=== PATIENT | female | born 1940 | race Caucasian/White ===

== ENCOUNTER → 2017-08-21 | Outpatient (CLI) | payer MEDICARE | LOC: BICRAD 10:53 → MERGE 10:53 | PROVIDERS: ATTEND Family Medicine | DX: M54.5 Low back pain (principal); M47.896 Other spondylosis, lumbar region | CPT/HCPCS: 72100 ==

== ENCOUNTER 2018-02-26 12:03 | Outpatient (CLI) | payer MEDICARE | END 2018-02-26 12:04 | disposition home or self-care (01) | LOC: BICMAMMO 12:03 → MERGE 12:30 | PROVIDERS: ATTEND Family Medicine | DX: Z12.31 Encounter for screening mammogram for malignant neoplasm of breast (principal); R92.1 Mammographic calcification found on diagnostic imaging of breast; Z85.3 Personal history of malignant neoplasm of breast | CPT/HCPCS: 77063; 77067 ==

== ENCOUNTER 2018-04-10 13:20 | Outpatient (CLI) | payer MEDICARE | END 2018-04-10 13:21 | disposition home or self-care (01) | LOC: BICMRI 13:20 | PROVIDERS: ATTEND Orthopaedic Surgery | DX: M25.552 Pain in left hip (principal); M16.12 Unilateral primary osteoarthritis, left hip; K57.30 Diverticulosis of large intestine without perforation or abscess without bleeding ==

== ENCOUNTER 2018-06-26 12:42 | Outpatient (CLI) | payer MEDICARE ==
--- NOTE | 2018-06-26 15:51 | RAD ---
LUMBAR SPINE FOUR VIEWS: 06/26/18 HISTORY: 77-year-old female with history of lumbar radiculopathy with left hip pain for one year. Exam includes standing flexion and extension lateral views. There is some moderate dextroscoliosis of the mid thoracic vertebral column with fairly extensive fac et arthrosis and disc osteophytosis. No significant abnormal andrade or retrolisthesis or abnormal tra nslation between flexion and extension. Heterogeneous bone demineralization. IMPRESSION: Dextroscoliosis. Fairly extensive spondylosis. No abnormal translation be between flexion and extensi on. POS: [facility]
== END 2018-06-26 12:43 | disposition home or self-care (01) ==
LOC: TBSIIMAG 12:42
PROVIDERS: ATTEND Neurological Surgery
DX: M47.26 Other spondylosis with radiculopathy, lumbar region (principal); M41.9 Scoliosis, unspecified
CPT/HCPCS: 72110

== ENCOUNTER 2018-07-17 12:14 | Outpatient (CLI) | payer MEDICARE ==
--- NOTE | 2018-07-17 14:54 | MRI ---
MRI LUMBAR SPINE WITHOUT CONTRAST: Multiplanar, multisequential imaging lumbar spine obtained. INDICATION: Lumbar stenosis. Lumbar pain. Neurogenic claudication. COMPARISON: Comparison is made to MRI lumbar spine 08/21/2017. FINDINGS: The lumbar vertebrae maintain height. Alignment is unchanged from prior study. Mild retrolisthesis at L1-2 is unchanged. Degenerative osteophytes from the lumbar vertebrae and degenerative disk aldana es at all levels again noted without significant interval change. At T12-L1, there is a broad-based focal protrusion paracentrally on the left indenting the anterior t hecal sac on the left. No cord impingement. At L1-2, broad-based disk protrusion with annular tear flattening the thecal sac. Facet and ligament ous hypertrophy. Moderate central canal stenosis. At L2-3, diffuse disk bulge flattens the thecal s ac. Facet and ligamentous hypertrophy. Posterior epidural fat. These changes result in moderate ce ntral canal stenosis. At L3-4, broad-based disk bulge. Facet and ligamentous hypertrophy with posterior epidural fat resul ts in moderate central canal stenosis. Foramina narrowing bilaterally, slightly more prominent on th e left. At L4-5, broad-based disk bulge. Prominent posterior hypertrophic change. Moderate to severe centra l canal stenosis. Left foraminal stenosis due to disk bulge and left facet hypertrophy. At L5-S1, annular fissure with central disk protrusion flattening the thecal sac and displacing both traversing S1 nerve roots, more prominent on the right. Facet hypertrophy. Moderate central canal s tenosis. Right foraminal stenosis secondary to asymmetric disk-osteophyte complex projecting into th e right foramina and probably displacing the exiting right L5 nerve root. IMP: Multilevel degenerative disk changes with central canal and foraminal encroachment as described above . Not significantly changed from 08/2017. POS: [facility]
== END 2018-07-17 12:15 | disposition home or self-care (01) ==
LOC: BICMRI 12:14
PROVIDERS: ATTEND Neurological Surgery
DX: M48.062 Spinal stenosis, lumbar region with neurogenic claudication (principal); M47.816 Spondylosis without myelopathy or radiculopathy, lumbar region; M51.36 Other intervertebral disc degeneration, lumbar region; M48.07 Spinal stenosis, lumbosacral region
CPT/HCPCS: 72148

== ENCOUNTER 2018-08-22 11:49 | Outpatient (CLI) | payer MEDICARE ==
--- NOTE | 2018-08-22 13:50 | RAD ---
TWO VIEWS CHEST: Date: 08-22-18 Provided Clinical History: Bronchitis. FINDINGS: Comparison is made with the study dated 10-24-16. Cardiac and mediastinal silhouette is unchanged in appearance. Calcified granuloma right lung base ag ain seen. No focal consolidation, pleural fluid, or pneumothorax apparent. Degenerative changes are s een involving the thoracic spine. IMPRESSION: Stable radiographic appearance of the chest. POS: [facility]
== END 2018-08-22 11:50 | disposition home or self-care (01) ==
LOC: BICRAD 11:49
PROVIDERS: ATTEND Family Medicine
DX: J45.901 Unspecified asthma with (acute) exacerbation (principal)
CPT/HCPCS: 71046

== ENCOUNTER 2019-03-02 14:47 | Outpatient (CLI) | payer MEDICARE ==
--- NOTE | 2019-03-02 17:36 | MMO ---
Bilateral MAMMO Bilat Screen [facility]. CLINICAL HISTORY: Patient is 78 years old and is seen for screening. The patient has no family history of breast cancer. The patient has a history of malignant (generic) 2011. The patient has a history of right Mastectomy in 2010 - malignant and right Implants - benign. VIEWS: The views performed were: left craniocaudal with tomosynthesis and left mediolateral oblique with tomosynthesis. FILMS COMPARED: The present examination has been compared to prior imaging studies performed at [facility] on 12/09/2014, 01/18/2016, 02/04/2017 and 02/26/2018. MAMMOGRAM FINDINGS: There are scattered fibroglandular densities. There are no suspicious masses, suspicious calcifications, or new areas of architectural distortion. IMPRESSION: THERE IS NO MAMMOGRAPHIC EVIDENCE OF MALIGNANCY. A ROUTINE FOLLOW-UP MAMMOGRAM IN 1 YEAR IS RECOMMENDED. THE RESULTS OF THIS EXAM WERE SENT TO THE PATIENT. ACR BI-RADS Category 1 - Negative MAMMOGRAPHY NOTE: 1. A negative mammogram report should not delay a biopsy if a dominant of clinically suspicious mass is present. 2. Approximately 10% to 15% of breast cancers are not detected by mammography. 3. Adenosis and dense breasts may obscure an underlying neoplasm.
== END 2019-03-02 14:48 | disposition home or self-care (01) ==
LOC: BICMAMMO 14:47
PROVIDERS: ATTEND Family Medicine
DX: Z12.31 Encounter for screening mammogram for malignant neoplasm of breast (principal); Z98.82 Breast implant status; Z85.3 Personal history of malignant neoplasm of breast; Z90.11 Acquired absence of right breast and nipple
CPT/HCPCS: 77063; 77067

== ENCOUNTER 2019-05-11 14:14 | Outpatient (CLI) | payer MEDICARE ==
[2019-05-11 15:19] LABS: Hemoglobin 13.6 g/dL (12.0-16.0); Mean Corpuscular HGB CONC 34.1 g/dL (32.0-36.0); Mean Corpuscular Hemoglobin 29.2 pg (27.0-31.0); Mean Corpuscular Volume 85.4 fL (78.0-98.0); Mean Platelet Volume 6.9 fL (7.4-10.4); Platelet Count 202 thou/uL (130-400); RBC Distribution Width 12.8 % (11.5-14.5); Red Blood Cell (RBC) Count 4.68 mill/uL (4.20-5.40)
[2019-05-11 15:26] LABS: PTT 27.9 SEC (22.9-36.1); Prothrombin Time 13.5 SEC (12.0-14.7)
[2019-05-11 15:40] LABS: Anion Gap 11 mmol/L (10-20); BUN (Urea Nitrogen) 16 mg/dL (9.8-20.1); Calc. Creatinine Clearance 0 mL/min (70-130); Calcium 9.1 mg/dL (7.8-10.44); Carbon Dioxide 27 mmol/L (23-31); Chloride 105 mmol/L (98-107); Estimated GFR-MDRD 66; Glucose 95 mg/dL (83-110); Potassium 3.8 mmol/L (3.5-5.1); Sodium 139 mmol/L (136-145)
--- NOTE | 2019-05-11 16:53 | EKG ---
Test Reason : Blood Pressure : / mmHG Vent. Rate : 060 BPM Atrial Rate : 060 BPM P-R Int : 182 ms QRS Dur : 108 ms QT Int : 476 ms P-R-T Axes : 083 -38 049 degrees QTc Int : 476 ms Normal sinus rhythm Non-specific intra-ventricular conduction delay Cannot exclude Anterior infarct , age undetermined Left axis deviation Abnormal ECG Confirmed by ADI PATIRCIO ([id number]) on 05/11/2019 4:53:26 PM Referred By: RJ Confirmed By:ADI PATRICIO
== END 2019-05-11 14:15 | disposition home or self-care (01) ==
LOC: LABBT 14:14
PROVIDERS: ATTEND Neurological Surgery
DX: Z01.818 Encounter for other preprocedural examination (principal); M48.062 Spinal stenosis, lumbar region with neurogenic claudication
CPT/HCPCS: 80048; 85027; 85610; 85730; 93005; 93010

== ENCOUNTER 2019-05-12 05:47 | Day surgery (SDC) | payer MEDICARE ==
--- NOTE | 2019-05-08 13:35 | HP ---
HISTORY OF PRESENT ILLNESS: Ms. Gandhi is back in our office. She has seen Dr. Madera, has had AYANNA with Dr. Almendarez and completed formal eight weeks of physical therapy. The back and posterior leg pain are terrible. When she stands, the pain starts and gets worse, sitting makes it better. There is some pain in the right, but most is radiating down the posterior left thigh into the lateral calf. There is no permanent numbness nor weakness. She has some long-standing incontinence. There are other areas of pain, though the left greater trochanteric bursa is tender and the iliotibial band is tight. There is left groin pain as well. States that she cannot walk very far nor get through washing the dishes without having to sit. Symptoms are due to weakness as well. REVIEW OF SYSTEMS: A 10-point review of systems has been completed and is negative other than stated in the above HPI. PAST MEDICAL HISTORY: Hypertension, atrial fibrillation, depression, anxiety, breast cancer, history of pulmonary embolus, obesity, IBS, GERD, arthritis, knee, low back pain, hearing loss, osteopenia, history of lung granulomas. ALLERGIES: SULFA, PENICILLIN, HYDROCODONE, ACETAMINOPHEN, NORVASC, CORTISONE INJECTIONS, LEVAQUIN. PAST SURGICAL HISTORY: Knee arthroscopy, laparoscopy, umbilical hernia repair, laminectomy, cervical hysterectomy, cholecystectomy, right knee replacement, colonoscopy, right mastectomy. FAMILY HISTORY: Father is . Mother is . Cardiovascular accident. SOCIAL HISTORY: The patient is a nonsmoker. Denies alcohol or drug use. Lives with her spouse. and has four children. MEDICATIONS: 1. Montelukast. 2. ProAir. 3. Protonix. 4. Symbicort. 5. Albuterol. 6. Eliquis. 7. . 8. Losartan. 9. Bupropion. 10. Bystolic. 11. Potassium chloride. 12. Vitamin D3. 13. Magnesium. 14. Lasix. PHYSICAL EXAMINATION: CONSTITUTION: The patient is alert and oriented. No visible distress. RESPIRATIONS: Normal work of breathing on room air. Symmetric chest rise. NEUROLOGIC: Gait and station; gait and station are normal. Motor exam, there is normal strength in iliopsoas, quadriceps, hamstrings, anterior tibialis, EHL, gastroc, and toe flexors. No sensory changes. IMAGING: MRI stenosis L2-L3, L3-L4, L4-L5, disk herniation L5-S1, small amount of motion at L4-L5 . ASSESSMENT AND PLAN: Lumbar stenosis with neurogenic claudication. Dr. Tan has discussed laminectomy and diskectomy and fusion, however, the patient has decided to forego fusion at this point. Laminectomy L2 through L5 with an L5-S1 diskectomy. The patient states that she understands the risks of surgery and is willing to proceed. Job ID: [id number]
[2019-05-11 14:21] VITALS: BMI 33.8
[2019-05-12] MEDS ORDERED: Thrombin 5000 UNITS/5 ML VIAL ONE (06:18)
[2019-05-12] MEDS ORDERED: Bupivacaine HCl 0.5%/Epinephrine 1:200,000/PF 30 ml Vial ONE (06:18)
[2019-05-12] MEDS ORDERED: Sodium Chloride 0.9% 20 ML ONE (06:18)
[2019-05-12] MEDS ORDERED: Fentanyl 100 MCG/2 ML VIAL ONE ×3 (06:24→11:20)
[2019-05-12] MEDS ORDERED: SUGAMMADEX SODIUM 200 MG/2 ML VIAL ONE (06:25)
[2019-05-12] MEDS ORDERED: Famotidine/PF 20 mg/2ml Vial ONE (06:25)
[2019-05-12] MEDS ORDERED: ePHEDrine/0.9% NaCl/PF SYRINGE 50 mg/10 ml ONE (09:34)
[2019-05-12] MEDS ORDERED: PHENYLEPHRINE-NS 100 MCG/ML 10 ML SYRINGE ONE ×2 (09:42→15:15)
[2019-05-12] MEDS ORDERED: Promethazine HCl 25 MG/ML VIAL SLOW IVP PRN (10:24)
[2019-05-12] MEDS ORDERED: Ondansetron HCl/PF 4 MG/2 ML Vial IVP PRN (10:24)
[2019-05-12] MEDS ORDERED: Meperidine HCl/PF 25 MG/ML VIAL SLOW IVP PRN (10:24)
--- NOTE | 2019-05-12 10:43 | OP ---
DATE OF PROCEDURE: 05/12/2019 RECREATION FACILITY ATTENDANT: Celena Arana PA-C. PREOPERATIVE INDICATION: Treat pain and prevent neurological deterioration. PREOPERATIVE DIAGNOSES: 1. Multilevel lumbar stenosis with neurogenic claudication. 2. Intervertebral disk protrusion, right L5-S1. POSTOPERATIVE DIAGNOSES: 1. Multilevel lumbar stenosis with neurogenic claudication. 2. Intervertebral disk protrusion, right L5-S1. PROCEDURES PERFORMED: 1. Decompressive laminectomy. 2. Medial facetectomy. 3. Foraminotomy, L2-L3, L3-L4, L4-L5, L5-S1. 4. Microdiskectomy, right L5-S1. PREOPERATIVE MEDICATION: Ancef 2 g IV. DRAIN NUMBER: Zero. DRAIN TYPE: None. DESCRIPTION OF PROCEDURE: The patient was brought to the operating room. General endotracheal anesthesia was induced. The patient was positioned prone on the operating table with her chest and hips supported by gel-filled chest rolls. A lateral fluoro-radiograph was used to plan our incision. The lumbar skin was sterilely prepped and draped and we opened with a 10 blade knife. We controlled bleeding with bipolar and monopolar cautery. We used monopolar cautery to dissect through subcutaneous tissues to the thoracodorsal fascia. We incised the fascia in the midline and reflected the paraspinal muscles off the spinous process and lamina of L2, L3, L4, L5, and S1. Self-retaining retractors were placed and a lateral fluoro-radiograph confirmed the levels, upon which we were operating. We then used an Adson rongeur to remove spinous processes from L2 to the top of the sacrum. Using a Kerrison rongeur, we fashioned a laminectomy down the midline. Starting on the right side and then on the left, we widened our laminectomy defect by performing medial facetectomies and foraminotomies. We ensured that a Scott ball probe could pass through each lateral recess and out the foramen with the L2, L3, L4, L5, and S1 nerve roots bilaterally. We then turned our attention to the disk at L5-S1 and to some extent of connective tissue stenosis of the left L3-L4 foramen. We brought the operating microscope into the field. Under microscopic magnification using microsurgical techniques, we carefully removed connective tissue from the left L3-L4 foramen until the L3 nerve root was widely decompressed on the left side. On the right at L5-S1, we gently retracted the thecal sac medially. We found a protruding disk in the ventral epidural space. However, the disk was densely calcified and same strength and consistency of bone. Because the S1 nerve root was well decompressed in the lateral recess and easily passed through the lateral recess and out the foramen without any stretch, we elected not to drill away the calcified disk protrusion. We irrigated copiously with bacitracin irrigation. We waxed the bone edges. We treated the wound with vancomycin powder and we closed in anatomical layers. This was a clean case, no contamination. Job ID: [id number]
[2019-05-12] MEDS ORDERED: Morphine 4 MG/ML VIAL ONE (11:34)
[2019-05-12] MEDS ORDERED: Acetaminophen/Codeine 30-300mg Tablet ONE (14:44)
[2019-05-12] MEDS ORDERED: diphenhydrAMINE 25 MG CAP ONE (14:44)
[2019-05-12] MEDS ORDERED: Rocuronium Bromide 10 MG/ML (10ML VIAL) ONE (15:15)
[2019-05-12] MEDS ORDERED: Dexamethasone 20 MG/5 ML VIAL ONE (15:15)
[2019-05-12] MEDS ORDERED: Ondansetron PF 4 MG/2 ML Vial ONE (15:15)
[2019-05-12] MEDS ORDERED: Ketorolac Tromethamine 30 MG/ML VIAL ONE (15:15)
[2019-05-12] MEDS ORDERED: ePHEDrine 50 MG/ML VIAL ONE (15:15)
[2019-05-12] MEDS ORDERED: Metoclopramide HCl 10 MG/2 ML VIAL ONE (15:15)
[2019-05-12] MEDS ORDERED: PROPOFOL 200 MG/20 ML VIAL ONE (15:15)
== END 2019-05-12 17:09 | disposition home or self-care (01) ==
LOC: SDC 05:47
PROVIDERS: ATTEND Neurological Surgery
PROC: 01NB0ZZ Release Lumbar Nerve, Open Approach (ICD-10-PCS; principal; 2019-05-12)
DX: M48.062 Spinal stenosis, lumbar region with neurogenic claudication (principal); M51.27 Other intervertebral disc displacement, lumbosacral region; I10 Essential (primary) hypertension; I48.91 Unspecified atrial fibrillation; F41.9 Anxiety disorder, unspecified; F32.9 Major depressive disorder, single episode, unspecified; K58.9 Irritable bowel syndrome, unspecified; E66.9 Obesity, unspecified; K21.9 Gastro-esophageal reflux disease without esophagitis; M19.90 Unspecified osteoarthritis, unspecified site; Z68.33 Body mass index [BMI] 33.0-33.9, adult; Z88.0 Allergy status to penicillin; Z88.2 Allergy status to sulfonamides; Z88.5 Allergy status to narcotic agent; Z88.8 Allergy status to other drugs, medicaments and biological substances; Z79.01 Long term (current) use of anticoagulants; Z79.899 Other long term (current) drug therapy
CPT/HCPCS: 76000; J0131; J0670; J1100; J1885; J2270; J2405; J2704; J2765; J3010; J3370; J3490; Q0163; S0028

== ENCOUNTER 2019-11-10 21:02 | Emergency (ER) | payer MEDICARE ==
--- NOTE | 2019-11-10 21:35 | RAD ---
XR Chest 1 View Portable HISTORY: Dyspnea COMPARISON: 04/07/2017 study FINDINGS: Heart size is within normal limits there are atherosclerotic changes of aorta. Chronic lung changes are seen. IMPRESSION: Chronic lung change. No acute process.
[2019-11-10 21:41] LABS: #Eosinphils 0.4 thou/uL (0.0-0.7); #Lymphocytes 1.7 thou/uL (1.20-3.40); #Monocytes 0.4 thou/uL (0.11-0.59); #Neutrophils 4.6 thou/uL (1.40-6.50); %Basophils 0.5 % (0.0-1.0); %Eosinophils 6.1 % (0.0-10.0); %Lymphocytes 23.5 % (21.0-51.0); %Monocytes 6.1 % (0.0-10.0); %Neutrophils 63.9 % (42.0-75.0); Mean Corpuscular HGB CONC 32.7 g/dL (32.0-36.0); Mean Corpuscular Hemoglobin 26.9 pg (27.0-31.0); Mean Corpuscular Volume 82.3 fL (78.0-98.0); Mean Platelet Volume 7.7 fL (7.4-10.4); Platelet Count 220 thou/uL (130-400); RBC Distribution Width 14.5 % (11.5-14.5); Red Blood Cell (RBC) Count 5.21 mill/uL (4.20-5.40); White Blood Cell (WBC) Count 7.2 thou/uL (4.8-10.8)
[2019-11-10 22:00] LABS: ALT (SGPT) 21 U/L (8-55); AST (SGOT) 16 U/L (5-34); Albumin 4.1 g/dL (3.4-4.8); Alkaline Phosphatase 82 U/L (40-110); Anion Gap 17 mmol/L (10-20); BUN (Urea Nitrogen) 18 mg/dL (9.8-20.1); Bilirubin, Total 0.5 mg/dL (0.2-1.2); Calc. Creatinine Clearance 0 mL/min (70-130); Calcium 9.5 mg/dL (7.8-10.44); Carbon Dioxide 23 mmol/L (23-31); Chloride 104 mmol/L (98-107); Estimated GFR-MDRD 41; Globulin 2.7 g/dL (2.4-3.5); Glucose 197 mg/dL (83-110); Potassium 4.5 mmol/L (3.5-5.1); Protein, Total 6.8 g/dL (6.0-8.3); Sodium 139 mmol/L (136-145)
[2019-11-10] MEDS ORDERED: Ipratropium Bromide 2.5 ml Neb ONE ×2 (22:02→23:20)
[2019-11-10] MEDS ORDERED: Albuterol Sulfate 2.5 mg/0.5 ml Neb ONE ×2 (22:12→23:20)
[2019-11-10] MEDS ORDERED: predniSONE 20 MG TAB ONE (22:12)
== END 2019-11-10 23:34 | disposition home or self-care (01) ==
LOC: ERS 21:02
DX: J44.1 Chronic obstructive pulmonary disease with (acute) exacerbation (principal); K21.9 Gastro-esophageal reflux disease without esophagitis; I48.91 Unspecified atrial fibrillation; I10 Essential (primary) hypertension; F32.9 Major depressive disorder, single episode, unspecified; Z86.711 Personal history of pulmonary embolism; Z87.891 Personal history of nicotine dependence; Z79.899 Other long term (current) drug therapy
CPT/HCPCS: 71045; 80053; 83880; 84484; 85025; 87804; 93005; J7512; J7611

== ENCOUNTER 2020-06-24 18:07 | Inpatient (IN) | payer MEDICARE, OTHER ==
[~2020-06-24 18:07] MED LIST: Iopamidol-370 76% 500 ML 1 ML ONE; Succinylcholine 200 MG/10 ml SYRINGE FS ONE
[2020-06-24 18:48] LABS: #Monocytes 0.4 thou/uL (0.11-0.59); #Neutrophils 10.6 thou/uL (1.40-6.50); %Basophils 0.2 % (0.0-1.0); %Eosinophils 0.3 % (0.0-10.0); %Lymphocytes 8.5 % (21.0-51.0); %Monocytes 2.9 % (0.0-10.0); Hemoglobin 15.2 g/dL (12.0-16.0); Mean Corpuscular HGB CONC 34.8 g/dL (32.0-36.0); Mean Corpuscular Hemoglobin 30.2 pg (27.0-31.0); Mean Corpuscular Volume 86.8 fL (78.0-98.0); Mean Platelet Volume 7.1 fL (7.4-10.4); Platelet Count 207 thou/uL (130-400); RBC Distribution Width 12.8 % (11.5-14.5); Red Blood Cell (RBC) Count 5.03 mill/uL (4.20-5.40)
[2020-06-24 19:08] LABS: ALT (SGPT) 16 U/L (8-55); AST (SGOT) 14 U/L (5-34); Albumin 4.1 g/dL (3.4-4.8); Alkaline Phosphatase 89 U/L (40-110); Anion Gap 12 mmol/L (10-20); BUN (Urea Nitrogen) 24 mg/dL (9.8-20.1); Bilirubin, Total 0.7 mg/dL (0.2-1.2); Calc. Creatinine Clearance 0 mL/min (70-130); Calcium 9.5 mg/dL (7.8-10.44); Carbon Dioxide 28 mmol/L (23-31); Chloride 105 mmol/L (98-107); Estimated GFR-MDRD 43; Globulin 3.1 g/dL (2.4-3.5); Glucose 173 mg/dL (83-110); Potassium 4.5 mmol/L (3.5-5.1); Protein, Total 7.2 g/dL (6.0-8.3); Sodium 140 mmol/L (136-145)
[2020-06-24] MEDS ORDERED: Ondansetron PF 4 MG/2 ML Vial ONE (19:09)
[2020-06-24] MEDS ORDERED: Morphine 4 MG/ML VIAL ONE ×2 (19:09→19:50)
--- NOTE | 2020-06-24 19:51 | CT ---
CT ABDOMEN AND PELVIS PERFORMED WITH INTRAVENOUS CONTRAST ENHANCEMENT: 06/24/20 HISTORY: Left lower quadrant pain. A right breast prosthesis is partially visualized. Calcified granuloma is seen in the right middle lo be. There are diffuse fatty changes of the liver which is within normal limits of size. Small hypodensity within the right lobe is difficult to characterize. Could be part of the biliary ductal system which is slightly prominent related to cholecystectomy or tiny cysts. The spleen shows calcified granuloma s. The pancreas region shows some mild fatty atrophy. Right and left adrenal glands are normal. Right and left kidneys show lobulated contour. Small hypode nsities compatible with cysts. There are two lower pole left renal calculi noted. There is also mild left sided hydronephrosis and hydroureter related to a 5 to 6 mm left ureteropelvic junction calculu s. The right kidney is slightly malrotated and appears somewhat small. There is no significant periao rtic or mesenteric adenopathy. There is evidence of a previous hernia repair. CT OF PELVIS PERFORMED WITH CONTRAST ENHHANCEMENT: Diverticulosis of the descending and more severe changes of the sigmoid colon are noted. The appendix region shows no evidence of any inflammatory change. The appendix itself is difficult to definitely visualize. IMPRESSION: 1. Mild left sided hydronephrosis related to an approximately 5 mm left ureteropelvic junction c alculus. Lower pole left renal calculi are also demonstrated. 2. Scarring of the right kidney. 3. Fatty change of the liver. 4. Diverticulosis. POS: OFF
[2020-06-24 20:25] LABS: Bacteria/HPF None Seen HPF (None Seen); Bilirubin Negative (Negative); Blood, Urine 2+ (Negative); Clarity Clear (Clear); Glucose, Urine (Dipstick) Normal (Negative); Ketone, Urine Negative (Negative); Leukocyte 500 Leu/uL (Negative); Nitrite Negative (Negative); Protein, Urine (Dipstick) 20 mg/dL (Neg-Trace); RBC/HPF 21-50 HPF (0-3); Squamous Epithelial 0-3 HPF (0-3); Urobilinogen Normal mg/dL (Less than 2); WBC/HPF Greater than 50 HPF (0-3); pH, Urine 5.5 (5.0-9.0)
[2020-06-24 20:26] LABS: Specific Gravity, Urine 1.052 (1.002-1.036)
[2020-06-24] MEDS ORDERED: Promethazine HCl 25 MG/ML VIAL ONE (20:45)
[2020-06-24 22:46] LABS: INR-International Normal Ratio 1.3; PTT 23.2 sec (22.9-36.1); Prothrombin Time 16.5 sec (12.0-14.7)
[2020-06-24 23:06] LABS: Hemoglobin 15.2 g/dL (12.0-16.0); Mean Corpuscular HGB CONC 34.9 g/dL (32.0-36.0); Mean Corpuscular Hemoglobin 30.5 pg (27.0-31.0); Mean Corpuscular Volume 87.5 fL (78.0-98.0); Red Blood Cell (RBC) Count 4.98 mill/uL (4.20-5.40); White Blood Cell (WBC) Count 5.5 thou/uL (4.8-10.8)
[2020-06-24] MEDS ORDERED: Fentanyl 100 MCG/2 ML VIAL ONE (23:26)
[2020-06-24] MEDS ORDERED: fentaNYL Citrate/PF 2,000 MCG in Sodium Chloride 0.9% 60 ML IV SCH (23:30)
[2020-06-24 23:33] LABS: Band 43 % (5-11); Lymphocytes 8 % (21-51); MDiff Complete? YES; Mean Platelet Volume 6.7 fL (7.4-10.4); Neutrophil 48 % (42-75); Platelet Count 102 thou/uL (130-400); Platelet Morphology Comment Appears Decreased; Reactive Lymphocytes 1 % (0-10)
[2020-06-24] MEDS ORDERED: Lorazepam 2 MG/ML VIAL SLOW IVP PRN (23:45)
[2020-06-24] MEDS ORDERED: Propofol BOLUS 1,000 MG/100 ML VIAL IV PRN (23:45)
[2020-06-24] MEDS ORDERED: Ventilator Sedation Protocol 1 EACH FS SCH (23:45)
[2020-06-24] MEDS ORDERED: Propofol 1,000 MG/100 ML VIAL IV PRN (23:45)
[2020-06-24] MEDS ORDERED: DISCONTINUE PREVIOUS NARCOTIC PAIN MEDICATIONS AND BENZODIAZEPINES FS SCH (23:45)
[2020-06-24] MEDS ORDERED: Fentanyl BOLUS 250 ML IVPB PRN (23:45)
[2020-06-24 23:46] LABS: Actual Bicarbonate (HCO3a) 17.7 mEq/L (22-28); Analyzer IN Cardio ER; Base Excess (BEa) -6.7 mEq/L (-2.0 to +3.0); CO2 Tension 32.4 mmHg (35.0-45.0); Calcium, Ionized (arterial) 1.14 mmol/L (1.12-1.30); Carboxyhemoglobin (COHb) 0.3 gm% (0.0-3.0); O2 Tension (PaO2), arterial 65.5 mmHg (> 70.0); Potassium - ABG Lab 4.82 mmol/L (3.70-5.30); pH, Arterial 7.36 (7.35-7.45)
[2020-06-24] MEDS ORDERED: Aspirin 300 MG Suppository ONE (23:48)
[2020-06-24] MEDS ORDERED: Acetaminophen 325 MG Suppository PR PRN (23:50)
[2020-06-24 23:52] LABS: Puncture Site LRA
--- NOTE | 2020-06-25 00:21 | PDOC.EVN ---
Event Note - Event Note Event Note: [id number] HP dicated
[2020-06-25] MEDS ORDERED: Propofol 1,000 MG/100 ML VIAL IV ONE (00:56)
[2020-06-25] MEDS ORDERED: Piperacillin/Tazobactam 3.375 GM VIAL ONE ×2 (00:56→01:00)
[2020-06-25] MEDS ORDERED: Naloxone HCl 2 mg/2 ml Syringe ONE (00:56)
[2020-06-25 00:58] LABS: ALT (SGPT) 23 U/L (8-55); AST (SGOT) 32 U/L (5-34); Albumin 3.3 g/dL (3.4-4.8); Alkaline Phosphatase 114 U/L (40-110); Anion Gap 17 mmol/L (10-20); BUN (Urea Nitrogen) 27 mg/dL (9.8-20.1); Bilirubin, Total 2.1 mg/dL (0.2-1.2); Calc. Creatinine Clearance 0 mL/min (70-130); Calcium 8.8 mg/dL (7.8-10.44); Carbon Dioxide 18 mmol/L (23-31); Chloride 108 mmol/L (98-107); Estimated GFR-MDRD 37; Globulin 2.8 g/dL (2.4-3.5); Glucose 156 mg/dL (83-110); Potassium 5.3 mmol/L (3.5-5.1); Protein, Total 6.1 g/dL (6.0-8.3); Sodium 138 mmol/L (136-145)
[2020-06-25] MEDS ORDERED: cefTRIAXone\\ROCEPHIN 1 GM in Sodium Chloride 0.9% 100 ML IVPB SCH (01:00)
[2020-06-25] MEDS ORDERED: Piperacillin/Tazobactam 4.5 GM VIAL ONE (01:13)
[2020-06-25] MEDS ORDERED: Vancomycin 1 GM/200 ML BAG ONE (01:13)
[2020-06-25 01:18] LABS: Lactic Acid 2.8 mmol/L (0.5-2.2)
[2020-06-25 01:34] LABS: SARS-CoV-2 NAA Rapid Test Not Detected (NotDetected)
--- NOTE | 2020-06-25 01:47 | HP ---
CHIEF COMPLAINT: Left flank pain. HISTORY OF PRESENT ILLNESS: Ms. Gandhi is a 79-year-old female with multiple medical problems including atrial fibrillation, on Eliquis; diabetes; hypertension; GERD; multiple neck surgeries; breast cancer, among others, who presents to the emergency room with left flank and left lower quadrant pain that started around 9:00 a.m. Workup in the emergency room including imaging studies, the patient was found to have mild left hydronephrosis related to approximately 5 mm left ureteropelvic junction stone. In the emergency room, the patient received a total of 8 mg of IV morphine with relief of the pain. As per ER physician, patient ambulated and went to the bathroom, came back and was found to have altered mental status with left-sided weakness and complete neglect of the left side. The patient was not able to protect her airway. The ED physician intubated and placed the patient on mechanical ventilator. CTA of brain and neck, no acute finding. The patient is not a tPA candidate since she is on oral anticoagulation, Eliquis at home. The patient is going to be admitted to the intensive care unit for further management. PAST MEDICAL HISTORY: 1. Atrial fibrillation. 2. GERD. 3. Hypertension. 4. Breast cancer. 5. Pulmonary embolism. PAST SURGICAL HISTORY: 1. Lumbar spinal surgery. 2. Abdominoplasty. 3. Cholecystectomy. 4. Hernia repair. 5. Hysterectomy. 6. Mastectomy. 7. Orthopedic surgery. 8. Bilateral knee replacement. 9. Spinal surgery, cervical. PAST PSYCHIATRIC HISTORY: Depression. SOCIAL HISTORY: Former tobacco user. Smokes cigarettes, quit more than 30 years ago. Drinks alcohol socially. No history of drug abuse. FAMILY HISTORY: Reviewed and noncontributory. HOME MEDICATIONS: See home medication reconciliation form for updated medications. The patient is on Eliquis. ALLERGIES: THE PATIENT IS ALLERGIC TO MULTIPLE MEDICATIONS INCLUDING CEPHALOSPORINS, CODEINE, CORTISONE, HYDROCODONE, PENICILLIN, SULFA, TAPE. REVIEW OF SYSTEMS: Unable to obtain. Currently, the patient is intubated and sedated. PHYSICAL EXAMINATION: GENERAL: The patient is intubated and sedated. VITAL SIGNS: Blood pressure 105/60, pulse is 80, respiratory rate is 18, temperature 98.1, oxygen saturation on mechanical ventilator. HEAD AND NECK: Normocephalic, atraumatic. CHEST: Decreased air entry bilaterally. HEART: S1, S2. Regular. ABDOMEN: Soft. Bowel sounds present. EXTREMITIES: No clubbing or cyanosis. NEUROLOGIC: The patient is intubated and sedated, unable to assess. LABORATORY DATA: WBC is 5.5, hemoglobin 15.2, platelets 102. Sodium 140, potassium 4.5, glucose 173, BUN is 24, creatinine 1.2. Lactic acid 3.2. IMAGING STUDIES: As mentioned above in history of present illness. ASSESSMENT: 1. Acute cerebrovascular accident, the patient is not a tPA candidate, she is on Eliquis. 2. History of atrial fibrillation. 3. Left ureterovesical junction stone with hydronephrosis. 4. Urinary tract infection ? 5. Diabetes mellitus type 2 with hyperglycemia. 6. History of hypertension. 7. History of multiple neck surgeries. 8. History of breast cancer. PLAN: 1. Admit to CCU. 2. Continue full ventilator support. 3. Keep n.p.o. now. 4. IV fluids. 5. Consult Neurology for evaluation and further management. 6. Patient had multiple neck surgeries, she has metal/hardware? Unable to do MRI, reassess in a.m. 7. Consult Pulmonary for critical care management and ventilator management. 8. Consult Urology. The patient initially presented with abdominal pain, was found to have left hydronephrosis and left UVJ stone. 9. Reconcile home medications. 10. DVT prophylaxis as appropriate. 11. GI prophylaxis. 12. Expected length of stay, 2 midnights or more. Job ID: [id number]
[2020-06-25] MEDS: Sodium Chloride 0.9% 1,000 ML IV SCH ×2 (02:12→10:59)
[2020-06-25 04:13] LABS: Band 40 % (5-11); Lymphocytes 6 % (21-51); MDiff Complete? YES; Mean Corpuscular HGB CONC 33.3 g/dL (32.0-36.0); Mean Corpuscular Hemoglobin 29.9 pg (27.0-31.0); Mean Corpuscular Volume 89.9 fL (78.0-98.0); Mean Platelet Volume 7.9 fL (7.4-10.4); Metamyelocyte 5 % (0-0); Monocytes 2 % (0-10); Neutrophil 47 % (42-75); Platelet Count 131 thou/uL (130-400); RBC Distribution Width 13.2 % (11.5-14.5); Red Blood Cell (RBC) Count 4.36 mill/uL (4.20-5.40); White Blood Cell (WBC) Count 21.3 thou/uL (4.8-10.8)
[2020-06-25 04:17] LABS: ALT (SGPT) 23 U/L (8-55); AST (SGOT) 27 U/L (5-34); Albumin 2.7 g/dL (3.4-4.8); Alkaline Phosphatase 87 U/L (40-110); Anion Gap 15 mmol/L (10-20); BUN (Urea Nitrogen) 27 mg/dL (9.8-20.1); Bilirubin, Total 2.3 mg/dL (0.2-1.2); Calc. Creatinine Clearance 45 mL/min (70-130); Calcium 7.5 mg/dL (7.8-10.44); Carbon Dioxide 17 mmol/L (23-31); Cardiac Risk 3.4 (Less than 4.5); Chloride 112 mmol/L (98-107); Cholesterol 102 mg/dl (< 200 Desired); Estimated GFR-MDRD 30; Globulin 2.1 g/dL (2.4-3.5); Glucose 155 mg/dL (83-110); HDL Cholesterol 30 mg/dL (>60 Neg Risk); LDL Cholesterol, Calculated 53 mg/dL; Potassium 4.6 mmol/L (3.5-5.1); Protein, Total 4.8 g/dL (6.0-8.3); Sodium 139 mmol/L (136-145); Triglycerides 97 mg/dL (Less than 150)
[2020-06-25 04:35] LABS: Troponin I 0.162 ng/mL (< 0.028)
[2020-06-25] MEDS: MEROPENEM 1 GM/50 ML 1 GM in Premix Bag 1 BAG IVPB SCH ×2 (05:57→18:09)
[2020-06-25] MEDS ORDERED: Meropenem 1 GM in Sodium Chloride 0.9% 100 ML IVPB SCH (06:00)
--- NOTE | 2020-06-25 07:15 | CT ---
CT OF BRAIN PERFORMED WITHOUT CONTRAST ENHANCEMENT: Date: 06/24/2020 HISTORY: Sudden onset of altered mental status. Left-sided weakness. COMPARISON: 08/08/2011 exam. FINDINGS: There is generalized ventricular and sulcal prominence with chronic-appearing white matter change. No signs of intracerebral hemorrhage or extra-axial fluid collections. Contrast is seen from a recent C T examination done earlier this evening. The mastoid air cells and visualized sinuses are clear. IMPRESSION: No acute intracranial abnormality. POS: OFF
[2020-06-25 07:19] LABS: Base Excess (BEa) -8.8 mEq/L (-2.0 to +3.0); CO2 Tension 27.3 mmHg (35.0-45.0); Calcium, Ionized (arterial) 1.09 mmol/L (1.12-1.30); Carboxyhemoglobin (COHb) 0.3 gm% (0.0-3.0); Hemoglobin (Hb) 13.3 g/dL (12.0-16.0); O2 Tension (PaO2), arterial 69.3 mmHg (> 70.0); Potassium - ABG Lab 4.51 mmol/L (3.70-5.30); pH, Arterial 7.36 (7.35-7.45)
--- NOTE | 2020-06-25 07:21 | CT ---
CT ANGIO OF HEAD AND NECK PERFORMED WITH IV CONTRAST ENHANCEMENT WITH 3D RECONSTRUCTIONS: Date: 06/24/2020 HISTORY: Sudden onset of left-sided weakness. FINDINGS: CTA NECK: Lung apices are clear. Parotid gland regions appear unremarkable. No significant jugular chain adenop athy. Parapharyngeal spaces are clear. There is a bovine-type origin of the left common carotid artery from the right innominate. Vertebral arteries are essentially codominant with equal contribution to the basilar artery. On the right side, right common, internal, and external carotid arteries are tortuous. No significant stenosis demonstrated of the internal carotid artery. Similar findings are seen on the left. Again, no significant stenosis of the internal carotid. Some a therosclerotic plaque at the origin of the left external carotid artery. CTA HEAD: Anterior and middle cerebral arteries and their branches appear unremarkable. The vertebrobasilar system and posterior cerebral arteries are unremarkable. Small air-fluid level in cidentally seen in the left sphenoid sinus. IMPRESSION: No evidence of significant stenosis by NASCET criteria of either internal carotid artery. No intracra nial findings. POS: OFF
[2020-06-25 07:25] LABS: ALV-art Gradient 253.075 mmHg (0-20); Puncture Site RB
--- NOTE | 2020-06-25 07:32 | RAD ---
PORTABLE CHEST: Date: 06/24/2020 HISTORY: Shortness of breath. COMPARISON: 11/10/2019 exam. FINDINGS: Heart size appears enlarged. There are atherosclerotic changes of the aorta. Lungs show some chronic appearing change. No focal infiltrates. IMPRESSION: Cardiomegaly with chronic appear lung change. Interstitial markings are slightly accentuated as sandro red to the prior study. I think this is largely technique-related, but could indicate some mild eleme nt of edema. POS: OFF
--- NOTE | 2020-06-25 07:35 | RAD ---
PORTABLE CHEST: Date: 06/24/2020 HISTORY: Intubation. COMPARISON: Earlier exam from same date. FINDINGS: Heart size appears slightly enlarged. Endotracheal and NG tubes are in satisfactory position. Chronic appearing lung changes are noted. IMPRESSION: Endotracheal and NG tubes in satisfactory position. POS: OFF
--- NOTE | 2020-06-25 08:13 | RAD ---
EXAM: CHEST ONE VIEW HISTORY: Central line placement. Left lower quadrant abdominal pain. COMPARISON: 06/24/2020 FINDINGS: Endotracheal tube is again noted in place and stable in position. Nasogastric tube has been withdrawn with tip overlying the mid esophagus and should be advanced. There has been interval placement of a right internal jugular vein central venous catheter with tip overlying the expected location of cav oatrial junction. The cardiac silhouette is enlarged. There is prominence of the upper mediastinal structures, but this is a stable finding and likely related to ectasia of the thoracic aorta and prom inence of the mediastinal fat. There are increased left perihilar interstitial densities which could be related to infectious process. Patchy parenchymal densities are also seen in the right infra hilar region. No pneumothorax or pleural effusion is seen. Large calcified granuloma at the right lower lobe is again seen. Degenerative changes are present in the spine. IMPRESSION: 1. Patchy parenchymal densities right lung base and interstitial densities left perihilar location wh ich could be related to infectious process. Follow-up to resolution is recommended. 2. Cardiomegaly. 3. Nasogastric tube has been withdrawn with tip now overlying the expected location of the mid thorac ic esophagus. The nasogastric tube should be advanced. 4. Endotracheal tube stable in position. 5. Right internal jugular vein central venous catheter has been placed in the interim without pneumot horax or pleural effusion.
[2020-06-25] MEDS: Norepinephrine 8 MG/0.9% NS 250 ML IVPB PRN ×3 (08:30→18:52)
[2020-06-25] MEDS ORDERED: FLU VACC QS2020-21(65YR UP)/PF 240 MCG/0.7 ML SYRINGE IM ONE (09:00)
[2020-06-25] MEDS ORDERED: EPHEDRINE 25 MG/5 ML SYRINGE ONE (09:28)
--- NOTE | 2020-06-25 10:13 | CON ---
DATE OF CONSULTATION: 06/25/2020 TIME SPENT: 35 minutes of critical care time. REASON FOR CONSULTATION: The patient is intubated. HISTORY OF PRESENT ILLNESS: The patient is a 79-year-old female, who was brought to the emergency room last night with a complaint of left flank pain. She was given 2 mg of morphine IV, subsequently got up to the bathroom, developed altered mental status and left-sided neglect. She was intubated. She had a head CT, which showed no evidence of stroke. She was not given tPA because she was on oral anticoagulant at home. She has since recovered all neurologic function. She is awake and alert. Her sedation is off and she wants to be extubated. PAST MEDICAL HISTORY: 1. Pulmonary embolism. 2. Breast cancer. 3. Atrial fibrillation. 4. Gastroesophageal reflux. 5. Hypertension. PAST SURGICAL HISTORY: 1. Lumbar spinal surgery. 2. Abdominoplasty. 3. Cholecystectomy. 4. Hernia repair. 5. Hysterectomy. 6. Mastectomy for the breast cancer. 7. Orthopedic surgery. 8. Bilateral knee replacements. 9. Spinal surgery. SOCIAL HISTORY: Quit smoking more than 30 years ago. Drinks alcohol socially. FAMILY MEDICAL HISTORY: Unremarkable. ALLERGIES: CEPHALOSPORINS, CODEINE, CORTISONE, HYDROCODONE, PENICILLIN, AND SULFA. REVIEW OF SYSTEMS: Twelve-point review of systems is otherwise negative. OUTPATIENT MEDICATIONS: 1. Flecainide. 2. Cholecalciferol. 3. Bystolic. 4. Tambocor. 5. Eliquis. 6. Bupropion. 7. Symbicort. 8. Omeprazole. 9. Ventolin HFA metered dose inhaler. PHYSICAL EXAMINATION: VITAL SIGNS: Pulse 85, blood pressure generally in the systolic 80s to 90s, and O2 saturation 96%. She is currently on Levophed drip at 20 mcg/minute. HEENT: Unremarkable. NECK: No adenopathy or JVD. LUNGS: Clear bilaterally. CARDIOVASCULAR: S1, S2. Regular. ABDOMEN: Soft, mildly tender on deep palpation. EXTREMITIES: No clubbing, cyanosis, or edema. LABORATORY DATA: White blood cell count 21.3, hematocrit 39.2, and platelet count 131 with 47% neutrophils bands. INR is 1.3. PH of 7.36, pCO2 of 27, PO2 of 69 on SIMV rate 20, tidal volume 450, PEEP 5, pressure support 10, and FiO2 of 50%. Sodium 139, potassium 4.6, chloride 112, CO2 of 17, BUN 27, creatinine 1.6, and glucose 155. Neurologically, the patient can move all extremities. Has 5/5 muscle strength throughout. Her urinalysis shows greater than 50 white blood cells. IMAGING DATA: CT of the abdomen and pelvis showed mild left-sided hydronephrosis with a 5 mm ureteropelvic junction calculus. Chest x-ray shows some changes on the left side consistent with possible aspiration. ASSESSMENT: 1. Acute respiratory failure requiring mechanical ventilation-the patient actually oxygenating well and passed spontaneous breathing trial. 2. Urosepsis secondary to possibly due to a stone. 3. Mild metabolic acidosis. 4. Hypotension-I am not sure if this is secondary to infection or secondary to all the sedation she was on. RECOMMENDATIONS: 1. I went ahead and extubated the patient so that we could get a better feel of how she is doing. 2. We would avoid all narcotic medications in this patient if at all possible. 3. Urology consultation has already been obtained and is pending. 4. Continue meropenem. 5. Continue to monitor hemodynamics and wean Levophed as tolerated. 6. Add anticoagulation if felt appropriate by other consultants. Job ID: [id number]
[2020-06-25] MEDS: Aspirin 325 mg Enteric Coated Tablet PO SCH (10:52)
[2020-06-25] MEDS: Famotidine/PF 20 mg/2ml Vial SLOW IVP SCH (10:58)
[2020-06-25] MEDS ORDERED: Lidocaine 2% PF 5 ML VIAL ONE (12:32)
[2020-06-25] MEDS ORDERED: Ketamine 50 MG/ML (10ML VIAL) ONE (12:32)
[2020-06-25] MEDS ORDERED: Midazolam HCl 2 mg/2 ml Vial ONE (12:44)
[2020-06-25] MEDS ORDERED: Ondansetron ODT 8 MG TAB ONE (12:44)
[2020-06-25] MEDS ORDERED: Iothalamate Meglumine 60% 50 ML VIAL FS ONE (12:56)
--- NOTE | 2020-06-25 13:09 | PDOC.HOSPP ---
- Subjective Encounter Date: 06/25/20 Encounter Time: 09:00 Subjective: got extubated this am, is oriented and moves all extremities - Objective Vital Signs & Weight: Vital Signs (12 hours) Temp Pulse Pulse Resp BP Pulse Ox Pulse Ox 06/25/20 09:03 85 111/75 95 06/25/20 08:00 97.7 F 20 06/25/20 06:00 20 06/25/20 04:00 100.0 F H 20 06/25/20 02:00 100.3 F H 20 06/25/20 01:43 96 94 L Pulse Ox 06/25/20 09:03 96 06/25/20 08:00 06/25/20 06:00 06/25/20 04:00 06/25/20 02:00 06/25/20 01:43 Weight Admit Weight 227 lb 8.272 oz Weight 227 lb 15.3 oz Most Recent Monitor Data Heart Rate from ECG 82 NIBP 81/58 NIBP BP-Mean 65 Respiration from ECG 26 SpO2 97 I&O: 06/24/20 06/25/20 06/26/20 06:59 06:59 06:59 Intake Total 579.2 Output Total 395 40 Balance 184.2 -40 Result Diagrams: 06/25/20 03:18 06/25/20 03:18 Hospitalist ROS - Medication Medications: Active Medications Generic Name Dose Route Start Last Admin Trade Name Freq PRN Reason Stop Dose Admin Aspirin 325 mg 06/25/20 09:00 06/25/20 10:52 Aspirin 325 Mg Enteric Coated Tablet PO Not Given DAILY LAZARUS Famotidine 20 mg 06/25/20 09:00 06/25/20 10:58 Famotidine/Pf 20 Mg/2ml Vial SLOW IVP 20 mg DAILY LAZARUS Administration Sodium Chloride 1,000 mls @ 100 mls/hr 06/25/20 00:30 06/25/20 10:59 Normal Saline 0.9% IV 1,000 mls .Q10H LAZARUS Administration Meropenem 1 gm/ Device 50 mls @ 50 mls/hr 06/25/20 06:00 06/25/20 05:57 IVPB 50 mls 0600,1800 LAZARUS Administration Norepinephrine Bitartrate 250 mls @ 0 mls/hr 06/25/20 03:32 06/25/20 08:30 Levophed IVPB 250 mls INF PRN Administration TO KEEP MAP > 65 Protocol Titrate - Exam General Appearance: awake alert Eye: PERRL, anicteric sclera ENT: no oropharyngeal lesions, dry oral mucosa Neck: supple, no JVD Heart: RRR, no murmur Respiratory: no wheezes, no rales Gastrointestinal: soft, non-distended, normal bowel sounds Gastrointestinal - other findings: mild tenderness right quadrants Extremities: no cyanosis, 1+ LE edema Neurological: cranial nerve grossly intact, no focal deficits Psychiatric: A&O x 3 Hosp A/P (1) Acute respiratory failure with hypoxia Code(s): J96.01 - ACUTE RESPIRATORY FAILURE WITH HYPOXIA Status: Acute (2) TIA (transient ischemic attack) Code(s): G45.9 - TRANSIENT CEREBRAL ISCHEMIC ATTACK, UNSPECIFIED Status: Resolved (3) Obstruction of left ureteropelvic junction due to stone Code(s): N20.1 - CALCULUS OF URETER Status: Acute (4) UTI (urinary tract infection) Status: Acute Qualifiers: Urinary tract infection type: acute cystitis Hematuria presence: without hematuria Qualified Code(s): N30.00 - Acute cystitis without hematuria (5) Sepsis Code(s): A41.9 - SEPSIS, UNSPECIFIED ORGANISM Status: Acute Qualifiers: Sepsis type: sepsis due to unspecified organism Sepsis acute organ dysfunction status: with acute organ dysfunction Severe sepsis acute organ dysfunction type: acute renal failure Severe sepsis shock status: with septic shock (6) EDMAR (acute kidney injury) Code(s): N17.9 - ACUTE KIDNEY FAILURE, UNSPECIFIED Status: Acute (7) Obesity (BMI 30-39.9) Code(s): E66.9 - OBESITY, UNSPECIFIED Status: Chronic (8) Asthma Code(s): J45.909 - UNSPECIFIED ASTHMA, UNCOMPLICATED Status: Chronic Qualifiers: Asthma severity: mild Asthma persistence: intermittent Asthma complication type: uncomplicated Qualified Code(s): J45.20 - Mild intermittent asthma, uncomplicated (9) Depression Code(s): F32.9 - MAJOR DEPRESSIVE DISORDER, SINGLE EPISODE, UNSPECIFIED Status: Chronic Qualifiers: Depression Type: unspecified Qualified Code(s): F32.9 - Major depressive disorder, single episode, unspecified (10) Paroxysmal a-fib Code(s): I48.0 - PAROXYSMAL ATRIAL FIBRILLATION Status: Chronic - Plan got extubated this am, is doing well will be npo for possible cystoscopy, await uro eval continue meropenem (multiple allergies), iv fluids and levophed for press support she apparently got nearly 6lts iv fluids yesterday, still her urine output is very low ef is normal, may give fluid boluses to get urine output of atleast 40mls/hr, had prior h/o chf? await cultures has no clinical evidence of cva now
--- NOTE | 2020-06-25 13:21 | RAD ---
XR IVP Retrograde History: Stent placement Comparison: None. Findings: 7 fluoroscopic images were obtained. Interval stent placement within the left renal collect ing system. Impression: Fluoroscopy for procedure purposes.
--- NOTE | 2020-06-25 13:35 | CON ---
DATE OF CONSULTATION: 06/25/2020 PRIMARY UROLOGIST: Dr. Noble Hood. REASON FOR CONSULT: Left ureteral calculi, mild hydronephrosis, septic shock. HISTORY OF PRESENT ILLNESS: Ms. Gandhi is a 79-year-old female with history of breast cancer, history of kidney stones, followed by Dr. Hood, breast cancer, atrial fibrillation, remote history of pulmonary embolus, on anticoagulation due to atrial fibrillation, who presented to the emergency room last night due to left flank pain. The pain began early Saturday morning, she presented to the emergency room due to intractable left lower quadrant, flank pain with history of chills. She declined Toradol, was given 8 to 10 mg of IV morphine. Subsequently, she was evaluated by the ER physician and was found to have mental status changes, unresponsive with left-sided weakness. Due to concern regarding her airway, she was intubated by the emergency room and placed on mechanical ventilator. Her CT of the head, angio of the neck are negative. She did not receive tPA as she was on anticoagulation with Eliquis at home due to history of atrial fibrillation. This morning, she was seen by Pulmonology, Dr. Carlin and was found to have adequate airway protective mechanisms, and therefore, she was extubated. The patient's is at bedside and relates that the patient has had 2 or [address] Hood in the past due to history of recurrent kidney stone. Her ER records as well as multiple images ,clinical course, which I reviewed myself in chart. Currently, she still remains somewhat obtunded, however, arousable. She is on Levophed, oliguric with 40 mL over the last few hours. She has received Zosyn and vancomycin in the emergency room, as she is known to have multiple allergies to antibiotics including cephalosporin, cortisone, Levaquin, penicillin. She remains on meropenem in the ICU, norepinephrine drip, and her blood pressure is 81/58. PAST MEDICAL HISTORY: Includes; 1. Atrial fibrillation. 2. GERD. 3. Hypertension. 4. Breast cancer. 5. Pulmonary embolism in 2002. 6. Multiple ESWLs by Dr. Hood. SURGICAL HISTORY: Lumbar spinal surgery, abdominoplasty, cholecystectomy, hernia repair, hysterectomy, mastectomy, orthopedic surgery, bilateral knee replacements, cervical spine surgery, ESWL x2 or 3. PAST PSYCHIATRIC HISTORY: Depression. SOCIAL HISTORY: Former smoker, quit more than 20 to 30 years ago. Social alcohol drinker. FAMILY HISTORY: Noncontributory. MEDICATIONS: Her home medications include; 1. Flecainide. 2. Vitamin D. 3. Bystolic. 4. Eliquis 5 mg b.i.d. 5. Bupropion. 6. Omeprazole. 7. Ventolin inhaler. Her in-house medications include; 1. Tylenol. 2. Aspirin 325. 3. Lipitor. 4. Pepcid. 5. Meropenem. 6. Levophed drip. ALLERGIES: SHE IS KNOWN TO HAVE MULTIPLE DRUG ALLERGIES INCLUDING: PENICILLIN, CEPHALOSPORINS, CODEINE, HYDROCODONE, SULFA, TAPE. REVIEW OF SYSTEMS: A 10-point review of systems as above, otherwise noncontributory. PHYSICAL EXAMINATION: VITAL SIGNS: T-max of 100.3, T-current is 97.7. Blood pressure 81/58, on Levophed. Urine output previously 395, over the last 12 hours 40 mL of pink tinged urine. GENERAL: The patient appears somnolent, however, is easily arousable and responsive and answers questions. However, most of the history is obtained with at bedside, who provides further history. HEENT: There is questionable right eye droop, however, it appears to be symmetric when she opens her eyes. HEENT is grossly unremarkable otherwise. HEART: Regular rhythm. Regular rate. LUNGS: Coarse breath sounds bilaterally. ABDOMEN: Morbidly obese, protuberant. There is no rigidity, no rebound. Multiple abdominal incisions are noted, consistent with prior surgery. : Demonstrates Tello catheter draining farhat pink-tinged urine. EXTREMITIES: No cyanosis, clubbing, or edema. No calf tenderness appreciated. NEUROLOGIC: Somewhat limited. She is not cooperative. However, she is responding to command, strength appears to be symmetric and intact. Sensation appears to be intact. PSYCHIATRIC: Difficult to discern due to her mental status. SKIN: No gross rashes, ecchymosis, or hematoma appreciated. PERTINENT LABORATORY AND IMAGING: On arrival, her white count was 12, this morning it is 21k 40 bands. INR is 1.3, PTT of 23. Creatinine is 1.2 on arrival, this morning it is 1.6. Troponin is 0.162. Lactic acid on arrival is 3.2, currently 2.8. Urinalysis demonstrates pH of 5.5, 500 leukocytes, negative nitrites, 20 to 50 rbc's, greater than 50 wbc's, no epithelials, no bacteria. Cultures are pending. CT of the abdomen and pelvis with IV contrast, which I have reviewed myself dated June 24, 2020, demonstrates mild left hydronephrosis due to 5 to 6 mm UPJ stone, left lower pole calculi per my review in the lower pole 5 to 6 mm, second lower pole stone 6 to 7 mm. Hounsfield unit of the stone is over 1200. Right kidney demonstrates asymmetric decrease in size compared to the left, however it is not atrophic. Per my review, there is symmetric enhancement of both kidneys. I did review her previous imaging dated back to 2003, demonstrating stable left renal cyst, seen on today's exam. IMPRESSION: 1. Ms. Gandhi is a 79-year-old female, followed by Dr. Hood for history of recurrent kidney stone. 2. History of atrial fibrillation. 3. History of pulmonary embolism. 4. History of breast cancer, 5. presents with left flank pain, CT demonstrating left mild hydronephrosis, due to 5 to 6 mm left UPJ stone. UA demonstrates no bacteria. It is unclear to me if the UA was obtained after she received vancomycin and Zosyn in the ER. Nevertheless, she presents with septic picture with elevated lactic acid, leukocytosis, and bandemia. She is oliguric due to multifactorial etiology of prerenal, renal/postrenal etiology. She has been n.p.o., I informed the patient and at bedside regarding cysto, left stent placement. Indications for urgent stent reviewed with the patient and in detail and they desired to proceed. They were fully informed, the stone will not be treated on this admission due to presenting septic shock. Prognosis remains guarded. Job ID: [id number] [facility]
--- NOTE | 2020-06-25 13:52 | OP ---
DATE OF PROCEDURE: 06/25/2020 PREOPERATIVE DIAGNOSES: 1. Left UPJ, 6 mm ureteral calculi with mild hydronephrosis. 2. Left lower pole renal calculi x2, 6 to 7 mm, 5 mm respectively. 3. Right kidney no hydronephrosis, no calculi 4. Sepsis. POSTOPERATIVE DIAGNOSES: 1. Left UPJ, 6 mm ureteral calculi with mild hydronephrosis. 2. Left lower pole renal calculi x2, 6 to 7 mm, 5 mm respectively. 3. Right kidney no hydronephrosis, no calculi 4. Sepsis. PROCEDURES PERFORMED: Cystoscopy, left 6 x 24 double-J ureteral stent. ANESTHESIA: LMA. COMPLICATIONS: None apparent. DISPOSITION: To recovery room in stable condition. INDICATIONS FOR THE PROCEDURE AND HISTORY: Ms. Gandhi is a 79-year-old female with history of recurrent kidney stone, presented to the emergency room due to left flank pain. She is currently on Levophed with oliguria. She also has chest x-ray consistent with pneumonia. Presents for cysto, left stent placement. Indications for the surgery reviewed and she desires to proceed. Risks and complications including, but not limited to, bleeding, pain, infection, injury to adjacent organs, urosepsis have been discussed with her in detail. DESCRIPTION OF PROCEDURE: After an informed consent was signed, the patient was taken to the operating room, placed in a dorsal lithotomy position with the genital area prepped and draped in the usual surgical sterile fashion. A 21-Kazakh cystoscope was utilized for cystoscopy, which demonstrated normal bladder mucosa. No bladder stones or tumors were seen. The UOs were identified in normal orthotopic position. The left UO was intubated with an open-ended catheter, 0.38 Sensor wire was placed into the left upper pole without difficulty and a 6 x 24 double- J ureteral stent placed with ease. Before starting the cystoscopy, fluoroscopy demonstrated left mild hydronephrosis, contrast seen down the course of the right ureter. The right kidney without evidence of hydronephrosis. An 18-Kazakh 10 mL Tello catheter was placed at the end of the procedure. She will return to ICU for ongoing medical stabilization. Prognosis remains guarded. Job ID: [id number] [facility]
[2020-06-25] MEDS ORDERED: Sodium Bicarb 50 MEQ/50 ML Abboject 8.4% SYRINGE ONE (14:08)
[2020-06-25 14:12] LABS: Actual Bicarbonate (HCO3a) 16.2 mEq/L (22-28); Base Excess (BEa) -11.4 mEq/L (-2.0 to +3.0); CO2 Tension 42.3 mmHg (35.0-45.0); Calcium, Ionized (arterial) 1.05 mmol/L (1.12-1.30); Carboxyhemoglobin (COHb) 0.3 gm% (0.0-3.0); Hemoglobin (Hb) 13.1 g/dL (12.0-16.0); O2 Tension (PaO2), arterial 105.8 mmHg (> 70.0); Potassium - ABG Lab 4.74 mmol/L (3.70-5.30)
[2020-06-25 14:13] LABS: ALV-art Gradient 549.325 mmHg (0-20); Puncture Site ALINE
[2020-06-25] MEDS ORDERED: Lorazepam 2 MG/ML VIAL SLOW IVP PRN (14:15)
[2020-06-25] MEDS ORDERED: Propofol BOLUS 1,000 MG/100 ML VIAL IV PRN (14:15)
[2020-06-25] MEDS ORDERED: Sodium Bicarb 50 MEQ/50 ML Abboject 8.4% SYRINGE IVP SCH (14:15)
[2020-06-25] MEDS ORDERED: DISCONTINUE PREVIOUS NARCOTIC PAIN MEDICATIONS AND BENZODIAZEPINES FS SCH (14:15)
[2020-06-25] MEDS ORDERED: Fentanyl BOLUS 250 ML IVPB PRN (14:15)
[2020-06-25] MEDS ORDERED: Morphine 2 MG/ML VIAL SLOW IVP PRN ×2 (14:15→23:45)
[2020-06-25] MEDS ORDERED: Ventilator Sedation Protocol 1 EACH FS SCH (14:15)
[2020-06-25] MEDS ORDERED: Sodium Chloride 0.9% 1,000 ML IV SCH ×2 (14:15→18:30)
[2020-06-25] MEDS: Sodium Bicarbonate 140 MEQ in Dextrose 5% in Water 1,000 ML IV SCH (15:24)
[2020-06-25] MEDS: Propofol 1,000 MG/100 ML VIAL IV PRN (15:30)
--- NOTE | 2020-06-25 16:12 | CON ---
NEUROLOGY CONSULTATION DATE OF CONSULTATION: 06/25/2020 REASON FOR CONSULTATION: Altered mental status. HISTORY OF PRESENT ILLNESS: Mrs. Gandhi is a 79-year-old female with history significant for breast cancer, renal stones, followed by Dr. Hood, atrial fibrillation, remote history of pulmonary embolus, on anticoagulation, due to atrial fibrillation presented to the emergency room yesterday night due to severe flank pain. The patient is currently intubated and sedated, so history is obtained from the at the bedside. Per , the pain began on Saturday morning and she presented to the emergency room. She declined Toradol and was subsequently given morphine. She was given about 10 mg of morphine. She became extremely somnolent and was unable to protect her airway. There was also concern of left-sided weakness, so she was intubated and was placed on mechanical ventilator. Head CT was done, which was negative for acute intracranial pathology. CT angiogram of the head and neck were also negative for hemodynamically significant stenosis. TPA was not given since she is on Eliquis for atrial fibrillation. She was seen by Dr. Carlin this morning and at that time, she was able to protect her airways, so she was subsequently extubated and she does not have any focal deficits per nursing staff at that time. However, during the course of the day, she became increasingly obtunded and was started on Levophed and again reintubated to protect her airway. REVIEW OF SYSTEMS: Unobtainable due to the patient's mental status. PAST MEDICAL HISTORY: Atrial fibrillation, GERD, hypertension, breast cancer, pulmonary embolism in 2002, lithotripsy by Dr. Hood. PAST SURGICAL HISTORY: Lumbar spinal surgery, abdominoplasty, cholecystectomy, hernia repair, hysterectomy, mastectomy, orthopedic surgery, bilateral knee replacements, ESWL x3, cervical spine surgery. PAST PSYCHIATRIC HISTORY: Depression. SOCIAL HISTORY: The patient is a former smoker. Drinks alcohol socially. Denies illegal drug use. FAMILY HISTORY: No family history of stroke. MEDICATIONS: Home medications 1. Flecainide. 2. Vitamin D. 3. Bystolic. 4. Eliquis. 5. Bupropion. 6. Omeprazole. 7. Ventolin inhaler. In-house medication also includes 1. Tylenol. 2. Aspirin. 3. Lipitor. 4. Pepcid. 5. Meropenem. ALLERGIES: PENICILLIN, CEPHALOSPORIN, CODEINE, HYDROCODONE, SULFA DRUGS, TAPE. Vital Signs & Weight: Vital Signs (12 hours) Temp Pulse Pulse Resp BP Pulse Ox Pulse Ox 06/25/20 09:03 85 111/75 95 06/25/20 08:00 97.7 F 20 06/25/20 06:00 20 06/25/20 04:00 100.0 F H 20 06/25/20 02:00 100.3 F H 20 06/25/20 01:43 96 94 L Pulse Ox 06/25/20 09:03 96 06/25/20 08:00 06/25/20 06:00 06/25/20 04:00 06/25/20 02:00 06/25/20 01:43 Weight Admit Weight 227 lb 8.272 oz Weight 227 lb 15.3 oz Most Recent Monitor Data Heart Rate from ECG 82 NIBP 81/58 NIBP BP-Mean 65 Respiration from ECG 26 SpO2 97 I&O: 06/24/20 06/25/20 06/26/20 06:59 06:59 06:59 Intake Total 579.2 Output Total 395 40 Balance 184.2 -40 Active Medications Generic Name Dose Route Start Last Admin Trade Name Freq PRN Reason Stop Dose Admin Aspirin 325 mg 06/25/20 09:00 06/25/20 10:52 Aspirin 325 Mg Enteric Coated Tablet PO Not Given DAILY LAZARUS Famotidine 20 mg 06/25/20 09:00 06/25/20 10:58 Famotidine/Pf 20 Mg/2ml Vial SLOW IVP 20 mg DAILY LAZARUS Administration Sodium Chloride 1,000 mls @ 100 mls/hr 06/25/20 00:30 06/25/20 10:59 Normal Saline 0.9% IV 1,000 mls .Q10H LAZARUS Administration Meropenem 1 gm/ Device 50 mls @ 50 mls/hr 06/25/20 06:00 06/25/20 05:57 IVPB 50 mls 0600,1800 LAZARUS Administration Norepinephrine Bitartrate 250 mls @ 0 mls/hr 06/25/20 03:32 06/25/20 08:30 Levophed IVPB 250 mls INF PRN Administration TO KEEP MAP > 65 Protocol Titrate - Exam General Appearance: awake alert Eye: PERRL, anicteric sclera ENT: no oropharyngeal lesions, dry oral mucosa Neck: supple, no JVD Heart: RRR, no murmur Respiratory: no wheezes, no rales Gastrointestinal: soft, non-distended, normal bowel sounds Gastrointestinal - other findings: mild tenderness right quadrants Extremities: no cyanosis, 1+ LE edema Neurological: Cranial nerves, pupils 4 mm, round and reactive to light. Face symmetric. Tongue midline. No roving eye movement or gaze preference seen. Motor: Minimal movement of all 4 extremities. No spontaneous movement of all 4 extremities seen. Cerebellar: Unable to perform the test due to sedation and due to the patient being intubated. Sensory: Withdraws all 4 extremities to nailbed pressure. DATA REVIEWED: I reviewed the CT scan which was negative for acute intracranial pathology. The patient does not have MRI because of metal in the body. ASSESSMENT AND PLAN: (1) Acute respiratory failure with hypoxia Code(s): J96.01 - ACUTE RESPIRATORY FAILURE WITH HYPOXIA Status: Acute (2) TIA (transient ischemic attack) Code(s): G45.9 - TRANSIENT CEREBRAL ISCHEMIC ATTACK, UNSPECIFIED Status: Resolved (3) Obstruction of left ureteropelvic junction due to stone Code(s): N20.1 - CALCULUS OF URETER Status: Acute (4) UTI (urinary tract infection) Status: Acute Qualifiers: Urinary tract infection type: acute cystitis Hematuria presence: without hematuria Qualified Code(s): N30.00 - Acute cystitis without hematuria (5) Sepsis Code(s): A41.9 - SEPSIS, UNSPECIFIED ORGANISM Status: Acute Qualifiers: Sepsis type: sepsis due to unspecified organism Sepsis acute organ dysfunction status: with acute organ dysfunction Severe sepsis acute organ dysfunction type: acute renal failure Severe sepsis shock status: with septic shock (6) EDMAR (acute kidney injury) Code(s): N17.9 - ACUTE KIDNEY FAILURE, UNSPECIFIED Status: Acute (7) Obesity (BMI 30-39.9) Code(s): E66.9 - OBESITY, UNSPECIFIED Status: Chronic (8) Asthma Code(s): J45.909 - UNSPECIFIED ASTHMA, UNCOMPLICATED Status: Chronic Qualifiers: Asthma severity: mild Asthma persistence: intermittent Asthma complication type: uncomplicated Qualified Code(s): J45.20 - Mild intermittent asthma, uncomplicated (9) Depression Code(s): F32.9 - MAJOR DEPRESSIVE DISORDER, SINGLE EPISODE, UNSPECIFIED Status: Chronic Qualifiers: Depression Type: unspecified Qualified Code(s): F32.9 - Major depressive disorder, single episode, unspecified (10) Paroxysmal a-fib Code(s): I48.0 - PAROXYSMAL ATRIAL FIBRILLATION Status: Chronic MsRandy Gandhi is a 79-year-old female who was admitted for altered mental status most likely seems to be multifactorial due to intense left flank pain versusinfectious etiology versus the side effect of pain medications. The patient does not have any seizure-like activity or generalized tonic-clonic shaking with tongue bite or urinary incontinence. Per , she was more like shivering after she received pain medications and then seizure-like activity. Consider EEG when stable and repeat CT scan tomorrow to rule out acute intracranial process, continue neuro checks every 4 hours. Continue home medications. N.p.o. until cleared by Speech, PT/OT. Continue medical management per primary team and Pulmonology, Urology. Thank you for the consult. Plan discussed with the and also case discussed with the pulmonology attending, Dr. Carlin. Job ID: [id number] [facility]
[2020-06-25] MEDS: Atorvastatin Calcium 40 MG TAB PO SCH (20:20)
[2020-06-25] MEDS: Vasopressin 20 UNIT, Admixture Fee 1 EACH in Sodium Chloride 0.9% 50 ML IV SCH (22:28)
[2020-06-26] MEDS: fentaNYL Citrate/PF 2,000 MCG in Sodium Chloride 0.9% 60 ML IV SCH (00:10)
[2020-06-26] MEDS: Sodium Bicarbonate 140 MEQ in Dextrose 5% in Water 1,000 ML IV SCH ×3 (00:11→18:42)
[2020-06-26] MEDS: Norepinephrine 8 MG/0.9% NS 250 ML IVPB PRN ×2 (02:46→20:29)
[2020-06-26] MEDS: Propofol 1,000 MG/100 ML VIAL IV PRN ×2 (02:51→20:29)
[2020-06-26 04:11] LABS: ALT (SGPT) 28 U/L (8-55); AST (SGOT) 27 U/L (5-34); Albumin 2.5 g/dL (3.4-4.8); Alkaline Phosphatase 68 U/L (40-110); Anion Gap 15 mmol/L (10-20); BUN (Urea Nitrogen) 35 mg/dL (9.8-20.1); Bilirubin, Total 1.2 mg/dL (0.2-1.2); Calc. Creatinine Clearance 45 mL/min (70-130); Carbon Dioxide 18 mmol/L (23-31); Chloride 113 mmol/L (98-107); Estimated GFR-MDRD 30; Globulin 2.2 g/dL (2.4-3.5); Glucose 277 mg/dL (83-110); Potassium 4.2 mmol/L (3.5-5.1); Protein, Total 4.7 g/dL (6.0-8.3); Sodium 142 mmol/L (136-145)
[2020-06-26] MEDS: Vasopressin 20 UNIT, Admixture Fee 1 EACH in Sodium Chloride 0.9% 50 ML IV SCH ×2 (05:07→12:31)
[2020-06-26] MEDS: MEROPENEM 1 GM/50 ML 1 GM in Premix Bag 1 BAG IVPB SCH ×2 (05:13→17:51)
[2020-06-26 05:50] LABS: Band 30 % (5-11); Hemoglobin 12.5 g/dL (12.0-16.0); Lymphocytes 4 % (21-51); MDiff Complete? YES; Mean Corpuscular HGB CONC 33.5 g/dL (32.0-36.0); Mean Corpuscular Hemoglobin 29.4 pg (27.0-31.0); Mean Corpuscular Volume 87.8 fL (78.0-98.0); Mean Platelet Volume 9.3 fL (7.4-10.4); Monocytes 5 % (0-10); Neutrophil 61 % (42-75); Platelet Count 70 thou/uL (130-400); Platelet Morphology Comment Appears Decreased; RBC Distribution Width 13.6 % (11.5-14.5); Red Blood Cell (RBC) Count 4.25 mill/uL (4.20-5.40); White Blood Cell (WBC) Count 34.1 thou/uL (4.8-10.8)
[2020-06-26 07:04] LABS: Actual Bicarbonate (HCO3a) 21.4 mEq/L (22-28); Base Excess (BEa) -1.9 mEq/L (-2.0 to +3.0); CO2 Tension 31.8 mmHg (35.0-45.0); Calcium, Ionized (arterial) 0.94 mmol/L (1.12-1.30); Carboxyhemoglobin (COHb) 0.3 gm% (0.0-3.0); Hemoglobin (Hb) 12.7 g/dL (12.0-16.0); O2 Tension (PaO2), arterial 65.5 mmHg (> 70.0); Potassium - ABG Lab 3.88 mmol/L (3.70-5.30); pH, Arterial 7.45 (7.35-7.45)
[2020-06-26 07:06] LABS: Puncture Site LINE
[2020-06-26] MEDS ORDERED: HumaLOG 300 UNITS/3 ML VIAL SC PRN (08:03)
[2020-06-26] MEDS ORDERED: Dextrose 5% in Water 1,000 ML IV PRN (08:03)
[2020-06-26] MEDS ORDERED: Dextrose 50% Abboject 50 ML SYRINGE SLOW IVP PRN (08:03)
[2020-06-26] MEDS ORDERED: Sodium Chloride 0.9% 500 ML IV SCH (08:15)
--- NOTE | 2020-06-26 08:36 | RAD ---
XR Chest 1 View Portable History: Pneumonia Comparison: Radiograph prior day Findings: Right IJ central venous catheter tip projects over the right atrium. Worsening right lower lobe aeration. Enlarging pleural effusions. No pneumothorax. Pulmonary arteries are enlarged. No enteric tube is appreciated. Impression: 1. No enteric tube is appreciated. 2. Enlarging pleural effusions and worsening right lower lobe airspace consolidation.
--- NOTE | 2020-06-26 08:44 | PRG ---
DATE OF SERVICE: 06/26/2020 35 minutes critical care time. SUBJECTIVE: The patient remains in the ICU on mechanical ventilation. She had decompensation of her cardiopulmonary status after urinary stent placement yesterday. She is now on mechanical ventilation, also on two vasopressors. OBJECTIVE: VITAL SIGNS: Temperature 98.4, pulse 74, blood pressure 100/49. She is on a Levophed drip at 7 mcg/minutes and vasopressin drip at 0.04 units/minute. Her intake for the last 24 hours has been 5329, output 1090. HEENT: Unremarkable. NECK: No adenopathy or JVD. LUNGS: Coarse breath sounds. ABDOMEN: Soft and nontender to palpation. EXTREMITIES: Trace edema throughout. LABORATORY DATA: ABG; pH 7.45, pCO2 of 31, pO2 of 65 on SIMV rate 20, tidal volume 450, PEEP 5, pressure support 10, and FiO2 of 60%. White blood cell count 34.1, hematocrit 37.3, and platelet count 70. Sodium 142, potassium 4.2, chloride 113, CO2 of 18, BUN 35, creatinine 1.6, glucose 277. ASSESSMENT: 1. Escherichia coli urosepsis from obstructing urinary calculus. 2. Acute respiratory failure requiring mechanical ventilation. 3. Septic shock. 4. Severe metabolic acidosis. 5. Hyperglycemia/diabetes mellitus. PLAN: 1. The patient is not weanable at this time secondary to her severe sepsis. She will be continued on meropenem. We need to adjust antibiotics based on sensitivities of her cultures. 2. Insert OG tube and start enteral tube feeds. 3. Platelet count down significantly. Therefore, would defer on any anticoagulation for deep venous thrombosis prophylaxis at this time. I would use SCDs instead. 4. Continue bicarbonate drip and increase rate. 5. Hemodynamics are being monitored by EBV 1000, currently cardiac output, SVR, etc are appropriate on current vasopressor therapy. Please run any fluid adjustments by me. Job ID: [id number]
[2020-06-26] MEDS: Aspirin 325 mg Enteric Coated Tablet PO SCH (09:00)
[2020-06-26] MEDS: Famotidine/PF 20 mg/2ml Vial SLOW IVP SCH (10:36)
[2020-06-26] MEDS: Insulin Glargine 20 UNITS in Pre-Filled Syringe 1 EACH SC SCH (10:37)
[2020-06-26] MEDS: HumaLOG 300 UNITS/3 ML VIAL SC PRN ×2 (11:09→18:05)
[2020-06-26] MEDS ORDERED: Albumin 25% 25 GM/100 ML BOT IVPB SCH (12:04)
--- NOTE | 2020-06-26 12:09 | PDOC.HOSPP ---
- Subjective Encounter Date: 06/26/20 Encounter Time: 08:00 Subjective: is on vent, sedated - Objective Vital Signs & Weight: Vital Signs (12 hours) Temp Pulse Resp BP 06/26/20 10:36 75 06/26/20 10:00 20 06/26/20 08:00 98 F 06/26/20 06:56 72 06/26/20 06:00 20 06/26/20 04:00 98.4 F 20 06/26/20 02:28 73 135/74 06/26/20 02:00 20 Weight Admit Weight 227 lb 8.272 oz Weight 230 lb 2.601 oz Most Recent Monitor Data Heart Rate from ECG 74 NIBP 139/71 NIBP BP-Mean 93 Respiration from ECG 20 SpO2 95 I&O: 06/25/20 06/26/20 06/27/20 06:59 06:59 06:59 Intake Total 579.2 5329.7 Output Total 395 1090 100 Balance 184.2 4239.7 -100 Result Diagrams: 06/26/20 03:30 06/26/20 03:30 Additional Labs: Accuchecks 06/26/20 11:04 POC Glucose 276 H Hospitalist ROS - Medication Medications: Active Medications Generic Name Dose Route Start Last Admin Trade Name Freq PRN Reason Stop Dose Admin Aspirin 325 mg 06/25/20 09:00 06/25/20 10:52 Aspirin 325 Mg Enteric Coated Tablet PO Not Given DAILY LAZARUS Atorvastatin Calcium 40 mg 06/25/20 21:00 06/25/20 20:20 Atorvastatin Calcium 40 Mg Tab PO Not Given HS LAZARUS Famotidine 20 mg 06/25/20 09:00 06/26/20 10:36 Famotidine/Pf 20 Mg/2ml Vial SLOW IVP 20 mg DAILY LAZARUS Administration Meropenem 1 gm/ Device 50 mls @ 50 mls/hr 06/25/20 06:00 06/26/20 05:13 IVPB 50 mls 0600,1800 LAZARUS Administration Norepinephrine Bitartrate 250 mls @ 0 mls/hr 06/25/20 03:32 06/26/20 02:46 Levophed IVPB 250 mls INF PRN Administration TO KEEP MAP > 65 Protocol Titrate Vasopressin 20 unit/ 51 mls @ 0 mls/hr 06/25/20 14:15 06/26/20 05:07 Miscellaneous Medication 1 IV 51 mls each/ Sodium Chloride INF LAZARUS Administration Protocol As Directed Fentanyl Citrate 2,000 mcg/ 100 mls @ 0 mls/hr 06/25/20 14:15 06/26/20 00:10 Sodium Chloride IV 07/25/20 14:15 100 mls INF LAZARUS Administration Protocol Per Protocol Insulin Glargine 20 units/ 0.2 mls @ 0 mls/hr 06/26/20 09:00 06/26/20 10:37 Miscellaneous Medication SC 0.2 mls QAM LAZARUS Administration Sodium Bicarbonate 140 meq/ 1,140 mls @ 150 mls/hr 06/26/20 08:23 06/26/20 10:36 Dextrose/Water IV 1,140 mls .[id number] LAZARUS Administration Insulin Human Lispro 0 units 06/26/20 08:03 06/26/20 11:09 Humalog 300 Units/3 Ml Vial SC 9 unit .AGGRESSIVE SLIDING PRN Administration Aggressive Correctional Scale Lorazepam 2 mg 06/25/20 14:15 06/25/20 18:13 Lorazepam 2 Mg/Ml Vial SLOW IVP 07/25/20 14:15 2 mg Q1H PRN Administration Breakthrough agitation Propofol 1,000 mg 06/25/20 14:15 06/26/20 02:51 Propofol 1,000 Mg/100 Ml Vial IV 07/25/20 14:15 1,000 mg INF PRN Administration TO ACHIEVE GOAL RASS Protocol - Exam General Appearance: ill appearing Eye: PERRL, anicteric sclera ENT: no oropharyngeal lesions, dry oral mucosa Neck: supple, no JVD Heart: RRR, no murmur Respiratory: no wheezes, no rales Gastrointestinal: soft, non-tender, non-distended, normal bowel sounds Extremities: no cyanosis, no edema Neurological: cranial nerve grossly intact, no focal deficits Hosp A/P (1) Sepsis Code(s): A41.9 - SEPSIS, UNSPECIFIED ORGANISM Status: Acute Qualifiers: Sepsis type: sepsis due to unspecified organism Sepsis acute organ dysfunction status: with acute organ dysfunction Severe sepsis acute organ dysfunction type: acute renal failure Severe sepsis shock status: with septic shock (2) Acute respiratory failure with hypoxia Code(s): J96.01 - ACUTE RESPIRATORY FAILURE WITH HYPOXIA Status: Acute (3) TIA (transient ischemic attack) Code(s): G45.9 - TRANSIENT CEREBRAL ISCHEMIC ATTACK, UNSPECIFIED Status: Resolved (4) Obstruction of left ureteropelvic junction due to stone Code(s): N20.1 - CALCULUS OF URETER Status: Acute (5) UTI (urinary tract infection) Status: Acute Qualifiers: Urinary tract infection type: acute cystitis Hematuria presence: without hematuria Qualified Code(s): N30.00 - Acute cystitis without hematuria (6) EDMAR (acute kidney injury) Code(s): N17.9 - ACUTE KIDNEY FAILURE, UNSPECIFIED Status: Acute (7) Obesity (BMI 30-39.9) Code(s): E66.9 - OBESITY, UNSPECIFIED Status: Chronic (8) Asthma Code(s): J45.909 - UNSPECIFIED ASTHMA, UNCOMPLICATED Status: Chronic Qualifiers: Asthma severity: mild Asthma persistence: intermittent Asthma complicati on type: uncomplicated Qualified Code(s): J45.20 - Mild intermittent asthma, uncomplicated (9) Depression Code(s): F32.9 - MAJOR DEPRESSIVE DISORDER, SINGLE EPISODE, UNSPECIFIED Status: Chronic Qualifiers: Depression Type: unspecified Qualified Code(s): F32.9 - Major depressive disorder, single episode, unspecified (10) Paroxysmal a-fib Code(s): I48.0 - PAROXYSMAL ATRIAL FIBRILLATION Status: Chronic (11) DM type 2 (diabetes mellitus, type 2) Status: Suspected Qualifiers: 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 continue meropenem (multiple allergies), iv fluids, vasopressin and levophed for press support ef is normal on echo ecoli bacteremia with septic shock has no clinical evidence of cva has elevated glucose, likely new onset dm, start lantus with coverage
--- NOTE | 2020-06-26 12:09 | PRG ---
DATE OF SERVICE: 06/26/2020 SUBJECTIVE: The patient remains intubated, remains critically ill. OBJECTIVE: VITAL SIGNS: T-max 100, T current 98, blood pressure 132/86. I's and O's 5329 in and 1090 out, she is positive 4.2 L, since admission positive 3 pounds. Daughter is at bedside. HEENT: Intubated. LUNGS: Coarse breath sounds. ABDOMEN: Morbidly obese, protuberant. No CVA tenderness. : The patient previously was oliguric, urine output improved, which is pink tinged. EXTREMITIES: No cyanosis, clubbing, or edema. LABORATORY DATA: White count 34,000, hemoglobin 12, and platelets 70. Her bands, however, increased from 40 bandemia to 30 bandemia. Renal insufficiency with creatinine of 1.6. Blood cultures x2, demonstrating E coli, sensitivity pending. She remains on meropenem. IMPRESSION AND PLAN: Ms. Gandhi is a 79-year-old female with: 1. History of recurrent kidney stone. 2. Escherichia coli urosepsis. 3. Pneumonia. 4. Acute renal insufficiency. 5. Postoperative day #1 of cystoscopy and stent. Long discussion with daughter at bedside. Clinical history updated with Family informed. She inquires why the stone was not treated. Informed stone treatment in the presence of infection is not indicated/not advised. I did have an extensive discussion with her father yesterday regarding this matter as well. No new recommendations. Continue ICU support. Prognosis remains guarded. Will inform Dr. Hood tomorrow morning regarding patient's admission Job ID: [id number] [facility]
[2020-06-26] MEDS: Atorvastatin Calcium 40 MG TAB PO SCH (20:34)
[2020-06-27] MEDS: HumaLOG 300 UNITS/3 ML VIAL SC PRN ×2 (01:40→09:37)
[2020-06-27] MEDS: Sodium Bicarbonate 140 MEQ in Dextrose 5% in Water 1,000 ML IV SCH (02:31)
[2020-06-27 05:17] LABS: Band 20 % (5-11); Eosinophils 1 % (0-10); Hemoglobin 10.9 g/dL (12.0-16.0); Lymphocytes 6 % (21-51); MDiff Complete? YES; Mean Corpuscular HGB CONC 34.2 g/dL (32.0-36.0); Mean Corpuscular Hemoglobin 29.9 pg (27.0-31.0); Mean Corpuscular Volume 87.5 fL (78.0-98.0); Mean Platelet Volume 8.9 fL (7.4-10.4); Neutrophil 73 % (42-75); Platelet Count 43 thou/uL (130-400); Platelet Morphology Comment Appears Decreased; RBC Distribution Width 13.3 % (11.5-14.5); Red Blood Cell (RBC) Count 3.63 mill/uL (4.20-5.40); White Blood Cell (WBC) Count 29.5 thou/uL (4.8-10.8)
[2020-06-27 05:28] LABS: ALT (SGPT) 19 U/L (8-55); AST (SGOT) 16 U/L (5-34); Albumin 2.5 g/dL (3.4-4.8); Alkaline Phosphatase 80 U/L (40-110); Anion Gap 13 mmol/L (10-20); BUN (Urea Nitrogen) 29 mg/dL (9.8-20.1); Bilirubin, Total 1.4 mg/dL (0.2-1.2); Calc. Creatinine Clearance 76 mL/min (70-130); Calcium 6.8 mg/dL (7.8-10.44); Carbon Dioxide 30 mmol/L (23-31); Chloride 104 mmol/L (98-107); Estimated GFR-MDRD 54; Globulin 2.1 g/dL (2.4-3.5); Glucose 188 mg/dL (83-110); Protein, Total 4.6 g/dL (6.0-8.3); Sodium 144 mmol/L (136-145)
[2020-06-27 05:40] LABS: Potassium 2.8 mmol/L (3.5-5.1)
[2020-06-27] MEDS ORDERED: Potassium Chloride 20 MEQ in Premix Bag 1 BAG IVPB SCH (06:15)
[2020-06-27] MEDS: MEROPENEM 1 GM/50 ML 1 GM in Premix Bag 1 BAG IVPB SCH ×2 (06:18→17:37)
[2020-06-27] MEDS: Vasopressin 20 UNIT, Admixture Fee 1 EACH in Sodium Chloride 0.9% 50 ML IV SCH ×2 (06:20→17:38)
[2020-06-27 06:55] LABS: Actual Bicarbonate (HCO3a) 27.5 mEq/L (22-28); Base Excess (BEa) 5.2 mEq/L (-2.0 to +3.0); CO2 Tension 32.5 mmHg (35.0-45.0); Carboxyhemoglobin (COHb) 0.3 gm% (0.0-3.0); Hemoglobin (Hb) 11.1 g/dL (12.0-16.0); O2 Tension (PaO2), arterial 60.9 mmHg (> 70.0); Potassium - ABG Lab 2.99 mmol/L (3.70-5.30)
[2020-06-27 06:59] LABS: ALV-art Gradient 254.975 mmHg (0-20); Puncture Site ART LINE; pH, Arterial 7.55 (7.35-7.45)
[2020-06-27] MEDS ORDERED: Electrolyte Replacement Protoc 1 EACH EACH FS ONE (07:46)
[2020-06-27] MEDS ORDERED: Electrolyte Replacement Protocol FS PRN (08:00)
--- NOTE | 2020-06-27 08:05 | RAD ---
EXAM: CHEST ONE VIEW HISTORY: Pneumonia. Follow-up evaluation. COMPARISON: 06/26/2020 FINDINGS: Endotracheal tube and right-sided vascular catheter remain in place. There has been interval placemen t of a nasogastric tube which courses into the upper abdomen, the tip is not imaged. Cardiac silhouette is magnified by projection but does appear enlarged. Central pulmonary vasculature is prom inent. Suggestion of small bilateral pleural effusions. Airspace opacity at the right lung base does appear mildly improved. Large calcified granuloma right lung base is again seen. No other interv al change. IMPRESSION: 1. Interval placement of a nasogastric tube which courses into the upper abdomen. 2. Small bilateral pleural effusions and atelectasis. Airspace opacity right lung base does appear mi ldly improved. 3. Cardiomegaly with prominence of central pulmonary artery segments.
--- NOTE | 2020-06-27 08:12 | PRG ---
DATE OF SERVICE: 06/27/2020 This is 35 minutes critical care time. SUBJECTIVE: The patient remains intubated on mechanical ventilation. She is awake and will follow commands. OBJECTIVE: VITAL SIGNS: Temperature is 98.6 with no fever overnight, pulse 98, and blood pressure 119/81. She remains on Levophed drip at 3 mcg/kg per minute and vasopressin drip at 0.04 units/minute. 24-hour intake has been 1890, output 1640. HEENT: Unremarkable. NECK: No adenopathy or JVD. CHEST: Fairly clear anteriorly. CARDIOVASCULAR: S1 and S2. Slightly tachycardic. ABDOMEN: Soft and nontender to palpation. EXTREMITIES: No clubbing, cyanosis, or edema. LABORATORY DATA: Sodium 144, potassium 2.8, chloride 104, CO2 of 30, BUN 29, creatinine 0.9, glucose 188, and albumin is 2.5. White blood cell count 29.5, hematocrit 31.7, and platelet count 43. PH 7.55, pCO2 of 32, PO2 of 60, SIMV rate 20, tidal volume 450, PEEP 5, pressure support 10, and FiO2 of 50%. Cultures are growing E coli. Sensitivities are pending. Chest x-ray demonstrates bilateral pulmonary edema. ASSESSMENT: 1. Urosepsis secondary to obstructing kidney stone-now status post stent placement. 2. Escherichia coli sepsis. 3. Acute respiratory failure requiring mechanical ventilation. 4. Septic shock. 5. Correct metabolic acidosis. 6. Diabetes mellitus. PLAN: 1. I will go ahead and stop the bicarbonate drip and start her on half-normal saline. 2. Potassium will be replaced. 3. Continue to wean vasopressors as tolerated. 4. Discontinue arterial line. 5. She is probably another day away from extubation, but overall prognosis remains very good. Job ID: [id number]
[2020-06-27] MEDS: Sodium Chloride 0.45% 1,000 ML IV SCH ×2 (08:14→17:37)
[2020-06-27] MEDS: fentaNYL Citrate/PF 2,000 MCG in Sodium Chloride 0.9% 60 ML IV SCH (08:17)
[2020-06-27] MEDS: Insulin Glargine 20 UNITS in Pre-Filled Syringe 1 EACH SC SCH (09:36)
[2020-06-27] MEDS: Famotidine/PF 20 mg/2ml Vial SLOW IVP SCH (09:36)
[2020-06-27] MEDS: Potassium Chloride 20 MEQ in Premix Bag 1 BAG IVPB SCH ×2 (11:12→14:20)
[2020-06-27] MEDS: Aspirin 325 MG TAB PER TUBE SCH (11:14)
[2020-06-27 16:49] LABS: Potassium 4.1 mmol/L (3.5-5.1)
--- NOTE | 2020-06-27 17:25 | PRG ---
DATE OF SERVICE: 06/27/2020 This patient was admitted just 3 evenings ago on Saturday night. She had developed left flank pain on Saturday morning and her was at work, so she put up with it and when he got home, she was miserable in hurting and he brought her in to the emergency room. She was given pain medicine. It sounds like she had a fainting spell or syncopal episode at that time. Her white count was only mildly elevated at that time and at least the creatinine maybe the next day was 1.6. Her urinalysis on that evening showed 21 to 50 red cells, greater than 50 white cells, and no bacteria were seen. It does not look like a urine culture was set up, but she had blood cultures done on the at a little after midnight. Both are growing out E coli that is pansensitive. She is on meropenem. Right now, it is her antibiotic. I cannot tell that she received any other antibiotics in the emergency room. She had a CAT scan that showed a small proximal left ureteral stone, but she did have left hydronephrosis. On Saturday, the day after admission, she had a left stent placed by Dr. Garcia and this went without any issue. In reviewing Dr. Garcia's op note and x-rays from it, she was able to place a 6 x 24 double-J stent. She was kept intubated after this procedure. It sounds like she was actually intubated shortly after ER visit and extubated, and then reintubated for the surgical procedure and she has been intubated since that time. In reviewing her vital signs today, she has been afebrile. As far as her know, she never had a fever on Saturday either. She is maintaining good blood pressures through most of the day, but her blood pressure started to drop a bit this evening and her sugars have gone up. Her urine output has dropped a little bit, but she had a very good urine output last night. She is still on pressors for blood pressure support. She is intubated, but she is awake enough that she opens her eyes and can look at me and nod yes and no. Her urine at this point is slightly bloody-tinged. She has a Tello catheter in place. Her creatinine has improved. It was 0.9 this morning. Her white count was 34,000 yesterday and 21,000 day before. It is 29,000 today. Her hemoglobin is 10.9. She still has a lot of bands. It does not appear that she will be extubated today and maybe not tomorrow. We will have to watch and see what our clinical course does. We can re-CT her abdomen if she is not showing improvement tomorrow to make sure that she does not have anything to suggest a renal abscess. I will follow along with her while she is in the hospital. I did tell the that we would not be looking at doing anything for the stone until she is over this infection, so we are probably looking at least a couple of weeks before we would address treatment of the stone. The stent should keep her safe over that time. She is, however, still critically ill currently and she has a lot of recovery to do. Job ID: [id number]
--- NOTE | 2020-06-27 19:34 | PDOC.HOSPP ---
- Subjective Encounter Date: 06/27/20 Subjective: Patient is intubated and sedated at the time of my exam. Daughter was present. - Objective Vital Signs & Weight: Vital Signs (12 hours) Temp Pulse Pulse Pulse Resp BP BP 06/27/20 19:04 90 06/27/20 15:04 92 93/62 06/27/20 14:19 80 74 102/70 06/27/20 13:36 96 114/81 06/27/20 12:00 12 06/27/20 11:09 82 113/75 06/27/20 11:08 101 H 115/73 06/27/20 10:00 14 06/27/20 08:00 98.0 F 11 L BP Pulse Ox Pulse Ox 06/27/20 19:04 06/27/20 15:04 06/27/20 14:19 96/63 94 L 93 L 06/27/20 13:36 06/27/20 12:00 06/27/20 11:09 06/27/20 11:08 06/27/20 10:00 06/27/20 08:00 Weight Admit Weight 227 lb 8.272 oz Weight 235 lb 14.314 oz Most Recent Monitor Data Heart Rate from ECG 99 NIBP 103/79 NIBP BP-Mean 87 Respiration from ECG 10 SpO2 94 I&O: 06/26/20 06/27/20 06/28/20 06:59 06:59 06:59 Intake Total 5329.7 2191.9 332 Output Total 1090 1935 300 Balance 4239.7 256.9 32 Result Diagrams: 06/27/20 04:45 06/27/20 16:22 Additional Labs: Accuchecks 06/27/20 06/27/20 06/27/20 16:26 08:07 01:42 POC Glucose 98 162 H 218 H Hospitalist ROS - Medication Medications: Active Medications Generic Name Dose Route Start Last Admin Trade Name Freq PRN Reason Stop Dose Admin Aspirin 325 mg 06/27/20 09:00 06/27/20 11:14 Aspirin 325 Mg Tab PER TUBE Not Given DAILY LAZARUS Atorvastatin Calcium 40 mg 06/25/20 21:00 06/26/20 20:34 Atorvastatin Calcium 40 Mg Tab PO 40 mg HS LAZARUS Administration Famotidine 20 mg 06/25/20 09:00 06/27/20 09:36 Famotidine/Pf 20 Mg/2ml Vial SLOW IVP 20 mg DAILY LAZARUS Administration Meropenem 1 gm/ Device 50 mls @ 50 mls/hr 06/25/20 06:00 06/27/20 17:37 IVPB 50 mls 0600,1800 LAZARUS Administration Norepinephrine Bitartrate 250 mls @ 0 mls/hr 06/25/20 03:32 06/26/20 20:29 Levophed IVPB 250 mls INF PRN Administration TO KEEP MAP > 65 Protocol Titrate Vasopressin 20 unit/ 51 mls @ 0 mls/hr 06/25/20 14:15 06/27/20 17:38 Miscellaneous Medication 1 IV 51 mls each/ Sodium Chloride INF LAZARUS Administration Protocol As Directed Fentanyl Citrate 2,000 mcg/ 100 mls @ 0 mls/hr 06/25/20 14:15 06/27/20 08:17 Sodium Chloride IV 07/25/20 14:15 100 mls INF LAZARUS Administration Protocol Per Protocol Insulin Glargine 20 units/ 0.2 mls @ 0 mls/hr 06/26/20 09:00 06/27/20 09:36 Miscellaneous Medication SC 0.2 mls QAM LAZARUS Administration Sodium Chloride 1,000 mls @ 100 mls/hr 06/27/20 07:45 06/27/20 17:37 1/2 Normal Saline IV 1,000 mls .Q10H LAZARUS Administration Insulin Human Lispro 0 units 06/26/20 08:03 06/27/20 09:37 Humalog 300 Units/3 Ml Vial SC 3 unit .AGGRESSIVE SLIDING PRN Administration Aggressive Correctional Scale Lorazepam 2 mg 06/25/20 14:15 06/25/20 18:13 Lorazepam 2 Mg/Ml Vial SLOW IVP 07/25/20 14:15 2 mg Q1H PRN Administration Breakthrough agitation Propofol 1,000 mg 06/25/20 14:15 06/26/20 20:29 Propofol 1,000 Mg/100 Ml Vial IV 07/25/20 14:15 1,000 mg INF PRN Administration TO ACHIEVE GOAL RASS Protocol - Exam General Appearance: NAD General - other findings: Intubated and sedated Heart: RRR, no murmur, no gallops, no rubs, normal peripheral pulses Respiratory: CTAB, no wheezes, no rales, no ronchi, normal chest expansion, no tachypnea, normal percussion Gastrointestinal: soft, non-distended, normal bowel sounds, no palpable masses, no hepatomegaly, no splenomegaly, no bruit Extremities: 1+ LE edema Skin: normal turgor Hosp A/P (1) Sepsis Code(s): A41.9 - SEPSIS, UNSPECIFIED ORGANISM Status: Acute Qualifiers: Sepsis type: sepsis due to unspecified organism Sepsis acute organ dysfunction status: with acute organ dysfunction Severe sepsis acute organ dysfunction type: acute renal failure Severe sepsis shock status: with septic shock (2) UTI (urinary tract infection) Status: Acute Qualifiers: Urinary tract infection type: acute cystitis Hematuria presence: without hematuria Qualified Code(s): N30.00 - Acute cystitis without hematuria (3) Acute respiratory failure with hypoxia Code(s): J96.01 - ACUTE RESPIRATORY FAILURE WITH HYPOXIA Status: Acute (4) EDMAR (acute kidney injury) Code(s): N17.9 - ACUTE KIDNEY FAILURE, UNSPECIFIED Status: Acute (5) Obstruction of left ureteropelvic junction due to stone Code(s): N20.1 - CALCULUS OF URETER Status: Acute (6) Obesity (BMI 30-39.9) Code(s): E66.9 - OBESITY, UNSPECIFIED Status: Chronic (7) DM type 2 (diabetes mellitus, type 2) Status: Suspected Qualifiers: Diabetes mellitus jail insulin use: without jail use (8) HTN (hypertension) Code(s): I10 - ESSENTIAL (PRIMARY) HYPERTENSION Status: Chronic (9) Paroxysmal a-fib Code(s): I48.0 - PAROXYSMAL ATRIAL FIBRILLATION Status: Chronic (10) E coli bacteremia Code(s): R78.81 - BACTEREMIA; B96.20 - UNSP ESCHERICHIA COLI THE CAUSE OF DISEASES CLASSD ELSWHR Status: Acute (11) Thrombocytopenia Code(s): D69.6 - THROMBOCYTOPENIA, UNSPECIFIED Status: Acute - Plan Sepsis: Patient remains in the ICU on pressors. Continuing on vasopressin and Levophed. She appears to be generally stable with those for now. Secondary to urinary tract infection and obstructing ureteral stone. Continue with appropriate antibiotics. E. coli UTI/bacteremia: Complicated urinary tract infection due to the obstructing ureteral stone and hydronephrosis. She has a stent placed. She is on meropenem. Cultures indicate a pansensitive E. coli. They be able to de-escalate the antibiotics soon. Ureteral stone with hydronephrosis: Status post ureteral stent. Good urine output. Urology following. We will not pursue resolution of the stone until she is through the course of sepsis and infection is resolved. Acute hypoxic respiratory failure: Patient remains ventilated. Pulmonary critical care following. Acute worsening of chronic stage III kidney disease: Patient has a typical GFR in the 50s to 60s. Here it is dropped as low as 30. Appears to be back up in the 50s now with resolution of the hydronephrosis. Continue to monitor. Hypokalemia: Repleted and improved. Paroxysmal atrial fibrillation: Currently sinus and rate controlled. She is on flecainide normally for this. She is also typically on anticoagulation. Due to thrombocytopenia that has been held. Thrombocytopenia: Seems to be gradually worsening. Off of anticoagulation. She has had a little bit of hematuria and some blood-tinged NG aspirate. Abnormal chest x-ray: Airspace opacity in the right lung base. Initially concerning for possible atelectasis or infiltrate. Appears improved on the most recent x-ray. Possible TIA versus CVA: Patient had some unilateral weakness on initial presentation. She also had some shaking. Seems at this point that that was more likely rigors than seizures. She had a negative head CT. May need a repeat head CT at some point pending her status after extubation.
[2020-06-27] MEDS: Atorvastatin Calcium 40 MG TAB PO SCH (20:40)
[2020-06-27] MEDS: Propofol 1,000 MG/100 ML VIAL IV PRN (22:20)
[2020-06-28] MEDS: Vasopressin 20 UNIT, Admixture Fee 1 EACH in Sodium Chloride 0.9% 50 ML IV SCH ×2 (01:27→10:55)
[2020-06-28] MEDS: Sodium Bicarbonate 140 MEQ in Dextrose 5% in Water 1,000 ML IV SCH (03:24)
[2020-06-28] MEDS: Sodium Chloride 0.45% 1,000 ML IV SCH (03:50)
[2020-06-28 04:46] LABS: ALT (SGPT) 24 U/L (8-55); AST (SGOT) 22 U/L (5-34); Albumin 2.5 g/dL (3.4-4.8); Alkaline Phosphatase 217 U/L (40-110); Anion Gap 12 mmol/L (10-20); BUN (Urea Nitrogen) 35 mg/dL (9.8-20.1); Bilirubin, Total 1.3 mg/dL (0.2-1.2); Calc. Creatinine Clearance 100 mL/min (70-130); Calcium 7.2 mg/dL (7.8-10.44); Carbon Dioxide 28 mmol/L (23-31); Chloride 104 mmol/L (98-107); Estimated GFR-MDRD 72; Globulin 2.5 g/dL (2.4-3.5); Glucose 136 mg/dL (83-110); Potassium 3.8 mmol/L (3.5-5.1); Sodium 140 mmol/L (136-145)
[2020-06-28 05:29] LABS: Band 15 % (5-11); Hemoglobin 10.4 g/dL (12.0-16.0); Lymphocytes 6 % (21-51); MDiff Complete? YES; Mean Corpuscular HGB CONC 31.4 g/dL (32.0-36.0); Mean Corpuscular Hemoglobin 28.3 pg (27.0-31.0); Mean Corpuscular Volume 90.1 fL (78.0-98.0); Mean Platelet Volume 9.9 fL (7.4-10.4); Monocytes 6 % (0-10); Myelocyte 1 % (0-0); Neutrophil 72 % (42-75); Platelet Count 41 thou/uL (130-400); Platelet Morphology Comment Appears Decreased; RBC Distribution Width 13.4 % (11.5-14.5); Red Blood Cell (RBC) Count 3.67 mill/uL (4.20-5.40); White Blood Cell (WBC) Count 25.3 thou/uL (4.8-10.8)
[2020-06-28] MEDS: MEROPENEM 1 GM/50 ML 1 GM in Premix Bag 1 BAG IVPB SCH ×3 (05:53→21:03)
[2020-06-28 07:23] LABS: Actual Bicarbonate (HCO3a) 28.1 mEq/L (22-28); CO2 Tension 50.1 mmHg (35.0-45.0); Calcium, Ionized (arterial) 1.02 mmol/L (1.12-1.30); Carboxyhemoglobin (COHb) 0.3 gm% (0.0-3.0); Hemoglobin (Hb) 11.4 g/dL (12.0-16.0); O2 Tension (PaO2), arterial 77.9 mmHg (> 70.0); Potassium - ABG Lab 3.91 mmol/L (3.70-5.30); pH, Arterial 7.37 (7.35-7.45)
[2020-06-28 07:26] LABS: ALV-art Gradient 144.675 mmHg (0-20); Puncture Site RR
--- NOTE | 2020-06-28 08:00 | RAD ---
PORTABLE CHEST: Date: 06/28/2020 HISTORY: Pneumonia follow-up. COMPARISON: Prior day's study. FINDINGS: Endotracheal, NG tube, and right-sided central line are all unchanged in position. Heart size is enla rged. Pulmonary vessels are engorged. Increased parahilar lung markings are seen. Increased density i n the right base suggests effusion. Changes are felt to be relatively stable as compared to the prior exam. IMPRESSION: Essentially stable study. POS: OFF
[2020-06-28] MEDS ORDERED: Furosemide 40 MG/4 ML VIAL SLOW IVP SCH (08:30)
[2020-06-28] MEDS: Famotidine/PF 20 mg/2ml Vial SLOW IVP SCH (08:49)
--- NOTE | 2020-06-28 08:50 | PRG ---
DATE OF SERVICE: 06/28/2020 35 minutes of critical care time. SUBJECTIVE: The patient remains in the ICU on mechanical ventilation. Her propofol is off, but she is not really waking up and following commands very well this morning compared to what she was yesterday. OBJECTIVE: VITAL SIGNS: Temperature is 98.3 with no recorded fever overnight, pulse 83, blood pressure 141/93, O2 saturation in the low 90s. 24-hour intake was 3226, output 639. HEENT: Unremarkable. NECK: No JVD. LUNGS: Coarse breath sounds. CARDIAC: S1 and S2, regular, requiring vasopressin and Levophed. ABDOMEN: Soft and edematous. EXTREMITIES: Edematous throughout. LABORATORY DATA: ABG; pH 7.37, pCO2 of 50, pO2 of 77, on SIMV, rate of 10, tidal volume 450, PEEP 5, pressure support 10, and FiO2 of 40%. White blood cell count 25.3, hematocrit 33.3, and platelet count 41. Sodium 140, potassium 3.8, chloride 104, CO2 of 28, BUN 35, creatinine 0.7, and glucose 136. ASSESSMENT: 1. Urosepsis. 2. Acute respiratory failure, requiring mechanical ventilation. PLAN: The patient remains in a septic state with volume overload and hypotension. She is hypoventilating, on mechanical ventilation. This tells me she is probably not ready to proceed with weaning or extubation yet. RECOMMENDATIONS: 1. Since the E coli is sensitive to everything and she has a multitude of allergies, we will continue her on the meropenem. 2. She really needs to start diuresing some. I will stop her maintenance IV fluids as she is getting plenty in terms of medications and tube feeds otherwise. Job ID: [id number]
[2020-06-28] MEDS: Insulin Glargine 20 UNITS in Pre-Filled Syringe 1 EACH SC SCH (10:17)
[2020-06-28] MEDS: Aspirin 325 MG TAB PER TUBE SCH (10:21)
--- NOTE | 2020-06-28 16:53 | PRG ---
DATE OF SERVICE: 06/28/2020 The patient has been afebrile today and looks like her blood pressure has been improved. She is still tachycardic. Her lab work shows a white count was 25,000, which is down some from yesterday. Her creatinine was 0.7. She is more awake today. She is actually still intubated, but writing on a pad that her holds and she recognizes me and moves all her extremities to command. I talked with Dr. Carlin about her. He feels she is still probably not strong enough to extubate today, and we will see how she is doing tomorrow. He feels she probably needs to diurese. On exam, her abdomen is soft. She still has some left upper quadrant tenderness to deep palpation. Her urine output has been much better today. At this point, it does not appear that she needs to have any repeat imaging of the abdomen done, and we will see if she continues to show some improvement through the night and tomorrow. Job ID: [id number]
--- NOTE | 2020-06-28 18:51 | PDOC.HOSPP ---
- Subjective Encounter Date: 06/28/20 Subjective: Patient remains intubated on my exam today. She is awake she is able to answer some questions. She is writing on a note pad. She does not have full recall of why she is here. She is still on the little sedation. - Objective Vital Signs & Weight: Vital Signs (12 hours) Temp Pulse Pulse Pulse Resp BP BP 06/28/20 18:00 9 L 06/28/20 16:00 98.7 F 14 06/28/20 15:00 105 H 103/63 06/28/20 14:00 18 06/28/20 12:57 109 H 107/68 06/28/20 12:00 98.4 F 14 06/28/20 10:16 110 H 105/75 06/28/20 10:00 14 06/28/20 08:50 106 H 92 134/75 06/28/20 08:00 97.8 F 14 06/28/20 07:08 77 133/75 BP Pulse Ox Pulse Ox 06/28/20 18:00 06/28/20 16:00 06/28/20 15:00 06/28/20 14:00 06/28/20 12:57 06/28/20 12:00 06/28/20 10:16 06/28/20 10:00 06/28/20 08:50 119/69 91 L 06/28/20 08:00 93 L 06/28/20 07:08 Weight Admit Weight 227 lb 8.272 oz Weight 240 lb 4.862 oz Most Recent Monitor Data Heart Rate from ECG 112 NIBP 83/64 NIBP BP-Mean 70 Respiration from ECG 16 SpO2 97 I&O: 06/27/20 06/28/20 06/29/20 06:59 06:59 06:59 Intake Total 2191.9 3326.8 932.6 Output Total 6477 375 2617 Balance 256.9 2687.8 -1277.4 Result Diagrams: 06/28/20 03:40 06/28/20 03:40 Additional Labs: Accuchecks 06/28/20 06/28/20 06/28/20 18:37 10:15 06:45 POC Glucose 92 128 H 114 H 06/28/20 00:55 POC Glucose 102 H Hospitalist ROS - Medication Medications: Active Medications Generic Name Dose Route Start Last Admin Trade Name Freq PRN Reason Stop Dose Admin Aspirin 325 mg 06/27/20 09:00 06/28/20 10:21 Aspirin 325 Mg Tab PER TUBE Not Given DAILY LAZARUS Atorvastatin Calcium 40 mg 06/25/20 21:00 06/27/20 20:40 Atorvastatin Calcium 40 Mg Tab PO 40 mg HS LAZARUS Administration Norepinephrine Bitartrate 250 mls @ 0 mls/hr 06/25/20 03:32 06/26/20 20:29 Levophed IVPB 250 mls INF PRN Administration TO KEEP MAP > 65 Protocol Titrate Vasopressin 20 unit/ 51 mls @ 0 mls/hr 06/25/20 14:15 06/28/20 10:55 Miscellaneous Medication 1 IV 51 mls each/ Sodium Chloride INF LAZARUS Administration Protocol As Directed Fentanyl Citrate 2,000 mcg/ 100 mls @ 0 mls/hr 06/25/20 14:15 06/27/20 08:17 Sodium Chloride IV 07/25/20 14:15 100 mls INF LAZARUS Administration Protocol Per Protocol Insulin Glargine 20 units/ 0.2 mls @ 0 mls/hr 06/26/20 09:00 06/28/20 10:17 Miscellaneous Medication SC 0.2 mls QAM LAZARUS Administration Meropenem 1 gm/ Device 50 mls @ 50 mls/hr 06/28/20 14:00 06/28/20 14:02 IVPB 50 mls Q8HR LAZARUS Administration Insulin Human Lispro 0 units 06/26/20 08:03 06/27/20 09:37 Humalog 300 Units/3 Ml Vial SC 3 unit .AGGRESSIVE SLIDING PRN Administration Aggressive Correctional Scale Lorazepam 2 mg 06/25/20 14:15 06/25/20 18:13 Lorazepam 2 Mg/Ml Vial SLOW IVP 07/25/20 14:15 2 mg Q1H PRN Administration Breakthrough agitation Propofol 1,000 mg 06/25/20 14:15 06/27/20 22:20 Propofol 1,000 Mg/100 Ml Vial IV 07/25/20 14:15 1,000 mg INF PRN Administration TO ACHIEVE GOAL RASS Protocol - Exam General Appearance: NAD, awake alert General - other findings: Intubated Heart: RRR, no murmur, no gallops, no rubs, normal peripheral pulses Heart - other findings: Tachycardic. Occasional PVCs. Respiratory: CTAB, no wheezes, no rales, no ronchi, normal chest expansion, no tachypnea, normal percussion Gastrointestinal: soft, non-tender, non-distended, normal bowel sounds Extremities: 1+ LE edema Extremities - other findings: Diffusely Skin: normal turgor Neurological: no new deficit Musculoskeletal: generalized weakness Hosp A/P (1) Sepsis Code(s): A41.9 - SEPSIS, UNSPECIFIED ORGANISM Status: Acute Qualifiers: Sepsis type: sepsis due to unspecified organism Sepsis acute organ dysfunction status: with acute organ dysfunction Severe sepsis acute organ dysfunction type: acute renal failure Severe sepsis shock status: with septic shock (2) UTI (urinary tract infection) Status: Acute Qualifiers: Urinary tract infection type: acute cystitis Hematuria presence: without hematuria Qualified Code(s): N30.00 - Acute cystitis without hematuria (3) Acute respiratory failure with hypoxia Code(s): J96.01 - ACUTE RESPIRATORY FAILURE WITH HYPOXIA Status: Acute (4) EDMAR (acute kidney injury) Code(s): N17.9 - ACUTE KIDNEY FAILURE, UNSPECIFIED Status: Acute (5) Obstruction of left ureteropelvic junction due to stone Code(s): N20.1 - CALCULUS OF URETER Status: Acute (6) Obesity (BMI 30-39.9) Code(s): E66.9 - OBESITY, UNSPECIFIED Status: Chronic (7) DM type 2 (diabetes mellitus, type 2) Status: Suspected Qualifiers: Diabetes mellitus mcc insulin use: without mcc use (8) HTN (hypertension) Code(s): I10 - ESSENTIAL (PRIMARY) HYPERTENSION Status: Chronic (9) Paroxysmal a-fib Code(s): I48.0 - PAROXYSMAL ATRIAL FIBRILLATION Status: Chronic (10) E coli bacteremia Code(s): R78.81 - BACTEREMIA; B96.20 - UNSP ESCHERICHIA COLI THE CAUSE OF DIS EASES CLASSD ELSWHR Status: Acute (11) Thrombocytopenia Code(s): D69.6 - THROMBOCYTOPENIA, UNSPECIFIED Status: Acute - Plan Sepsis: Patient remains in the ICU on pressors although those are effectively being weaned. She appears to be generally stable with those for now. Secondary to urinary tract infection and obstructing left ureteral stone. Continue with ap propriate antibiotics. E. coli UTI/bacteremia: Complicated urinary tract infection due to the 5 mm obstructing left ureteral stone and hydronephrosis. She has a stent placed. She is on meropenem. Cultures indicate a pansensitive E. coli. They be able to de-escalate the antibiotics soon. Ureteral stone with hydronephrosis: Status post ureteral stent. Good urine output. Urology following. We will not pursue resolution of the stone until she is through the course of sepsis and infection is resolved. Acute hypoxic respiratory failure: Patient remains ventilated. Pulmonary critical care following. Acute worsening of chronic stage III kidney disease: Patient has a typical GFR in the 50s to 60s. Here it is dropped as low as 30. Appears to be back up in the 50s now with resolution of the hydronephrosis. Continue to monitor. Hypokalemia: Repleted and improved. Paroxysmal atrial fibrillation: Currently sinus and rate controlled. She is on flecainide normally for this. She is also typically on anticoagulation. Due to thrombocytopenia that has been held. Thrombocytopenia: Stabilizing. Off of anticoagulation. She has had a little bit of hematuria and some blood-tinged NG aspirate. Abnormal chest x-ray: Airspace opacity in the right lung base. Initially concerning for possible atelectasis or infiltrate. Appears improved on the most recent x-ray. Possible TIA versus CVA: Patient had some unilateral weakness on initial presentation. She also had some shaking. Seems at this point that that was more likely rigors than seizures. She had a negative head CT. May need a repeat head CT at some point pending her status after extubation.
[2020-06-28] MEDS: Atorvastatin Calcium 40 MG TAB PO SCH (20:16)
[2020-06-28] MEDS: Famotidine 20 MG TAB PO SCH (20:16)
[2020-06-28] MEDS: Propofol 1,000 MG/100 ML VIAL IV PRN (20:58)
[2020-06-28] MEDS: fentaNYL Citrate/PF 2,000 MCG in Sodium Chloride 0.9% 60 ML IV SCH (23:13)
[2020-06-29] MEDS: MEROPENEM 1 GM/50 ML 1 GM in Premix Bag 1 BAG IVPB SCH ×3 (05:04→21:17)
[2020-06-29 05:06] LABS: Band 14 % (5-11); Hemoglobin 10.9 g/dL (12.0-16.0); Lymphocytes 22 % (21-51); MDiff Complete? YES; Mean Corpuscular HGB CONC 32.6 g/dL (32.0-36.0); Mean Corpuscular Hemoglobin 29.1 pg (27.0-31.0); Mean Corpuscular Volume 89.5 fL (78.0-98.0); Mean Platelet Volume 10.6 fL (7.4-10.4); Monocytes 7 % (0-10); Neutrophil 56 % (42-75); Platelet Count 40 thou/uL (130-400); Platelet Morphology Comment Appears Decreased; RBC Distribution Width 13.2 % (11.5-14.5); Reactive Lymphocytes 1 % (0-10); Red Blood Cell (RBC) Count 3.75 mill/uL (4.20-5.40); White Blood Cell (WBC) Count 12.2 thou/uL (4.8-10.8)
[2020-06-29 05:08] LABS: ALT (SGPT) 24 U/L (8-55); AST (SGOT) 19 U/L (5-34); Albumin 2.4 g/dL (3.4-4.8); Alkaline Phosphatase 262 U/L (40-110); Anion Gap 12 mmol/L (10-20); BUN (Urea Nitrogen) 35 mg/dL (9.8-20.1); Bilirubin, Total 1.2 mg/dL (0.2-1.2); Calc. Creatinine Clearance 112 mL/min (70-130); Carbon Dioxide 30 mmol/L (23-31); Chloride 103 mmol/L (98-107); Estimated GFR-MDRD 81; Globulin 2.4 g/dL (2.4-3.5); Glucose 107 mg/dL (83-110); Potassium 3.3 mmol/L (3.5-5.1); Protein, Total 4.8 g/dL (6.0-8.3); Sodium 142 mmol/L (136-145)
[2020-06-29] MEDS: Potassium Chloride 20 MEQ in Premix Bag 1 BAG IVPB SCH ×2 (05:51→08:04)
--- NOTE | 2020-06-29 07:48 | PRG ---
DATE OF SERVICE: 06/29/2020 35 minutes critical care time. SUBJECTIVE: The patient remains intubated on mechanical ventilation. She is fully awake and follows commands. OBJECTIVE: VITAL SIGNS: On exam, temperature 98.3, pulse 113, blood pressure 132/90. 24-hour intake 1570, output 2040. HEENT: Unremarkable. NECK: No adenopathy or JVD. LUNGS: Fairly clear anteriorly. CARDIOVASCULAR: S1, S2. Slightly tachycardic. ABDOMEN: Soft, nontender to palpation. EXTREMITIES: Slight edema bilaterally. LABORATORY DATA: White blood cell count 12.2, hematocrit 33.5, and platelet count 40. ABG pending. Sodium 142, potassium 3.3, chloride 103, CO2 of 30, BUN 35, creatinine 0.7, glucose 107, alkaline phosphatase 262. ASSESSMENT: 1. E coli sepsis. 2. Thrombocytopenia secondary to sepsis. 3. Acute respiratory failure requiring mechanical ventilation. PLAN: I would like to extubate the patient today. She is currently on spontaneous breathing trial, but I think she will pass easily. She has been weaned off the vasopressors. She will continue current IV antibiotics and we will initiate physical therapy. Job ID: [id number]
--- NOTE | 2020-06-29 08:03 | RAD ---
Portable frontal chest radiograph: 06/29/2020 COMPARISON: 06/28/2020 HISTORY: Pneumonia FINDINGS: Endotracheal tube, nasogastric tube, and right-sided vascular catheter stable. Heart and me diastinal contours are stable. There is persistent widening of the superior mediastinum. Blunting of the costophrenic angle on the right suggests small volume right pleural effusion and focal medial right basilar opacity suggest stable consolidation. IMPRESSION: No significant interval change.
[2020-06-29] MEDS ORDERED: Aspirin 325 MG TAB ONE (09:57)
[2020-06-29] MEDS: Famotidine 20 MG TAB PO SCH (12:17)
[2020-06-29] MEDS: Insulin Glargine 20 UNITS in Pre-Filled Syringe 1 EACH SC SCH (12:17)
[2020-06-29] MEDS: Aspirin 325 MG TAB PER TUBE SCH (12:17)
[2020-06-29] MEDS ORDERED: Bupropion 150 MG XL TAB PO SCH (13:15)
[2020-06-29] MEDS ORDERED: Flecainide 50 MG TAB PO SCH (13:15)
[2020-06-29] MEDS ORDERED: Nebivolol HCl 2.5 MG TAB PO SCH (13:15)
[2020-06-29 14:11] LABS: Potassium 3.8 mmol/L (3.5-5.1)
[2020-06-29] MEDS ORDERED: Metoprolol Tartrate 25 MG TAB PO SCH (15:45)
--- NOTE | 2020-06-29 16:18 | PQF ---
CLINICAL DOCUMENTATION CLARIFICATION FORM: Dear Dr. KYLE FLOWER Date: 06-29-20 Please exercise your independent, professional judgment in responding to the clarification form. Clinical indicators are provided on the bottom of this form for your review. Diagnosis: SEPSIS Present on Admission (POA): [ ] Yes [ ] No [ ] Unable to determine For continuity of documentation, please document condition throughout progress notes and discharge summary. Thank You. To be completed by CDI/Coding staff for physician review: CLINICAL INDICATORS - SIGNS / SYMPTOMS / LABS/ RESULTS AND LOCATION IN MR: ER DX 06-24-20: LEFT SIDED WEAKNESS H&P 06-25-20: ACUTE CVA, THE PATIENT IS NOT A TPA CANDIDATE, L URETEROVESICAL JUNCTION STONE WITH HYDRONEPHROSIS, UTI? PN DR. CLOUD 06-25-20: ACUTE RESP FAILURE WITH HYPOXIA, TIA, OBSTRUCTION OF LEFT URETEROPELVIC JUNCTION DUE TO STONE, UTI, ACUTE SEPSIS WITH SEPTIC SHOCK, EDMAR, CHRONIC PAROXYSMAL A FIB RISK FACTORS / RESULTS AND LOCATION IN MR: H&P 06-25-20: ACUTE CVA, THE PATIENT IS NOT A TPA CANDIDATE, L URETEROVESICAL JUNCTION STONE WITH HYDRONEPHROSIS, UTI? PN DR. CLOUD 06-25-20: ACUTE RESP FAILURE WITH HYPOXIA, TIA, OBSTRUCTION OF LEFT URETEROPELVIC JUNCTION DUE TO STONE, UTI, ACUTE SEPSIS WITH SEPTIC SHOCK, EDMAR, CHRONIC PAROXYSMAL A FIB TREATMENT / RESULTS AND LOCATION IN MR: ER NOTES 06-24-20: VANCOMYCIN IV, NS IVF, ZOSYN IV CDS Signature: Asmita Quan Phone #:[phone] Date: 06-29-20 This is a permanent part of the Medical Record [facility]
--- NOTE | 2020-06-29 17:50 | PDOC.HOSPP ---
- Subjective Encounter Date: 06/29/20 Encounter Time: 11:40 Subjective: Pt seen for followup re: sepsis. Extubated, c/o sore throat but feels better overall. - Objective Vital Signs & Weight: Vital Signs (12 hours) Temp Pulse Resp BP Pulse Ox 06/29/20 12:00 99.1 F 06/29/20 08:00 98.4 F 96 06/29/20 07:27 103 H 110/75 06/29/20 06:00 11 L Weight Admit Weight 227 lb 8.272 oz Weight 242 lb 8.136 oz Most Recent Monitor Data Heart Rate from ECG 94 NIBP 134/91 NIBP BP-Mean 105 Respiration from ECG 15 SpO2 94 I&O: 06/28/20 06/29/20 06/30/20 06:59 06:59 06:59 Intake Total 3326.8 1570.1 635 Output Total 639 2840 1000 Balance 2687.8 -1269.9 -365 Result Diagrams: 06/29/20 03:30 06/29/20 13:15 Additional Labs: Accuchecks 06/29/20 06/29/20 06/29/20 13:14 10:10 00:19 POC Glucose 107 H 107 H 87 06/28/20 06/28/20 18:37 12:43 POC Glucose 92 121 H Labs and MARs reviewed by me EKG Reviewed by me: Yes (Tele: af) Hospitalist ROS - Review of Systems ENT: reports: throat pain Respiratory: denies: cough, dry, shortness of breath, hemoptysis, SOB with excertion, pleuritic pain, sputum, wheezing Cardiovascular: denies: chest pain, palpitations, orthopnea, paroxysmal noc. dyspnea, edema, light headedness - Medication Medications: Active Medications Generic Name Dose Route Start Last Admin Trade Name Freq PRN Reason Stop Dose Admin Aspirin 325 mg 06/27/20 09:00 06/29/20 12:17 Aspirin 325 Mg Tab PER TUBE 325 mg DAILY LAZARUS Administration Atorvastatin Calcium 40 mg 06/25/20 21:00 06/28/20 20:16 Atorvastatin Calcium 40 Mg Tab PO 40 mg HS LAZARUS Administration Norepinephrine Bitartrate 250 mls @ 0 mls/hr 06/25/20 03:32 06/26/20 20:29 Levophed IVPB 250 mls INF PRN Administration TO KEEP MAP > 65 Protocol Titrate Vasopressin 20 unit/ 51 mls @ 0 mls/hr 06/25/20 14:15 06/28/20 10:55 Miscellaneous Medication 1 IV 51 mls each/ Sodium Chloride INF LAZARUS Administration Protocol As Directed Fentanyl Citrate 2,000 mcg/ 100 mls @ 0 mls/hr 06/25/20 14:15 06/28/20 23:13 Sodium Chloride IV 07/25/20 14:15 100 mls INF LAZARUS Administration Protocol Per Protocol Insulin Glargine 20 units/ 0.2 mls @ 0 mls/hr 06/26/20 09:00 06/29/20 12:17 Miscellaneous Medication SC 0.2 mls QAM LAZARUS Administration Meropenem 1 gm/ Device 50 mls @ 50 mls/hr 06/28/20 14:00 06/29/20 13:37 IVPB 50 mls Q8HR LAZARUS Administration Insulin Human Lispro 0 units 06/26/20 08:03 06/27/20 09:37 Humalog 300 Units/3 Ml Vial SC 3 unit .AGGRESSIVE SLIDING PRN Administration Aggressive Correctional Scale Lorazepam 2 mg 06/25/20 14:15 06/25/20 18:13 Lorazepam 2 Mg/Ml Vial SLOW IVP 07/25/20 14:15 2 mg Q1H PRN Administration Breakthrough agitation Propofol 1,000 mg 06/25/20 14:15 06/28/20 20:58 Propofol 1,000 Mg/100 Ml Vial IV 07/25/20 14:15 1,000 mg INF PRN Administration TO ACHIEVE GOAL RASS Protocol - Exam General Appearance: awake alert General - other findings: Obesity Eye: anicteric sclera ENT: normocephalic atraumatic Neck: supple Heart: RRR Respiratory: CTAB Gastrointestinal: soft Extremities: no cyanosis Skin: no rashes Psychiatric: normal affect, normal behavior Hosp A/P - Plan Sepsis: Present on admission. Now off of pressors, extubated. Secondary to urinary tract infection and obstructing left ureteral stone. Continue meropenem. E. coli UTI/bacteremia: Complicated urinary tract infection due to the 5 mm obstructing left ureteral stone and hydronephrosis. She has a stent placed. She is on meropenem. Cultures indicate a pansensitive E. coli. They be able to de-escalate the antibiotics soon. Ureteral stone with hydronephrosis: Status post ureteral stent. Clinically imp-roved. Acute hypoxic respiratory failure: Resolved. Acute worsening of chronic stage III kidney disease: Resolved. Paroxysmal atrial fibrillation: Resume4 home medications including flecainide. Thrombocytopenia: Stabilizing. Possible TIA: Resolved.
[2020-06-29] MEDS: Montelukast Sodium 10 mg Tablet PO SCH (20:09)
[2020-06-29] MEDS: Flecainide 50 MG TAB PO SCH (20:09)
[2020-06-29] MEDS: Atorvastatin Calcium 40 MG TAB PO SCH (20:09)
[2020-06-29] MEDS: Bupropion 150 MG XL TAB PO SCH (20:10)
[2020-06-29] MEDS ORDERED: Non-Formulary Item 1 EACH (Symbicort 2 PUFF) PO SCH (21:00)
--- NOTE | 2020-06-29 23:43 | PRG ---
DATE OF SERVICE: 06/29/2020 I saw Mrs. Gandhi around 9 o'clock this morning. She had already been extubated. Her vital signs had improved through the night and she was off pressors. She is communicative and answering all questions, remembered that I was here to see her yesterday evening. She is still weak. She is having less abdominal pain and less flank pain. Her white count was down to nearly normal today. Her creatinine was normal. She has had excellent urine output on hourly basis over the last shift. On the physical exam, her abdomen is soft and there is minimal tenderness in the left upper quadrant to deep palpation. At this point in time, it appears she is turning the corner from her infection and seems to be responding well to her antibiotics. I told her that in a couple of weeks, we will look at going after the stone, but we need to let her recover from the infection and to get stronger from her illness before proceeding on with that. Job ID: [id number]
[2020-06-30 05:43] LABS: ALT (SGPT) 29 U/L (8-55); AST (SGOT) 25 U/L (5-34); Albumin 2.6 g/dL (3.4-4.8); Alkaline Phosphatase 309 U/L (40-110); Anion Gap 11 mmol/L (10-20); BUN (Urea Nitrogen) 27 mg/dL (9.8-20.1); Bilirubin, Total 1.2 mg/dL (0.2-1.2); Calc. Creatinine Clearance 116 mL/min (70-130); Carbon Dioxide 33 mmol/L (23-31); Chloride 106 mmol/L (98-107); Estimated GFR-MDRD 83; Globulin 2.7 g/dL (2.4-3.5); Glucose 100 mg/dL (83-110); Protein, Total 5.3 g/dL (6.0-8.3); Sodium 146 mmol/L (136-145)
[2020-06-30] MEDS: MEROPENEM 1 GM/50 ML 1 GM in Premix Bag 1 BAG IVPB SCH ×3 (06:00→22:33)
[2020-06-30 06:34] LABS: Band 27 % (5-11); Eosinophils 1 % (0-10); Hemoglobin 12.1 g/dL (12.0-16.0); Lymphocytes 12 % (21-51); MDiff Complete? YES; Mean Corpuscular HGB CONC 32.3 g/dL (32.0-36.0); Mean Corpuscular Hemoglobin 28.9 pg (27.0-31.0); Mean Corpuscular Volume 89.5 fL (78.0-98.0); Mean Platelet Volume 10.6 fL (7.4-10.4); Monocytes 11 % (0-10); Neutrophil 49 % (42-75); Platelet Count 54 thou/uL (130-400); Platelet Morphology Comment Appears Decreased; RBC Distribution Width 13.1 % (11.5-14.5); White Blood Cell (WBC) Count 14.3 thou/uL (4.8-10.8)
--- NOTE | 2020-06-30 07:51 | RAD ---
Exam: Chest one view HISTORY:Pneumonia Comparison: 06/21/2020 FINDINGS: Lines and tubes: Stable right-sided internal jugular vascular catheter. Interval removal of endotrach eal and nasogastric tube. Cardiac silhouette:Cardiomegaly. Aorta: Atherosclerosis and elongation of the aorta. Pulmonary vessels: Normal Costophrenic angles: Clear LUNGS: Chronic lung parenchymal changes. Stable calcified granuloma injecting over the right hemidiap hragm. Pneumothorax: None Osseous abnormalities: None IMPRESSION: No significant interval change. Chronic lung parenchymal changes are identified.
--- NOTE | 2020-06-30 07:56 | PRG ---
DATE OF SERVICE: 06/30/2020 SUBJECTIVE: The patient is doing reasonably well and has no specific complaints. OBJECTIVE: VITAL SIGNS: On exam, temperature 98.1, pulse 107, and blood pressure 112/76. She has been weaned off all vasopressors. HEENT: Unremarkable. NECK: No adenopathy or JVD. LUNGS: Clear to auscultation anteriorly. CARDIAC: S1 and S2 regular. ABDOMEN: Soft without tenderness to palpation. EXTREMITIES: No clubbing or cyanosis. She has generalized trace edema throughout. LABORATORY DATA: White blood cell count 14.3, hematocrit 37.6, and platelet count 54. Sodium 146, potassium 4, chloride 106, CO2 of 33, BUN 27, creatinine 0.6, and glucose 100. Chest x-ray shows no significant findings. ASSESSMENT: 1. Escherichia coli urosepsis secondary to obstructing kidney stone. 2. Status post septic shock. 3. Status post respiratory failure, requiring mechanical ventilation. 4. Thrombocytopenia. 5. Mild hypernatremia. PLAN: She can be transferred to the telemetry floor. She will continue antibiotic therapy. Physical therapy will be initiated. We will advance her diet. Job ID: [id number]
[2020-06-30] MEDS: Aspirin 325 MG TAB PER TUBE SCH (08:26)
[2020-06-30] MEDS: Nebivolol HCl 2.5 MG TAB PO SCH (08:26)
[2020-06-30] MEDS: Cholecalciferol 1,000 UNITS (25 MCG) TAB PO SCH (08:26)
[2020-06-30] MEDS: Flecainide 50 MG TAB PO SCH ×2 (08:27→20:47)
[2020-06-30] MEDS: Bupropion 150 MG XL TAB PO SCH ×2 (08:27→20:47)
[2020-06-30] MEDS ORDERED: Magnesium Oxide 250 MG TAB PO SCH (09:00)
[2020-06-30] MEDS: Insulin Glargine 20 UNITS in Pre-Filled Syringe 1 EACH SC SCH (09:00)
--- NOTE | 2020-06-30 18:15 | PDOC.HOSPP ---
- Subjective Encounter Date: 06/30/20 Encounter Time: 11:30 Subjective: Patient seen for follow-up regarding sepsis. She reports that she feels better. She reports that she does not like thickened liquids. - Objective Vital Signs & Weight: Vital Signs (12 hours) Temp Pulse Pulse Pulse Resp BP BP 06/30/20 15:10 98.0 F 118 H 17 06/30/20 14:48 114 H 20 06/30/20 14:25 107 H 106 H 143/110 H 141/106 H 06/30/20 12:00 97.6 F 06/30/20 08:00 98.4 F 06/30/20 07:10 BP Pulse Ox Pulse Ox Pulse Ox 06/30/20 15:10 139/86 95 06/30/20 14:48 95 06/30/20 14:25 100 100 06/30/20 12:00 06/30/20 08:00 96 06/30/20 07:10 98 Weight Admit Weight 227 lb 8.272 oz Weight 240 lb 11.916 oz Most Recent Monitor Data Heart Rate from ECG 123 NIBP 143/110 NIBP BP-Mean 121 Respiration from ECG 20 SpO2 96 I&O: 06/29/20 06/30/20 07/01/20 06:59 06:59 06:59 Intake Total 1570.1 2082 262 Output Total 2840 1810 550 Balance -1269.9 272 -288 Result Diagrams: 06/30/20 05:00 06/30/20 05:00 Additional Labs: Accuchecks 06/29/20 06/29/20 20:16 18:11 POC Glucose 105 H 115 H I reviewed patient's labs and MAR EKG Reviewed by me: Yes (Telemetry: NSR) Hospitalist ROS - Review of Systems Constitutional: reports: weakness Cardiovascular: denies: chest pain, palpitations, orthopnea, paroxysmal noc. dyspnea, edema, light headedness Gastrointestinal: denies: nausea, vomiting, abdominal pain, diarrhea, constipation, melena, hematochezia - Medication Medications: Active Medications Generic Name Dose Route Start Last Admin Trade Name Freq PRN Reason Stop Dose Admin Albuterol/Ipratropium 3 ml 06/29/20 14:15 06/30/20 14:48 Ipratropium/Albuterol Sulfate 3 Ml Neb NEB 3 ml PRN PRN Administration Wheezing Aspirin 325 mg 10/26/20 09:00 06/30/20 08:26 Aspirin 325 Mg Tab PER TUBE 325 mg DAILY LAZARUS Administration Atorvastatin Calcium 40 mg 06/25/20 21:00 06/29/20 20:09 Atorvastatin Calcium 40 Mg Tab PO 40 mg HS LAZARUS Administration Bupropion HCl 150 mg 06/29/20 21:00 06/30/20 08:27 Bupropion 150 Mg Xl Tab PO 150 mg BID LAZARUS Administration Cholecalciferol 5,000 units 06/30/20 09:00 06/30/20 08:26 Cholecalciferol 1,000 Units (25 Mcg) Tab PO 5,000 units DAILY LAZARUS Administration Flecainide Acetate 50 mg 06/29/20 21:00 06/30/20 08:27 Flecainide 50 Mg Tab PO 50 mg BID LAZARUS Administration Insulin Glargine 20 units/ 0.2 mls @ 0 mls/hr 06/26/20 09:00 06/30/20 09:00 Miscellaneous Medication SC Not Given QAM LAZARUS Meropenem 1 gm/ Device 50 mls @ 50 mls/hr 06/28/20 14:00 06/30/20 14:16 IVPB 50 mls Q8HR LAZARUS Administration Insulin Human Lispro 0 units 06/26/20 08:03 06/27/20 09:37 Humalog 300 Units/3 Ml Vial SC 3 unit .AGGRESSIVE SLIDING PRN Administration Aggressive Correctional Scale Montelukast Sodium 10 mg 06/29/20 21:00 06/29/20 20:09 Montelukast Sodium 10 Mg Tablet PO 10 mg HS LAZARUS Administration Nebivolol 2.5 mg 06/30/20 09:00 06/30/20 08:26 Nebivolol Hcl 2.5 Mg Tab PO 2.5 mg DAILY LAZARUS Administration - Exam General - other findings: Obesity ENT: no oropharyngeal lesions Neck: supple, no thyromegaly Heart: RRR Respiratory: CTAB, no wheezes Gastrointestinal: soft, non-tender Skin: no rashes Psychiatric: normal affect, normal behavior Hosp A/P - Plan Sepsis: Improved. Patient is currently off of pressors. E. coli UTI/bacteremia: Continue meropenem for complicated urinary tract infection due to the 5 mm obstructing left ureteral stone and hydronephrosis. Ureteral stone with hydronephrosis: Status post ureteral stent. Clinically improved. Paroxysmal atrial fibrillation: Continue home medications including flecainide. Thrombocytopenia: Stabilizing. Possible TIA: Resolved. Acute hypoxic respiratory failure: Resolved. Acute worsening of chronic stage III kidney disease: Resolved. Transfer patient to telemetry floor.
[2020-06-30] MEDS: Mometasone 200 MCG/Formoterol 5 MCG 120 PUFF INHALER INH SCH (19:37)
[2020-06-30] MEDS: Atorvastatin Calcium 40 MG TAB PO SCH (20:47)
[2020-06-30] MEDS: Montelukast Sodium 10 mg Tablet PO SCH (20:48)
[2020-07-01 05:03] LABS: ALT (SGPT) 25 U/L (8-55); AST (SGOT) 25 U/L (5-34); Albumin 2.4 g/dL (3.4-4.8); Alkaline Phosphatase 233 U/L (40-110); Anion Gap 12 mmol/L (10-20); BUN (Urea Nitrogen) 21 mg/dL (9.8-20.1); Band 16 % (5-11); Bilirubin, Total 0.9 mg/dL (0.2-1.2); Calc. Creatinine Clearance 121 mL/min (70-130); Calcium 8.9 mg/dL (7.8-10.44); Carbon Dioxide 27 mmol/L (23-31); Chloride 104 mmol/L (98-107); Estimated GFR-MDRD 88; Globulin 2.5 g/dL (2.4-3.5); Glucose 98 mg/dL (83-110); Hemoglobin 11.8 g/dL (12.0-16.0); Lymphocytes 18 % (21-51); MDiff Complete? YES; Mean Corpuscular HGB CONC 32.5 g/dL (32.0-36.0); Mean Corpuscular Volume 89.3 fL (78.0-98.0); Mean Platelet Volume 10.1 fL (7.4-10.4); Monocytes 4 % (0-10); Neutrophil 62 % (42-75); Platelet Count 65 thou/uL (130-400); Platelet Morphology Comment Appears Decreased; Potassium 4.1 mmol/L (3.5-5.1); Protein, Total 4.9 g/dL (6.0-8.3); RBC Morphology Normal; Red Blood Cell (RBC) Count 4.06 mill/uL (4.20-5.40); Sodium 139 mmol/L (136-145); White Blood Cell (WBC) Count 13.7 thou/uL (4.8-10.8)
[2020-07-01] MEDS: MEROPENEM 1 GM/50 ML 1 GM in Premix Bag 1 BAG IVPB SCH ×3 (05:57→22:27)
[2020-07-01] MEDS: Mometasone 200 MCG/Formoterol 5 MCG 120 PUFF INHALER INH SCH ×2 (08:49→20:22)
--- NOTE | 2020-07-01 09:56 | PRG ---
DATE OF SERVICE: 07/01/2020 SUBJECTIVE: The patient still feels very weak. OBJECTIVE: VITAL SIGNS: Temperature 97.8, pulse 104, respirations 18, oxygen saturations 97% on 3 L, blood pressure 128/76. HEENT: Clear. NECK: No JVD. LUNGS: Clear. CARDIAC: S1, S2. Regular. ABDOMEN: Soft. EXTREMITIES: Trace edema. LABORATORY DATA: White blood cell count 13.7, hematocrit 36.2, and platelet count 65. Sodium 139, potassium 4.1, chloride 104, CO2 of 27, BUN 21, creatinine 0.6, and glucose 98. ASSESSMENT: 1. Status post urosepsis with Escherichia coli related to kidney stone. 2. Status post respiratory failure from mechanical ventilation. PLAN: The patient has been transferred to the floor. She is stable from pulmonary standpoint. She is continuing treatment for the E coli sepsis. No further pulmonary recommendations. I will sign off. Please recall if further assistance needed. Job ID: [id number]
[2020-07-01] MEDS: Benzonatate 100 MG CAP PO PRN ×2 (10:00→20:30)
[2020-07-01] MEDS: Nebivolol HCl 2.5 MG TAB PO SCH (10:01)
[2020-07-01] MEDS: Cholecalciferol 1,000 UNITS (25 MCG) TAB PO SCH (10:01)
[2020-07-01] MEDS: Aspirin 325 MG TAB PER TUBE SCH (10:01)
[2020-07-01] MEDS: Flecainide 50 MG TAB PO SCH ×2 (10:01→20:26)
[2020-07-01] MEDS: Insulin Glargine 20 UNITS in Pre-Filled Syringe 1 EACH SC SCH (10:02)
[2020-07-01] MEDS: Bupropion 150 MG XL TAB PO SCH ×2 (10:06→20:26)
--- NOTE | 2020-07-01 12:24 | PRG ---
DATE OF SERVICE: 07/01/2020 The patient is now in room 255. She is off pressor support. She has a Tello and still making quite a bit of urine output, still diuresing quite a bit. Her white count was 13.7, hemoglobin is 11.8, creatinine is 0.65. Vital signs have been otherwise stable. She would like to get the catheter out and this could be removed any time. It is not felt to be necessary from a monitoring standpoint, although with the amount of urine she is producing, it may be better to keep it one more day and perhaps her diuresis will start to resolve. She has no other complaints now. She is not eating much, hopefully for her. I am going to sign off at this point if further Urologic consultation is necessary. During that admission, please re-consult. I will set her up probably not this coming week, but the following week for ureteroscopy and laser lithotripsy and stone retrieval, and my office will take care of setting this up for her. Job ID: [id number]
[2020-07-01] MEDS ORDERED: Heparin 1,000 UNITS/ML VIAL ONE (13:37)
--- NOTE | 2020-07-01 14:48 | PDOC.HOSPP ---
- Subjective Encounter Date: 07/01/20 Encounter Time: 09:00 Subjective: Patient seen for follow-up for urinary tract infection. She reports feeling better. - Objective Vital Signs & Weight: Vital Signs (12 hours) Temp Pulse Resp BP Pulse Ox 07/01/20 11:30 97.5 F L 96 17 126/65 90 L 07/01/20 07:34 97.8 F 104 H 18 128/76 97 07/01/20 07:30 95 07/01/20 03:57 97.8 F 95 20 127/64 98 Weight Admit Weight 227 lb 8.272 oz Weight 247 lb 7 oz Most Recent Monitor Data Heart Rate from ECG 123 NIBP 143/110 NIBP BP-Mean 121 Respiration from ECG 20 SpO2 96 I&O: 06/30/20 07/01/20 07/02/20 06:59 06:59 06:59 Intake Total 2082 962 Output Total 1810 1800 Balance 272 -838 Result Diagrams: 07/01/20 04:21 07/01/20 04:21 Additional Labs: Labs and MAR reviewed by me EKG Reviewed by me: Yes (Telemetry: NSR) Hospitalist ROS - Review of Systems Cardiovascular: denies: chest pain, palpitations, orthopnea, paroxysmal noc. dyspnea, edema, light headedness Gastrointestinal: denies: nausea, vomiting, abdominal pain, diarrhea, constipation, melena, hematochezia - Medication Medications: Active Medications Generic Name Dose Route Start Last Admin Trade Name Freq PRN Reason Stop Dose Admin Albuterol/Ipratropium 3 ml 06/29/20 14:15 06/30/20 14:48 Ipratropium/Albuterol Sulfate 3 Ml Neb NEB 3 ml PRN PRN Administration Wheezing Aspirin 325 mg 06/27/20 09:00 07/01/20 10:01 Aspirin 325 Mg Tab PER TUBE 325 mg DAILY LAZARUS Administration Atorvastatin Calcium 40 mg 06/25/20 21:00 06/30/20 20:47 Atorvastatin Calcium 40 Mg Tab PO 40 mg HS LAZARUS Administration Benzonatate 100 mg 07/01/20 08:26 07/01/20 10:00 Benzonatate 100 Mg Cap PO 100 mg TIDPRN PRN Administration Cough Bupropion HCl 150 mg 06/29/20 21:00 07/01/20 10:06 Bupropion 150 Mg Xl Tab PO 150 mg BID LAZARUS Administration Cholecalciferol 5,000 units 06/30/20 09:00 07/01/20 10:01 Cholecalciferol 1,000 Units (25 Mcg) Tab PO 5,000 units DAILY LAZARUS Administration Flecainide Acetate 50 mg 06/29/20 21:00 07/01/20 10:01 Flecainide 50 Mg Tab PO 50 mg BID LAZARUS Administration Insulin Glargine 20 units/ 0.2 mls @ 0 mls/hr 06/26/20 09:00 07/01/20 10:02 Miscellaneous Medication SC Not Given QAM LAZARUS Meropenem 1 gm/ Device 50 mls @ 50 mls/hr 06/28/20 14:00 07/01/20 14:27 IVPB 50 mls Q8HR LAZARUS Administration Insulin Human Lispro 0 units 06/26/20 08:03 06/27/20 09:37 Humalog 300 Units/3 Ml Vial SC 3 unit .AGGRESSIVE SLIDING PRN Administration Aggressive Correctional Scale Mometasone Furoate/Formoterol Fumar 2 puff 06/30/20 18:30 07/01/20 08:49 Mometasone 200 Mcg/Formoterol 5 Mcg 120 Puff Inhaler INH 2 puff BID-RT LAZARUS Administration Montelukast Sodium 10 mg 06/29/20 21:00 06/30/20 20:48 Montelukast Sodium 10 Mg Tablet PO 10 mg HS LAZARUS Administration Nebivolol 2.5 mg 06/30/20 09:00 07/01/20 10:01 Nebivolol Hcl 2.5 Mg Tab PO 2.5 mg DAILY LAZAURS Administration - Exam General Appearance: awake alert Eye: anicteric sclera ENT: normocephalic atraumatic Neck: no thyromegaly Respiratory: CTAB Gastrointestinal: soft, non-tender Extremities: 1+ LE edema Skin: no rashes Psychiatric: normal affect Hosp A/P - Plan E. coli UTI/bacteremia: Continue meropenem. Ureteral stone with hydronephrosis: Status post ureteral stent. To follow-up with urology as outpatient. Paroxysmal atrial fibrillation: Continue flecainide. Thrombocytopenia: Stabilizing. Possible TIA: Resolved. Acute hypoxic respiratory failure: Resolved. Acute worsening of chronic stage III kidney disease: Resolved. Sepsis: Resolved.
[2020-07-01] MEDS: Apixaban 5 MG TAB PO SCH (20:26)
[2020-07-01] MEDS: Montelukast Sodium 10 mg Tablet PO SCH (20:26)
[2020-07-01] MEDS: Atorvastatin Calcium 40 MG TAB PO SCH (20:26)
[2020-07-02 05:22] LABS: ALT (SGPT) 21 U/L (8-55); AST (SGOT) 19 U/L (5-34); Albumin 2.6 g/dL (3.4-4.8); Alkaline Phosphatase 201 U/L (40-110); Anion Gap 11 mmol/L (10-20); BUN (Urea Nitrogen) 17 mg/dL (9.8-20.1); Bilirubin, Total 0.7 mg/dL (0.2-1.2); Calc. Creatinine Clearance 106 mL/min (70-130); Calcium 9.3 mg/dL (7.8-10.44); Carbon Dioxide 34 mmol/L (23-31); Chloride 100 mmol/L (98-107); Estimated GFR-MDRD 73; Globulin 2.5 g/dL (2.4-3.5); Glucose 103 mg/dL (83-110); Potassium 4.4 mmol/L (3.5-5.1); Protein, Total 5.1 g/dL (6.0-8.3); Sodium 141 mmol/L (136-145)
[2020-07-02 05:25] LABS: Band 2 % (5-11); Hemoglobin 11.5 g/dL (12.0-16.0); Lymphocytes 12 % (21-51); MDiff Complete? YES; Mean Corpuscular HGB CONC 33.1 g/dL (32.0-36.0); Mean Corpuscular Hemoglobin 29.2 pg (27.0-31.0); Mean Corpuscular Volume 88.2 fL (78.0-98.0); Mean Platelet Volume 9.8 fL (7.4-10.4); Monocytes 4 % (0-10); Neutrophil 82 % (42-75); Platelet Count 87 thou/uL (130-400); Platelet Morphology Comment Appears Decreased; RBC Distribution Width 12.9 % (11.5-14.5); RBC Morphology Normal; Red Blood Cell (RBC) Count 3.95 mill/uL (4.20-5.40); White Blood Cell (WBC) Count 12.4 thou/uL (4.8-10.8)
[2020-07-02] MEDS: MEROPENEM 1 GM/50 ML 1 GM in Premix Bag 1 BAG IVPB SCH ×3 (06:23→21:02)
[2020-07-02] MEDS: Mometasone 200 MCG/Formoterol 5 MCG 120 PUFF INHALER INH SCH ×2 (08:17→18:21)
[2020-07-02] MEDS: Flecainide 50 MG TAB PO SCH ×2 (09:29→21:03)
[2020-07-02] MEDS: Cholecalciferol 1,000 UNITS (25 MCG) TAB PO SCH (09:29)
[2020-07-02] MEDS: Bupropion 150 MG XL TAB PO SCH ×2 (09:29→21:03)
[2020-07-02] MEDS: Nebivolol HCl 2.5 MG TAB PO SCH (09:29)
[2020-07-02] MEDS: Apixaban 5 MG TAB PO SCH ×2 (09:29→21:03)
[2020-07-02] MEDS: Insulin Glargine 20 UNITS in Pre-Filled Syringe 1 EACH SC SCH (09:41)
--- NOTE | 2020-07-02 16:19 | PDOC.HOSPP ---
- Subjective Encounter Date: 07/02/20 Encounter Time: 16:17 Subjective: Pt seen for followup re: UTI. Feels better. No complaints today. - Objective Vital Signs & Weight: Vital Signs (12 hours) Temp Pulse Pulse Pulse Resp BP BP 07/02/20 15:56 98.3 F 93 18 07/02/20 11:07 97.6 F 106 H 17 07/02/20 09:00 105 H 89 121/85 134/94 H 07/02/20 07:36 97.5 F L 107 H 19 BP Pulse Ox 07/02/20 15:56 135/76 92 L 07/02/20 11:07 130/87 97 07/02/20 09:00 07/02/20 07:36 129/62 96 Weight Admit Weight 227 lb 8.272 oz Weight 245 lb Most Recent Monitor Data Heart Rate from ECG 123 NIBP 143/110 NIBP BP-Mean 121 Respiration from ECG 20 SpO2 96 I&O: 07/01/20 07/02/20 07/03/20 06:59 06:59 05:59 Intake Total 962 460 Output Total 1800 1225 550 Balance -838 -765 -550 Result Diagrams: 07/02/20 04:40 07/02/20 04:40 Additional Labs: Accuchecks 07/02/20 07/02/20 07/01/20 12:43 05:47 23:20 POC Glucose 100 87 85 07/01/20 06/30/20 01:34 11:32 POC Glucose 59 L* 100 Reveiwed labs and MAR EKG Reviewed by me: Yes (Tele: afib) Hospitalist ROS - Review of Systems Cardiovascular: denies: chest pain, palpitations, orthopnea, paroxysmal noc. dyspnea, edema, light headedness Skin: denies: rash, lesions, rupesh, bruising - Medication Medications: Active Medications Generic Name Dose Route Start Last Admin Trade Name Freq PRN Reason Stop Dose Admin Albuterol/Ipratropium 3 ml 06/29/20 14:15 06/30/20 14:48 Ipratropium/Albuterol Sulfate 3 Ml Neb NEB 3 ml PRN PRN Administration Wheezing Apixaban 5 mg 07/01/20 21:00 07/02/20 09:29 Apixaban 5 Mg Tab PO 5 mg BID LAZARUS Administration Atorvastatin Calcium 40 mg 06/25/20 21:00 07/01/20 20:26 Atorvastatin Calcium 40 Mg Tab PO 40 mg HS LAZARUS Administration Benzonatate 100 mg 07/01/20 08:26 07/01/20 20:30 Benzonatate 100 Mg Cap PO 100 mg TIDPRN PRN Administration Cough Bupropion HCl 150 mg 06/29/20 21:00 07/02/20 09:29 Bupropion 150 Mg Xl Tab PO 150 mg BID LAZARUS Administration Cholecalciferol 5,000 units 06/30/20 09:00 07/02/20 09:29 Cholecalciferol 1,000 Units (25 Mcg) Tab PO 5,000 units DAILY LAZARUS Administration Flecainide Acetate 50 mg 06/29/20 21:00 07/02/20 09:29 Flecainide 50 Mg Tab PO 50 mg BID LAZARUS Administration Insulin Glargine 20 units/ 0.2 mls @ 0 mls/hr 06/26/20 09:00 07/02/20 09:41 Miscellaneous Medication SC Not Given QAM LAZARUS Meropenem 1 gm/ Device 50 mls @ 50 mls/hr 06/28/20 14:00 07/02/20 16:01 IVPB 50 mls Q8HR LAZARUS Administration Insulin Human Lispro 0 units 06/26/20 08:03 06/27/20 09:37 Humalog 300 Units/3 Ml Vial SC 3 unit .AGGRESSIVE SLIDING PRN Administration Aggressive Correctional Scale Mometasone Furoate/Formoterol Fumar 2 puff 06/30/20 18:30 07/02/20 08:17 Mometasone 200 Mcg/Formoterol 5 Mcg 120 Puff Inhaler INH 2 puff BID-RT LAZARUS Administration Montelukast Sodium 10 mg 06/29/20 21:00 07/01/20 20:26 Montelukast Sodium 10 Mg Tablet PO 10 mg HS LAZARUS Administration Nebivolol 2.5 mg 06/30/20 09:00 07/02/20 09:29 Nebivolol Hcl 2.5 Mg Tab PO 2.5 mg DAILY LAZARUS Administration - Exam General - other findings: Obese ENT: no oropharyngeal lesions Heart: no rubs, irregular Respiratory: CTAB Gastrointestinal: soft Extremities: no clubbing Skin: no rashes Psychiatric: normal affect, normal behavior Hosp A/P - Plan E. coli UTI/bacteremia: Continue meropenem, consult ID for oral abx choice. Ureteral stone with hydronephrosis: To follow-up with urology as outpatient. Paroxysmal atrial fibrillation: Continue flecainide. Thrombocytopenia: Stabilizing. Possible TIA: Resolved. Acute hypoxic respiratory failure: Resolved. Acute worsening of chronic stage III kidney disease: Resolved. Sepsis: Resolved.
[2020-07-02] MEDS: Atorvastatin Calcium 40 MG TAB PO SCH (21:02)
[2020-07-02] MEDS: Benzonatate 100 MG CAP PO PRN (21:02)
[2020-07-02] MEDS: Montelukast Sodium 10 mg Tablet PO SCH (21:03)
[2020-07-03] MEDS ORDERED: Lorazepam 0.5 MG TAB PO SCH (00:15)
[2020-07-03 05:09] LABS: Band 3 % (5-11); Hemoglobin 11.1 g/dL (12.0-16.0); Lymphocytes 13 % (21-51); MDiff Complete? YES; Mean Corpuscular HGB CONC 33.6 g/dL (32.0-36.0); Mean Corpuscular Hemoglobin 29.5 pg (27.0-31.0); Mean Corpuscular Volume 87.9 fL (78.0-98.0); Mean Platelet Volume 9.3 fL (7.4-10.4); Monocytes 4 % (0-10); Neutrophil 80 % (42-75); Platelet Count 116 thou/uL (130-400); RBC Distribution Width 12.9 % (11.5-14.5); Red Blood Cell (RBC) Count 3.76 mill/uL (4.20-5.40); White Blood Cell (WBC) Count 9.9 thou/uL (4.8-10.8)
[2020-07-03 05:13] LABS: ALT (SGPT) 24 U/L (8-55); AST (SGOT) 19 U/L (5-34); Albumin 2.5 g/dL (3.4-4.8); Alkaline Phosphatase 155 U/L (40-110); Anion Gap 13 mmol/L (10-20); BUN (Urea Nitrogen) 15 mg/dL (9.8-20.1); Bilirubin, Total 0.9 mg/dL (0.2-1.2); Calc. Creatinine Clearance 108 mL/min (70-130); Calcium 9.1 mg/dL (7.8-10.44); Carbon Dioxide 29 mmol/L (23-31); Chloride 102 mmol/L (98-107); Estimated GFR-MDRD 76; Globulin 2.5 g/dL (2.4-3.5); Glucose 75 mg/dL (83-110); Potassium 3.9 mmol/L (3.5-5.1); Sodium 140 mmol/L (136-145)
[2020-07-03] MEDS: MEROPENEM 1 GM/50 ML 1 GM in Premix Bag 1 BAG IVPB SCH ×3 (05:52→20:54)
[2020-07-03] MEDS: Mometasone 200 MCG/Formoterol 5 MCG 120 PUFF INHALER INH SCH ×2 (07:00→19:30)
[2020-07-03] MEDS: Insulin Glargine 20 UNITS in Pre-Filled Syringe 1 EACH SC SCH (09:05)
[2020-07-03] MEDS: Apixaban 5 MG TAB PO SCH ×2 (09:08→20:53)
[2020-07-03] MEDS: Bupropion 150 MG XL TAB PO SCH ×2 (09:08→20:53)
[2020-07-03] MEDS: Nebivolol HCl 2.5 MG TAB PO SCH (09:09)
[2020-07-03] MEDS: Flecainide 50 MG TAB PO SCH ×2 (09:09→20:52)
[2020-07-03] MEDS: Cholecalciferol 1,000 UNITS (25 MCG) TAB PO SCH (09:09)
[2020-07-03] MEDS: ALPRAZolam 0.25 MG TAB PO PRN ×2 (10:45→20:54)
--- NOTE | 2020-07-03 17:11 | PRG ---
DATE OF SERVICE: 07/03/2020 SUBJECTIVE: Ms. Gandhi continues to make fairly good recovery from perspective of her stroke. She reports that she is having trouble at night with feeling of being anxious and having trouble breathing. Upon further questioning, she states that she has known obstructive sleep apnea, which is apparently severe. She has a home CPAP and has struggled to find a mask which is comfortable and effective. I have encouraged her to bring the machine up here to the hospital so that we can help with mask adjustment as well as see if this will relieve her symptoms of anxiety and breathlessness. It also will help with blood pressure control and oxygenation, all of which are good from a stroke perspective. PHYSICAL EXAMINATION: VITAL SIGNS: Blood pressure 117/79, saturation 92% on room air. She is currently afebrile. Heart rate 110. GENERAL: She is in no distress. She has no obvious facial droop or difficulty with dysarthric speech. NECK: She has no JVD. LUNGS: Show a few rhonchi in the bases, which improved with deep inspiratory maneuvers. HEART: Regular rate and rhythm. ABDOMEN: Soft. She has no organomegaly. LABORATORY DATA: White count today 9000, hemoglobin is 11.1 with hematocrit of 31.1, and platelet count of 116,000. This is actually up substantially from earlier in her stay when she was as low as 40,000. Chemistry panel is normal including a BUN of 15 and a creatinine of 0.7. IMPRESSION: E coli septicemia, resolved; respiratory failure with ventilatory support, resolved. PLAN: She will continue with current therapies. Hopefully, she can get her home CPAP and we can help with getting her accommodated to it. Job ID: [id number]
--- NOTE | 2020-07-03 17:34 | PDOC.HOSPP ---
- Subjective Encounter Date: 07/03/20 Encounter Time: 11:30 Subjective: Patient seen for follow-up regarding urinary tract infection. Reports occasional episodes of hallucinations. Reports anxiety. - Objective Vital Signs & Weight: Vital Signs (12 hours) Temp Pulse Resp BP Pulse Ox 07/03/20 15:17 97.7 F 112 H 20 117/79 92 L 07/03/20 11:29 97.9 F 102 H 18 133/67 93 L 07/03/20 07:57 97.5 F L 96 20 142/78 H 97 Weight Admit Weight 227 lb 8.272 oz Weight 240 lb 8 oz Most Recent Monitor Data Heart Rate from ECG 123 NIBP 143/110 NIBP BP-Mean 121 Respiration from ECG 20 SpO2 96 I&O: 07/02/20 07/03/20 07/04/20 07:59 06:59 06:59 Intake Total Output Total Balance Result Diagrams: 07/03/20 04:32 07/03/20 04:32 Additional Labs: Accuchecks 07/03/20 07/03/20 07/03/20 13:07 06:12 00:01 POC Glucose 87 72 79 07/01/20 07/01/20 06/30/20 12:45 06:02 18:10 POC Glucose 82 77 101 H I reviewed patient's labs and MAR EKG Reviewed by me: Yes (Telemetry: A. carine) Hospitalist ROS - Review of Systems Constitutional: reports: weakness, other (Anxiety, hallucinations) Respiratory: denies: cough, dry, shortness of breath, hemoptysis, SOB with excertion, pleuritic pain, sputum, wheezing Cardiovascular: denies: chest pain, palpitations, orthopnea, paroxysmal noc. dyspnea, edema, light headedness - Medication Medications: Active Medications Generic Name Dose Route Start Last Admin Trade Name Freq PRN Reason Stop Dose Admin Albuterol/Ipratropium 3 ml 06/29/20 14:15 06/30/20 14:48 Ipratropium/Albuterol Sulfate 3 Ml Neb NEB 3 ml PRN PRN Administration Wheezing Alprazolam 0.25 mg 07/03/20 10:31 07/03/20 10:45 Alprazolam 0.25 Mg Tab PO 0.25 mg BIDPRN PRN Administration Anxiety Apixaban 5 mg 07/01/20 21:00 07/03/20 09:08 Apixaban 5 Mg Tab PO 5 mg BID LAZARUS Administration Atorvastatin Calcium 40 mg 06/25/20 21:00 07/02/20 21:02 Atorvastatin Calcium 40 Mg Tab PO 40 mg HS LAZARUS Administration Benzonatate 100 mg 07/01/20 08:26 07/02/20 21:02 Benzonatate 100 Mg Cap PO 100 mg TIDPRN PRN Administration Cough Bupropion HCl 150 mg 06/29/20 21:00 07/03/20 09:08 Bupropion 150 Mg Xl Tab PO 150 mg BID LAZARUS Administration Cholecalciferol 5,000 units 06/30/20 09:00 07/03/20 09:09 Cholecalciferol 1,000 Units (25 Mcg) Tab PO 5,000 units DAILY LAZARUS Administration Flecainide Acetate 50 mg 06/29/20 21:00 07/03/20 09:09 Flecainide 50 Mg Tab PO 50 mg BID LAZARUS Administration Insulin Glargine 20 units/ 0.2 mls @ 0 mls/hr 06/26/20 09:00 07/03/20 09:05 Miscellaneous Medication SC Not Given QAM LAZARUS Meropenem 1 gm/ Device 50 mls @ 50 mls/hr 06/28/20 14:00 07/03/20 15:21 IVPB 50 mls Q8HR LAZARUS Administration Insulin Human Lispro 0 units 06/26/20 08:03 06/27/20 09:37 Humalog 300 Units/3 Ml Vial SC 3 unit .AGGRESSIVE SLIDING PRN Administration Aggressive Correctional Scale Mometasone Furoate/Formoterol Fumar 2 puff 06/30/20 18:30 07/03/20 07:00 Mometasone 200 Mcg/Formoterol 5 Mcg 120 Puff Inhaler INH 2 puff BID-RT LAZARUS Administration Montelukast Sodium 10 mg 06/29/20 21:00 07/02/20 21:03 Montelukast Sodium 10 Mg Tablet PO 10 mg HS LAZARUS Administration Nebivolol 2.5 mg 06/30/20 09:00 07/03/20 09:09 Nebivolol Hcl 2.5 Mg Tab PO 2.5 mg DAILY LAZARUS Administration - Exam General - other findings: Obese ENT: no oropharyngeal lesions Neck: supple Heart: irregular Respiratory: CTAB Gastrointestinal: soft Extremities: no cyanosis Skin: no rashes Psychiatric: normal affect, normal behavior, oriented to person, oriented to place Hosp A/P - Plan E. coli UTI/bacteremia: Continue meropenem, pt will need PICC line (interaction between ciprofloxacin and flecainide). Ureteral stone with hydronephrosis: To follow-up with urology as outpatient following discharge. Paroxysmal atrial fibrillation: Continue flecainide. Thrombocytopenia: Plts improved to 116K today. Possible TIA: Resolved. Acute hypoxic respiratory failure: Resolved. Acute worsening of chronic stage III kidney disease: Resolved. Sepsis: Resolved. Ambulate pt. Dtr updated by bedside.
[2020-07-03] MEDS ORDERED: Furosemide 40 MG/4 ML VIAL ONE (20:45)
[2020-07-03] MEDS: Montelukast Sodium 10 mg Tablet PO SCH (20:53)
[2020-07-03] MEDS: Atorvastatin Calcium 40 MG TAB PO SCH (20:53)
--- NOTE | 2020-07-03 21:22 | CON ---
DATE OF CONSULTATION: 07/03/2020 REASON FOR CONSULTATION: Pyelonephritis with obstruction and bacteremia. HISTORY OF PRESENT ILLNESS: A 79-year-old who has a history of breast cancer in remission after mastectomy and treatment with chemotherapy, atrial fibrillation, and prior pulmonary embolism, who also has a history of nephrolithiasis in the past. Usually she eliminates the stones on her own with some hematuria, but no other major symptoms. At this time, she developed a left flank pain which started on June 24, quite intense forced her to have to come to the emergency room. She had an imaging study which showed a mild left hydronephrosis with a left ureteropelvic junction stone. She had some altered mental state with left-sided weakness and had to be intubated on an emergency basis and placed on mechanical ventilator. She had a [employer] workup which was all negative. She was not felt to be a candidate for tPA because she was on oral anticoagulation Eliquis at home. BP on arrival was 105/60, respiratory rate 18, temperature 98.1, so Dr. Michael Villalobos did a stent placement on the and E coli was retrieved from 2 sets of blood cultures with very broad susceptibility profile. The patient had been given meropenem, which she is still receiving. She is now transferred to [facility]. She is extubated and feeling much improved. Has been afebrile throughout the hospital stay. Her blood pressure is normal now. She is saturating 92 on room air, appears a bit disheveled. Denies any headaches. No sore throat, odynophagia, or dysphagia. No dyspnea or chest pain. The flank pain has improved. She is having gross hematuria. Tello catheter has been removed. No back pain. No joint symptoms. No neurological symptoms any longer. All the previous symptoms have resolved. PAST MEDICAL HISTORY: Atrial fibrillation; GERD; hypertension; breast cancer, in remission after mastectomy and chemo; pulmonary embolism. PAST SURGICAL HISTORY: Also lumbar spine surgery, abdominoplasty, cholecystectomy, hernia repair, hysterectomy, mastectomy, knee replacement, cervical decompressive surgery. SOCIAL HISTORY: Former smoker for more than 30 years. . Lives in [place]. FAMILY HISTORY: Noncontributory. ALLERGIES: SHE HAS A HISTORY OF ALLERGY TO LEVOFLOXACIN, SPECIFICALLY A BLISTERING REACTION IN THE PALMS OF HER HANDS, WHICH OCCURRED IMMEDIATELY AFTER RECEIVING LEVOFLOXACIN IN THE PAST. IT IS NOT CLEAR VERY MUCH THE SEQUENCE OF EVENTS. THE REACTION TO SULFA DRUGS IS ANGIOEDEMA TYPE OF REACTION. CEPHALOSPORIN CAUSED THE DIFFUSE RASH. PENICILLINS CAUSED THE RASH WELL. CURRENT MEDICATION LIST: Includes: 1. DuoNeb. 2. Xanax. 3. Eliquis. 4. Lipitor. 5. Tessalon. 6. Tambocor. 7. Insulin. 8. Mometasone. 9. Singulair. 10. Bystolic. PHYSICAL EXAMINATION: VITAL SIGNS: She is now 97.7, O2 saturation 92% on room air. HEENT: Ocular movements conjugate. She has a right-sided IJ triple-lumen catheter central line. Tello catheter has been removed. She has bruising in the right forearm medial aspect from IV puncture site. No lymphadenopathy. Oral cavity normal. NECK: Supple. LUNGS: Symmetric clear breath sounds. HEART: S1 and S2. Regular rate without murmurs. ABDOMEN: Soft, not distended or tender. Mild left flank pain. No bladder distention. EXTREMITIES: No joint inflammatory activity. Moves extremities equally. NEURO: Cognitive function appears to be intact. Neuro examination nonfocal. LABORATORY DATA: White cell count starts at 12, went up to 25, now is down to 9.9; hemoglobin 11; platelets 87,000. INR 1.3. pH of 7.37, pCO2 of 50, pO2 of 77. Creatinine 0.74, which is improved from admission. Alkaline phosphatase 155. Calcium was normal. Liver profile otherwise normal. Albumin 2.5. Urinalysis greater than 50 wbc's. COVID was not detected. Chest x-ray with no enteric tube with enlarging pleural effusions, right lower lobe airspace consolidation. There is an echocardiogram with EF 55% to 60%, some diastolic dysfunction. ASSESSMENT: Breast cancer, in remission; atrial fibrillation, on Eliquis, former smoker with recurring kidney stones and now comes in with obstructive stone on the left side, which required stent placement. She was septic with Escherichia coli bacteremia, very susceptible strain. However, she has multiple allergies and we are asked our opinion as to what the best course of action is. I discussed with the patient frequently patients with reported a levofloxacin allergy, tolerates ciprofloxacin without issues. Her history of blistering following levofloxacin is somewhat unusual because it was localized to the hypothenar eminence of the right and left hand developed one day after receiving levofloxacin reportedly for surgical interventions in the past, so I think it is worthwhile to give it a try with Cipro and challenge her Cipro while she is here and then if that works out, then we can switch her to Cipro and discontinue meropenem which would avoid having to place a PICC line. The duration of therapy probably around 10 to 14 days. P.S.: Pt cannot take Cipro due to severe drug-drug interaction with Flecainide. Will need to place Picc and tx with Merrem OP setting. Job ID: [id number] MTDD
[2020-07-04 04:43] LABS: Band 4 % (5-11); Eosinophils 1 % (0-10); Hemoglobin 10.8 g/dL (12.0-16.0); Lymphocytes 26 % (21-51); MDiff Complete? YES; Mean Corpuscular HGB CONC 33.1 g/dL (32.0-36.0); Mean Corpuscular Volume 87.7 fL (78.0-98.0); Mean Platelet Volume 8.9 fL (7.4-10.4); Monocytes 8 % (0-10); Neutrophil 61 % (42-75); Platelet Count 151 thou/uL (130-400); Platelet Morphology Comment Appears Adequate; Red Blood Cell (RBC) Count 3.73 mill/uL (4.20-5.40); White Blood Cell (WBC) Count 8.1 thou/uL (4.8-10.8)
[2020-07-04 05:03] LABS: ALT (SGPT) 22 U/L (8-55); AST (SGOT) 25 U/L (5-34); Albumin 2.6 g/dL (3.4-4.8); Alkaline Phosphatase 136 U/L (40-110); Anion Gap 14 mmol/L (10-20); BUN (Urea Nitrogen) 14 mg/dL (9.8-20.1); Bilirubin, Total 0.7 mg/dL (0.2-1.2); Calc. Creatinine Clearance 108 mL/min (70-130); Carbon Dioxide 23 mmol/L (23-31); Chloride 105 mmol/L (98-107); Estimated GFR-MDRD 77; Globulin 2.5 g/dL (2.4-3.5); Glucose 99 mg/dL (83-110); Potassium 3.9 mmol/L (3.5-5.1); Protein, Total 5.1 g/dL (6.0-8.3); Sodium 138 mmol/L (136-145)
[2020-07-04] MEDS: MEROPENEM 1 GM/50 ML 1 GM in Premix Bag 1 BAG IVPB SCH ×3 (05:25→22:25)
[2020-07-04] MEDS: Mometasone 200 MCG/Formoterol 5 MCG 120 PUFF INHALER INH SCH ×2 (07:00→19:01)
[2020-07-04] MEDS: Bupropion 150 MG XL TAB PO SCH ×2 (09:28→22:25)
[2020-07-04] MEDS: Nebivolol HCl 2.5 MG TAB PO SCH (09:28)
[2020-07-04] MEDS: Cholecalciferol 1,000 UNITS (25 MCG) TAB PO SCH (09:28)
[2020-07-04] MEDS: Apixaban 5 MG TAB PO SCH ×2 (09:28→22:25)
[2020-07-04] MEDS: Flecainide 50 MG TAB PO SCH ×2 (09:29→22:24)
[2020-07-04] MEDS: Insulin Glargine 20 UNITS in Pre-Filled Syringe 1 EACH SC SCH (09:29)
--- NOTE | 2020-07-04 10:22 | SPC ---
Exam: Leftupper extremity ultrasound guided PICC line HISTORY: TPN, IV antibiotics Exposure:0.2 minutes, 2580 mg/sq cm^2 FINDINGS: Lumen: Singlelumen Trim length: 47 cm Distal tip:Right atrium Catheter flushes and aspirates without difficulty TECHNIQUE: Consent obtained to perform a left upper extremity PICC line with ultrasound guidance. Le ftarm was prepped and draped in a sterile fashion. 1% lidocaine, buffered with sodium bicarbonate was used for local anesthesia. Under ultrasound guidance, micropuncture needle was used to cannulate thebasilicvein. A 0.018 guidewire was advanced through the needle to level of the superior vena cava. Under fluoroscopy, the wire was further advanced into the inferior vena cava to document venous access. Wire was subsequently pulled back to theright atrium. Single lumen flushes and aspirates without difficulty. Patient tolerated the procedure well. No immediate or postprocedure complications IMPRESSION: Successfulleftupper surgery PICC line placement with ultrasound guidance
--- NOTE | 2020-07-04 18:54 | PDOC.HOSPP ---
- Subjective Encounter Date: 07/04/20 Encounter Time: 13:00 Subjective: Patient seen for follow-up regarding urinary tract infection. She denies any chest pain or shortness of breath. - Objective Vital Signs & Weight: Vital Signs (12 hours) Temp Pulse Pulse Pulse Resp BP BP 07/04/20 14:40 97.1 F L 97 16 07/04/20 11:50 114 H 111 H 137/78 135/71 07/04/20 11:45 97.7 F 108 H 16 07/04/20 07:11 98.1 F 111 H 16 07/04/20 07:02 07/04/20 07:00 82 20 BP Pulse Ox Pulse Ox Pulse Ox 07/04/20 14:40 129/60 96 07/04/20 11:50 94 L 94 L 07/04/20 11:45 135/71 96 07/04/20 07:11 125/62 95 07/04/20 07:02 96 07/04/20 07:00 96 Weight Admit Weight 227 lb 8.272 oz Weight 236 lb 6.4 oz Most Recent Monitor Data Heart Rate from ECG 123 NIBP 143/110 NIBP BP-Mean 121 Respiration from ECG 20 SpO2 96 I&O: 07/03/20 07/04/20 07/05/20 06:59 06:59 06:59 Intake Total 1270 650 Output Total 1675 350 Balance -405 300 Result Diagrams: 07/04/20 04:04 07/04/20 04:04 Additional Labs: Accuchecks 07/04/20 07/04/20 07/03/20 10:31 06:21 22:24 POC Glucose 103 H 93 106 H Labs and MAR reviewed by me EKG Reviewed by me: Yes (Daniela hawk on telemetry) Hospitalist ROS - Review of Systems Constitutional: reports: weakness Cardiovascular: denies: chest pain, palpitations, orthopnea, paroxysmal noc. dyspnea, edema, light headedness Gastrointestinal: denies: nausea, vomiting, abdominal pain, diarrhea, constipation, melena, hematochezia - Medication Medications: Active Medications Generic Name Dose Route Start Last Admin Trade Name Freq PRN Reason Stop Dose Admin Albuterol/Ipratropium 3 ml 06/29/20 14:15 06/30/20 14:48 Ipratropium/Albuterol Sulfate 3 Ml Neb NEB 3 ml PRN PRN Administration Wheezing Alprazolam 0.25 mg 07/03/20 10:31 07/03/20 20:54 Alprazolam 0.25 Mg Tab PO 0.25 mg BIDPRN PRN Administration Anxiety Apixaban 5 mg 07/01/20 21:00 07/04/20 09:28 Apixaban 5 Mg Tab PO Not Given BID LAZARUS Atorvastatin Calcium 40 mg 06/25/20 21:00 07/03/20 20:53 Atorvastatin Calcium 40 Mg Tab PO 40 mg HS LAZARUS Administration Benzonatate 100 mg 07/01/20 08:26 07/02/20 21:02 Benzonatate 100 Mg Cap PO 100 mg TIDPRN PRN Administration Cough Bupropion HCl 150 mg 06/29/20 21:00 07/04/20 09:28 Bupropion 150 Mg Xl Tab PO 150 mg BID LAZARUS Administration Cholecalciferol 5,000 units 06/30/20 09:00 07/04/20 09:28 Cholecalciferol 1,000 Units (25 Mcg) Tab PO 5,000 units DAILY LAZARUS Administration Flecainide Acetate 50 mg 06/29/20 21:00 07/04/20 09:29 Flecainide 50 Mg Tab PO 50 mg BID LAZARUS Administration Insulin Glargine 20 units/ 0.2 mls @ 0 mls/hr 06/26/20 09:00 07/04/20 09:29 Miscellaneous Medication SC Not Given QAM LAZARUS Meropenem 1 gm/ Device 50 mls @ 50 mls/hr 06/28/20 14:00 07/04/20 14:35 IVPB 50 mls Q8HR LAZARUS Administration Insulin Human Lispro 0 units 06/26/20 08:03 06/27/20 09:37 Humalog 300 Units/3 Ml Vial SC 3 unit .AGGRESSIVE SLIDING PRN Administration Aggressive Correctional Scale Mometasone Furoate/Formoterol Fumar 2 puff 06/30/20 18:30 07/04/20 07:00 Mometasone 200 Mcg/Formoterol 5 Mcg 120 Puff Inhaler INH 2 puff BID-RT LAZARUS Administration Montelukast Sodium 10 mg 06/29/20 21:00 07/03/20 20:53 Montelukast Sodium 10 Mg Tablet PO 10 mg HS LAZARUS Administration Nebivolol 2.5 mg 06/30/20 09:00 07/04/20 09:28 Nebivolol Hcl 2.5 Mg Tab PO 2.5 mg DAILY LAZARUS Administration - Exam General - other findings: Obese Eye: anicteric sclera ENT: moist mucosa Neck: supple Heart: irregular Respiratory: CTAB Gastrointestinal: soft, non-tender Skin: no rashes Psychiatric: normal affect, normal behavior Hosp A/P - Plan E. coli UTI/bacteremia: Continue meropenem, PICC line to be placed today. Ureteral stone with hydronephrosis: Follow-up with urology as outpatient following discharge. Paroxysmal atrial fibrillation: Continue flecainide. Thrombocytopenia: Resolved Possible TIA: Resolved. Acute hypoxic respiratory failure: Resolved. Acute worsening of chronic stage III kidney disease: Resolved. Sepsis: Resolved. Ambulate pt.
[2020-07-04] MEDS: Atorvastatin Calcium 40 MG TAB PO SCH (22:24)
[2020-07-04] MEDS: Montelukast Sodium 10 mg Tablet PO SCH (22:24)
[2020-07-05 04:31] LABS: Band 5 % (5-11); Hemoglobin 10.6 g/dL (12.0-16.0); Hypochromia SLIGHT = 6-15 cells (100X) (0-5/hpf); Lymphocytes 24 % (21-51); MDiff Complete? YES; Mean Corpuscular HGB CONC 33.3 g/dL (32.0-36.0); Mean Corpuscular Hemoglobin 29.5 pg (27.0-31.0); Mean Corpuscular Volume 88.6 fL (78.0-98.0); Mean Platelet Volume 8.5 fL (7.4-10.4); Monocytes 3 % (0-10); Neutrophil 67 % (42-75); Platelet Count 188 thou/uL (130-400); Platelet Morphology Comment Appears Adequate; Reactive Lymphocytes 1 % (0-10); Red Blood Cell (RBC) Count 3.59 mill/uL (4.20-5.40); White Blood Cell (WBC) Count 6.5 thou/uL (4.8-10.8)
[2020-07-05 04:42] LABS: ALT (SGPT) 21 U/L (8-55); AST (SGOT) 21 U/L (5-34); Albumin 2.6 g/dL (3.4-4.8); Alkaline Phosphatase 123 U/L (40-110); Anion Gap 12 mmol/L (10-20); BUN (Urea Nitrogen) 13 mg/dL (9.8-20.1); Bilirubin, Total 0.7 mg/dL (0.2-1.2); Calc. Creatinine Clearance 106 mL/min (70-130); Calcium 8.9 mg/dL (7.8-10.44); Carbon Dioxide 25 mmol/L (23-31); Chloride 107 mmol/L (98-107); Estimated GFR-MDRD 77; Globulin 2.4 g/dL (2.4-3.5); Glucose 87 mg/dL (83-110); Potassium 3.9 mmol/L (3.5-5.1); Sodium 140 mmol/L (136-145)
[2020-07-05] MEDS: MEROPENEM 1 GM/50 ML 1 GM in Premix Bag 1 BAG IVPB SCH ×3 (05:26→21:53)
[2020-07-05] MEDS: Mometasone 200 MCG/Formoterol 5 MCG 120 PUFF INHALER INH SCH ×2 (06:48→20:04)
[2020-07-05] MEDS: Insulin Glargine 20 UNITS in Pre-Filled Syringe 1 EACH SC SCH (08:42)
[2020-07-05] MEDS: Cholecalciferol 1,000 UNITS (25 MCG) TAB PO SCH (08:45)
[2020-07-05] MEDS: Apixaban 5 MG TAB PO SCH ×2 (08:45→21:52)
[2020-07-05] MEDS: Bupropion 150 MG XL TAB PO SCH ×2 (08:45→21:52)
[2020-07-05] MEDS: Nebivolol HCl 2.5 MG TAB PO SCH (08:45)
[2020-07-05] MEDS: Flecainide 50 MG TAB PO SCH ×2 (08:45→21:52)
--- NOTE | 2020-07-05 12:33 | PRG ---
DATE OF SERVICE: 07/05/2020 SUBJECTIVE: This is a 79-year-old female, who has respiratory failure, improved, sitting on the side of the bed, in no distress. She had a PICC line inserted for antibiotic by Infectious Disease. OBJECTIVE: VITAL SIGNS: Saturations are respiratory rate 18, blood pressure 130/80. CHEST: No wheezing. No crackles. CARDIAC: Normal S1, S2. No gallops. ABDOMEN: Soft. IMPRESSION: Respiratory failure, sepsis. PLAN: Pulmonary reinoso, she is stable. She has appropriate intervention at home. She is to follow up with Dr. Carlin. Antibiotic is as prescribed by Infectious Disease. Job ID: [id number]
[2020-07-05 13:29] VITALS: BMI 36.5
--- NOTE | 2020-07-05 14:42 | PDOC.HOSPP ---
- Subjective Encounter Date: 07/05/20 Encounter Time: 10:00 Subjective: Patient seen for follow-up regarding UTI. She denies any chest pain or shortness of breath. - Objective Vital Signs & Weight: Vital Signs (12 hours) Temp Pulse Resp BP Pulse Ox 07/05/20 11:37 97.8 F 85 18 126/73 93 L 07/05/20 07:18 97.5 F L 105 H 18 137/78 92 L 07/05/20 06:49 95 07/05/20 06:48 116 H 20 95 07/05/20 03:10 98.0 F 98 18 122/72 95 Weight Admit Weight 227 lb 8.272 oz Weight 233 lb Most Recent Monitor Data Heart Rate from ECG 123 NIBP 143/110 NIBP BP-Mean 121 Respiration from ECG 20 SpO2 96 I&O: 07/04/20 07/05/20 07/06/20 06:59 06:59 06:59 Intake Total 1270 1138 Output Total 1675 555 Balance -405 583 Result Diagrams: 07/05/20 03:47 07/05/20 03:47 Additional Labs: Accuchecks 07/05/20 07/04/20 05:48 20:07 POC Glucose 102 H 115 H Labs and MAR reviewed by me EKG Reviewed by me: Yes (Daniela hawk on telemetry) Hospitalist ROS - Review of Systems Genitourinary: denies: dysuria, frequency, incontinence, hematuria, retention Musculoskeletal: denies: neck pain, shoulder pain, arm pain, back pain, hand pain, leg pain, foot pain - Medication Medications: Active Medications Generic Name Dose Route Start Last Admin Trade Name Freq PRN Reason Stop Dose Admin Albuterol/Ipratropium 3 ml 06/29/20 14:15 06/30/20 14:48 Ipratropium/Albuterol Sulfate 3 Ml Neb NEB 3 ml PRN PRN Administration Wheezing Alprazolam 0.25 mg 07/03/20 10:31 07/03/20 20:54 Alprazolam 0.25 Mg Tab PO 0.25 mg BIDPRN PRN Administration Anxiety Apixaban 5 mg 07/01/20 21:00 07/05/20 08:45 Apixaban 5 Mg Tab PO 5 mg BID LAZARUS Administration Atorvastatin Calcium 40 mg 06/25/20 21:00 07/04/20 22:24 Atorvastatin Calcium 40 Mg Tab PO 40 mg HS LAZARUS Administration Benzonatate 100 mg 07/01/20 08:26 07/02/20 21:02 Benzonatate 100 Mg Cap PO 100 mg TIDPRN PRN Administration Cough Bupropion HCl 150 mg 06/29/20 21:00 07/05/20 08:45 Bupropion 150 Mg Xl Tab PO 150 mg BID LAZARUS Administration Cholecalciferol 5,000 units 06/30/20 09:00 07/05/20 08:45 Cholecalciferol 1,000 Units (25 Mcg) Tab PO 5,000 units DAILY LAZARUS Administration Flecainide Acetate 50 mg 06/29/20 21:00 07/05/20 08:45 Flecainide 50 Mg Tab PO 50 mg BID LAZARUS Administration Insulin Glargine 20 units/ 0.2 mls @ 0 mls/hr 06/26/20 09:00 07/05/20 08:42 Miscellaneous Medication SC Not Given QAM LAZARUS Meropenem 1 gm/ Device 50 mls @ 50 mls/hr 06/28/20 14:00 07/05/20 13:52 IVPB 50 mls Q8HR LAZARUS Administration Insulin Human Lispro 0 units 06/26/20 08:03 06/27/20 09:37 Humalog 300 Units/3 Ml Vial SC 3 unit .AGGRESSIVE SLIDING PRN Administration Aggressive Correctional Scale Mometasone Furoate/Formoterol Fumar 2 puff 06/30/20 18:30 07/05/20 06:48 Mometasone 200 Mcg/Formoterol 5 Mcg 120 Puff Inhaler INH 2 puff BID-RT LAZARUS Administration Montelukast Sodium 10 mg 06/29/20 21:00 07/04/20 22:24 Montelukast Sodium 10 Mg Tablet PO 10 mg HS LAZARUS Administration Nebivolol 2.5 mg 06/30/20 09:00 07/05/20 08:45 Nebivolol Hcl 2.5 Mg Tab PO 2.5 mg DAILY LAZARUS Administration - Exam General - other findings: Obese ENT: moist mucosa Neck: supple Heart: irregular Respiratory: CTAB Gastrointestinal: soft, non-tender Skin: no lesions Psychiatric: normal affect Hosp A/P - Plan E. coli UTI/bacteremia: Continue meropenem, patient has PICC line. Ureteral stone with hydronephrosis: Follow-up with urology as outpatient after discharge. Paroxysmal atrial fibrillation: Continue flecainide. Thrombocytopenia: Resolved Possible TIA: Resolved. Acute hypoxic respiratory failure: Resolved. Acute worsening of chronic stage III kidney disease: Resolved. Sepsis: Resolved. Ambulate pt. Patient needs inpatient rehab, rehab screen ordered.
[2020-07-05] MEDS: ALPRAZolam 0.25 MG TAB PO PRN (21:51)
[2020-07-05] MEDS: Montelukast Sodium 10 mg Tablet PO SCH (21:52)
[2020-07-05] MEDS: Atorvastatin Calcium 40 MG TAB PO SCH (21:53)
[2020-07-06 04:24] LABS: Eosinophils 3 % (0-10); Hemoglobin 10.6 g/dL (12.0-16.0); Lymphocytes 28 % (21-51); MDiff Complete? YES; Mean Corpuscular HGB CONC 33.4 g/dL (32.0-36.0); Mean Corpuscular Hemoglobin 29.5 pg (27.0-31.0); Mean Corpuscular Volume 88.3 fL (78.0-98.0); Mean Platelet Volume 8.4 fL (7.4-10.4); Monocytes 9 % (0-10); Neutrophil 60 % (42-75); Platelet Count 228 thou/uL (130-400); Platelet Morphology Comment Appears Adequate; White Blood Cell (WBC) Count 5.8 thou/uL (4.8-10.8)
[2020-07-06 04:33] LABS: ALT (SGPT) 22 U/L (8-55); AST (SGOT) 21 U/L (5-34); Albumin 2.6 g/dL (3.4-4.8); Alkaline Phosphatase 114 U/L (40-110); Anion Gap 13 mmol/L (10-20); BUN (Urea Nitrogen) 11 mg/dL (9.8-20.1); Bilirubin, Total 0.6 mg/dL (0.2-1.2); Calc. Creatinine Clearance 101 mL/min (70-130); Calcium 8.9 mg/dL (7.8-10.44); Carbon Dioxide 25 mmol/L (23-31); Chloride 107 mmol/L (98-107); Estimated GFR-MDRD 75; Globulin 2.6 g/dL (2.4-3.5); Glucose 92 mg/dL (83-110); Protein, Total 5.2 g/dL (6.0-8.3); Sodium 141 mmol/L (136-145)
[2020-07-06] MEDS: MEROPENEM 1 GM/50 ML 1 GM in Premix Bag 1 BAG IVPB SCH ×3 (05:52→21:37)
[2020-07-06] MEDS: Mometasone 200 MCG/Formoterol 5 MCG 120 PUFF INHALER INH SCH ×2 (06:56→17:16)
[2020-07-06] MEDS: Insulin Glargine 20 UNITS in Pre-Filled Syringe 1 EACH SC SCH (08:35)
[2020-07-06] MEDS: Apixaban 5 MG TAB PO SCH ×2 (08:36→20:18)
[2020-07-06] MEDS: Bupropion 150 MG XL TAB PO SCH ×2 (08:36→20:18)
[2020-07-06] MEDS: Cholecalciferol 1,000 UNITS (25 MCG) TAB PO SCH (08:36)
[2020-07-06] MEDS: Nebivolol HCl 2.5 MG TAB PO SCH (08:37)
[2020-07-06] MEDS: Flecainide 50 MG TAB PO SCH ×2 (08:37→20:18)
--- NOTE | 2020-07-06 14:35 | PDOC.HOSPP ---
- Subjective Encounter Date: 07/06/20 Encounter Time: 09:40 Subjective: Patient seen for follow-up regarding UTI. No new complaints today. - Objective Vital Signs & Weight: Vital Signs (12 hours) Temp Pulse Pulse Pulse Resp BP BP 07/06/20 11:04 98.0 F 99 20 07/06/20 08:45 103 H 104 H 138/63 126/58 L 07/06/20 07:41 97.9 F 99 16 07/06/20 06:56 75 16 07/06/20 03:18 07/06/20 03:15 98.2 F 85 18 BP Pulse Ox Pulse Ox Pulse Ox 07/06/20 11:04 125/64 96 07/06/20 08:45 97 95 07/06/20 07:41 142/88 H 96 07/06/20 06:56 94 L 07/06/20 03:18 98 07/06/20 03:15 119/65 96 Weight Admit Weight 227 lb 8.272 oz Weight 233 lb Most Recent Monitor Data Heart Rate from ECG 123 NIBP 143/110 NIBP BP-Mean 121 Respiration from ECG 20 SpO2 96 I&O: 07/05/20 07/06/20 07/07/20 06:59 06:59 06:59 Intake Total 1138 1090 Output Total 555 300 Balance 583 790 Result Diagrams: 07/06/20 03:41 07/06/20 03:41 Additional Labs: Labs and MAR reviewed by me EKG Reviewed by me: Yes (Daniela hawk on telemetry) Hospitalist ROS - Review of Systems Constitutional: reports: weakness Respiratory: denies: cough, dry, shortness of breath, hemoptysis, SOB with excertion, pleuritic pain, sputum, wheezing Cardiovascular: denies: chest pain, palpitations, orthopnea, paroxysmal noc. dyspnea, edema, light headedness - Medication Medications: Active Medications Generic Name Dose Route Start Last Admin Trade Name Freq PRN Reason Stop Dose Admin Albuterol/Ipratropium 3 ml 06/29/20 14:15 06/30/20 14:48 Ipratropium/Albuterol Sulfate 3 Ml Neb NEB 3 ml PRN PRN Administration Wheezing Alprazolam 0.25 mg 07/03/20 10:31 07/05/20 21:51 Alprazolam 0.25 Mg Tab PO 0.25 mg BIDPRN PRN Administration Anxiety Apixaban 5 mg 07/01/20 21:00 07/06/20 08:36 Apixaban 5 Mg Tab PO 5 mg BID LAZARUS Administration Atorvastatin Calcium 40 mg 06/25/20 21:00 07/05/20 21:53 Atorvastatin Calcium 40 Mg Tab PO 40 mg HS LAZARUS Administration Benzonatate 100 mg 07/01/20 08:26 07/02/20 21:02 Benzonatate 100 Mg Cap PO 100 mg TIDPRN PRN Administration Cough Bupropion HCl 150 mg 06/29/20 21:00 07/06/20 08:36 Bupropion 150 Mg Xl Tab PO 150 mg BID LAZARUS Administration Cholecalciferol 5,000 units 06/30/20 09:00 07/06/20 08:36 Cholecalciferol 1,000 Units (25 Mcg) Tab PO 5,000 units DAILY LAZARUS Administration Flecainide Acetate 50 mg 06/29/20 21:00 07/06/20 08:37 Flecainide 50 Mg Tab PO 50 mg BID LAZARUS Administration Insulin Glargine 20 units/ 0.2 mls @ 0 mls/hr 06/26/20 09:00 07/06/20 08:35 Miscellaneous Medication SC Not Given QAM LAZARUS Meropenem 1 gm/ Device 50 mls @ 50 mls/hr 06/28/20 14:00 07/06/20 14:13 IVPB 50 mls Q8HR LAZARUS Administration Insulin Human Lispro 0 units 06/26/20 08:03 06/27/20 09:37 Humalog 300 Units/3 Ml Vial SC 3 unit .AGGRESSIVE SLIDING PRN Administration Aggressive Correctional Scale Mometasone Furoate/Formoterol Fumar 2 puff 06/30/20 18:30 07/06/20 06:56 Mometasone 200 Mcg/Formoterol 5 Mcg 120 Puff Inhaler INH 2 puff BID-RT LAZARUS Administration Montelukast Sodium 10 mg 06/29/20 21:00 07/05/20 21:52 Montelukast Sodium 10 Mg Tablet PO 10 mg HS LAZARUS Administration Nebivolol 2.5 mg 06/30/20 09:00 07/06/20 08:37 Nebivolol Hcl 2.5 Mg Tab PO 2.5 mg DAILY LAZARUS Administration - Exam General Appearance: awake alert Eye: anicteric sclera ENT: moist mucosa Neck: supple Heart: no rubs, irregular Respiratory: CTAB Gastrointestinal: soft, non-tender Skin: no rashes Psychiatric: normal affect, normal behavior Hosp A/P - Plan E. coli UTI/bacteremia: Continue meropenem through PICC line. Ureteral stone with hydronephrosis: Patient to follow-up with urology as outpatient after discharge. Paroxysmal atrial fibrillation: Continue flecainide. Thrombocytopenia: Resolved Possible TIA: Resolved. Acute hypoxic respiratory failure: Resolved. Acute worsening of chronic stage III kidney disease: Resolved. Sepsis: Resolved. Ambulate pt. Insurance authorization pending for inpatient rehab. Transfer to medical floor.
[2020-07-06] MEDS: Atorvastatin Calcium 40 MG TAB PO SCH (20:18)
[2020-07-06] MEDS: Montelukast Sodium 10 mg Tablet PO SCH (20:18)
[2020-07-06] MEDS: ALPRAZolam 0.25 MG TAB PO PRN (21:37)
[2020-07-07] MEDS: MEROPENEM 1 GM/50 ML 1 GM in Premix Bag 1 BAG IVPB SCH ×3 (05:26→20:34)
[2020-07-07] MEDS: Mometasone 200 MCG/Formoterol 5 MCG 120 PUFF INHALER INH SCH ×2 (07:13→18:54)
[2020-07-07 07:40] LABS: Hemoglobin 10.6 g/dL (12.0-16.0); Mean Corpuscular HGB CONC 33.1 g/dL (32.0-36.0); Mean Corpuscular Hemoglobin 29.8 pg (27.0-31.0); Mean Corpuscular Volume 89.8 fL (78.0-98.0); Mean Platelet Volume 7.8 fL (7.4-10.4); Platelet Count 252 thou/uL (130-400); RBC Distribution Width 13.1 % (11.5-14.5); Red Blood Cell (RBC) Count 3.55 mill/uL (4.20-5.40); White Blood Cell (WBC) Count 5.3 thou/uL (4.8-10.8)
[2020-07-07 07:46] LABS: ALT (SGPT) 21 U/L (8-55); AST (SGOT) 17 U/L (5-34); Albumin 2.8 g/dL (3.4-4.8); Alkaline Phosphatase 111 U/L (40-110); Anion Gap 12 mmol/L (10-20); BUN (Urea Nitrogen) 11 mg/dL (9.8-20.1); Bilirubin, Total 0.6 mg/dL (0.2-1.2); Calc. Creatinine Clearance 103 mL/min (70-130); Calcium 8.7 mg/dL (7.8-10.44); Carbon Dioxide 27 mmol/L (23-31); Chloride 108 mmol/L (98-107); Estimated GFR-MDRD 76; Globulin 2.6 g/dL (2.4-3.5); Glucose 81 mg/dL (83-110); Protein, Total 5.4 g/dL (6.0-8.3); Sodium 143 mmol/L (136-145)
[2020-07-07 08:33] LABS: Band 5 % (5-11); Eosinophils 2 % (0-10); Lymphocytes 26 % (21-51); MDiff Complete? YES; Monocytes 11 % (0-10); Neutrophil 56 % (42-75); Platelet Morphology Comment Appears Adequate; Polychromasia SLIGHT = 2-3 cells (100X) (0-2/hpf)
[2020-07-07] MEDS: Cholecalciferol 1,000 UNITS (25 MCG) TAB PO SCH (09:08)
[2020-07-07] MEDS: Flecainide 50 MG TAB PO SCH ×2 (09:09→20:31)
[2020-07-07] MEDS: Apixaban 5 MG TAB PO SCH ×2 (09:09→20:31)
[2020-07-07] MEDS: Nebivolol HCl 2.5 MG TAB PO SCH (09:09)
[2020-07-07] MEDS: Insulin Glargine 20 UNITS in Pre-Filled Syringe 1 EACH SC SCH (09:10)
[2020-07-07] MEDS: Bupropion 150 MG XL TAB PO SCH ×2 (09:16→20:31)
--- NOTE | 2020-07-07 14:01 | PDOC.HOSPP ---
- Subjective Encounter Date: 07/07/20 Encounter Time: 13:55 Subjective: f/u for E. coli sepsis due to L urerterolithiasis s/p ureteral stent placement. Receiving Meropenem IV with plans for outpt IV abx at inpt rehab. - Objective Vital Signs & Weight: Vital Signs (12 hours) Temp Pulse Resp BP BP BP Pulse Ox 07/07/20 08:33 126/86 120/83 07/07/20 08:00 97 07/07/20 07:22 97.6 F 90 16 161/83 H 97 Pulse Ox Pulse Ox 07/07/20 08:33 96 97 07/07/20 08:00 07/07/20 07:22 Weight Admit Weight 227 lb 8.272 oz Weight 233 lb Most Recent Monitor Data Heart Rate from ECG 123 NIBP 143/110 NIBP BP-Mean 121 Respiration from ECG 20 SpO2 96 I&O: 07/06/20 07/07/20 07/08/20 06:59 06:59 06:59 Intake Total 1090 1100 Output Total 300 Balance 790 1100 Result Diagrams: 07/07/20 07:12 07/07/20 07:12 Additional Labs: Microbiology 06/25/20 00:33 Central Line - Right Brachiocephalic vein Blood Culture - Final Escherichia coli 06/25/20 00:17 Venous blood - Right Hand Blood Culture - Final Escherichia coli Hospitalist ROS - Medication Medications: Active Medications Generic Name Dose Route Start Last Admin Trade Name Freq PRN Reason Stop Dose Admin Albuterol/Ipratropium 3 ml 06/29/20 14:15 06/30/20 14:48 Ipratropium/Albuterol Sulfate 3 Ml Neb NEB 3 ml PRN PRN Administration Wheezing Alprazolam 0.25 mg 07/03/20 10:31 07/06/20 21:37 Alprazolam 0.25 Mg Tab PO 0.25 mg BIDPRN PRN Administration Anxiety Apixaban 5 mg 07/01/20 21:00 07/07/20 09:09 Apixaban 5 Mg Tab PO 5 mg BID LAZARUS Administration Atorvastatin Calcium 40 mg 06/25/20 21:00 07/06/20 20:18 Atorvastatin Calcium 40 Mg Tab PO 40 mg HS LAZARUS Administration Benzonatate 100 mg 07/01/20 08:26 07/02/20 21:02 Benzonatate 100 Mg Cap PO 100 mg TIDPRN PRN Administration Cough Bupropion HCl 150 mg 06/29/20 21:00 07/07/20 09:16 Bupropion 150 Mg Xl Tab PO 150 mg BID LAZARUS Administration Cholecalciferol 5,000 units 06/30/20 09:00 07/07/20 09:08 Cholecalciferol 1,000 Units (25 Mcg) Tab PO 5,000 units DAILY LAZARUS Administration Flecainide Acetate 50 mg 06/29/20 21:00 07/07/20 09:09 Flecainide 50 Mg Tab PO 50 mg BID LAZARUS Administration Meropenem 1 gm/ Device 50 mls @ 50 mls/hr 06/28/20 14:00 07/07/20 05:26 IVPB 50 mls Q8HR LAZARUS Administration Mometasone Furoate/Formoterol Fumar 2 puff 06/30/20 18:30 07/07/20 07:13 Mometasone 200 Mcg/Formoterol 5 Mcg 120 Puff Inhaler INH 2 puff BID-RT LAZARUS Administration Montelukast Sodium 10 mg 06/29/20 21:00 07/06/20 20:18 Montelukast Sodium 10 Mg Tablet PO 10 mg HS LAZARUS Administration Nebivolol 2.5 mg 06/30/20 09:00 07/07/20 09:09 Nebivolol Hcl 2.5 Mg Tab PO 2.5 mg DAILY LAZARUS Administration Hosp A/P (1) Obstruction of left ureteropelvic junction due to stone Code(s): N20.1 - CALCULUS OF URETER Status: Acute Plan: s/p Ureteral stent, plan for stone extraction at future date, continue IV Meropenem (2) Sepsis due to gram-negative UTI Code(s): A41.50 - GRAM-NEGATIVE SEPSIS, UNSPECIFIED; N39.0 - URINARY TRACT INFECTION, SITE NOT SPECIFIED Status: Acute Plan: Resolving, continue IV Meropenem (3) EDMAR (acute kidney injury) Code(s): N17.9 - ACUTE KIDNEY FAILURE, UNSPECIFIED Status: Acute Plan: Resolved (4) Acute respiratory failure with hypoxia Code(s): J96.01 - ACUTE RESPIRATORY FAILURE WITH HYPOXIA Status: Acute Plan: Resolved - Plan plan discussed w/ family, continue antibiotics, PT/OT, social and human services assistant, out of bed/ambulate, DVT proph w/SCDs Stable currently Continue Meropenem IV OOB with PT D/C Lantus/ISS D/C Accuchecks Await final approval for inpt rehab AM lab: A1C
[2020-07-07] MEDS: Atorvastatin Calcium 40 MG TAB PO SCH (20:31)
[2020-07-07] MEDS: Montelukast Sodium 10 mg Tablet PO SCH (20:31)
[2020-07-08] MEDS: MEROPENEM 1 GM/50 ML 1 GM in Premix Bag 1 BAG IVPB SCH ×3 (05:06→20:55)
[2020-07-08] MEDS: Cholecalciferol 1,000 UNITS (25 MCG) TAB PO SCH (08:32)
[2020-07-08] MEDS: Apixaban 5 MG TAB PO SCH ×2 (08:32→20:12)
[2020-07-08] MEDS: Flecainide 50 MG TAB PO SCH ×2 (08:33→20:12)
[2020-07-08] MEDS: Mometasone 200 MCG/Formoterol 5 MCG 120 PUFF INHALER INH SCH ×2 (08:37→18:23)
[2020-07-08] MEDS: Nebivolol HCl 2.5 MG TAB PO SCH (09:32)
[2020-07-08] MEDS: Bupropion 150 MG XL TAB PO SCH ×2 (11:32→20:12)
--- NOTE | 2020-07-08 14:53 | PDOC.HOSPP ---
- Subjective Encounter Date: 07/08/20 Encounter Time: 11:00 Subjective: f/u for E. coli UTI/bacteremia secondary to ureterolithiasis s/p stent placement receiving IV Meropenem. Overall feels ok. Some general weakness. - Objective Vital Signs & Weight: Vital Signs (12 hours) Temp Pulse Resp BP Pulse Ox 07/08/20 11:37 97.4 F L 100 20 132/83 95 07/08/20 08:37 112 H 16 96 07/08/20 08:01 95 07/08/20 07:48 98.0 F 100 20 137/89 95 Weight Admit Weight 227 lb 8.272 oz Weight 228 lb 7.44 oz Most Recent Monitor Data Heart Rate from ECG 123 NIBP 143/110 NIBP BP-Mean 121 Respiration from ECG 20 SpO2 96 I&O: 07/07/20 07/08/20 07/09/20 06:59 06:59 06:59 Intake Total 1100 350 Balance 1100 350 Result Diagrams: 07/07/20 07:12 07/07/20 07:12 Additional Labs: Microbiology 06/25/20 00:33 Central Line - Right Brachiocephalic vein Blood Culture - Final Escherichia coli 06/25/20 00:17 Venous blood - Right Hand Blood Culture - Final Escherichia coli Hospitalist ROS - Medication Medications: Active Medications Generic Name Dose Route Start Last Admin Trade Name Freq PRN Reason Stop Dose Admin Albuterol/Ipratropium 3 ml 06/29/20 14:15 06/30/20 14:48 Ipratropium/Albuterol Sulfate 3 Ml Neb NEB 3 ml PRN PRN Administration Wheezing Alprazolam 0.25 mg 07/03/20 10:31 07/06/20 21:37 Alprazolam 0.25 Mg Tab PO 0.25 mg BIDPRN PRN Administration Anxiety Apixaban 5 mg 07/01/20 21:00 07/08/20 08:32 Apixaban 5 Mg Tab PO 5 mg BID LAZARUS Administration Atorvastatin Calcium 40 mg 06/25/20 21:00 07/07/20 20:31 Atorvastatin Calcium 40 Mg Tab PO 40 mg HS LAZARUS Administration Benzonatate 100 mg 07/01/20 08:26 07/02/20 21:02 Benzonatate 100 Mg Cap PO 100 mg TIDPRN PRN Administration Cough Bupropion HCl 150 mg 06/29/20 21:00 07/08/20 11:32 Bupropion 150 Mg Xl Tab PO 150 mg BID LAZARUS Administration Cholecalciferol 5,000 units 06/30/20 09:00 07/08/20 08:32 Cholecalciferol 1,000 Units (25 Mcg) Tab PO 5,000 units DAILY LAZARUS Administration Flecainide Acetate 50 mg 06/29/20 21:00 07/08/20 08:33 Flecainide 50 Mg Tab PO 50 mg BID LAZARUS Administration Meropenem 1 gm/ Device 50 mls @ 50 mls/hr 06/28/20 14:00 07/08/20 14:47 IVPB 50 mls Q8HR LAZARUS Administration Mometasone Furoate/Formoterol Fumar 2 puff 06/30/20 18:30 07/08/20 08:37 Mometasone 200 Mcg/Formoterol 5 Mcg 120 Puff Inhaler INH 2 puff BID-RT LAZARUS Administration Montelukast Sodium 10 mg 06/29/20 21:00 07/07/20 20:31 Montelukast Sodium 10 Mg Tablet PO 10 mg HS LAZARUS Administration Sodium Chloride 10 ml 06/24/20 23:39 07/08/20 08:34 Flush - Normal Saline 10 Ml Syringe IVF 10 ml PRN PRN Administration Saline Flush - Exam General Appearance: NAD, awake alert Eye: PERRL, anicteric sclera ENT: normocephalic atraumatic, no oropharyngeal lesions Neck: supple, symmetric, no JVD, no thyromegaly, no lymphadenopathy Heart: RRR, no gallops, no rubs, normal peripheral pulses Heart - other findings: S1, S2 Respiratory: CTAB, no wheezes, no rales, no ronchi, normal chest expansion Gastrointestinal: soft, non-tender, non-distended, normal bowel sounds, no palpable masses Extremities: no cyanosis, no clubbing, no edema Skin: normal turgor, no lesions Neurological: cranial nerve grossly intact, no new deficit Musculoskeletal: normal tone, generalized weakness Psychiatric: normal affect, A&O x 3 Hosp A/P (1) Obstruction of left ureteropelvic junction due to stone Code(s): N20.1 - CALCULUS OF URETER Status: Acute Plan: s/p L ureteral stent placement, continue Meropenem another 4-5 days. (2) Sepsis due to gram-negative UTI Code(s): A41.50 - GRAM-NEGATIVE SEPSIS, UNSPECIFIED; N39.0 - URINARY TRACT INFECTION, SITE NOT SPECIFIED Status: Acute Plan: Resolved, continue IV Meropenem (3) EDMAR (acute kidney injury) Code(s): N17.9 - ACUTE KIDNEY FAILURE, UNSPECIFIED Status: Acute Plan: Resolved (4) Acute respiratory failure with hypoxia Code(s): J96.01 - ACUTE RESPIRATORY FAILURE WITH HYPOXIA Status: Acute - Plan plan discussed w/ family, continue antibiotics, PT/OT, social sciences department chair, respiratory therapy, out of bed/ambulate, DVT proph w/SCDs Stable currently Continue Meropenem IV likely another 4-5 more days OOB with PT D/C Angel/ISS D/C Accuchecks Await final approval for inpt rehab
[2020-07-08] MEDS: Atorvastatin Calcium 40 MG TAB PO SCH (20:12)
[2020-07-08] MEDS: Montelukast Sodium 10 mg Tablet PO SCH (20:12)
[2020-07-08] MEDS ORDERED: Nebivolol HCl 2.5 MG TAB PO SCH (20:30)
[2020-07-09] MEDS: Mometasone 200 MCG/Formoterol 5 MCG 120 PUFF INHALER INH SCH ×2 (07:07→18:45)
[2020-07-09] MEDS ORDERED: MEROPENEM 1 GM/50 ML 1 GM in Premix Bag 1 BAG IVPB SCH (08:00)
[2020-07-09] MEDS: Cholecalciferol 1,000 UNITS (25 MCG) TAB PO SCH (08:09)
[2020-07-09] MEDS: Nebivolol HCl 2.5 MG TAB PO SCH (08:09)
[2020-07-09] MEDS: Apixaban 5 MG TAB PO SCH (08:10)
[2020-07-09] MEDS: Bupropion 150 MG XL TAB PO SCH ×2 (08:10→20:30)
[2020-07-09] MEDS: Flecainide 50 MG TAB PO SCH ×2 (08:11→20:30)
--- NOTE | 2020-07-09 14:22 | EKG ---
Test Reason : Blood Pressure : / mmHG Vent. Rate : 098 BPM Atrial Rate : 098 BPM P-R Int : 244 ms QRS Dur : 140 ms QT Int : 342 ms P-R-T Axes : 000 -64 043 degrees QTc Int : 436 ms Sinus rhythm with 1st degree A-V block Left axis deviation Right bundle branch block Abnormal ECG Confirmed by NAYLA DAVENPORT DO ([id number]), editor farm journal ALEJANDRO LOPEZ ([id number]) on 07/09/2020 2:22:40 PM Referred By: Confirmed By:NAYLA DAVENPORT DO
[2020-07-09] MEDS: MEROPENEM 1 GM/50 ML 1 GM in Premix Bag 1 BAG IVPB SCH ×2 (15:39→23:07)
--- NOTE | 2020-07-09 18:07 | PDOC.HOSPP ---
- Subjective Encounter Date: 07/09/20 Encounter Time: 09:00 Subjective: F/u: UTI The patient originally presented with flank pain. She had double J ureteral stent placed 06/25. The patient denies nausea/vomiting/dysuria. She states Dr. Hood was planning on doing lithotripsy Saturday but she wanted it post-poned because she was weak. She is agreeable to having this done Saturday. Discussed with Dr. Hood who rescheduled it for Saturday - Objective Vital Signs & Weight: Vital Signs (12 hours) Temp Pulse Resp BP Pulse Ox 07/09/20 08:15 97 07/09/20 07:28 98.1 F 94 16 121/75 97 Weight Admit Weight 227 lb 8.272 oz Weight 228 lb 7.44 oz Most Recent Monitor Data Heart Rate from ECG 123 NIBP 143/110 NIBP BP-Mean 121 Respiration from ECG 20 SpO2 96 I&O: 07/08/20 07/09/20 07/10/20 06:59 06:59 06:59 Intake Total 350 1000 920 Balance 350 1000 920 Result Diagrams: 07/07/20 07:12 07/07/20 07:12 Hospitalist ROS - Review of Systems Constitutional: denies: fever, chills - Medication Medications: Active Medications Generic Name Dose Route Start Last Admin Trade Name Freq PRN Reason Stop Dose Admin Albuterol/Ipratropium 3 ml 06/29/20 14:15 06/30/20 14:48 Ipratropium/Albuterol Sulfate 3 Ml Neb NEB 3 ml PRN PRN Administration Wheezing Alprazolam 0.25 mg 07/03/20 10:31 07/06/20 21:37 Alprazolam 0.25 Mg Tab PO 0.25 mg BIDPRN PRN Administration Anxiety Apixaban 5 mg 07/01/20 21:00 07/09/20 08:10 Apixaban 5 Mg Tab PO 5 mg BID LAZARUS Administration Atorvastatin Calcium 40 mg 06/25/20 21:00 07/08/20 20:12 Atorvastatin Calcium 40 Mg Tab PO 40 mg HS LAZARUS Administration Benzonatate 100 mg 07/01/20 08:26 07/02/20 21:02 Benzonatate 100 Mg Cap PO 100 mg TIDPRN PRN Administration Cough Bupropion HCl 150 mg 06/29/20 21:00 07/09/20 08:10 Bupropion 150 Mg Xl Tab PO 150 mg BID LAZARUS Administration Cholecalciferol 5,000 units 06/30/20 09:00 07/09/20 08:09 Cholecalciferol 1,000 Units (25 Mcg) Tab PO 5,000 units DAILY LAZARUS Administration Flecainide Acetate 50 mg 06/29/20 21:00 07/09/20 08:11 Flecainide 50 Mg Tab PO 50 mg BID LAZARUS Administration Meropenem 1 gm/ Device 50 mls @ 100 mls/hr 07/09/20 16:00 07/09/20 15:39 IVPB 50 mls 0800,1600,2359 LAZARUS Administration Mometasone Furoate/Formoterol Fumar 2 puff 06/30/20 18:30 07/09/20 07:07 Mometasone 200 Mcg/Formoterol 5 Mcg 120 Puff Inhaler INH 2 puff BID-RT LAZARUS Administration Montelukast Sodium 10 mg 06/29/20 21:00 07/08/20 20:12 Montelukast Sodium 10 Mg Tablet PO 10 mg HS LAZARUS Administration Nebivolol 5 mg 07/08/20 11:12 07/09/20 08:09 Nebivolol Hcl 2.5 Mg Tab PO 5 mg DAILY LAZARUS Administration Sodium Chloride 10 ml 06/24/20 23:39 07/08/20 08:34 Flush - Normal Saline 10 Ml Syringe IVF 10 ml PRN PRN Administration Saline Flush - Exam General Appearance: NAD, awake alert Eye: PERRL, anicteric sclera ENT: normocephalic atraumatic, no oropharyngeal lesions Neck: no JVD Heart: RRR, no murmur, no gallops, no rubs Respiratory: CTAB, no wheezes, no rales, no ronchi Gastrointestinal: soft, non-tender, non-distended, normal bowel sounds Extremities: no cyanosis, no clubbing, no edema Skin: normal turgor, no lesions, no rashes Hosp A/P - Plan This is a 79 year old feamel with past medical history of #Sepsis secondary to E coli bacteremia and left sided pyelonephritis #Obstructive hydronephrosis from renal calculi - she is s/p stent placement 06/25. - she has been on IV meropenem for [address] Erwin, plan for lithotripsy on Saturday. Will continue antibiotics until then then d/c - will repeat blood cultures to evaluate for clearance Left sided weakness - resolved - originally presented with left sided weakness and neglect of left side. CT head, CT brain and neck showed no acute finding - she is on eliquis already. Possibly could have been from kidney stone on that side - PT recommending rehab, but appears to be relatively independent AFib - continue fleicanide. Will discontinue eliquis in anticipation of surgery on Saturday GERD - continue PPI Acute encephalopathy - resolved Dispo: plan for lithotripsy on Saturday
[2020-07-09] MEDS: ALPRAZolam 0.25 MG TAB PO PRN (20:30)
[2020-07-09] MEDS: Atorvastatin Calcium 40 MG TAB PO SCH (20:31)
[2020-07-09] MEDS: Montelukast Sodium 10 mg Tablet PO SCH (20:31)
[2020-07-10 05:41] LABS: Hemoglobin 11.2 g/dL (12.0-16.0); Mean Corpuscular HGB CONC 32.9 g/dL (32.0-36.0); Mean Corpuscular Hemoglobin 29.7 pg (27.0-31.0); Mean Corpuscular Volume 90.2 fL (78.0-98.0); Mean Platelet Volume 8.2 fL (7.4-10.4); Platelet Count 304 thou/uL (130-400); RBC Distribution Width 13.5 % (11.5-14.5); Red Blood Cell (RBC) Count 3.77 mill/uL (4.20-5.40); White Blood Cell (WBC) Count 5.3 thou/uL (4.8-10.8)
[2020-07-10] MEDS: Mometasone 200 MCG/Formoterol 5 MCG 120 PUFF INHALER INH SCH ×2 (07:22→18:17)
[2020-07-10] MEDS: MEROPENEM 1 GM/50 ML 1 GM in Premix Bag 1 BAG IVPB SCH ×2 (08:23→15:48)
[2020-07-10] MEDS: Cholecalciferol 1,000 UNITS (25 MCG) TAB PO SCH (08:24)
[2020-07-10] MEDS: Bupropion 150 MG XL TAB PO SCH ×2 (08:24→22:27)
[2020-07-10] MEDS: Flecainide 50 MG TAB PO SCH ×2 (08:25→21:27)
[2020-07-10] MEDS: Nebivolol HCl 2.5 MG TAB PO SCH (09:35)
--- NOTE | 2020-07-10 15:59 | PDOC.HOSPP ---
- Subjective Encounter Date: 07/10/20 Encounter Time: 11:00 Subjective: F/u: kidney stone The patient has no complaints today. She has no abdominal pain, nausea or vomiting. She is tolerating a diet. Patient states Dr. Hood is going to call her this am to discuss the procedure - Objective Vital Signs & Weight: Vital Signs (12 hours) Temp Pulse Resp BP Pulse Ox 07/10/20 11:24 98.5 F 96 18 119/72 94 L 07/10/20 08:25 95 07/10/20 07:29 98.4 F 112 H 18 129/85 92 L 07/10/20 07:23 96 07/10/20 07:22 116 H 16 96 Weight Admit Weight 227 lb 8.272 oz Weight 214 lb 14.4 oz Most Recent Monitor Data Heart Rate from ECG 123 NIBP 143/110 NIBP BP-Mean 121 Respiration from ECG 20 SpO2 96 I&O: 07/09/20 07/10/20 07/11/20 06:59 06:59 06:59 Intake Total 1000 1040 Balance 1000 1040 Result Diagrams: 07/10/20 05:18 07/07/20 07:12 Hospitalist ROS - Review of Systems Constitutional: denies: fever, chills - Medication Medications: Active Medications Generic Name Dose Route Start Last Admin Trade Name Freq PRN Reason Stop Dose Admin Albuterol/Ipratropium 3 ml 06/29/20 14:15 06/30/20 14:48 Ipratropium/Albuterol Sulfate 3 Ml Neb NEB 3 ml PRN PRN Administration Wheezing Alprazolam 0.25 mg 07/03/20 10:31 07/09/20 20:30 Alprazolam 0.25 Mg Tab PO 0.25 mg BIDPRN PRN Administration Anxiety Atorvastatin Calcium 40 mg 06/25/20 21:00 07/09/20 20:31 Atorvastatin Calcium 40 Mg Tab PO 40 mg HS LAZARUS Administration Benzonatate 100 mg 07/01/20 08:26 07/02/20 21:02 Benzonatate 100 Mg Cap PO 100 mg TIDPRN PRN Administration Cough Bupropion HCl 150 mg 06/29/20 21:00 07/10/20 08:24 Bupropion 150 Mg Xl Tab PO 150 mg BID LAZARUS Administration Cholecalciferol 5,000 units 06/30/20 09:00 07/10/20 08:24 Cholecalciferol 1,000 Units (25 Mcg) Tab PO 5,000 units DAILY LAAZRUS Administration Flecainide Acetate 50 mg 06/29/20 21:00 07/10/20 08:25 Flecainide 50 Mg Tab PO 50 mg BID LAZARUS Administration Meropenem 1 gm/ Device 50 mls @ 100 mls/hr 07/09/20 16:00 07/10/20 15:48 IVPB 50 mls 0800,1600,2359 LAZARUS Administration Mometasone Furoate/Formoterol Fumar 2 puff 06/30/20 18:30 07/10/20 07:22 Mometasone 200 Mcg/Formoterol 5 Mcg 120 Puff Inhaler INH 2 puff BID-RT LAZARUS Administration Montelukast Sodium 10 mg 06/29/20 21:00 07/09/20 20:31 Montelukast Sodium 10 Mg Tablet PO 10 mg HS LAZARUS Administration Nebivolol 5 mg 07/08/20 11:12 07/10/20 09:35 Nebivolol Hcl 2.5 Mg Tab PO 5 mg DAILY LAZARUS Administration Sodium Chloride 10 ml 06/24/20 23:39 07/10/20 08:35 Flush - Normal Saline 10 Ml Syringe IVF 10 ml PRN PRN Administration Saline Flush - Exam General Appearance: NAD, awake alert Eye: PERRL, anicteric sclera ENT: normocephalic atraumatic, no oropharyngeal lesions Neck: no JVD Heart: RRR, no murmur, no gallops, no rubs Respiratory: CTAB, no wheezes, no rales, no ronchi Gastrointestinal: soft, non-tender, non-distended, normal bowel sounds Extremities: no cyanosis, no clubbing, no edema Hosp A/P - Plan This is a 79 year old feamel with past medical history of afib and GERD who presented with #Sepsis secondary to E coli bacteremia and left sided pyelonephritis #Obstructive hydronephrosis from renal calculi - she is s/p stent placement 06/25. - she has been on IV meropenem for 13 days, currently on day 14. Discussed with Dr. Hood, plan for lithotripsy on Saturday. Will continue antibiotics until the lithotripsy. Repeat blood cultures negative -if she needs antibiotics post-lithotripsy will need to either do meropenem or possibly bactrim. Patient reports anaphylaxis to cephalosporin, hives with penicillin and blisters with levaquin Left sided weakness - resolved - originally presented with left sided weakness and neglect of left side. CT head, CT brain and neck showed no acute finding - she is on eliquis already. Possibly could have been from kidney stone on that side - PT recommending rehab, but appears to be relatively independent AFib - continue fleicanide. Hold eliquis in anticipation of surgery on Saturday GERD - continue PPI Acute encephalopathy - resolved Dispo: plan for lithotripsy on Saturday
[2020-07-10 18:16] LABS: SARS-CoV-2 MS2 Positive; SARS-CoV-2 N Gene Negative; SARS-CoV-2 S Gene Negative; SARS-CoV-2 by NAA Not Detected (NotDetected); SARS-CoV-2 orf1ab Negative
[2020-07-10] MEDS: Montelukast Sodium 10 mg Tablet PO SCH (21:27)
[2020-07-10] MEDS: Atorvastatin Calcium 40 MG TAB PO SCH (21:27)
[2020-07-10] MEDS: ALPRAZolam 0.25 MG TAB PO PRN (22:27)
[2020-07-11] MEDS: MEROPENEM 1 GM/50 ML 1 GM in Premix Bag 1 BAG IVPB SCH ×4 (00:03→23:21)
[2020-07-11 06:48] LABS: Hemoglobin 11.6 g/dL (12.0-16.0); Mean Corpuscular HGB CONC 33.3 g/dL (32.0-36.0); Mean Corpuscular Hemoglobin 29.9 pg (27.0-31.0); Mean Corpuscular Volume 89.7 fL (78.0-98.0); Mean Platelet Volume 7.5 fL (7.4-10.4); Platelet Count 357 thou/uL (130-400); RBC Distribution Width 13.5 % (11.5-14.5); Red Blood Cell (RBC) Count 3.88 mill/uL (4.20-5.40); White Blood Cell (WBC) Count 5.4 thou/uL (4.8-10.8)
[2020-07-11 07:05] LABS: Anion Gap 13 mmol/L (10-20); BUN (Urea Nitrogen) 14 mg/dL (9.8-20.1); Calc. Creatinine Clearance 93 mL/min (70-130); Carbon Dioxide 24 mmol/L (23-31); Chloride 109 mmol/L (98-107); Estimated GFR-MDRD 75; Glucose 97 mg/dL (83-110); Potassium 4.2 mmol/L (3.5-5.1); Sodium 142 mmol/L (136-145)
[2020-07-11] MEDS: Mometasone 200 MCG/Formoterol 5 MCG 120 PUFF INHALER INH SCH ×2 (07:26→19:19)
[2020-07-11] MEDS: Cholecalciferol 1,000 UNITS (25 MCG) TAB PO SCH (07:59)
[2020-07-11] MEDS: Nebivolol HCl 2.5 MG TAB PO SCH (07:59)
[2020-07-11] MEDS: Bupropion 150 MG XL TAB PO SCH ×2 (07:59→21:10)
[2020-07-11] MEDS: Flecainide 50 MG TAB PO SCH ×2 (08:00→21:10)
[2020-07-11] MEDS ORDERED: Fentanyl 100 MCG/2 ML VIAL ONE ×2 (08:27→10:26)
[2020-07-11] MEDS ORDERED: Iothalamate Meglumine 60% 50 ML VIAL FS ONE (09:19)
[2020-07-11] MEDS ORDERED: Promethazine HCl 25 MG/ML VIAL IM PRN (10:24)
[2020-07-11] MEDS ORDERED: Promethazine HCl 25 MG/ML VIAL SLOW IVP PRN (10:24)
[2020-07-11] MEDS ORDERED: Ondansetron HCl/PF 4 MG/2 ML Vial IVP PRN (10:24)
--- NOTE | 2020-07-11 10:49 | OP ---
DATE OF PROCEDURE: 07/11/2020 PREOPERATIVE DIAGNOSIS: Left ureteral and renal stones. POSTOPERATIVE DIAGNOSIS: Left renal stones. PROCEDURES PERFORMED: 1. Left flexible ureteroscopy. 2. Laser lithotripsy. 3. Stone retrieval. 4. Stent replacement. ANESTHETIC: General. ESTIMATED BLOOD LOSS: Less than 50 mL. FINDINGS: She ended up having 3 stones in her kidney, the one in the ureter most likely was just pushed up into the kidney when the stent was placed, it was in the proximal ureter at that time. DRAINS PLACED: A 4.8 x 24-cm double-J stent with a string attached. PATHOLOGY SENT: Stone fragments for stone analysis. DESCRIPTION OF PROCEDURE: After obtaining written and verbal consent from the patient after being sure she had received her on-scheduled antibiotic, she was taken to the operating suite. She was placed in a supine position on the treatment table. PlexiPulses were placed on her lower extremities and turned on. She was given a general anesthetic and oral obturator intubation and then placed in the dorsal lithotomy position, sterilely prepped and draped. The fluoroscopy unit was positioned over her, so that we could see her ureteral stent, kidney, and bladder. Cystoscopy was performed with a 22-Greek sheath. This was well lubricated and passed under direct vision through the female urethra into the urinary bladder with aid of a 30-degree lens and a video camera and monitor. The distal end of double-J stent was grasped and brought out through the urethral meatus and a guidewire was fed up and the stent was removed over the guidewire. We then went ahead and passed a dual-lumen catheter over the stent about 2 cm up the ureter on the left side and we shot contrast up and it showed a slight filling defect just below the UPJ region and somewhat elongated calyceal system. We then fed a Stiff blue wire through the 2nd port of the dual-lumen catheter and removed the dual-lumen catheter. We then brought in a ureteral sheath and passed over our Stiff wire and placed up just below the proximal UPJ region and removed the obturator and removed the blue Stiff wire. We then brought in our flexible ureteroscope and passed it under direct vision through the sheath through the proximal ureter, which showed just a little debris, but was in the stone and then into the collecting system. We examined every collecting system and found stones kind of in the mid to lower calyceal system and we used a laser to fragment these up into pieces that we could basket and remove. Once this was complete, we backed the ureteral sheath out under direct vision, leaving our green guidewire still in place. There was no evidence of ureteral injury. We then back-loaded our guidewire through our scope and placed a 5-Greek Pollack catheter across this up into the region of the renal pelvis, removed the guidewire, injected contrast to fill out this system in the ureter. There was no extravasation noted. The guidewire was replaced. The Pollack catheter was removed and then a 4.8 x 24 was placed over the guidewire and pushed up into place, so its proximal end coiled in the renal pelvis and its distal end coiled in the bladder when the wire was removed. The patient at this point was awakened and extubated and taken by migdalia to the recovery room. Job ID: [id number]
[2020-07-11] MEDS ORDERED: Lidocaine 5% Patch TD SCH (11:15)
[2020-07-11] MEDS: Acetaminophen 325 MG TAB PO PRN ×2 (11:20→19:47)
--- NOTE | 2020-07-11 11:43 | RAD ---
EXAM: Retrograde IVP HISTORY: Left ureteral stent COMPARISON: 06/25/2020 FINDINGS/IMPRESSION: Limited intraoperative fluoroscopic views of the retrograde IVP were submitted f or interpretation. There is no evidence of hydronephrosis. There is a left ureteral stent which appears to be undergoing exchange. The new stent appears to have its pigtail coils in the urinary kamar dder and in the renal pelvis.
[2020-07-11] MEDS ORDERED: Glycopyrrolate 0.2 MG/ML 5 ML SYRINGE ONE (11:47)
[2020-07-11] MEDS ORDERED: Lidocaine 1% PF 5 ML VIAL ONE (11:47)
[2020-07-11] MEDS ORDERED: Ondansetron PF 4 MG/2 ML Vial ONE (11:47)
[2020-07-11] MEDS ORDERED: PHENYLEPHRINE-NS 100 MCG/ML 10 ML SYRINGE ONE (11:47)
[2020-07-11] MEDS ORDERED: Rocuronium Bromide 10 MG/ML (10ML VIAL) ONE (11:47)
[2020-07-11] MEDS ORDERED: PROPOFOL 200 MG/20 ML VIAL ONE (11:47)
--- NOTE | 2020-07-11 15:05 | PDOC.HOSPP ---
- Subjective Encounter Date: 07/11/20 Encounter Time: 11:00 Subjective: Pt. is status post left flexible ureteroscopy, laser lithotripsy and stent replacement today . is at bedside. She states she has left sided pain in the left lower quadrant that shoots to her back. Discussed possible pain management and pt stated she did not want morphine due to an adverse effect she experienced upon admission when given morphine with an additional medication she could not recall. Pt. was agreeable to Tylenol and a lidocaine patch for pain management. Per [facility], she was denied - Objective Vital Signs & Weight: Vital Signs (12 hours) Temp Pulse Resp BP Pulse Ox 07/11/20 10:50 97.8 F 78 18 112/73 92 L 07/11/20 08:00 97 07/11/20 07:26 102 H 16 97 07/11/20 07:18 97.8 F 108 H 18 130/80 97 Weight Admit Weight 227 lb 8.272 oz Weight 213 lb 8 oz Most Recent Monitor Data Heart Rate from ECG 123 NIBP 143/110 NIBP BP-Mean 121 Respiration from ECG 20 SpO2 96 I&O: 07/10/20 07/11/20 07/12/20 06:59 06:59 06:59 Intake Total 1040 1170 240 Balance 1040 1170 240 Result Diagrams: 07/11/20 06:26 07/11/20 06:26 Hospitalist ROS - Review of Systems Respiratory: denies: shortness of breath Gastrointestinal: reports: melena. denies: nausea - Medication Medications: Active Medications Generic Name Dose Route Start Last Admin Trade Name Freq PRN Reason Stop Dose Admin Acetaminophen 650 mg 07/11/20 11:09 07/11/20 11:20 Acetaminophen 325 Mg Tab PO 650 mg Q6H PRN Administration Pain Albuterol/Ipratropium 3 ml 06/29/20 14:15 06/30/20 14:48 Ipratropium/Albuterol Sulfate 3 Ml Neb NEB 3 ml PRN PRN Administration Wheezing Alprazolam 0.25 mg 07/03/20 10:31 07/10/20 22:27 Alprazolam 0.25 Mg Tab PO 0.25 mg BIDPRN PRN Administration Anxiety Atorvastatin Calcium 40 mg 06/25/20 21:00 07/10/20 21:27 Atorvastatin Calcium 40 Mg Tab PO 40 mg HS LAZARUS Administration Benzonatate 100 mg 07/01/20 08:26 07/02/20 21:02 Benzonatate 100 Mg Cap PO 100 mg TIDPRN PRN Administration Cough Bupropion HCl 150 mg 06/29/20 21:00 07/11/20 07:59 Bupropion 150 Mg Xl Tab PO 150 mg BID LAZARUS Administration Cholecalciferol 5,000 units 06/30/20 09:00 07/11/20 07:59 Cholecalciferol 1,000 Units (25 Mcg) Tab PO 5,000 units DAILY LAZARUS Administration Flecainide Acetate 50 mg 06/29/20 21:00 07/11/20 08:00 Flecainide 50 Mg Tab PO 50 mg BID LAZARUS Administration Meropenem 1 gm/ Device 50 mls @ 100 mls/hr 07/09/20 16:00 07/11/20 07:57 IVPB 50 mls 0800,1600,2359 LAZARUS Administration Lidocaine 1 patch 07/11/20 11:15 07/11/20 11:20 Lidocaine 5% Patch TD 07/11/20 21:00 1 patch NOW LAZARUS Administration Mometasone Furoate/Formoterol Fumar 2 puff 06/30/20 18:30 07/11/20 07:26 Mometasone 200 Mcg/Formoterol 5 Mcg 120 Puff Inhaler INH 2 puff BID-RT LAZARUS Administration Montelukast Sodium 10 mg 06/29/20 21:00 07/10/20 21:27 Montelukast Sodium 10 Mg Tablet PO 10 mg HS LAZARUS Administration Nebivolol 5 mg 07/08/20 11:12 07/11/20 07:59 Nebivolol Hcl 2.5 Mg Tab PO 5 mg DAILY LAZARUS Administration Sodium Chloride 10 ml 06/24/20 23:39 07/10/20 08:35 Flush - Normal Saline 10 Ml Syringe IVF 10 ml PRN PRN Administration Saline Flush - Exam General Appearance: NAD, awake alert, ill appearing Heart: RRR, no murmur, no gallops, no rubs, normal peripheral pulses Respiratory: CTAB, no wheezes, no rales, no ronchi, normal chest expansion, no tachypnea Gastrointestinal: soft, non-distended, normal bowel sounds, no palpable masses, no hepatomegaly, no splenomegaly Gastrointestinal - other findings: tenderness on palpation of LLQ Extremities: no cyanosis, 1+ LE edema Psychiatric: normal affect, normal behavior, A&O x 3 Hosp A/P - Plan This is a 79 year old female with past medical history of afib and GERD who presented with left sided weakness. S/P left flexible ureteroscopy, laser lithotripsy, and stent replacement 07/11/20. #Sepsis secondary to E coli bacteremia and left sided pyelonephritis #Obstructive hydronephrosis from renal calculi - she is s/p stent placement 06/25. S he has been on IV meropenem and completed 14 days - 07/11: she underwent lithotripsy with left flexible ureteroscopy and stone retrieval today. Will continue IV meropenem for a few more days. states daughter can give this to her at home since she has done it before - tylenol and lidocaine patch has been ordered for pain Left sided weakness - resolved - originally presented with left sided weakness and neglect of left side. CT head, CT brain and neck showed no acute finding - she is on eliquis already. Possibly could have been from kidney stone on that side - PT recommending rehab, but is now more independent and can likely go home AFib - continue fleicanide. Eliquis on hold, will discuss with urology when to resume GERD - continue PPI Acute encephalopathy - resolved Dispo: likely d/c tomorrow
[2020-07-11] MEDS: Atorvastatin Calcium 40 MG TAB PO SCH (21:09)
[2020-07-11] MEDS: Montelukast Sodium 10 mg Tablet PO SCH (21:09)
[2020-07-11] MEDS: Lidocaine Patch Removal 1 EACH TOP SCH (21:43)
[2020-07-12 06:28] LABS: Hemoglobin 11.1 g/dL (12.0-16.0); Mean Corpuscular HGB CONC 33.1 g/dL (32.0-36.0); Mean Corpuscular Hemoglobin 29.6 pg (27.0-31.0); Mean Corpuscular Volume 89.4 fL (78.0-98.0); Platelet Count 287 thou/uL (130-400); RBC Distribution Width 13.2 % (11.5-14.5); Red Blood Cell (RBC) Count 3.75 mill/uL (4.20-5.40); White Blood Cell (WBC) Count 5.4 thou/uL (4.8-10.8)
[2020-07-12 06:46] LABS: Anion Gap 11 mmol/L (10-20); BUN (Urea Nitrogen) 12 mg/dL (9.8-20.1); Calc. Creatinine Clearance 97 mL/min (70-130); Calcium 8.9 mg/dL (7.8-10.44); Carbon Dioxide 30 mmol/L (23-31); Chloride 105 mmol/L (98-107); Estimated GFR-MDRD 78; Glucose 83 mg/dL (83-110); Potassium 4.4 mmol/L (3.5-5.1); Sodium 142 mmol/L (136-145)
[2020-07-12] MEDS: Nebivolol HCl 2.5 MG TAB PO SCH (08:23)
[2020-07-12] MEDS: Flecainide 50 MG TAB PO SCH ×2 (08:24→22:33)
[2020-07-12] MEDS: Cholecalciferol 1,000 UNITS (25 MCG) TAB PO SCH (08:24)
[2020-07-12] MEDS: Lidocaine 5% Patch TD SCH (08:24)
[2020-07-12] MEDS: MEROPENEM 1 GM/50 ML 1 GM in Premix Bag 1 BAG IVPB SCH ×2 (08:24→16:10)
[2020-07-12] MEDS: Bupropion 150 MG XL TAB PO SCH ×2 (08:24→22:33)
[2020-07-12] MEDS: Mometasone 200 MCG/Formoterol 5 MCG 120 PUFF INHALER INH SCH ×2 (15:17→19:28)
--- NOTE | 2020-07-12 17:26 | PDOC.HOSPP ---
- Subjective Encounter Date: 07/12/20 Encounter Time: 09:30 Subjective: F/u : kidney stone -Patient is status post lithotripsy postop day 1. She denies any abdominal pain, nausea or vomiting. She is interested in going home. Per Dr. Alston, plan is to take her stent out on 07/18. Discussed with Dr. Christopher and will continue meropenem until the stent is removed. - Objective Vital Signs & Weight: Vital Signs (12 hours) Temp Pulse Resp BP Pulse Ox 07/12/20 08:00 95 07/12/20 07:26 98.3 F 119 H 18 139/88 95 Weight Admit Weight 227 lb 8.272 oz Weight 213 lb 8 oz Most Recent Monitor Data Heart Rate from ECG 123 NIBP 143/110 NIBP BP-Mean 121 Respiration from ECG 20 SpO2 96 I&O: 07/11/20 07/12/20 07/13/20 06:59 06:59 06:59 Intake Total 1170 1380 Balance 1170 1380 Result Diagrams: 07/12/20 06:17 07/12/20 06:17 Hospitalist ROS - Review of Systems Constitutional: denies: fever, chills - Medication Medications: Active Medications Generic Name Dose Route Start Last Admin Trade Name Freq PRN Reason Stop Dose Admin Acetaminophen 650 mg 07/11/20 11:09 07/11/20 19:47 Acetaminophen 325 Mg Tab PO 650 mg Q6H PRN Administration Pain Albuterol/Ipratropium 3 ml 06/29/20 14:15 06/30/20 14:48 Ipratropium/Albuterol Sulfate 3 Ml Neb NEB 3 ml PRN PRN Administration Wheezing Alprazolam 0.25 mg 07/03/20 10:31 07/10/20 22:27 Alprazolam 0.25 Mg Tab PO 0.25 mg BIDPRN PRN Administration Anxiety Atorvastatin Calcium 40 mg 06/25/20 21:00 07/11/20 21:09 Atorvastatin Calcium 40 Mg Tab PO 40 mg HS LAZARUS Administration Benzonatate 100 mg 07/01/20 08:26 07/02/20 21:02 Benzonatate 100 Mg Cap PO 100 mg TIDPRN PRN Administration Cough Bupropion HCl 150 mg 06/29/20 21:00 07/12/20 08:24 Bupropion 150 Mg Xl Tab PO 150 mg BID LAZARUS Administration Cholecalciferol 5,000 units 06/30/20 09:00 07/12/20 08:24 Cholecalciferol 1,000 Units (25 Mcg) Tab PO 5,000 units DAILY LAZARUS Administration Flecainide Acetate 50 mg 06/29/20 21:00 07/12/20 08:24 Flecainide 50 Mg Tab PO 50 mg BID LAZARUS Administration Meropenem 1 gm/ Device 50 mls @ 100 mls/hr 07/09/20 16:00 07/12/20 16:10 IVPB 50 mls 0800,1600,2359 LAZARUS Administration Lidocaine 1 patch 07/12/20 09:00 07/12/20 08:24 Lidocaine 5% Patch TD Not Given DAILY [facility] Miscellaneous Medication 1 each 07/11/20 21:00 07/11/20 21:43 Lidocaine Patch Removal 1 Each TOP 1 each 2100 LAZARUS Administration Mometasone Furoate/Formoterol Fumar 2 puff 06/30/20 18:30 07/12/20 15:17 Mometasone 200 Mcg/Formoterol 5 Mcg 120 Puff Inhaler INH Not Given BID-RT LAZARUS Montelukast Sodium 10 mg 06/29/20 21:00 07/11/20 21:09 Montelukast Sodium 10 Mg Tablet PO 10 mg HS LAZARUS Administration Nebivolol 5 mg 07/08/20 11:12 07/12/20 08:23 Nebivolol Hcl 2.5 Mg Tab PO 5 mg DAILY LAZARUS Administration Sodium Chloride 10 ml 06/24/20 23:39 07/12/20 08:28 Flush - Normal Saline 10 Ml Syringe IVF 10 ml PRN PRN Administration Saline Flush - Exam General Appearance: NAD, awake alert Eye: anicteric sclera ENT: normocephalic atraumatic, no oropharyngeal lesions Neck: no JVD Heart: RRR, no murmur, no gallops, no rubs Respiratory: CTAB, no wheezes, no rales, no ronchi Gastrointestinal: soft, non-tender, non-distended, normal bowel sounds Extremities: no cyanosis, no clubbing, no edema Skin: normal turgor, no lesions, no rashes Neurological: cranial nerve grossly intact, normal sensation to touch, no weakness Musculoskeletal: normal tone, normal strength, no muscle wasting Hosp A/P - Plan This is a 79 year old female with past medical history of afib and GERD who presented with left sided weakness. S/P left flexible ureteroscopy, laser lithotripsy, and stent replacement 07/11/20. #Sepsis secondary to E coli bacteremia and left sided pyelonephritis #Obstructive hydronephrosis from renal calculi - she is s/p stent placement 06/25. S he has been on IV meropenem and completed 14 days -She is status post lithotripsy with left flexible ureteroscopy and stone retrieval 07/11. Per Dr. Alston, plan to remove stent on 07/18. She has been set up for IV meropenem through her PICC line for an additional 7 days. Currently awaiting insurance approval= Left sided weakness - resolved - originally presented with left sided weakness and neglect of left side. CT head, CT brain and neck showed no acute finding - she is on eliquis already. Possibly could have been from kidney stone on that side - PT recommending rehab, but is now more independent and can likely go home AFib - continue fleicanide. Eliquis on hold, will discuss with urology when to resume GERD - continue PPI Acute encephalopathy - resolved Dispo: likely d/c tomorrow pending insurance approval of her home antibiotics
[2020-07-12] MEDS: Atorvastatin Calcium 40 MG TAB PO SCH (22:33)
[2020-07-12] MEDS: Lidocaine Patch Removal 1 EACH TOP SCH (22:33)
[2020-07-12] MEDS: Montelukast Sodium 10 mg Tablet PO SCH (22:33)
[2020-07-12] MEDS: ALPRAZolam 0.25 MG TAB PO PRN (22:38)
[2020-07-13] MEDS: MEROPENEM 1 GM/50 ML 1 GM in Premix Bag 1 BAG IVPB SCH ×2 (01:00→08:39)
[2020-07-13] MEDS: Mometasone 200 MCG/Formoterol 5 MCG 120 PUFF INHALER INH SCH (07:06)
[2020-07-13] MEDS: Cholecalciferol 1,000 UNITS (25 MCG) TAB PO SCH (08:39)
[2020-07-13] MEDS: Bupropion 150 MG XL TAB PO SCH (08:39)
[2020-07-13] MEDS: Flecainide 50 MG TAB PO SCH (08:40)
[2020-07-13] MEDS: Lidocaine 5% Patch TD SCH (08:40)
[2020-07-13] MEDS: Nebivolol HCl 2.5 MG TAB PO SCH (08:40)
[2020-07-13] MEDS ORDERED: Apixaban 5 MG TAB PO SCH ×2 (10:00→21:00)
[2020-07-13 12:05] VITALS: BP 124/80; TEMP 98
--- NOTE | 2020-07-13 19:32 | PDOC.DS.DS ---
Provider - Provider Date of Admission: 06/24/20 23:59 Date of Discharge: 07/13/20 Admitting Provider: Gurvinder Hernandez MD Consultations: Infectious Disease (Dr. Reji Christopher), Urology (Dr. Noble Hood) Primary Care Physician: Seamus Wynn MD Course - Hospital Course Hospital Course: Brief HPI: This 79-year-old female with GERD, Eliquis, hypertension, diabetes, breast cancer who presented to the emergency room with left flank and left lower quadrant pain that started at 9 AM. While she was in the ER she was found to have some altered mental status with left-sided weakness and complete neglect on the left side. Patient was not able to protect her airway. The ER physician intubated the patient and placed her on a mechanical ventilator. CTA of the head and neck showed no acute finding. She was originally admitted for stroke work-up. HOSPITAL COURSE: Acute encephalopathy/left sided weakness: Originally intubated because she was not protecting her airway. Her blood cultures did come back positive for E. coli. She underwent emergent cystoscopy with stent placement on 06/25. She was subsequently extubated on 06/25. Her encephalopathy resolved and she had no signs of weakness. She was seen by physical therapy and initially rehab was recommended however the patient eventually was determined to be independent and was discharged home. Given that she was on Eliquis she was not discharged on aspirin. #Septic shock secondary to E coli bacteremia and left sided pyelonephritis vs pneumonia: Patient presented with 2 out of 2 blood cultures that were positive for E. coli. She was intubated and required pressors on admission. She was found to have a left-sided kidney stone with hydronephrosis. She underwent stent placement on 06/25. Her chest X rays also showed possible pneumonia. COVID was negative. Infectious disease was consulted with Dr. Christopher. She completed 14 days of meropenem on 07/10. On 07/11,. the patient underwent a lithotripsy with left flexible ureteroscopy and stone retrieval. She had three stones removed and her stent was replaced. Her stent will be removed on 07/18. She was set up with IV antibiotics at home with meropenem for an additional 7 days until her stent is removed. Her PICC line will be removed at that time. She was set up with [facility] AFib: continue fleicanide. Her Eliquis was held for her lithotripsy and was resumed today. GERD: continue PPI Pertinent Studies: CTA head:Small air-fluid level in the left sphenoid sinus. No significant stenosis CTA neck 06/24: No significant stenosis. CT brain: No acute abnormality CT abdomen/pelvis 06/24: Mild left-sided hydronephrosis secondary to a 5 mm left ureteropelvic junction calculus. Lower pole left renal calculi are also demonstrated. Fatty change of the liver. Chest X ray 06/25: Patchy parenchymal densities in the right lung base and interstitial densities in the left perihilar location. Cardiomegaly. Chest Xray 06/26: enlarging pleural effusions and worsening right lower lobe airspace consolidation Chest Xray 06/27: small bilateral pleural effusions and atelectasis. Airspace opacity right lung base appears mildly improved. Cardiomegaly Chest x ray 06/28: pulmonary vessels are engorged. Increased parahilar lung markings. Increased density in the right base suggests effusion. Chest Xray 06/30: no significant change. This is a 79 year old female with past medical history of afib and GERD who presented with left sided weakness. S/P left flexible ureteroscopy, laser lithotripsy, and stent replacement 0. #Sepsis secondary to E coli bacteremia and left sided pyelonephritis #Obstructive hydronephrosis from renal calculi - she is s/p stent placement 06/25. S he has been on IV meropenem and completed 14 days -She is status post lithotripsy with left flexible ureteroscopy and stone retrieval 07/11. Per Dr. Alston, plan to remove stent on 07/18. She has been set up for IV meropenem through her PICC line for an additional 7 days. Currently awaiting insurance approval= Left sided weakness - resolved - originally presented with left sided weakness and neglect of left side. CT head, CT brain and neck showed no acute finding - she is on eliquis already. Possibly could have been from kidney stone on that side - PT recommending rehab, but is now more independent and can likely go home AFib - continue fleicanide. Eliquis on hold, will discuss with urology when to resume GERD - continue PPI Acute encephalopathy - resolved Procedures: Cystoscopy, left 6 x 24 double-J ureteral stent placement on 06/25 Left flexible ureteroscopy, laser lithotripsy, stone retrieval, stent replacement 07/11 - Labs Lab Results: 07/12/20 06:17 07/12/20 06:17 Abnormal Lab Results - Last 48 hrs 07/12/20 06:17: RBC 3.75 L, Hgb 11.1 L, Hct 33.5 L, MPV 7.0 L Microbiology - Entire Visit 07/09/20 09:24 Venous blood - Left Hand Blood Culture - Preliminary NO GROWTH AT 48 HOURS 07/09/20 09:24 Venous blood - Right Hand Blood Culture - Preliminary NO GROWTH AT 48 HOURS 06/25/20 00:33 Central Line - Right Brachiocephalic vein Blood Culture - Final Escherichia coli 06/25/20 00:17 Venous blood - Right Hand Blood Culture - Final Escherichia coli - Physical Exam Vitals: Vital Signs (12 hours) Temp Pulse Resp BP Pulse Ox 07/13/20 12:03 98.0 F 105 H 18 124/80 98 07/13/20 08:46 97 Weight Admit Weight 227 lb 8.272 oz Weight 213 lb 8 oz Most Recent Monitor Data Heart Rate from ECG 123 NIBP 143/110 NIBP BP-Mean 121 Respiration from ECG 20 SpO2 96 Physical Exam: The patient was seen and examined on the day of discharge. Physical exam: Vitals stable General: patient seen ambulating with PT with no weakness Neuro: CN II - XII intact, 5/5 strength in upper and lower extremities CVS: RRR, no murmurs, rubs, gallops Lungs: CTAB Abdomen: +BS, soft, nontender, nondistended Extremities: no edema Problem - Discharge Plan Plan of Treatment: Follow up with Dr. Hood on Wednesday 07/18 at 3:30. Continue IV meropenem until 07/18. Follow up with your primary care doctor in a week. Consider repeat chest x ray in 6 weeks to see if pneumonia has resolved. - Time spent with Patient (mins): 35 Plan - Discharge Medications Prescriptions: Meropenem 1 gm/50 ml [Merrem 1 gm/50 ml] 1 gm IVPB 0800,1600,2359 #26 bag Home Medications: Medication Instructions Recorded Confirmed Type Cholecalciferol (Vitamin D3) 5,000 unit PO DAILY 09/14/14 06/25/20 History [Vitamin D3] Magnesium Oxide [Magnesium] 200 mg PO DAILY 09/14/14 06/25/20 History Omeprazole 20 mg PO BID 09/14/14 06/29/20 History Flecainide [Tambocor] 50 mg PO Q12HR #0 tab 03/21/16 06/25/20 Rx Nebivolol HCl [Bystolic] 5 mg PO HS 05/11/19 07/07/20 History Symbicort 2 puff PO BID 05/11/19 06/25/20 History Ventolin HFA Inhaler 2 puff PO PRN PRN 05/11/19 06/25/20 History Apixaban [Eliquis] 5 mg PO BID 06/25/20 06/25/20 History Bupropion HCl [buPROPion HCl XL] 150 mg PO BID 06/25/20 06/25/20 History Flecainide [Tambocor] 50 mg PO BID 06/25/20 06/25/20 History Montelukast Sodium [Singulair] 10 mg PO HS 06/29/20 06/29/20 History Meropenem 1 gm/50 ml [Merrem 1 1 gm IVPB 0800,1600,2359 #26 bag 07/13/20 Rx gm/50 ml] Allergies: Cephalosporins Allergy (Verified 06/25/20 02:45) cortisone [Cortisone] Allergy (Verified 06/25/20 02:45) levofloxacin [From Levaquin] Allergy (Verified 06/25/20 02:45) ORAL Penicillins Allergy (Verified 06/25/20 02:45) Sulfa (Sulfonamide Antibiotics) Allergy (Verified 06/25/20 02:45) codeine Adverse Reaction (Verified 06/25/20 02:45) itching hydrocodone Adverse Reaction (Verified 06/25/20 02:45) itching hydrocodone bitartrate [From Vicodin] Adverse Reaction (Verified 06/25/20 02:45) itching tape Allergy (Unknown, Uncoded 06/25/20 02:45) - Discharge Instructions Discharge Instructions:: You had sepsis and had an E coli infection in your blood. You were diagnosed wit h a kidney stone and underwent stent placement on 06/25. You had a lithotripsy done on 07/11. Your stent will be removed on 07/18 at 3:[address] Noble Hood. Please continue IV meropenem until then. Your PICC line will be removed at that time . You completed 14 days of antibiotics on July 10 If you have fever, a new rash, severe abdominal pain, are unable to urinate, then come back to the hospital. Activity:: Activity as Tolerated Nourishment:: Heart Healthy Diet - Follow up Plan Referrals: [facility] [Outside] [facility] [Outside] Seamus Wynn MD [Primary Care Provider] - 7 Days (please call office for follow up appointment.) Catie Hopson MD [Active] - Reji Christopher MD [Active] - Noble Hood MD [Active] - (APPOINTMENT 07/18/2020 @ 3:30) Ophelia Garcia DO [Active] - Dereck Carlin MD [Active] - Disposition: HOME Quality - Care Measures CORE MEASURES:: N/A
== END 2020-07-13 12:07 | disposition home health service (06) | DRG 853 ==
LOC: ERS 18:07 → CCU 23:59 → 2NO 06-30 15:14 → T4-A 07-06 15:33
PROVIDERS: ADMIT Internal Medicine; ATTEND Internal Medicine
PROC: 02HV33Z Insertion of Infusion Device into Superior Vena Cava, Percutaneous Approach (ICD-10-PCS; 2020-06-24)
PROC: B518YZA Fluoroscopy of Superior Vena Cava using Other Contrast, Guidance (ICD-10-PCS; 2020-06-24)
PROC: B548ZZA Ultrasonography of Superior Vena Cava, Guidance (ICD-10-PCS; 2020-06-24)
PROC: 0BH17EZ Insertion of Endotracheal Airway into Trachea, Via Natural or Artificial Opening (ICD-10-PCS; 2020-06-24)
PROC: 5A1935Z Respiratory Ventilation, Less than 24 Consecutive Hours (ICD-10-PCS; 2020-06-24)
PROC: 0T778DZ Dilation of Left Ureter with Intraluminal Device, Via Natural or Artificial Opening Endoscopic (ICD-10-PCS; principal; 2020-06-25)
PROC: 3E033XZ Introduction of Vasopressor into Peripheral Vein, Percutaneous Approach (ICD-10-PCS; 2020-06-25)
PROC: 5A1945Z Respiratory Ventilation, 24-96 Consecutive Hours (ICD-10-PCS; 2020-06-25)
PROC: 02H633Z Insertion of Infusion Device into Right Atrium, Percutaneous Approach (ICD-10-PCS; 2020-07-04)
PROC: B548ZZA Ultrasonography of Superior Vena Cava, Guidance (ICD-10-PCS; 2020-07-04)
PROC: 0TC78ZZ Extirpation of Matter from Left Ureter, Via Natural or Artificial Opening Endoscopic (ICD-10-PCS; 2020-07-11)
PROC: 0T778DZ Dilation of Left Ureter with Intraluminal Device, Via Natural or Artificial Opening Endoscopic (ICD-10-PCS; 2020-07-11)
PROC: 0TP98DZ Removal of Intraluminal Device from Ureter, Via Natural or Artificial Opening Endoscopic (ICD-10-PCS; 2020-07-11)
DX: A41.51 Sepsis due to Escherichia coli [E. coli] (principal); J96.01 Acute respiratory failure with hypoxia; R65.21 Severe sepsis with septic shock; J18.9 Pneumonia, unspecified organism; E87.2 Acidosis; G45.9 Transient cerebral ischemic attack, unspecified; N13.6 Pyonephrosis; N17.9 Acute kidney failure, unspecified; G93.40 Encephalopathy, unspecified; E87.0 Hyperosmolality and hypernatremia; Z20.828 Contact with and (suspected) exposure to other viral communicable diseases; J45.20 Mild intermittent asthma, uncomplicated; K21.9 Gastro-esophageal reflux disease without esophagitis; E11.65 Type 2 diabetes mellitus with hyperglycemia; E66.9 Obesity, unspecified; N18.30 Chronic kidney disease, stage 3 unspecified; F32.9 Major depressive disorder, single episode, unspecified; I12.9 Hypertensive chronic kidney disease with stage 1 through stage 4 chronic kidney disease, or unspecified chronic kidney disease; E11.22 Type 2 diabetes mellitus with diabetic chronic kidney disease; I48.0 Paroxysmal atrial fibrillation; R53.1 Weakness; Z96.653 Presence of artificial knee joint, bilateral; D69.6 Thrombocytopenia, unspecified; E87.6 Hypokalemia; D69.59 Other secondary thrombocytopenia; Z79.01 Long term (current) use of anticoagulants; Z98.890 Other specified postprocedural states; Z85.3 Personal history of malignant neoplasm of breast; Z86.711 Personal history of pulmonary embolism; Z90.49 Acquired absence of other specified parts of digestive tract; Z90.710 Acquired absence of both cervix and uterus; Z90.10 Acquired absence of unspecified breast and nipple; Z87.891 Personal history of nicotine dependence; Z88.0 Allergy status to penicillin; Z88.1 Allergy status to other antibiotic agents; Z88.2 Allergy status to sulfonamides; Z88.5 Allergy status to narcotic agent; Z88.8 Allergy status to other drugs, medicaments and biological substances; Z68.33 Body mass index [BMI] 33.0-33.9, adult
CPT/HCPCS: 31500; 36415; 36416; 36556; 36569; 51702; 70450; 70496; 70498; 71045; 74177; 74420; 80048; 80053; 80061; 81003; 81015; 82365; 82805; 83036; 83605; 84484; 85007; 85025; 85027; 85610; 85730; 87040; 87077; 87149; 87186; 87635; 88300; 93005; 93306; 94002; 94003; 94640; 94760; 96365; 96366; 96367; 96368; 96375; 96376; 99292; C1751; J1644; J1815; J1940; J2001; J2060; J2185; J2250; J2270; J2310; J2405; J2543; J2550; J2704; J3010; J3370; J3480; J3490; J7070; J7620; P9047; Q0162; Q9967; S0028; U0002; U0003

== ENCOUNTER 2020-08-02 07:02 | Outpatient (CLI) | payer MEDICARE ==
[2020-08-02 14:53] LABS: #Eosinphils 0.2 10x3/uL (0.0-0.5); #Monocytes 0.5 10x3/uL (0.0-1.1); #Neutrophils 5.6 10x3/uL (1.5-8.4); %Basophils 0.5 % (0.0-2.0); %Eosinophils 2.2 % (0.0-6.0); %Lymphocytes 24.6 % (18.0-47.0); %Monocytes 6.3 % (0.0-10.0); %Neutrophils 66.3 % (40.0-75.0); Hemoglobin 14.1 g/dL (12.0-16.0); Mean Corpuscular HGB CONC 31.6 G/DL (32.0-36.0); Mean Corpuscular Hemoglobin 28.3 PG (27.0-33.0); Mean Corpuscular Volume 89.4 fl (80.0-100.0); Mean Platelet Volume 10.1 fl (7.4-10.4); Platelet Count 241 10x3/uL (130-400); RBC Distribution Width 14.8 % (11.5-14.5); Red Blood Cell (RBC) Count 4.99 10x6/uL (3.90-5.20); White Blood Cell (WBC) Count 8.4 10x3/uL (4.5-11.0)
[2020-08-02 15:02] LABS: Anion Gap 13 mmol/L (10-20); BUN (Urea Nitrogen) 19 mg/dL (9.8-20.1); Calc. Creatinine Clearance 0 mL/min (70-130); Calcium 9.2 mg/dL (7.8-10.44); Carbon Dioxide 28 mmol/L (23-31); Chloride 105 mmol/L (98-107); Estimated GFR-MDRD 49; Glucose 108 mg/dL (83-110); Sodium 142 mmol/L (136-145)
[2020-08-03 03:03] LABS: SARS-CoV-2 MS2 Positive; SARS-CoV-2 N Gene Negative; SARS-CoV-2 S Gene Negative; SARS-CoV-2 by NAA Not Detected (NotDetected); SARS-CoV-2 orf1ab Negative
== END 2020-08-02 07:03 | disposition home or self-care (01) ==
LOC: LABBT 07:02
PROVIDERS: ATTEND Internal Medicine Cardiovascular Disease
DX: Z01.812 Encounter for preprocedural laboratory examination (principal); Z20.828 Contact with and (suspected) exposure to other viral communicable diseases
CPT/HCPCS: 80048; 85025; U0003; 87635

== ENCOUNTER 2020-08-04 10:01 | Day surgery (SDC) | payer MEDICARE ==
[2020-08-03 10:29] VITALS: BMI 32.4
[2020-08-04] MEDS ORDERED: PROPOFOL 20 ML ONE (10:45)
[2020-08-04] MEDS ORDERED: Lidocaine 1% PF 5 ML VIAL ONE (10:45)
--- NOTE | 2020-08-11 15:52 | CCLSPC ---
PROCEDURE: Cardioversion. INDICATION: Persistent atrial fibrillation, symptomatic. The patient is brought to the post cath area in the fasting state. The patient was sedated by anesthesia. She was given 200 joules direct current synchronized energy and converted to sinus rhythm. CONCLUSION: Successful cardioversion. Job ID: [id number]
--- NOTE | 2020-08-11 15:56 | CCLSPC ---
PROCEDURE: Cardioversion. INDICATION: Persistent atrial fibrillation, symptomatic. The patient is brought to recovery room in a fasting state. She was sedated by Anesthesia. She was given 200 joules direct current energy and converted to sinus bradycardia, rate of 55, then sinus rhythm rate of 60. CONCLUSION: Successful cardioversion. Job ID: [id number]
== END 2020-08-04 11:50 | disposition home or self-care (01) ==
LOC: SDC 10:01
PROVIDERS: ATTEND Internal Medicine Cardiovascular Disease
PROC: 5A2204Z Restoration of Cardiac Rhythm, Single (ICD-10-PCS; principal; 2020-08-04)
DX: I48.0 Paroxysmal atrial fibrillation (principal); I25.10 Atherosclerotic heart disease of native coronary artery without angina pectoris; E78.00 Pure hypercholesterolemia, unspecified; I49.3 Ventricular premature depolarization; I10 Essential (primary) hypertension; M19.90 Unspecified osteoarthritis, unspecified site; F32.9 Major depressive disorder, single episode, unspecified; Z79.01 Long term (current) use of anticoagulants; Z79.899 Other long term (current) drug therapy; Z88.0 Allergy status to penicillin; Z88.1 Allergy status to other antibiotic agents; Z88.2 Allergy status to sulfonamides; Z88.5 Allergy status to narcotic agent; Z88.8 Allergy status to other drugs, medicaments and biological substances; Z91.048 Other nonmedicinal substance allergy status
CPT/HCPCS: 92960; J2704

== ENCOUNTER 2020-08-19 19:12 | Inpatient (IN) | payer MEDICARE ==
[~2020-08-19 19:12] MED LIST changes: -Succinylcholine 200 MG/10 ml SYRINGE FS ONE
[2020-08-19] MEDS ORDERED: Morphine 4 MG/ML VIAL ONE ×2 (19:32→22:06)
[2020-08-19] MEDS ORDERED: metroNIDAZOLE 500 MG/100 ML BAG ONE (19:38)
[2020-08-19] MEDS ORDERED: Clindamycin/D5W 900 mg/50 ml Premix Bag ONE (19:38)
[2020-08-19 19:54] LABS: #Eosinphils 0.1 thou/uL (0.0-0.7); #Lymphocytes 1.4 thou/uL (1.20-3.40); #Monocytes 0.6 thou/uL (0.11-0.59); %Basophils 0.4 % (0.0-1.0); %Lymphocytes 12.3 % (21.0-51.0); %Monocytes 5.6 % (0.0-10.0); %Neutrophils 80.8 % (42.0-75.0); Hemoglobin 13.8 g/dL (12.0-16.0); Mean Corpuscular HGB CONC 33.1 g/dL (32.0-36.0); Mean Corpuscular Hemoglobin 29.2 pg (27.0-31.0); Mean Corpuscular Volume 88.1 fL (78.0-98.0); Mean Platelet Volume 7.1 fL (7.4-10.4); Platelet Count 209 thou/uL (130-400); RBC Distribution Width 12.8 % (11.5-14.5); Red Blood Cell (RBC) Count 4.72 mill/uL (4.20-5.40); White Blood Cell (WBC) Count 11.1 thou/uL (4.8-10.8)
[2020-08-19 20:17] LABS: ALT (SGPT) 16 U/L (8-55); AST (SGOT) 12 U/L (5-34); Albumin 3.8 g/dL (3.4-4.8); Alkaline Phosphatase 84 U/L (40-110); Anion Gap 15 mmol/L (10-20); BUN (Urea Nitrogen) 16 mg/dL (9.8-20.1); Bilirubin, Total 0.5 mg/dL (0.2-1.2); Calc. Creatinine Clearance 0 mL/min (70-130); Calcium 9.3 mg/dL (7.8-10.44); Carbon Dioxide 28 mmol/L (23-31); Chloride 104 mmol/L (98-107); Globulin 2.9 g/dL (2.4-3.5); Glucose 93 mg/dL (83-110); Potassium 4.1 mmol/L (3.5-5.1); Protein, Total 6.7 g/dL (6.0-8.3); Sodium 143 mmol/L (136-145)
--- NOTE | 2020-08-19 20:36 | CT ---
CT ABDOMEN AND PELVIS WITH IV CONTRAST 08/19/2020 CLINICAL INFORMATION: Left-sided abdominal pain. History of kidney stones. COMPARISON: 06/24/2020 Technique: Multiple contiguous axial CT images are obtained through the abdomen and pelvis with IV contrast. Cor onal reformatted images are provided. FINDINGS: Lower Chest: Partial visualization of right breast prosthesis is again seen. Large calcified granulom a is present at the right lung base. Dependent atelectasis is seen. The heart remains enlarged. Vessels: Vascular calcifications are seen in the thoracic and abdominal aorta as well as involving th e iliac arteries. Abdomen: Portal vein:Patent Gallbladder: Surgically absent. Liver: Stable small hypodense lesion right hepatic lobe difficult to further characterize. Spleen: Multiple granulomata. Pancreas: within normal limits. Adrenals: within normal limits. Kidneys: Small nonobstructing calculus inferior pole left kidney measuring approximately 4 mm. This c alculus was larger in size on prior exam previously measuring 8 mm in maximal dimensions. Findings could be related to interval treatment. Previously seen calculus at the left UPJ is no longer visuali zed likely due to interval treatment. No additional renal or ureteral calculi are seen bilaterally. Inferior pole left renal cysts again seen. Bowel: Multiple colonic diverticula involving the sigmoid colon. There is mild pericolonic inflammato ry changes involving the proximal sigmoid colon suggesting diverticulitis. Mild bowel wall thickening present in this region. Small amount retained fecal material is seen within the colon exte nding from the ascending colon to the splenic flexure. Loops of small bowel are normal in caliber. Appendix: Not visualized. Peritoneum: No ascites or free air; no fluid collection. Mesentery and Retroperitoneum: No enlarged mesenteric or retroperitoneal lymph nodes. Abdominal Wall: Mesh material anterior abdomen likely related to prior hernia repair. Pelvis: Reproductive Organs: Evidence of hysterectomy. Bladder: Incompletely distended. Bones: Multilevel degenerative changes in the spine with right convex curvature lumbar spine. IMPRESSION: 1. Sigmoid diverticulitis without free intraperitoneal gas or fluid collection seen to suggest absces s.. 2. Previously seen left UPJ calculus is no longer visualized, and the calculus in the inferior pole l eft kidney is smaller in size likely due to interval treatment. 3. Additional stable findings as described above.
[2020-08-19] MEDS ORDERED: MEROPENEM 1 GM/50 ML 1 GM in Premix Bag 1 BAG IVPB SCH (21:30)
[2020-08-19 21:55] LABS: Bacteria/HPF None Seen HPF (None Seen); Bilirubin Negative (Negative); Blood, Urine Negative (Negative); Clarity Clear (Clear); Glucose, Urine (Dipstick) Normal (Negative); Ketone, Urine Negative (Negative); Leukocyte 75 Leu/uL (Negative); Nitrite Negative (Negative); Protein, Urine (Dipstick) Negative (Neg-Trace); RBC/HPF 0-3 HPF (0-3); Specific Gravity, Urine 1.028 (1.002-1.036); Squamous Epithelial None Seen HPF (0-3); Urobilinogen Normal mg/dL (Less than 2); WBC/HPF 21-50 HPF (0-3); pH, Urine 6.5 (5.0-9.0)
[2020-08-19] MEDS ORDERED: Ondansetron PF 4 MG/2 ML Vial ONE (22:06)
[2020-08-19] MEDS ORDERED: Ondansetron PF 4 MG/2 ML Vial IVP PRN (23:15)
[2020-08-19] MEDS ORDERED: Acetaminophen 325 MG TAB PO PRN (23:15)
[2020-08-19] MEDS ORDERED: Ondansetron ODT 4 MG TAB SL PRN (23:15)
[2020-08-19 23:44] VITALS: BMI 32.4
--- NOTE | 2020-08-20 00:03 | PDOC.HHP ---
Hospitalist HPI - History of Present Illness History of Present Illness: ADMISSION DATE: 08/19/2020 TIME OF ASSESSMENT: 2220 PRIMARY CARE PHYSICIAN: Kingsley CHIEF COMPLAINT: Left-sided lower abdominal pain HPI: Patient is a 79-year-old female past medical history significant for atrial fibrillation, hypertension, kidney stones, GERD. She presents to the ER today after having acute onset of left lower abdominal pain that stretches across her suprapubic area and goes into her back that began at approximately 130 this afternoon. No changes in her diet recently. Is experiencing nausea with it. Denies fever, chest pain, shortness of breath. She has not had a bowel movement today but says yesterday it was normal and her urine looks normal today. Patient was hospitalized extensively over the past 2 months and since that time has reported a lower than usual energy level and back pain. She recently had a cardioversion states her rhythm has been normal since that time. ED COURSE: Vital Signs: Blood pressure 145/67, pulse 65, respiratory rate 19, O2 saturation 95% on room air, 98.2 oral temp While in the ER the patient had a abdomen and pelvic CT, lab work and medications administered. She was given Zofran 4 mg IV, morphine 4 mg IV, Flagyl 500 mg IV, clindamycin 900 mg IV, 1 L normal saline, 4 mg morphine IV, meropenem 1 g IV. PAST MEDICAL HISTORY: Atrial fibrillation, asthma, GERD, hypertension, enlarged spleen, breast cancer treated with surgery, PE PAST SURGICAL HISTORY: Lumbar spinal surgery, facelift, abdominoplasty, cholecystectomy, hernia repair umbilical, hysterectomy, mastectomy right breast, bilateral knee replacement SOCIAL HISTORY: Patient lives at home with her . She drinks alcohol socially. Patient denies drug use. Patient is a former tobacco user she quit smoking more than 30 years ago. FAMILY HISTORY: Reviewed and noncontributory ALLERGIES: Hydrocodone, penicillin, cephalosporin, sulfa, codeine, cortisone, levofloxacin, tape CURRENT MEDICATIONS: Aldactone 25 mg p.o. daily Omeprazole 20 mg p.o. twice daily Bystolic 5 mg at night Singular 10 mg p.o. daily Magnesium oxide 425 mg p.o. at night Lutein 6 mg daily Flecainide 100 mg p.o. twice daily Ferrous fumarate 325 mg p.o. Saturday Zetia 10 mg daily Vitamin D3 5000 units p.o. daily Bupropion 150 mg p.o. twice daily Symbicort 1 puff inhaled twice a day Eliquis 5 mg p.o. twice daily Hospitalist ROS - Review of Systems Gastrointestinal: reports: abdominal pain All other systems reviewed; all pertinent +/- noted in HPI/Subj - Exam General Appearance: NAD, awake alert Eye: PERRL ENT: normocephalic atraumatic Neck: supple Heart: RRR, no murmur, no gallops, no rubs, normal peripheral pulses Respiratory: CTAB, no wheezes, no rales, no ronchi, normal chest expansion Gastrointestinal: soft, non-distended, tender to palpation Gastrointestinal - other findings: hyperactive Extremities: no edema Neurological: no focal deficits Psychiatric: normal affect, normal behavior, A&O x 3 Hospitalist Results - Labs Result Diagrams: 08/19/20 19:47 08/19/20 19:47 Lab results: WBC 11.1 thou/uL (4.8-10.8) H 08/19/20 19:47 Hgb 13.8 g/dL (12.0-16.0) 08/19/20 19:47 Hct 41.6 % (36.0-47.0) 08/19/20 19:47 MCV 88.1 fL (78.0-98.0) 08/19/20 19:47 Plt Count 209 thou/uL (130-400) 08/19/20 19:47 Neutrophils % 80.8 % (42.0-75.0) H 08/19/20 19:47 Sodium 143 mmol/L (136-145) 08/19/20 19:47 Potassium 4.1 mmol/L (3.5-5.1) 08/19/20 19:47 Chloride 104 mmol/L (98-107) 08/19/20 19:47 Carbon Dioxide 28 mmol/L (23-31) 08/19/20 19:47 BUN 16 mg/dL (9.8-20.1) 08/19/20 19:47 Creatinine 1.03 mg/dL (0.6-1.1) 08/19/20 19:47 Glucose 93 mg/dL (83-110) 08/19/20 19:47 Lactic Acid 1.5 mmol/L (0.5-2.2) 08/19/20 19:47 Calcium 9.3 mg/dL (7.8-10.44) 08/19/20 19:47 Total Bilirubin 0.5 mg/dL (0.2-1.2) 08/19/20 19:47 AST 12 U/L (5-34) 08/19/20 19:47 ALT 16 U/L (8-55) 08/19/20 19:47 Alkaline Phosphatase 84 U/L (40-110) 08/19/20 19:47 Serum Total Protein 6.7 g/dL (6.0-8.3) 08/19/20 19:47 Albumin 3.8 g/dL (3.4-4.8) 08/19/20 19:47 Urine Ketones Negative mg/dL (Negative) 08/19/20 21:01 Urine Blood Negative (Negative) 08/19/20 21: Urine Nitrite Negative (Negative) 08/19/20 21: Ur Leukocyte Esterase 75 Bo/uL (Negative) A 08/19/20 21:01 Urine RBC 0-3 HPF (0-3) 08/19/20 21:01 Urine WBC 21-50 HPF (0-3) A 08/19/20 21:01 Ur Squamous Epith Cells None Seen HPF (0-3) 08/19/20 21:01 Urine Bacteria None Seen HPF (None Seen) 08/19/20 21:01 - Radiology Interpretation CT scan - abdomen Status: report reviewed by me Additional Comment: FINDINGS: Lower Chest: Partial visualization of right breast prosthesis is again seen. Large calcified granuloma is present at the right lung base. Dependent atelectasis is seen. The heart remains enlarged. Vessels: Vascular calcifications are seen in the thoracic and abdominal aorta as well as involving the iliac arteries. Abdomen: Portal vein:Patent Gallbladder: Surgically absent. Liver: Stable small hypodense lesion right hepatic lobe difficult to further characterize. Spleen: Multiple granulomata. Pancreas: within normal limits. Adrenals: within normal limits. Kidneys: Small nonobstructing calculus inferior pole left kidney measuring approximately 4 mm. This calculus was larger in size on prior exam previously measuring 8 mm in maximal dimensions. Findings could be related to interval treatment. Previously seen calculus at the left UPJ is no longer visualized likely due to interval treatment. No additional renal or ureteral calculi are seen bilaterally. Inferior pole left renal cysts again seen. Bowel: Multiple colonic diverticula involving the sigmoid colon. There is mild pericolonic inflammatory changes involving the proximal sigmoid colon suggesting diverticulitis. Mild bowel wall thickening present in this region. Small amount retained fecal material is seen within the colon extending from the ascending colon to the splenic flexure. Loops of small bowel are normal in caliber. Appendix: Not visualized. Peritoneum: No ascites or free air; no fluid collection. Mesentery and Retroperitoneum: No enlarged mesenteric or retroperitoneal lymph nodes. Abdominal Wall: Mesh material anterior abdomen likely related to prior hernia repair. Pelvis: Reproductive Organs: Evidence of hysterectomy. Bladder: Incompletely distended. Bones: Multilevel degenerative changes in the spine with right convex curvature lumbar spine. IMPRESSION: 1. Sigmoid diverticulitis without free intraperitoneal gas or fluid collection seen to suggest abscess. 2. Previously seen left UPJ calculus is no longer visualized, and the calculus in the inferior pole left kidney is smaller in size likely due to interval treatment. 3. Additional stable findings as described above. Hospitalist H&P A/P - Plan Plan: Diverticulitis Continue IV antibiotics Continue as needed analgesics WBC elevated to 11.1, continue to monitor Patient remains afebrile EDMAR GFR generally in the 70s currently at 52 Gentle hydration Hypertension Restart home medications once reconciled Monitor vital signs every 4 hour History of atrial fibrillation Continue Eliquis Continue flecainide VTE prophylaxis with SCDs CODE STATUS: Full Surrogate decision-maker is her , Salomon Patient and care discussed with Dr. Arshad
[2020-08-20] MEDS: Sodium Chloride 0.9% 1,000 ML IV SCH ×2 (00:30→21:46)
[2020-08-20] MEDS: metroNIDAZOLE 500 MG in Premix Bag 1 BAG IVPB SCH ×3 (03:40→20:24)
[2020-08-20] MEDS: Morphine 4 MG/ML VIAL SLOW IVP PRN ×2 (04:41→18:47)
[2020-08-20] MEDS ORDERED: Clindamycin/D5W 900 MG in Premix Bag 1 BAG IVPB SCH (05:00)
[2020-08-20] MEDS: MEROPENEM 1 GM/50 ML 1 GM in Premix Bag 1 BAG IVPB SCH ×3 (05:06→21:46)
[2020-08-20 06:22] LABS: #Basophils 0.1 thou/uL (0.0-0.2); #Eosinphils 0.1 thou/uL (0.0-0.7); #Lymphocytes 1.8 thou/uL (1.20-3.40); #Monocytes 0.6 thou/uL (0.11-0.59); #Neutrophils 5.6 thou/uL (1.40-6.50); %Basophils 0.6 % (0.0-1.0); %Eosinophils 1.6 % (0.0-10.0); %Lymphocytes 22.2 % (21.0-51.0); %Monocytes 7.2 % (0.0-10.0); %Neutrophils 68.4 % (42.0-75.0); Hemoglobin 11.8 g/dL (12.0-16.0); Mean Corpuscular HGB CONC 33.3 g/dL (32.0-36.0); Mean Corpuscular Hemoglobin 29.5 pg (27.0-31.0); Mean Corpuscular Volume 88.5 fL (78.0-98.0); Mean Platelet Volume 8.6 fL (7.4-10.4); Platelet Count 193 thou/uL (130-400); RBC Distribution Width 12.9 % (11.5-14.5); Red Blood Cell (RBC) Count 4.01 mill/uL (4.20-5.40); White Blood Cell (WBC) Count 8.1 thou/uL (4.8-10.8)
[2020-08-20 06:40] LABS: Anion Gap 14 mmol/L (10-20); BUN (Urea Nitrogen) 12 mg/dL (9.8-20.1); Calc. Creatinine Clearance 81 mL/min (70-130); Calcium 8.3 mg/dL (7.8-10.44); Carbon Dioxide 25 mmol/L (23-31); Chloride 107 mmol/L (98-107); Glucose 87 mg/dL (83-110); Potassium 4.6 mmol/L (3.5-5.1); Sodium 141 mmol/L (136-145)
[2020-08-20] MEDS ORDERED: Heparin 1,000 UNITS/ML VIAL ONE (08:48)
[2020-08-20] MEDS ORDERED: Non-Formulary Item 1 EACH (Ventolin Hfa Inhaler [Ventolin Hfa Inhaler] 60 PUFF Aer) PO PRN (13:12)
--- NOTE | 2020-08-20 13:23 | PDOC.HOSPP ---
- Subjective Subjective: Patient was seen examined at bedside. Discussed with her at bedside. Patient still complaining of lower abdominal tenderness. No fever. - Objective Vital Signs & Weight: Vital Signs (12 hours) Temp Pulse Resp BP Pulse Ox 08/20/20 11:22 97.4 F L 58 L 18 119/70 95 08/20/20 08:01 97.6 F 57 L 18 122/73 92 L 08/20/20 04:00 97.7 F 61 17 133/74 91 L Weight Weight 201 lb I&O: 08/19/20 08/20/20 08/21/20 06:59 06:59 06:59 Intake Total 992 Balance 992 Result Diagrams: 08/20/20 06:09 08/20/20 06:09 Radiology Reviewed by me: Yes EKG Reviewed by me: Yes Hospitalist ROS - Medication Medications: Active Medications Generic Name Dose Route Start Last Admin Trade Name Freq PRN Reason Stop Dose Admin Sodium Chloride 1,000 mls @ 50 mls/hr 08/20/20 00:30 08/20/20 00:30 Normal Saline 0.9% IV 1,000 mls .Q20H LAZARUS Administration Meropenem 1 gm/ Device 50 mls @ 100 mls/hr 08/20/20 06:00 08/20/20 05:06 IVPB 50 mls Q8HR LAZARUS Administration Metronidazole 500 mg/ Device 100 mls @ 100 mls/hr 08/20/20 04:00 08/20/20 11:47 IVPB 100 mls 0400,1200,2000 LAZARUS Administration Morphine Sulfate 4 mg 08/19/20 23:05 08/20/20 04:41 Morphine 4 Mg/Ml Vial SLOW IVP 4 mg Q4H PRN Administration Severe Pain (7-10) - Exam General Appearance: NAD Eye: PERRL ENT: normocephalic atraumatic Neck: supple Heart: RRR, no murmur Respiratory: CTAB Gastrointestinal: soft, no hepatomegaly, no splenomegaly, no bruit, tender to palpation Extremities: no cyanosis Skin: normal turgor Neurological: cranial nerve grossly intact Musculoskeletal: normal tone Psychiatric: normal affect, normal behavior, A&O x 3 Hosp A/P - Plan This is a 79 years old female with significant past medical history of atrial fib, on Eliquis for stroke prophylaxis, hypertension, kidney stone, GERD, who presented to ED with complaint of acute onset of left lower quadrant pain. Further work-up, including CT abdomen and pelvic, show sigmoid diverticulitis without free intraperitoneal gas or fluid collection. She was subsequently admitted for acute diverticulitis. Acute sigmoid diverticulitis --We will continue Flagyl, meropenem. Will DC clindamycin --Start clear liquid diet, and advance as tolerated --Counseled high fiber diet Paroxysmal atrial fibrillation --Resume home medication Essential hypertension --Blood pressure stable, continue home Dehydration -volume depletion --Renal function remained normal --Continue gentle IV fluid hydration, advance diet GERD --Continue home medication DVT ppx: Eliquis GI ppx: PPI Code Status: Full code Anticipated Dispo: Home in 1 to 2 days
[2020-08-20] MEDS: Ondansetron PF 4 MG/2 ML Vial IVP PRN ×2 (18:41→23:15)
[2020-08-20] MEDS ORDERED: Morphine 4 MG/ML VIAL SLOW IVP PRN (18:45)
[2020-08-20] MEDS ORDERED: Acetaminophen 325 MG TAB PO PRN (18:46)
[2020-08-20] MEDS ORDERED: HYDROcodone/Acetaminophen 5/325 mg Tablet PO PRN (18:57)
[2020-08-20] MEDS: Mometasone 200 MCG/Formoterol 5 MCG 120 PUFF INHALER INH SCH (19:20)
[2020-08-20] MEDS: Apixaban 5 MG TAB PO SCH (20:24)
[2020-08-20] MEDS: Bupropion 150 MG XL TAB PO SCH (20:24)
[2020-08-20] MEDS: Flecainide 50 MG TAB PO SCH (20:24)
[2020-08-20] MEDS: Magnesium Oxide 400 MG TAB PO SCH (20:25)
[2020-08-21] MEDS: metroNIDAZOLE 500 MG in Premix Bag 1 BAG IVPB SCH ×3 (04:10→21:00)
[2020-08-21] MEDS: Ondansetron PF 4 MG/2 ML Vial IVP PRN ×2 (04:19→18:03)
[2020-08-21] MEDS: MEROPENEM 1 GM/50 ML 1 GM in Premix Bag 1 BAG IVPB SCH ×3 (05:11→22:50)
[2020-08-21 05:35] LABS: #Eosinphils 0.1 thou/uL (0.0-0.7); #Lymphocytes 0.9 thou/uL (1.20-3.40); #Monocytes 0.4 thou/uL (0.11-0.59); #Neutrophils 5.4 thou/uL (1.40-6.50); %Basophils 0.2 % (0.0-1.0); %Eosinophils 1.9 % (0.0-10.0); %Lymphocytes 12.5 % (21.0-51.0); %Monocytes 6.1 % (0.0-10.0); %Neutrophils 79.3 % (42.0-75.0); Hemoglobin 11.8 g/dL (12.0-16.0); Mean Corpuscular HGB CONC 33.1 g/dL (32.0-36.0); Mean Corpuscular Hemoglobin 29.5 pg (27.0-31.0); Mean Corpuscular Volume 89.2 fL (78.0-98.0); Mean Platelet Volume 7.1 fL (7.4-10.4); Platelet Count 160 thou/uL (130-400); RBC Distribution Width 12.7 % (11.5-14.5); Red Blood Cell (RBC) Count 4.02 mill/uL (4.20-5.40); White Blood Cell (WBC) Count 6.8 thou/uL (4.8-10.8)
[2020-08-21 05:54] LABS: Anion Gap 13 mmol/L (10-20); BUN (Urea Nitrogen) 10 mg/dL (9.8-20.1); Calc. Creatinine Clearance 89 mL/min (70-130); Calcium 8.3 mg/dL (7.8-10.44); Carbon Dioxide 26 mmol/L (23-31); Chloride 105 mmol/L (98-107); Glucose 84 mg/dL (83-110); Potassium 4.5 mmol/L (3.5-5.1); Sodium 139 mmol/L (136-145)
[2020-08-21] MEDS: Mometasone 200 MCG/Formoterol 5 MCG 120 PUFF INHALER INH SCH ×2 (07:17→19:51)
[2020-08-21] MEDS: Cholecalciferol 1,000 UNITS (25 MCG) TAB PO SCH (08:01)
[2020-08-21] MEDS: Nebivolol HCl 5 MG TAB PO SCH (08:01)
[2020-08-21] MEDS: Flecainide 50 MG TAB PO SCH ×2 (08:01→21:03)
[2020-08-21] MEDS: Bupropion 150 MG XL TAB PO SCH ×2 (08:01→21:10)
[2020-08-21] MEDS: Apixaban 5 MG TAB PO SCH ×2 (08:01→21:02)
[2020-08-21] MEDS: Montelukast Sodium 10 mg Tablet PO SCH (08:01)
[2020-08-21] MEDS: Ezetimibe 10 MG TAB PO SCH (08:02)
[2020-08-21] MEDS ORDERED: LUTEIN 6 MG PO SCH (09:00)
--- NOTE | 2020-08-21 15:06 | PDOC.HOSPP ---
- Subjective Subjective: Patient reported that he had an episode of vomiting today. She still having abdominal discomfort. No fever. Labs are stable. - Objective Vital Signs & Weight: Vital Signs (12 hours) Temp Pulse Resp BP Pulse Ox 08/21/20 11:18 98 F 61 16 91/55 L 92 L 08/21/20 08:00 96 08/21/20 07:17 68 16 96 08/21/20 07:09 98 F 65 16 129/68 92 L 08/21/20 04:28 98.2 F 61 16 120/70 96 Weight Weight 201 lb I&O: 08/20/20 08/21/20 08/22/20 06:59 06:59 06:59 Intake Total 992 1000 Balance 992 1000 Result Diagrams: 08/21/20 05:21 08/21/20 05:21 Radiology Reviewed by me: Yes EKG Reviewed by me: Yes Hospitalist ROS - Medication Medications: Active Medications Generic Name Dose Route Start Last Admin Trade Name Freq PRN Reason Stop Dose Admin Apixaban 5 mg 08/20/20 21:00 08/21/20 08:01 Apixaban 5 Mg Tab PO 5 mg BID LAZARUS Administration Bupropion HCl 150 mg 08/20/20 21:00 08/21/20 08:01 Bupropion 150 Mg Xl Tab PO 150 mg BID LAZARUS Administration Cholecalciferol 5,000 units 08/21/20 09:00 08/21/20 08:01 Cholecalciferol 1,000 Units (25 Mcg) Tab PO 5,000 units DAILY LAZARUS Administration Ezetimibe 10 mg 08/21/20 09:00 08/21/20 08:02 Ezetimibe 10 Mg Tab PO 10 mg DAILY LAZARUS Administration Flecainide Acetate 100 mg 08/20/20 21:00 08/21/20 08:01 Flecainide 50 Mg Tab PO 100 mg BID LAZARUS Administration Sodium Chloride 1,000 mls @ 50 mls/hr 08/20/20 00:30 08/20/20 21:46 Normal Saline 0.9% IV 1,000 mls .Q20H LAZARUS Administration Meropenem 1 gm/ Device 50 mls @ 100 mls/hr 08/20/20 06:00 08/21/20 05:11 IVPB 50 mls Q8HR LAZARUS Administration Metronidazole 500 mg/ Device 100 mls @ 100 mls/hr 08/20/20 04:00 08/21/20 11:59 IVPB 100 mls 0400,1200,2000 LAZARUS Administration Magnesium Oxide 400 mg 08/20/20 21:00 08/20/20 20:25 Magnesium Oxide 400 Mg Tab PO 400 mg HS LAZARUS Administration Mometasone Furoate/Formoterol Fumar 1 puff 08/20/20 18:30 08/21/20 07:17 Mometasone 200 Mcg/Formoterol 5 Mcg 120 Puff Inhaler INH 1 puff BID-RT LAZARUS Administration Montelukast Sodium 10 mg 08/21/20 09:00 08/21/20 08:01 Montelukast Sodium 10 Mg Tablet PO 10 mg DAILY LAZARUS Administration Morphine Sulfate 4 mg 08/20/20 18:45 08/21/20 04:14 Morphine 4 Mg/Ml Vial SLOW IVP 4 mg Q4H PRN Administration Severe Pain (7-10) Nebivolol 5 mg 08/21/20 09:00 08/21/20 08:01 Nebivolol Hcl 5 Mg Tab PO 5 mg DAILY LAZARUS Administration Ondansetron HCl 4 mg 08/20/20 18:14 08/21/20 04:19 Ondansetron Pf 4 Mg/2 Ml Vial IVP 4 mg Q6H PRN Administration Nausea/Vomiting Pantoprazole Sodium 40 mg 08/20/20 21:00 08/21/20 08:01 Pantoprazole 40 Mg Tab PO 40 mg BID LAZARUS Administration - Exam General Appearance: NAD Eye: PERRL ENT: normocephalic atraumatic Neck: supple Heart: RRR Respiratory: CTAB Gastrointestinal: soft, non-tender Extremities: no cyanosis Neurological: cranial nerve grossly intact Musculoskeletal: normal tone Psychiatric: normal affect, normal behavior, A&O x 3 Hosp A/P - Plan This is a 79 years old female with significant past medical history of atrial fib, on Eliquis for stroke prophylaxis, hypertension, kidney stone, GE RD, who presented to ED with complaint of acute onset of left lower quadrant pain. Further work-up, including CT abdomen and pelvic, show sigmoid diverticulitis without free intraperitoneal gas or fluid collection. She was subsequently admitted for acute diverticulitis. Acute sigmoid diverticulitis --We will continue Flagyl, meropenem. Will DC clindamycin --advance to full liquid --Counseled high fiber diet Paroxysmal atrial fibrillation --Resume home medication Essential hypertension --Blood pressure stable, continue home Dehydration -volume depletion --Renal function remained normal --Continue gentle IV fluid hydration, advance diet GERD --Continue home medication DVT ppx: Eliquis GI ppx: PPI Code Status: Full code Anticipated Dispo: Home in 1 to 2 days
[2020-08-21] MEDS ORDERED: Albuterol Sulfate 1.25 MG/3 ML NEB NEB PRN (16:20)
[2020-08-21] MEDS: Sodium Chloride 0.9% 1,000 ML IV SCH (16:46)
[2020-08-21] MEDS: Magnesium Oxide 400 MG TAB PO SCH (21:03)
[2020-08-22] MEDS: metroNIDAZOLE 500 MG in Premix Bag 1 BAG IVPB SCH ×2 (04:49→12:12)
[2020-08-22] MEDS: MEROPENEM 1 GM/50 ML 1 GM in Premix Bag 1 BAG IVPB SCH ×3 (06:16→21:21)
[2020-08-22] MEDS: Mometasone 200 MCG/Formoterol 5 MCG 120 PUFF INHALER INH SCH ×2 (07:15→19:14)
[2020-08-22] MEDS ORDERED: Ferrous Fumarate 324 MG TAB PO SCH (09:00)
[2020-08-22] MEDS: Cholecalciferol 1,000 UNITS (25 MCG) TAB PO SCH (09:48)
[2020-08-22] MEDS: Bupropion 150 MG XL TAB PO SCH ×2 (09:48→21:20)
[2020-08-22] MEDS: Flecainide 50 MG TAB PO SCH ×2 (09:49→21:20)
[2020-08-22] MEDS: Montelukast Sodium 10 mg Tablet PO SCH (09:49)
[2020-08-22] MEDS: Nebivolol HCl 5 MG TAB PO SCH (09:49)
[2020-08-22] MEDS: Apixaban 5 MG TAB PO SCH ×2 (09:49→21:21)
[2020-08-22] MEDS: Ezetimibe 10 MG TAB PO SCH (09:50)
[2020-08-22] MEDS ORDERED: Iopamidol 300 61% 50 ML VIAL FS ONE (10:52)
[2020-08-22] MEDS: Sodium Chloride 0.9% 1,000 ML IV SCH (12:13)
--- NOTE | 2020-08-22 15:13 | PDOC.HOSPP ---
- Subjective Encounter Date: 08/22/20 Encounter Time: 12:30 Subjective: Patient seen for follow-up regarding acute diverticulitis. Reports feeling better. - Objective Vital Signs & Weight: Vital Signs (12 hours) Temp Pulse Resp BP Pulse Ox 08/22/20 08:00 92 L 08/22/20 07:50 97.9 F 77 14 141/82 H 92 L 08/22/20 04:32 97.8 F 57 L 16 119/70 92 L Weight Weight 201 lb I&O: 08/21/20 08/22/20 08/23/20 06:59 06:59 06:59 Intake Total 1000 Balance 1000 Result Diagrams: 08/21/20 05:21 08/21/20 05:21 Additional Labs: Labs and MAR reviewed by nd Hospitalist ROS - Review of Systems Cardiovascular: denies: chest pain, palpitations, orthopnea, paroxysmal noc. dyspnea, edema, light headedness Gastrointestinal: reports: abdominal pain. denies: nausea, vomiting, diarrhea, constipation, melena, hematochezia - Medication Medications: Active Medications Generic Name Dose Route Start Last Admin Trade Name Freq PRN Reason Stop Dose Admin Apixaban 5 mg 08/20/20 21:00 08/22/20 09:49 Apixaban 5 Mg Tab PO 5 mg BID LAZARUS Administration Bupropion HCl 150 mg 08/20/20 21:00 08/22/20 09:48 Bupropion 150 Mg Xl Tab PO 150 mg BID LAZARUS Administration Cholecalciferol 5,000 units 08/21/20 09:00 08/22/20 09:48 Cholecalciferol 1,000 Units (25 Mcg) Tab PO 5,000 units DAILY LAZARUS Administration Ezetimibe 10 mg 08/21/20 09:00 08/22/20 09:50 Ezetimibe 10 Mg Tab PO 10 mg DAILY LAZARUS Administration Ferrous Fumarate 324 mg 08/22/20 09:00 08/22/20 09:50 Ferrous Fumarate 324 Mg Tab PO 324 mg MWF LAZARUS Administration Flecainide Acetate 100 mg 08/20/20 21:00 08/22/20 09:49 Flecainide 50 Mg Tab PO 100 mg BID LAZARUS Administration Sodium Chloride 1,000 mls @ 50 mls/hr 08/20/20 00:30 08/22/20 12:13 Normal Saline 0.9% IV 1,000 mls .Q20H LAZARUS Administration Meropenem 1 gm/ Device 50 mls @ 100 mls/hr 08/20/20 06:00 08/22/20 06:16 IVPB 50 mls Q8HR LAZARUS Administration Magnesium Oxide 400 mg 08/20/20 21:00 08/21/20 21:03 Magnesium Oxide 400 Mg Tab PO 400 mg HS LAZARUS Administration Mometasone Furoate/Formoterol Fumar 1 puff 08/20/20 18:30 08/22/20 07:15 Mometasone 200 Mcg/Formoterol 5 Mcg 120 Puff Inhaler INH 1 puff BID-RT LAZARUS Administration Montelukast Sodium 10 mg 08/21/20 09:00 08/22/20 09:49 Montelukast Sodium 10 Mg Tablet PO 10 mg DAILY LAZARUS Administration Morphine Sulfate 4 mg 08/20/20 18:45 08/21/20 04:14 Morphine 4 Mg/Ml Vial SLOW IVP 4 mg Q4H PRN Administration Severe Pain (7-10) Nebivolol 5 mg 08/21/20 09:00 08/22/20 09:49 Nebivolol Hcl 5 Mg Tab PO 5 mg DAILY LAZARUS Administration Ondansetron HCl 4 mg 08/20/20 18:14 08/21/20 18:03 Ondansetron Pf 4 Mg/2 Ml Vial IVP 4 mg Q6H PRN Administration Nausea/Vomiting Pantoprazole Sodium 40 mg 08/20/20 21:00 08/22/20 09:49 Pantoprazole 40 Mg Tab PO 40 mg BID LAZARUS Administration - Exam General Appearance: awake alert Eye: anicteric sclera ENT: moist mucosa Neck: supple Heart: RRR Respiratory: CTAB Gastrointestinal: soft, non-tender Skin: no rashes Neurological: cranial nerve grossly intact Psychiatric: normal affect, normal behavior Hosp A/P - Plan -Assessment/plan Acute sigmoid diverticulitis --Start ciprofloxacin, discontinue meropenem, continue metronidazole. --advance to diet as tolerated --ID/dietitian consults Paroxysmal atrial fibrillation --Controlled Essential hypertension --Controlled and stable GERD --Stable
--- NOTE | 2020-08-22 15:54 | SPC ---
Right upper extremity PICC placement sonographic guided HISTORY: Diverticulitis. FINDINGS: After explaining the procedure and answering all questions, the right upper extremity was p repped and draped in usual sterile fashion. Sterile technique, buffered local anesthesia, sonographic guidance, and a 22-gauge needle were used t o carefully access the cephalic vein. Initial attempts to access the basilic vein were unsuccessful. Standard technique was then used to place the tip of a 5 Turkmen single lumen PICC so that the tip lie s at the level of the right atrium. The catheter was flushed and secured externally. Patient tolerated procedure well and was returned in unchanged condition. IMPRESSION : Right upper extremity PICC is ready for use.
--- NOTE | 2020-08-22 16:11 | CON ---
DATE OF CONSULTATION: 08/22/2020 REASON FOR CONSULTATION: Diverticulitis with multiple drug allergy history. HISTORY OF PRESENT ILLNESS: A 79-year-old, whom I had seen recently when she presented with obstructive pyelonephritis in July this year. She has a history of breast cancer, atrial fibrillation, recurrent nephrolithiasis, and prior pulmonary embolism and she had a stent placed in July and was treated with meropenem due to inability to challenge her with Cipro since she was on flecainide and there is a quite severe drug interaction with flecainide, which prevents core administration with this quinolones. So, she had to have a PICC line and treated with Merrem. At this time, she presents with diverticulitis and it is somewhat mild. She does have leukocytosis and pain and she is currently on Merrem and Flagyl, feeling better. No headaches, visual symptoms, sore throat, odynophagia, or dysphagia. No dyspnea. No dysuria. No hematuria or joint symptoms. PAST MEDICAL HISTORY: Atrial fibrillation, GERD, hypertension, breast cancer in remission after mastectomy and chemo, pulmonary embolism, nephrolithiasis with recurrence, obstructive pyelonephritis requiring stent placement and antimicrobial therapy administration via PICC line, and multiple drug allergies as noted below. PAST SURGICAL HISTORY: Lumbar spine surgery, abdominoplasty, cholecystectomy, hernia repair, hysterectomy, mastectomy, knee replacement, and cervical decompressive surgery. SOCIAL HISTORY: Former smoker. . Lives in [place]. FAMILY HISTORY: Noncontributory. ALLERGIES: MULTIPLE ALLERGIES INCLUDING ANAPHYLAXIS TO CEPHALOSPORIN AND PENICILLIN AND BLISTERING FROM LEVOFLOXACIN. THERE WAS DRUG INTERACTION BETWEEN QUINOLONES AND FLECAINIDE AND SHE HAD ANGIO EDEMA FROM SULFA EXPOSURE. CURRENT MEDICATIONS: Include; 1. Eliquis. 2. Bupropion. 3. Zetia. 4. Flecainide. 5. Hydrocodone. 6. Magnesium. 7. Meropenem. 8. Metronidazole. 9. Montelukast. 10. Pantoprazole. FAMILY HISTORY: Noncontributory. PHYSICAL EXAMINATION: VITAL SIGNS: Normal temperature, BP 140/80, heart rate 77, respiratory rate 14, and O2 saturation 92% on room air. GENERAL: Appears in no distress. SKIN: No lymphadenopathy. HEENT: Noncontributory. NECK: Supple. LUNGS: Symmetric clear breath sounds. HEART: S1 and S2. Regular rate. No murmurs. ABDOMEN: Soft with tenderness in the left lower quadrant. No signs of peritonitis. No bladder distention. EXTREMITIES: No joint inflammatory activity. NEURO: Nonfocal including cognitive function. LABORATORY STUDIES: Urinalysis with 21 to 50 wbc's. White cell count is 11.1 and now down to 6.8, hemoglobin 11.8, platelets 160, and 79% neutrophils. Creatinine 0.74. Liver profile normal. Albumin 3.8. Cultures, two sets of blood culture, no growth thus far. Repeat abdomen and pelvis CT from yesterday day before with sigmoid diverticulitis, but no evidence of rupture or abscess formation and calculi in the inferior pole left kidney, smaller in size. ASSESSMENT AND PLAN: Nephrolithiasis, prior breast cancer in remission, obstructive pyelonephritis treated with stent and antimicrobials, multiple drug allergies, and atrial fibrillation on flecainide, which prevents the use of quinolones, in addition to her prior reported allergies. So therefore, we will have to again likely in the previous time in July, place a PICC line and treat her with either meropenem or ertapenem in the outpatient setting. Duration of therapy anywhere from 5 to 10 days. Job ID: [id number]
[2020-08-22] MEDS: Magnesium Oxide 400 MG TAB PO SCH (21:20)
[2020-08-23] MEDS: MEROPENEM 1 GM/50 ML 1 GM in Premix Bag 1 BAG IVPB SCH ×2 (05:41→13:16)
[2020-08-23] MEDS: Mometasone 200 MCG/Formoterol 5 MCG 120 PUFF INHALER INH SCH (07:10)
[2020-08-23] MEDS: Flecainide 50 MG TAB PO SCH (08:29)
[2020-08-23] MEDS: Montelukast Sodium 10 mg Tablet PO SCH (08:29)
[2020-08-23] MEDS: Cholecalciferol 1,000 UNITS (25 MCG) TAB PO SCH (08:29)
[2020-08-23] MEDS: Bupropion 150 MG XL TAB PO SCH (08:29)
[2020-08-23] MEDS: Apixaban 5 MG TAB PO SCH (08:29)
[2020-08-23] MEDS: Ezetimibe 10 MG TAB PO SCH (08:29)
[2020-08-23] MEDS: Nebivolol HCl 5 MG TAB PO SCH (08:30)
[2020-08-23] MEDS: Sodium Chloride 0.9% 1,000 ML IV SCH (08:34)
[2020-08-23] MEDS ORDERED: Loperamide HCl 2 MG CAP PO PRN (08:40)
[2020-08-23] MEDS ORDERED: Loperamide HCl 2 MG CAP PO SCH (08:45)
[2020-08-23] MEDS ORDERED: Saccharomyces boulardii 250 MG CAP PO SCH (09:00)
--- NOTE | 2020-08-23 10:05 | PDOC.DS.DS ---
Provider - Provider Date of Admission: 08/20/20 15:01 Date of Discharge: 08/23/20 Admitting Provider: Renaldo Wren MD Consultations: Infectious Disease (Dr. Christopher) Primary Care Physician: Seamus Wynn MD Course - Hospital Course Hospital Course: Discharge diagnosis: 1. Sigmoid diverticulitis 2. Acute kidney injury Hospital course: Patient is a pleasant 79-year-old lady who was admitted to the hospital on August 19, 2020 for sigmoid diverticulitis. She was started on intravenous meropenem and metronidazole. She improved clinically. She was seen by infectious disease service. She is being discharged home following PICC line placement for treatment with meropenem 1 g IV every 8 hours until September 05. She needs weekly CBC, CRP and BMP. Home health is being arranged. Many thanks for allowing me to participate in your patient's care. Please feel free to contact me with any questions or concerns. Discharge destination: Home Total amount of time spent coordinating this discharge: 32 minutes Resuscitation Status: 08/20/20 00:15 Resuscitation Status Routine Co-Sign Provider: Resuscitation Status: FULL: Full Resuscitation Discussed with: pt and - Labs Lab Results: 08/21/20 05:21 08/21/20 05:21 Microbiology - Entire Visit 08/22/20 12:33 Stool C. difficile [facility] Antigen & Toxins - Final 08/19/20 20:04 Venous blood - Right Arm Blood Culture - Preliminary NO GROWTH AT 48 HOURS 08/19/20 19:47 Venous blood - Left Arm Blood Culture - Preliminary NO GROWTH AT 48 HOURS - Physical Exam Vitals: Vital Signs (12 hours) Temp Pulse Resp BP Pulse Ox 08/23/20 08:00 97.9 F 62 20 143/82 H 92 L Weight Weight 201 lb Physical Exam: The patient was seen and examined on the day of discharge. Patient denies chest pain or shortness of breath. Vital signs are stable. S1 and S2 are heard. Lungs are clear to auscultation bilaterally. Plan - Discharge Medications Prescriptions: Saccharomyces boulardii [Florastor] 250 mg PO DAILY #14 cap Home Medications: Medication Instructions Recorded Confirmed Type Cholecalciferol (Vitamin D3) 5,000 unit PO DAILY 09/14/14 08/20/20 History [Vitamin D3] Magnesium Oxide [Magnesium] 425 mg PO HS 09/14/14 08/20/20 History Omeprazole 20 mg PO BID 09/14/14 08/20/20 History Budesonide-Formoterol [Symbicort 1 puff INH BID #0 05/11/19 08/20/20 History 160-4.5] Nebivolol HCl [Bystolic] 5 mg PO DAILY 05/11/19 08/20/20 History Ventolin HFA Inhaler 2 puff PO PRN PRN 05/11/19 08/20/20 History Apixaban [Eliquis] 5 mg PO BID 06/25/20 08/20/20 History Bupropion HCl [buPROPion HCl XL] 150 mg PO BID 06/25/20 08/20/20 History Flecainide [Tambocor] 100 mg PO BID 06/25/20 08/20/20 History Montelukast Sodium [Singulair] 10 mg PO DAILY 06/29/20 08/20/20 History Ezetimibe [Zetia] 10 mg PO DAILY 08/03/20 08/20/20 History Ferrous Fumarate [Ferretts] 325 mg PO MWF 08/03/20 08/20/20 History Lutein 6 mg PO DAILY 08/03/20 08/20/20 History Meropenem 1 gm/50 ml [Merrem 1 1 gm IVPB Q8HR bag 08/23/20 Rx gm/50 ml] Saccharomyces boulardii [Florastor] 250 mg PO DAILY #14 cap 08/23/20 Rx Allergies: Cephalosporins Allergy (Verified 08/03/20 10:30) cortisone [Cortisone] Allergy (Verified 06/25/20 02:45) levofloxacin [From Levaquin] Allergy (Verified 08/03/20 10:30) ORAL Penicillins Allergy (Verified 08/03/20 10:30) Sulfa (Sulfonamide Antibiotics) Allergy (Verified 08/03/20 10:30) codeine Adverse Reaction (Verified 06/25/20 02:45) itching hydrocodone Adverse Reaction (Verified 06/25/20 02:45) itching hydrocodone bitartrate [From Vicodin] Adverse Reaction (Verified 06/25/20 02:45) itching tape Allergy (Unknown, Uncoded 08/03/20 10:30) - Follow up Plan Referrals: Kingsley,Seamus A, MD [Primary Care Provider] - Disposition: HOME Quality - Care Measures CORE MEASURES:: N/A
[2020-08-23 11:47] VITALS: BP 120/66; TEMP 97.4
== END 2020-08-23 13:35 | disposition home or self-care (01) | DRG 392 ==
LOC: ERS 19:12 → T4-B 21:21 → OBSVTOIN 08-20 15:01
PROVIDERS: ADMIT Internal Medicine; ATTEND Internal Medicine
PROC: 02H633Z Insertion of Infusion Device into Right Atrium, Percutaneous Approach (ICD-10-PCS; principal; 2020-08-22)
PROC: B548ZZA Ultrasonography of Superior Vena Cava, Guidance (ICD-10-PCS; 2020-08-22)
DX: K57.32 Diverticulitis of large intestine without perforation or abscess without bleeding (principal); N17.9 Acute kidney failure, unspecified; J45.909 Unspecified asthma, uncomplicated; I10 Essential (primary) hypertension; Z96.653 Presence of artificial knee joint, bilateral; F32.9 Major depressive disorder, single episode, unspecified; K21.9 Gastro-esophageal reflux disease without esophagitis; I48.0 Paroxysmal atrial fibrillation; E86.0 Dehydration; E86.9 Volume depletion, unspecified; Z91.09 Other allergy status, other than to drugs and biological substances; Z85.3 Personal history of malignant neoplasm of breast; Z88.1 Allergy status to other antibiotic agents; Z88.0 Allergy status to penicillin; Z88.8 Allergy status to other drugs, medicaments and biological substances; Z88.2 Allergy status to sulfonamides; Z90.710 Acquired absence of both cervix and uterus; Z90.11 Acquired absence of right breast and nipple; Z87.891 Personal history of nicotine dependence; Z87.442 Personal history of urinary calculi; Z86.711 Personal history of pulmonary embolism; Z90.49 Acquired absence of other specified parts of digestive tract; Z79.899 Other long term (current) drug therapy
CPT/HCPCS: 36415; 36569; 74177; 80048; 80053; 81003; 81015; 83605; 85025; 87040; 87324; 87449; 94664; 96365; 96366; 96367; 96375; 96376; C1751; G0378; J1644; J2185; J2270; J2405; J3490; Q9967

== ENCOUNTER 2020-09-22 09:59 | Emergency (ER) | payer MEDICARE ==
--- NOTE | 2020-09-22 11:51 | RAD ---
XR Hip Rt 2-3 View INDICATION: Fall with right hip pain COMPARISON: None FINDINGS: Bones: No acute osseous abnormality. Bone mineralization appears within normal limits. Hip joint: There is moderate right hip osteoarthrosis. SI joints and symphysis pubis: Radiographically normal. Intrapelvic contents: Visualized bowel gas pattern is within normal limits. Surrounding soft tissues: Radiographically normal. IMPRESSION: 1. No acute osseous abnormality.
[2020-09-22] MEDS ORDERED: Morphine 4 MG/ML VIAL ONE (12:06)
== END 2020-09-22 12:30 | disposition home or self-care (01) ==
LOC: ERS 09:59
DX: S70.01XA Contusion of right hip, initial encounter (principal); M54.31 Sciatica, right side; I48.91 Unspecified atrial fibrillation; J45.909 Unspecified asthma, uncomplicated; K21.9 Gastro-esophageal reflux disease without esophagitis; Z86.711 Personal history of pulmonary embolism; Z87.891 Personal history of nicotine dependence; Z79.51 Long term (current) use of inhaled steroids; Z79.01 Long term (current) use of anticoagulants; Z79.899 Other long term (current) drug therapy; W19.XXXA Unspecified fall, initial encounter
CPT/HCPCS: 96372; J2270

== ENCOUNTER 2020-09-25 12:19 | Inpatient (IN) | payer MEDICARE ==
[2020-09-25] MEDS ORDERED: Morphine 4 MG/ML VIAL ONE (13:02)
[2020-09-25] MEDS ORDERED: Ondansetron ODT 4 MG TAB ONE (13:40)
--- NOTE | 2020-09-25 14:07 | CT ---
CT ABDOMEN AND PELVIS WITHOUT CONTRAST LIMITED CT LUMBAR SPINE: PROVIDED CLINICAL HISTORY: Right hip pain. FINDINGS: Comparison is made with the examination dated 08-19-2020. The visualized lung bases are free of significant opacity. The solid abdominal organs are suboptimally evaluated in the absence of IV contrast material but demo nstrate no significant interval change. There is increased density within the presacral fat. There is a right gluteal hematoma, measuring at least 7.2 x 9.7 cm in greatest transverse dimensions. There is enlargement and loss of intramuscular fat planes involving the right pyriform muscle. There is stranding and non-circumscribed blood produc ts adjacent to the course of the right sciatic nerve. There is no bowel dilatation, free intraperitoneal fluid or free intraperitoneal air. Sigmoid colon d iverticulosis is demonstrated. There is no evidence for fracture. Lumbar, coronal, and sagittal reconstructions were performed. Ther e is normal lumbar alignment with preservation of vertebral body heights. Multilevel lumbar degenerat peg changes are seen, with moderate-severe right foraminal narrowing at L4-5 and L5-S1 and on the lef t at L3-4 and L4-5. Laminectomy changes are seen at L4-5 and L3-4. There is a right paracentral calci fied disc herniation at L5-S1 with potential for impingement on the traversing right L5 nerve root wi thin its lateral recess. IMPRESSION: 1. No evidence for an acute process involving the abdomen and pelvis. 2. Right gluteal hematoma and right pyriform is intramuscular hematoma, without evidence for pelvic f racture. 3. Multi-level lumbar degenerative change with areas of canal and foraminal narrowing as described. POS: SANCHEZ
[2020-09-25] MEDS ORDERED: Fentanyl 100 MCG/2 ML VIAL ONE (14:42)
[2020-09-25 16:35] LABS: Hemoglobin 10.7 g/dL (12.0-16.0); Mean Corpuscular HGB CONC 33.5 g/dL (32.0-36.0); Mean Corpuscular Volume 86.6 fL (78.0-98.0); Mean Platelet Volume 7.2 fL (7.4-10.4); Platelet Count 255 thou/uL (130-400); RBC Distribution Width 12.5 % (11.5-14.5); Red Blood Cell (RBC) Count 3.68 mill/uL (4.20-5.40); White Blood Cell (WBC) Count 12.9 thou/uL (4.8-10.8)
[2020-09-25 16:42] LABS: INR-International Normal Ratio 1.3; Prothrombin Time 16.8 sec (12.0-14.7)
[2020-09-25 16:49] LABS: Band 4 % (5-11); Lymphocytes 6 % (21-51); MDiff Complete? YES; Monocytes 2 % (0-10); Neutrophil 87 % (42-75); Ovalocytes SLIGHT = 2-5 cells (100X) (0-1/hpf); Platelet Morphology Comment Appears Adequate; Polychromasia SLIGHT = 2-3 cells (100X) (0-2/hpf); Reactive Lymphocytes 1 % (0-10)
[2020-09-25 16:54] LABS: ALT (SGPT) 23 U/L (8-55); AST (SGOT) 21 U/L (5-34); Albumin 3.4 g/dL (3.4-4.8); Alkaline Phosphatase 78 U/L (40-110); Anion Gap 17 mmol/L (10-20); BUN (Urea Nitrogen) 25 mg/dL (9.8-20.1); Calc. Creatinine Clearance 0 mL/min (70-130); Carbon Dioxide 26 mmol/L (23-31); Chloride 102 mmol/L (98-107); Globulin 2.9 g/dL (2.4-3.5); Glucose 122 mg/dL (83-110); Protein, Total 6.3 g/dL (5.8-8.1); Sodium 140 mmol/L (136-145)
[2020-09-25 17:05] LABS: Bacteria/HPF 4+ HPF (None Seen); RBC/HPF 0-3 HPF (0-3); Squamous Epithelial 0-3 HPF (0-3); WBC/HPF Greater than 50 HPF (0-3)
[2020-09-25 17:08] LABS: Clarity Hazy (Clear); Leukocyte 250 Leu/uL (Negative); Nitrite Negative (Negative); Specific Gravity, Urine 1.024 (1.002-1.036)
[2020-09-25 17:09] LABS: Bilirubin Negative (Negative); Blood, Urine Negative (Negative); Glucose, Urine (Dipstick) Negative (Negative); Ketone, Urine Negative (Negative); Protein, Urine (Dipstick) 10 mg/dL (Neg-Trace); Urobilinogen Normal mg/dL (Less than 2)
[2020-09-25] MEDS ORDERED: Morphine 2 MG/ML VIAL SLOW IVP PRN (17:28)
[2020-09-25] MEDS ORDERED: Dextrose 50% Abboject 50 ML SYRINGE SLOW IVP PRN (17:28)
[2020-09-25] MEDS ORDERED: Dextrose 5% in Water 1,000 ML IV PRN (17:28)
[2020-09-25] MEDS ORDERED: hydrALAZINE 20 MG/ML VIAL SLOW IVP PRN (17:28)
[2020-09-25] MEDS ORDERED: traMADol HCl 50 MG TAB PO PRN (17:34)
[2020-09-25] MEDS ORDERED: Acetaminophen 500 MG TAB ONE (18:21)
[2020-09-25] MEDS ORDERED: traMADol HCl 50 MG TAB ONE (18:21)
[2020-09-25] MEDS ORDERED: Albuterol Sulfate 2.5 mg/3 ml Neb NEB PRN (19:24)
[2020-09-25] MEDS: Magnesium Oxide 400 MG TAB PO SCH (21:04)
[2020-09-25] MEDS: Gabapentin 100 MG CAP PO SCH (21:04)
[2020-09-25] MEDS: Bupropion 150 MG XL TAB PO SCH (21:04)
[2020-09-25] MEDS: Famotidine 20 MG TAB PO SCH (21:04)
[2020-09-25] MEDS: Ondansetron PF 4 MG/2 ML Vial IVP PRN (21:04)
[2020-09-25] MEDS: Flecainide 50 MG TAB PO SCH (21:04)
[2020-09-25] MEDS ORDERED: Ibuprofen 200 MG TAB PO SCH (22:00)
[2020-09-25 23:15] LABS: SARS-CoV-2 PCR by NAA Not Detected (NotDetected)
[2020-09-26] MEDS: traMADol HCl 50 MG TAB PO SCH ×2 (00:04→05:05)
[2020-09-26] MEDS: Acetaminophen 500 MG TAB PO SCH ×2 (00:04→05:04)
[2020-09-26 01:55] VITALS: BMI 32.7
--- NOTE | 2020-09-26 05:38 | HP ---
PRIMARY CARE PHYSICIAN: Seamus Wynn MD CARDIOLOGY: Dr. Monsalve. HISTORY OF PRESENT ILLNESS: Ms. Gandhi is a 79-year-old female with past medical history of recent septic shock; respiratory failure, improved now and gets about with a walker at home; has AFib; hypertension; previous breast cancer, who presents to the emergency department, second visit today for chief complaint of right hip pain, right gluteal pain radiating down her leg. She was seen on 09/22/2020 with negative x-rays, sent home with pain control and followup. She returned today with worsening pain. States she can barely walk with her walker. She is actually putting a cup between her legs to urinate. She is unsteady on her feet because of the extreme pain and nearly has fallen. In the emergency department, CT abdomen and pelvis demonstrates a large gluteal hematoma with some bleeding around the sciatic nerve, likely etiology of the same. The patient is on Eliquis. Her last dose of Eliquis was last night. She states that this happened nearly 10 days ago, but is getting progressively worse. They attempted to get her in to [facility] today, however, with her insurance, it was not approved. At that time, her was going to try to write a check for the same, but they were unable to take this, so the ER physician has asked us to consider admission for pain control. REVIEW OF SYSTEMS: The patient states this is a mechanical fall, she slipped on wet surface. She has no nausea, no vomiting, no chest pain, no shortness of air. She has good sensation. No paresthesias. Just complains of the pain to the right buttock and right lower leg. No other changes. She does have a decreased appetite, but this has been ongoing for some time. PAST MEDICAL HISTORY: Significant for obstructive nephropathy; nephrolithiasis causing septic shock; diverticulitis; breast cancer, status post mastectomy, never requiring chemo radiation; hypertension; and AFib. PAST SURGICAL HISTORY: Cholecystectomy, vasectomy, hysterectomy, cataract surgery, knee replacement x2, and neck and back surgery. MEDICATIONS: By chart review, 1. Tizanidine 2 mg every 6 hours as needed. 2. Ventolin 2 puffs as needed. 3. Florastor. 4. Omeprazole. 5. Bystolic 5 mg daily. 6. Singulair 10 mg daily. 7. Flecainide 100 mg b.i.d. 8. Iron 25 mg three times weekly. 9. Zetia. 10. Bupropion 150 mg b.i.d. 11. Symbicort 160/4.5. 12. Eliquis 5 mg b.i.d. ALLERGIES: CEPHALOSPORIN, LEVOFLOXACIN, PENICILLIN, SULFA, CODEINE, AND HYDROCODONE. SOCIAL HISTORY: The patient is currently . 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 She used to socially drink alcohol, not anymore. She quit smoking in 1989. FAMILY HISTORY: The patient was adopted; however, she did find out that her biological mother of a stroke at age 35, her father of old age at 88. PHYSICAL EXAMINATION: VITAL SIGNS: Blood pressure is 138/67, heart rate is 72, respiratory rate 22, and saturating 96% on room air. GENERAL: This is a 79-year-old obese female, sitting up, in no acute distress. HEENT: Normocephalic and atraumatic. Trachea is midline. No JVD is appreciated. RESPIRATORY: Equal rise and fall, but breath sounds are clear to auscultation in upper and lower lobes bilaterally. CARDIOVASCULAR: Regular rate and rhythm. She has strong pulses in all extremities. No edema. ABDOMEN: Soft and nontender. PELVIS: Stable. MUSCULOSKELETAL: She is able to move her extremities. She has CMS in all extremities. She has pulses in the right lower extremity. She has sensation across dermatome. She does endorse pain to the right lower extremity as well as the right buttock. NEUROLOGIC: Alert and oriented to person, place, time, and event. GCS of 15. PSYCH: Normal mood and affect. LABORATORY DATA: From today, labs are still pending. CT from today demonstrates no intraabdominal acute process. She does have a right gluteal hematoma and right piriform intramuscular hematoma without evidence of pelvic fracture. She has multilevel degenerative changes. The hematoma is 7.2 x 9.6 cm. ASSESSMENT: 1. Impaired mobility secondary to above. 2. History of recent septicemia, diverticulitis, breast cancer, hypertension, and atrial fibrillation, on anticoagulation. PLAN: 1. We will admit the patient under observation to the surgery blanc. 2. Pain control. 3. Case Management consult to see if we can get her placed in rehab. 4. Work with PT/OT. 5. We will continue medications aside from Eliquis right now. We will discuss with Dr. Monsalve when we should restart her Eliquis. 6. We will follow up on her labs. 7. I have discussed with the patient that insurance may deny her inpatient rehab, she may in fact have to go home. We can provide some physical therapy teaching and options. She does walk with a walker. They verbalized understanding of the same, but we will try to get her pain under control. Although she did not have a clear injury that usually constitutes admission, the concern is she does not feel safe at home, unable to toilet well and is most definitely a fall risk. 8. I have coordinated care with the emergency department physician. 9. I have updated the patient and the patient's at the bedside and answered all questions. Job ID: [id number]
[2020-09-26] MEDS: Mometasone 200 MCG/Formoterol 5 MCG 120 PUFF INHALER INH SCH ×2 (07:01→20:26)
[2020-09-26] MEDS ORDERED: LUTEIN 6 MG PO SCH (09:00)
[2020-09-26] MEDS: Ezetimibe 10 MG TAB PO SCH (09:03)
[2020-09-26] MEDS: Nebivolol HCl 5 MG TAB PO SCH (09:03)
[2020-09-26] MEDS: Famotidine 20 MG TAB PO SCH ×2 (09:03→21:42)
[2020-09-26] MEDS: Bupropion 150 MG XL TAB PO SCH ×2 (09:03→21:42)
[2020-09-26] MEDS: Ondansetron PF 4 MG/2 ML Vial IVP PRN (09:04)
[2020-09-26] MEDS: Gabapentin 100 MG CAP PO SCH ×3 (09:04→21:42)
[2020-09-26] MEDS: Ferrous Fumarate 324 MG TAB PO SCH ×2 (12:00→13:46)
[2020-09-26] MEDS: Acetaminophen 325 MG TAB PO SCH ×2 (13:49→18:39)
[2020-09-26] MEDS: Flecainide 50 MG TAB PO SCH ×2 (13:57→21:42)
[2020-09-26] MEDS: Nitrofurantoin Monohyd/M-Cryst 100 MG CAP PO SCH (21:42)
[2020-09-26] MEDS: Magnesium Oxide 400 MG TAB PO SCH (21:42)
[2020-09-27] MEDS: Acetaminophen 325 MG TAB PO SCH ×5 (00:16→23:54)
--- NOTE | 2020-09-27 06:06 | PRG ---
DATE OF SERVICE: 09/26/2020 SUBJECTIVE: Ms. Gandhi is a 79-year-old female who is here for treatment of right hip pain due to large gluteal hematoma. The patient has medical history of atrial fibrillation, on Eliquis. Last dose of Eliquis was on 09/24/2020. The patient was not able to get placed into inpatient rehab from the ER. Overall today, the patient reports that she is doing well and pain is well controlled. She does report some nausea and vomiting and lightheadedness. Hemoglobin today is 10.7 with baseline appearing to be near this level. OBJECTIVE: VITAL SIGNS: T-max 98 degrees Fahrenheit, pulse 60, respiratory rate 14, O2 saturation 96% on room air, blood pressure 113/71. GENERAL: Well appearing, obese. HEENT: Normocephalic, atraumatic. RESPIRATORY: No acute respiratory distress. Equal chest rise and fall. MUSCULOSKELETAL: Moving upper extremities with ease. Right lower extremity movement limited with pain. NEUROLOGIC: Alert and oriented. GCS 15. PSYCHIATRIC: Normal mood and affect. DIAGNOSTIC STUDIES: CBC significant for white blood cell count of 12.9, hemoglobin of 10.7. Coagulation studies, significant for PT of 16.8. Chemistry is unremarkable and the patient is COVID negative. Urinalysis is concerning for infection with 250 leukocyte esterase, wbc's greater than 50, and 4+ urine bacteria. All labs were done in the afternoon/evening of 09/25. ASSESSMENT: 1. Gluteal hematoma, right side. 2. Impaired mobility secondary to above. 3. History of recent septicemia. 4. Chronic history of diverticulitis, breast cancer, hypertension, atrial fibrillation (on anticoagulation). 5. Possible urinary tract infection. PLAN: 1. Pain control. We will switch the patient from tramadol to Tylenol #3 to hopefully reduce nausea. We will continue gabapentin as an adjunct and regular Tylenol being sure to not exceed maximum dose of Tylenol per day. 2. Case Management help to see if we can get rehab. 3. PT/OT recommendations. 4. We will hold Eliquis for now and continue other home medications. 5. Start Macrobid for likely for UTI. Job ID: [id number] [facility]
[2020-09-27] MEDS: Nitrofurantoin Monohyd/M-Cryst 100 MG CAP PO SCH ×2 (08:58→20:04)
[2020-09-27] MEDS: Bupropion 150 MG XL TAB PO SCH ×2 (08:58→20:04)
[2020-09-27] MEDS: Nebivolol HCl 5 MG TAB PO SCH (08:58)
[2020-09-27] MEDS: Ezetimibe 10 MG TAB PO SCH (08:58)
[2020-09-27] MEDS: Flecainide 50 MG TAB PO SCH ×2 (08:58→20:04)
[2020-09-27] MEDS: Famotidine 20 MG TAB PO SCH (08:58)
[2020-09-27] MEDS: Gabapentin 100 MG CAP PO SCH ×3 (08:59→20:04)
[2020-09-27 09:41] LABS: #Eosinphils 0.1 thou/uL (0.0-0.7); #Lymphocytes 2.1 thou/uL (1.20-3.40); #Monocytes 0.6 thou/uL (0.11-0.59); #Neutrophils 9.1 thou/uL (1.40-6.50); %Basophils 0.1 % (0.0-1.0); %Lymphocytes 17.8 % (21.0-51.0); %Monocytes 4.8 % (0.0-10.0); %Neutrophils 76.3 % (42.0-75.0); Mean Corpuscular Hemoglobin 28.6 pg (27.0-31.0); Mean Corpuscular Volume 86.9 fL (78.0-98.0); Platelet Count 255 thou/uL (130-400); RBC Distribution Width 12.6 % (11.5-14.5); Red Blood Cell (RBC) Count 2.81 mill/uL (4.20-5.40)
[2020-09-27 10:03] LABS: Phosphorus 3.1 mg/dL (2.3-4.7)
[2020-09-27 10:04] LABS: Anion Gap 12 mmol/L (10-20); BUN (Urea Nitrogen) 32 mg/dL (9.8-20.1); Calc. Creatinine Clearance 55 mL/min (70-130); Calcium 8.7 mg/dL (7.8-10.44); Carbon Dioxide 31 mmol/L (23-31); Chloride 98 mmol/L (98-107); Glucose 145 mg/dL (83-110); Magnesium 1.9 mg/dL (1.6-2.6); Potassium 4.7 mmol/L (3.5-5.1); Sodium 136 mmol/L (136-145)
[2020-09-27] MEDS: Acetaminophen/Codeine 30-300mg Tablet PO PRN (10:56)
[2020-09-27] MEDS: Mometasone 200 MCG/Formoterol 5 MCG 120 PUFF INHALER INH SCH ×2 (11:00→18:42)
[2020-09-27] MEDS ORDERED: Nebivolol HCl 5 MG TAB PO SCH (11:30)
[2020-09-27 15:19] LABS: Hemoglobin 7.7 g/dL (12.0-16.0)
[2020-09-27] MEDS: Ferrous Sulfate 325 MG TAB PO SCH (15:54)
[2020-09-27] MEDS ORDERED: traMADol HCl 50 MG TAB PO PRN ×2 (16:26)
[2020-09-27] MEDS: Ascorbic Acid 500 mg Chewable Tablet PO SCH (20:04)
[2020-09-27] MEDS: Magnesium Oxide 400 MG TAB PO SCH (20:04)
[2020-09-27] MEDS ORDERED: Montelukast Sodium 10 mg Tablet PO SCH (21:00)
--- NOTE | 2020-09-27 22:11 | PDOC.BPN ---
- Brief Progress Note Encounter Date: 09/27/20 Encounter Time: 21:00 79 female seen during evening rounds on the surgical floor resting comfortably in no distress. Patients nurse reports no bowel movement and she is requesting a suppository. Vital signs are stable and patient is afebrile. Will add a bowel regimen, am labs and continue current plan.
[2020-09-28 05:52] LABS: #Eosinphils 0.1 thou/uL (0.0-0.7); #Lymphocytes 1.9 thou/uL (1.20-3.40); #Monocytes 0.8 thou/uL (0.11-0.59); #Neutrophils 7.3 thou/uL (1.40-6.50); %Basophils 0.4 % (0.0-1.0); %Eosinophils 0.9 % (0.0-10.0); %Lymphocytes 18.7 % (21.0-51.0); %Monocytes 7.8 % (0.0-10.0); %Neutrophils 72.3 % (42.0-75.0); Hemoglobin 8.7 g/dL (12.0-16.0); Mean Corpuscular HGB CONC 32.9 g/dL (32.0-36.0); Mean Corpuscular Hemoglobin 27.5 pg (27.0-31.0); Mean Corpuscular Volume 83.4 fL (78.0-98.0); Mean Platelet Volume 7.2 fL (7.4-10.4); Platelet Count 246 thou/uL (130-400); RBC Distribution Width 16.6 % (11.5-14.5); Red Blood Cell (RBC) Count 3.18 mill/uL (4.20-5.40); White Blood Cell (WBC) Count 10.1 thou/uL (4.8-10.8)
--- NOTE | 2020-09-28 05:56 | PRG ---
DATE OF SERVICE: 09/27/2020 SUBJECTIVE: Ms. Gandhi is a 79-year-old female, who is here for treatment of right hip pain due to large gluteal hematoma. The patient has medical history of atrial fibrillation, on Eliquis. Last dose of Eliquis was 09/24/2020. Overall today, the patient reports that the pain is well controlled and really only bothers her when she is getting out of bed. She reports that her symptoms of nausea, vomiting, and dizziness have improved today. She was able to get to the commode with the help of her this morning. The patient is concerned about her low hemoglobin and where the blood could possibly be going. OBJECTIVE: VITAL SIGNS: The patient has been afebrile, normotensive, normocardic and is saturating in the mid 90s on room air. GENERAL: Well appearing, obese. HEENT: Normocephalic and atraumatic. RESPIRATORY: No acute respiratory distress. Equal chest rise and fall. MUSCULOSKELETAL: Moving upper extremities well. Right lower extremity movement limited by pain. NEUROLOGIC: Alert and oriented with no focal neurologic deficits. PSYCHIATRIC: Normal mood and affect. DIAGNOSTIC STUDIES: No new labs to review for today. ASSESSMENT: 1. Gluteal hematoma, right side. 2. Impaired mobility secondary to above. 3. History of recent septicemia. 4. Chronic history of diverticulitis, breast cancer, hypertension, and atrial fibrillation, on anticoagulation. 5. Urinary tract infection. PLAN: We will continue pain control with Tylenol No. 3. Stressed the importance of working with Physical Therapy and talking to the nurse to get pain medicine before therapy so that she is able to work with them. We will continue Macrobid for five-day treatment for UTI. We will see if Case Management can update us with rehab. The patient will need to be placed in inpatient status with [employer] insurance. We will hold Eliquis at this time. We will get repeat labs today to see if hemoglobin is stable or downtrending. Consider continuing Eliquis based on those labs. Hgb 8, given symptomatic anemia with dizziness will transfuse 1u pRBC. Discussed with patient and . very upset that we are not actively doing something with the drop in hemoglobin. Reiterated that we will continue to monitor vital signs and blood counts and that we do not believe there is currently any active bleeding, however, if we have any suspicions, we will pursue further workup. Job ID: [id number] [facility]
[2020-09-28] MEDS ORDERED: Bisacodyl 10 MG SUPP PR ONE (06:00)
[2020-09-28 06:06] LABS: Anion Gap 14 mmol/L (10-20); BUN (Urea Nitrogen) 28 mg/dL (9.8-20.1); Calc. Creatinine Clearance 68 mL/min (70-130); Calcium 8.8 mg/dL (7.8-10.44); Carbon Dioxide 28 mmol/L (23-31); Chloride 102 mmol/L (98-107); Glucose 97 mg/dL (83-110); Phosphorus 3.4 mg/dL (2.3-4.7); Potassium 4.8 mmol/L (3.5-5.1); Sodium 139 mmol/L (136-145)
[2020-09-28] MEDS: Acetaminophen 325 MG TAB PO SCH ×2 (06:28→11:42)
[2020-09-28] MEDS: Mometasone 200 MCG/Formoterol 5 MCG 120 PUFF INHALER INH SCH (07:51)
[2020-09-28] MEDS: Flecainide 50 MG TAB PO SCH (08:37)
[2020-09-28] MEDS: Ondansetron PF 4 MG/2 ML Vial IVP PRN (08:37)
[2020-09-28] MEDS: Ferrous Sulfate 325 MG TAB PO SCH (08:38)
[2020-09-28] MEDS: Ascorbic Acid 500 mg Chewable Tablet PO SCH (08:38)
[2020-09-28] MEDS: Bupropion 150 MG XL TAB PO SCH (08:39)
[2020-09-28] MEDS: Ezetimibe 10 MG TAB PO SCH (08:39)
[2020-09-28] MEDS: Gabapentin 100 MG CAP PO SCH (08:39)
[2020-09-28] MEDS: Nitrofurantoin Monohyd/M-Cryst 100 MG CAP PO SCH (08:39)
[2020-09-28] MEDS: Ferrous Fumarate 324 MG TAB PO SCH (08:39)
[2020-09-28] MEDS ORDERED: Polyethylene Glycol 3350 17 GM Packet PO SCH (09:00)
[2020-09-28] MEDS ORDERED: Senokot S 8.6-50 MG TAB PO SCH (09:00)
[2020-09-28] MEDS ORDERED: Nebivolol HCl 5 MG TAB PO SCH (09:00)
[2020-09-28] MEDS: Acetaminophen/Codeine 30-300mg Tablet PO PRN (10:03)
[2020-09-28] MEDS ORDERED: Gabapentin 100 MG CAP PO SCH (15:00)
[2020-09-28 16:21] VITALS: BP 116/72; TEMP 97.5
--- NOTE | 2020-09-29 12:01 | DIS ---
DATE OF ADMISSION: 09/27/2020 DATE OF DISCHARGE: 09/28/2020 ADMISSION DIAGNOSES: 1. Mechanical fall while on Eliquis with delayed presentation. 2. Right gluteal hematoma. DISCHARGE DIAGNOSES: 1. Mechanical fall while on Eliquis with delayed presentation. 2. Right gluteal hematoma. 3. Acute blood loss anemia. 4. Acute kidney injury. 5. Urinary tract infection. CONSULTING PHYSICIAN: None. PROCEDURES: None. HOSPITAL COURSE: The patient is a 79-year-old female, who presented to the emergency department originally on the 22 of September after a mechanical fall. She complained of hip and pelvic pain on the right side. X-ray imaging demonstrated no fracture. She was subsequently discharged home. She re-presented on the complaining of persistent worsening pain. CT evaluation demonstrated that she had a right gluteal hematoma. She also had a urinary tract infection. She was admitted to the hospital. Her hemodynamics were monitored. Patient also was provided with pain control. On the 27 of September, a repeat CBC was completed, which demonstrated a hemoglobin of 7.7. The patient the day before had reported some lightheadedness. The patient's renal function also slightly got worse. For this reason and due to symptomatic anemia, the patient was given 1 unit of packed red blood cells. Ultimately the next day, the patient incremented appropriately to a hemoglobin of 8.7. The patient was concerned about her lower back/buttock pain and requested evaluation by Dr. Madera. Dr. Richardson consulted Dr. Madera personally, who evaluated the patient's images and after a lengthy discussion agreed to see the patient in the clinic. This information was passed on to the patient and it is also recommendation of the patient hold her Eliquis for two weeks. She is on Eliquis for history of atrial fibrillation. She is in agreement with this and this information was passed on to the intermediate facility for which she was discharged. At the time of discharge, the patient's pain was well controlled. She was tolerating regular diet. She was ambulating with minimal difficulties and voiding without issues. The patient was also sent home for a total of five days of antibiotic course of Macrobid. DISCHARGE DISPOSITION: [facility], [facility]. DISCHARGE CONDITION: Satisfactory. PHYSICAL EXAMINATION: VITAL SIGNS: Temperature 98.0, pulse rate 60, respirations are 14, oxygen saturation 94% on room air, and blood pressure 120/85. GENERAL: A well-appearing elderly female, lying in bed with no signs of acute distress. PULMONARY: Equal chest rise and fall. No signs of acute respiratory distress. NEUROLOGIC: GCS is 15. DISCHARGE INSTRUCTIONS: The patient was discharged to a intermediate facility. Activity as tolerated and weightbearing as tolerated in all extremities. Regular diet. She will have Physical and Occupational therapy as well as incentive spirometer and a walker. She is to hold her home Eliquis for two weeks. DISCHARGE MEDICATIONS: Include Tylenol No. 3, Tylenol, vitamin C, Symbicort, Wellbutrin, Zetia, ferrous sulfate, Tambocor, gabapentin, magnesium oxide, Singulair, Bystolic, omeprazole; Macrobid until October 01, 2020; omeprazole, MiraLAX, Senokot, Ventolin, albuterol, spironolactone, tizanidine. FOLLOWUP APPOINTMENTS: The patient is to follow up with Dr. Madera in clinic. No followup is needed with Dr. Richardson in [facility]. This is a summary of the patient's hospitalization. For full details, please see her medical record in its entirety. The patient was seen and evaluated by Dr. Richardson and myself on the day of discharge, the [place] prescription monitoring program was accessed and the patient was discharged to a intermediate facility on pain medication, used to treat her pain. There is no concern otherwise. Job ID: [id number]
== END 2020-09-28 16:55 | DRG 605 ==
LOC: ERS 12:19 → SURG A 16:20 → OBSVTOIN 09-27 11:59
PROVIDERS: ADMIT Specialist; ATTEND Specialist
PROC: 30233N1 Transfusion of Nonautologous Red Blood Cells into Peripheral Vein, Percutaneous Approach (ICD-10-PCS; principal; 2020-09-27)
DX: S30.0XXA Contusion of lower back and pelvis, initial encounter (principal); D62 Acute posthemorrhagic anemia; N17.9 Acute kidney failure, unspecified; N39.0 Urinary tract infection, site not specified; N13.8 Other obstructive and reflux uropathy; W19.XXXA Unspecified fall, initial encounter; I48.91 Unspecified atrial fibrillation; I10 Essential (primary) hypertension; Z90.710 Acquired absence of both cervix and uterus; Z98.890 Other specified postprocedural states; Z79.51 Long term (current) use of inhaled steroids; Z79.01 Long term (current) use of anticoagulants; Z79.899 Other long term (current) drug therapy; Z88.0 Allergy status to penicillin; Z88.1 Allergy status to other antibiotic agents; Z88.5 Allergy status to narcotic agent; Z88.2 Allergy status to sulfonamides; Z87.891 Personal history of nicotine dependence
CPT/HCPCS: 36415; 36430; 51701; 74176; 80048; 80053; 81003; 81015; 83735; 84100; 85025; 85610; 85730; 86850; 86900; 86901; 87635; 93005; 96372; G0378; G0390; J2270; J2405; J3010; P9016; Q0162; U0003; U0005

== ENCOUNTER 2020-11-18 09:10 | Outpatient (CLI) | payer MEDICARE ==
[2020-11-18] MEDS ORDERED: Magnevist 469MG/ML 20 ML VIAL ONE ×2 (12:28)
== END 2020-11-18 09:11 | disposition home or self-care (01) ==
LOC: BICMRI 09:10
PROVIDERS: ATTEND Neurological Surgery
DX: M48.062 Spinal stenosis, lumbar region with neurogenic claudication (principal); M47.815 Spondylosis without myelopathy or radiculopathy, thoracolumbar region; M47.816 Spondylosis without myelopathy or radiculopathy, lumbar region; M47.817 Spondylosis without myelopathy or radiculopathy, lumbosacral region; M43.16 Spondylolisthesis, lumbar region; M47.22 Other spondylosis with radiculopathy, cervical region; M43.12 Spondylolisthesis, cervical region; M48.02 Spinal stenosis, cervical region; Z98.1 Arthrodesis status
CPT/HCPCS: 72050; 72110; 72156; 72158; 82565; A9579

== ENCOUNTER 2021-09-13 15:33 | Emergency (ER) | payer MEDICARE ==
[2021-09-13 16:21] LABS: #Lymphocytes 0.9 thou/uL (1.20-3.40); #Monocytes 0.4 thou/uL (0.11-0.59); #Neutrophils 1.5 thou/uL (1.40-6.50); %Basophils 0.4 % (0.0-1.0); %Eosinophils 0.9 % (0.0-10.0); %Lymphocytes 32.9 % (21.0-51.0); %Monocytes 12.6 % (0.0-10.0); %Neutrophils 53.3 % (42.0-75.0); Hemoglobin 13.1 g/dL (12.0-16.0); Mean Corpuscular HGB CONC 33.4 g/dL (32.0-36.0); Mean Corpuscular Hemoglobin 30.2 pg (27.0-31.0); Mean Corpuscular Volume 90.5 fL (78.0-98.0); Mean Platelet Volume 6.5 fL (7.4-10.4); Platelet Count 162 thou/uL (130-400); RBC Distribution Width 13.5 % (11.5-14.5); Red Blood Cell (RBC) Count 4.32 mill/uL (4.20-5.40); White Blood Cell (WBC) Count 2.8 thou/uL (4.8-10.8)
[2021-09-13 16:44] LABS: ALT (SGPT) 26 U/L (8-55); AST (SGOT) 16 U/L (5-34); Albumin 3.5 g/dL (3.4-4.8); Alkaline Phosphatase 86 U/L (40-110); Anion Gap 17 mmol/L (10-20); BUN (Urea Nitrogen) 14 mg/dL (9.8-20.1); Bilirubin, Total 0.3 mg/dL (0.2-1.2); Calc. Creatinine Clearance 0 mL/min (70-130); Calcium 9.1 mg/dL (7.8-10.44); Carbon Dioxide 24 mmol/L (23-31); Chloride 102 mmol/L (98-107); Globulin 2.3 g/dL (2.4-3.5); Glucose 102 mg/dL (83-110); Potassium 4.2 mmol/L (3.5-5.1); Protein, Total 5.8 g/dL (5.8-8.1); Sodium 139 mmol/L (136-145)
[2021-09-13 19:57] LABS: Lactic Acid 0.8 mmol/L (0.5-2.2)
[2021-09-14 13:33] LABS: SARS-CoV-2 PCR by NAA DETECTED (NotDetected)
== END 2021-09-13 21:29 | disposition home or self-care (01) ==
LOC: ERS 15:33
DX: U07.1 COVID-19 (principal); I10 Essential (primary) hypertension; J45.909 Unspecified asthma, uncomplicated; I48.91 Unspecified atrial fibrillation; K21.9 Gastro-esophageal reflux disease without esophagitis; Z87.891 Personal history of nicotine dependence; Z79.01 Long term (current) use of anticoagulants
CPT/HCPCS: 71045; 80053; 83605; 84484; 85025; 85652; 86140; 93005; 94760; U0003; U0005; 36415

== ENCOUNTER 2022-02-27 13:57 | Outpatient (CLI) | payer MEDICARE | END 2022-02-27 13:58 | disposition home or self-care (01) | LOC: BICMAMMO 13:57 | PROVIDERS: ATTEND Family Medicine | DX: N63.20 Unspecified lump in the left breast, unspecified quadrant (principal) | CPT/HCPCS: 76642; 77065; G0279 ==

== ENCOUNTER → 2022-03-06 | Day surgery (SDC) | payer MEDICARE | END | disposition home or self-care (01) | LOC: BICULT 12:33 | PROVIDERS: ATTEND Family Medicine | PROC: 0HBU3ZX Excision of Left Breast, Percutaneous Approach, Diagnostic (ICD-10-PCS; principal; 2022-03-06) | DX: C50.512 Malignant neoplasm of lower-outer quadrant of left female breast (principal); Z17.0 Estrogen receptor positive status [ER+]; Z88.0 Allergy status to penicillin; Z88.1 Allergy status to other antibiotic agents; Z88.2 Allergy status to sulfonamides; Z88.5 Allergy status to narcotic agent; Z88.8 Allergy status to other drugs, medicaments and biological substances; Z91.048 Other nonmedicinal substance allergy status | CPT/HCPCS: 19083; 19084; 88305; 88341; 88342 ==

== ENCOUNTER 2022-05-22 06:20 | Day surgery (SDC) | payer MEDICARE ==
[2022-05-21 10:15] VITALS: BMI 31.8
[2022-05-22] MEDS ORDERED: Fentanyl 100 MCG/2 ML VIAL ONE (09:24)
[2022-05-22] MEDS ORDERED: Meropenem 1 GM in Sodium Chloride 0.9% 100 ML IVPB SCH (09:30)
[2022-05-22] MEDS ORDERED: Ondansetron PF 4 MG/2 ML Vial ONE ×2 (09:43→12:29)
[2022-05-22] MEDS ORDERED: Lidocaine 1% MPF 2 ML VIAL ONE (09:43)
[2022-05-22] MEDS ORDERED: PROPOFOL 200 MG/20 ML VIAL ONE (09:43)
[2022-05-22] MEDS ORDERED: Dexamethasone 20 MG/5 ML VIAL ONE (09:43)
[2022-05-22] MEDS ORDERED: Iopamidol 30 ML ONE (10:06)
== END 2022-05-22 14:30 | disposition home or self-care (01) ==
LOC: SDC 06:20
PROVIDERS: ATTEND Urology
PROC: 0TC38ZZ Extirpation of Matter from Right Kidney Pelvis, Via Natural or Artificial Opening Endoscopic (ICD-10-PCS; principal; 2022-05-22)
PROC: 0T768DZ Dilation of Right Ureter with Intraluminal Device, Via Natural or Artificial Opening Endoscopic (ICD-10-PCS; 2022-05-22)
DX: N20.0 Calculus of kidney (principal); I10 Essential (primary) hypertension; K21.9 Gastro-esophageal reflux disease without esophagitis; M19.90 Unspecified osteoarthritis, unspecified site; I48.91 Unspecified atrial fibrillation; Z79.01 Long term (current) use of anticoagulants; Z79.84 Long term (current) use of oral hypoglycemic drugs; Z79.899 Other long term (current) drug therapy; Z88.0 Allergy status to penicillin; Z88.1 Allergy status to other antibiotic agents; Z88.2 Allergy status to sulfonamides; Z88.5 Allergy status to narcotic agent; Z88.8 Allergy status to other drugs, medicaments and biological substances; Z91.048 Other nonmedicinal substance allergy status
CPT/HCPCS: 74420; 82365; 88300; C2617; J1100; J2185; J2405; J2704; J3010; J3490; Q9967

== ENCOUNTER 2022-05-27 06:34 | Inpatient (IN) | payer MEDICARE ==
[2022-05-27] MEDS ORDERED: Morphine 4 MG/ML VIAL ONE (07:15)
[2022-05-27] MEDS ORDERED: Ondansetron PF 4 MG/2 ML Vial ONE (07:27)
[2022-05-27 07:39] LABS: #Eosinphils 0.1 thou/uL (0.0-0.7); #Lymphocytes 1.1 thou/uL (1.20-3.40); #Monocytes 0.6 thou/uL (0.11-0.59); #Neutrophils 4.7 thou/uL (1.40-6.50); %Basophils 0.5 % (0.0-1.0); %Eosinophils 2.2 % (0.0-10.0); %Lymphocytes 16.9 % (21.0-51.0); %Monocytes 8.3 % (0.0-10.0); Hemoglobin 10.9 g/dL (12.0-16.0); Mean Corpuscular HGB CONC 31.2 g/dL (32.0-36.0); Mean Corpuscular Hemoglobin 27.3 pg (27.0-31.0); Mean Corpuscular Volume 87.5 fL (78.0-98.0); Mean Platelet Volume 7.9 fL (7.4-10.4); Platelet Count 209 thou/uL (130-400); RBC Distribution Width 16.1 % (11.5-14.5); Red Blood Cell (RBC) Count 3.98 mill/uL (4.20-5.40); White Blood Cell (WBC) Count 6.6 thou/uL (4.8-10.8)
[2022-05-27 07:57] LABS: ALT (SGPT) 14 U/L (8-55); AST (SGOT) 10 U/L (5-34); Albumin 3.1 g/dL (3.4-4.8); Alkaline Phosphatase 58 U/L (40-110); Anion Gap 15 mmol/L (10-20); BUN (Urea Nitrogen) 20 mg/dL (9.8-20.1); Bilirubin, Total 0.7 mg/dL (0.2-1.2); CK (CPK) Less than 9 U/L (29-168); Calc. Creatinine Clearance 0 mL/min (70-130); Calcium 8.8 mg/dL (7.8-10.44); Carbon Dioxide 28 mmol/L (23-31); Chloride 102 mmol/L (98-107); Estimated GFR 55; Globulin 2.7 g/dL (2.4-3.5); Glucose 84 mg/dL (83-110); Lipase 7 U/L (8-78); Potassium 3.8 mmol/L (3.5-5.1); Protein, Total 5.8 g/dL (5.8-8.1); Sodium 141 mmol/L (136-145)
[2022-05-27] MEDS ORDERED: Iopamidol-370 76% 500 ML 1 ML ONE (08:31)
[2022-05-27] MEDS ORDERED: metroNIDAZOLE 500 MG/100 ML BAG ONE (08:50)
[2022-05-27] MEDS ORDERED: Meropenem 1 GM in Sodium Chloride 0.9% 100 ML IVPB SCH ×2 (09:15→22:00)
[2022-05-27] MEDS ORDERED: HYDROcodone/Acetaminophen 5/325 mg Tablet PO PRN ×2 (09:17→14:16)
[2022-05-27] MEDS ORDERED: Senokot S 8.6-50 MG TAB PO PRN (09:17)
[2022-05-27] MEDS ORDERED: Calcium Carbonate 500 MG ChewTAB PO PRN (09:17)
[2022-05-27] MEDS ORDERED: HumaLOG 300 UNITS/3 ML VIAL SC PRN (09:20)
[2022-05-27] MEDS ORDERED: Dextrose 5% in Water 1,000 ML IV PRN (09:20)
[2022-05-27] MEDS ORDERED: Dextrose 50% Abboject 50 ML SYRINGE SLOW IVP PRN (09:20)
[2022-05-27 10:22] LABS: SARS-CoV-2 NAA Rapid Test Not Detected (NotDetected)
[2022-05-27 10:25] VITALS: BMI 29.0
[2022-05-27] MEDS: Ondansetron PF 4 MG/2 ML Vial IVP PRN (10:40)
[2022-05-27] MEDS: Sodium Chloride 0.9% 1,000 ML IV SCH ×2 (10:40→23:09)
[2022-05-27] MEDS ORDERED: Phenazopyridine HCl 100 MG TAB PO PRN ×2 (13:54→14:23)
[2022-05-27 13:55] LABS: RBC/HPF Greater than 50 HPF (0-3)
[2022-05-27 13:56] LABS: Bacteria/HPF Rare-Few HPF (None Seen); Squamous Epithelial None Seen HPF (0-3); WBC/HPF 0-3 HPF (0-3)
[2022-05-27] MEDS: Acetaminophen 325 MG TAB PO PRN (14:09)
[2022-05-27] MEDS ORDERED: diphenhydrAMINE 50 MG/ML VIAL IVP PRN (14:23)
[2022-05-27] MEDS: HYDROcodone/Acetaminophen 5/325 mg Tablet PO PRN ×2 (14:41→21:54)
[2022-05-27] MEDS: Docusate 100 MG CAP PO SCH (20:43)
[2022-05-27] MEDS: Meropenem 1 GM in Sodium Chloride 0.9% 100 ML IVPB SCH (20:44)
[2022-05-27] MEDS: Trospium 20 MG TAB PO SCH (21:49)
[2022-05-28] MEDS ORDERED: Apixaban 5 MG TAB PO SCH ×2 (01:30→09:00)
[2022-05-28 04:44] LABS: #Eosinphils 0.1 thou/uL (0.0-0.7); #Lymphocytes 0.9 thou/uL (1.20-3.40); #Monocytes 0.6 thou/uL (0.11-0.59); #Neutrophils 4.6 thou/uL (1.40-6.50); %Basophils 0.3 % (0.0-1.0); %Eosinophils 1.9 % (0.0-10.0); %Neutrophils 74.8 % (42.0-75.0); Hemoglobin 9.9 g/dL (12.0-16.0); Mean Corpuscular HGB CONC 31.6 g/dL (32.0-36.0); Mean Corpuscular Hemoglobin 28.2 pg (27.0-31.0); Mean Corpuscular Volume 89.1 fL (78.0-98.0); Mean Platelet Volume 7.7 fL (7.4-10.4); Platelet Count 192 thou/uL (130-400); RBC Distribution Width 15.8 % (11.5-14.5); Red Blood Cell (RBC) Count 3.51 mill/uL (4.20-5.40); White Blood Cell (WBC) Count 6.1 thou/uL (4.8-10.8)
[2022-05-28 04:56] LABS: Anion Gap 13 mmol/L (10-20); BUN (Urea Nitrogen) 14 mg/dL (9.8-20.1); Calc. Creatinine Clearance 58 mL/min (70-130); Carbon Dioxide 28 mmol/L (23-31); Chloride 105 mmol/L (98-107); Potassium 4.1 mmol/L (3.5-5.1); Sodium 142 mmol/L (136-145)
[2022-05-28 04:57] LABS: Calcium 8.3 mg/dL (7.8-10.44); Estimated GFR 58; Glucose 83 mg/dL (83-110)
[2022-05-28] MEDS ORDERED: Metoprolol Tartrate 5 MG/5 ML VIAL IVP SCH (05:45)
[2022-05-28] MEDS ORDERED: Non-Formulary Item 1 EACH (Diltiazem Hcl [Diltiazem 12hr Er] 120 MG Cap.Er.12h) PO SCH (09:00)
[2022-05-28] MEDS ORDERED: Non-Formulary Item 1 EACH (Budesonide-Formoterol [Symbicort 160-4.5] 160 MG/4.5 MG Aer) INH SCH (09:00)
[2022-05-28] MEDS ORDERED: Non-Formulary Item 1 EACH (Omeprazole [Omeprazole] 20 MG Capsule.Dr) PO SCH (09:00)
[2022-05-28] MEDS: Amiodarone 200 MG TAB PO SCH (09:58)
[2022-05-28] MEDS: Docusate 100 MG CAP PO SCH ×2 (09:59→20:29)
[2022-05-28] MEDS: Ezetimibe 10 MG TAB PO SCH (10:00)
[2022-05-28] MEDS: Trospium 20 MG TAB PO SCH ×2 (10:00→20:29)
[2022-05-28] MEDS: Montelukast Sodium 10 mg Tablet PO SCH (10:00)
[2022-05-28] MEDS: Meropenem 1 GM in Sodium Chloride 0.9% 100 ML IVPB SCH ×2 (10:01→20:30)
[2022-05-28] MEDS: Sodium Chloride 0.9% 1,000 ML IV SCH (16:31)
[2022-05-28] MEDS: Acetaminophen 325 MG TAB PO PRN (17:18)
[2022-05-28] MEDS: Mometasone 200 MCG/Formoterol 5 MCG 120 PUFF INHALER INH SCH (19:57)
[2022-05-28] MEDS: hydrOXYzine 25 MG TAB PO SCH (20:30)
[2022-05-28] MEDS ORDERED: Non-Formulary Item 1 EACH (Hydroxyzine Hcl [Hydroxyzine Hcl] 50 MG Tablet) PO SCH (21:00)
[2022-05-29 05:01] LABS: Hemoglobin 10.1 g/dL (12.0-16.0); Mean Corpuscular HGB CONC 31.5 g/dL (32.0-36.0); Mean Corpuscular Volume 88.9 fL (78.0-98.0); Mean Platelet Volume 7.6 fL (7.4-10.4); Platelet Count 205 thou/uL (130-400); Red Blood Cell (RBC) Count 3.59 mill/uL (4.20-5.40); White Blood Cell (WBC) Count 5.9 thou/uL (4.8-10.8)
[2022-05-29] MEDS: Sodium Chloride 0.9% 1,000 ML IV SCH ×3 (06:22→23:30)
[2022-05-29] MEDS: Trospium 20 MG TAB PO SCH ×2 (08:55→21:05)
[2022-05-29] MEDS: Letrozole 2.5 MG TAB PO SCH (08:55)
[2022-05-29] MEDS: Ezetimibe 10 MG TAB PO SCH (08:56)
[2022-05-29] MEDS: Montelukast Sodium 10 mg Tablet PO SCH (08:56)
[2022-05-29] MEDS: Docusate 100 MG CAP PO SCH ×2 (08:56→21:05)
[2022-05-29] MEDS: Amiodarone 200 MG TAB PO SCH (08:56)
[2022-05-29] MEDS ORDERED: Letrozole 2.5 MG TAB PO SCH (09:00)
[2022-05-29] MEDS: Meropenem 1 GM in Sodium Chloride 0.9% 100 ML IVPB SCH ×2 (10:21→23:30)
[2022-05-29] MEDS: Mometasone 200 MCG/Formoterol 5 MCG 120 PUFF INHALER INH SCH ×3 (10:21→18:47)
[2022-05-29] MEDS: hydrOXYzine 25 MG TAB PO PRN (15:30)
[2022-05-29] MEDS: hydrOXYzine 25 MG TAB PO SCH (21:06)
[2022-05-29] MEDS: Polyethylene Glycol 3350 17 GM Packet PO SCH (21:06)
[2022-05-29] MEDS: Amiodarone 450 MG in Dextrose 5% in Water 250 ML IVPB SCH (21:07)
[2022-05-29] MEDS: ALPRAZolam 0.25 MG TAB PO PRN (23:30)
[2022-05-30 04:38] LABS: Hemoglobin 10.1 g/dL (12.0-16.0); Mean Corpuscular HGB CONC 31.1 g/dL (32.0-36.0); Mean Corpuscular Hemoglobin 27.7 pg (27.0-31.0); Mean Corpuscular Volume 89.2 fL (78.0-98.0); Mean Platelet Volume 7.5 fL (7.4-10.4); Platelet Count 219 thou/uL (130-400); Red Blood Cell (RBC) Count 3.64 mill/uL (4.20-5.40); White Blood Cell (WBC) Count 8.6 thou/uL (4.8-10.8)
[2022-05-30 04:57] LABS: Anion Gap 12 mmol/L (10-20); BUN (Urea Nitrogen) 10 mg/dL (9.8-20.1); Calc. Creatinine Clearance 72 mL/min (70-130); Calcium 8.7 mg/dL (7.8-10.44); Carbon Dioxide 26 mmol/L (23-31); Chloride 106 mmol/L (98-107); Estimated GFR 75; Glucose 134 mg/dL (83-110); Sodium 140 mmol/L (136-145)
[2022-05-30] MEDS: Amiodarone 450 MG in Dextrose 5% in Water 250 ML IVPB SCH (06:09)
[2022-05-30] MEDS: Docusate 100 MG CAP PO SCH ×2 (09:04→21:07)
[2022-05-30] MEDS: Montelukast Sodium 10 mg Tablet PO SCH (09:04)
[2022-05-30] MEDS: Trospium 20 MG TAB PO SCH ×2 (09:04→21:08)
[2022-05-30] MEDS: Letrozole 2.5 MG TAB PO SCH (09:05)
[2022-05-30] MEDS: Polyethylene Glycol 3350 17 GM Packet PO SCH (09:05)
[2022-05-30] MEDS: Ezetimibe 10 MG TAB PO SCH (09:06)
[2022-05-30] MEDS ORDERED: Furosemide 40 MG/4 ML VIAL SLOW IVP SCH (09:45)
[2022-05-30] MEDS: Mometasone 200 MCG/Formoterol 5 MCG 120 PUFF INHALER INH SCH ×2 (09:45→19:44)
[2022-05-30] MEDS: Meropenem 1 GM in Sodium Chloride 0.9% 100 ML IVPB SCH ×2 (09:47→17:24)
[2022-05-30] MEDS ORDERED: Potassium Chloride 20 MEQ TAB PO SCH (12:00)
[2022-05-30] MEDS: hydrOXYzine 25 MG TAB PO SCH (21:07)
[2022-05-31] MEDS: Amiodarone 450 MG in Dextrose 5% in Water 250 ML IVPB SCH (00:20)
[2022-05-31] MEDS: Meropenem 1 GM in Sodium Chloride 0.9% 100 ML IVPB SCH ×3 (02:44→17:41)
[2022-05-31 05:10] LABS: Anion Gap 12 mmol/L (10-20); BUN (Urea Nitrogen) 9 mg/dL (9.8-20.1); Calc. Creatinine Clearance 71 mL/min (70-130); Calcium 8.5 mg/dL (7.8-10.44); Carbon Dioxide 27 mmol/L (23-31); Chloride 104 mmol/L (98-107); Estimated GFR 74; Glucose 145 mg/dL (83-110); Sodium 139 mmol/L (136-145)
[2022-05-31] MEDS: Mometasone 200 MCG/Formoterol 5 MCG 120 PUFF INHALER INH SCH ×2 (07:05→18:22)
[2022-05-31] MEDS ORDERED: Amiodarone 200 MG TAB PO SCH ×2 (09:22→09:30)
[2022-05-31] MEDS: Letrozole 2.5 MG TAB PO SCH (09:42)
[2022-05-31] MEDS: Ezetimibe 10 MG TAB PO SCH (09:42)
[2022-05-31] MEDS: Trospium 20 MG TAB PO SCH ×2 (09:43→20:48)
[2022-05-31] MEDS: Montelukast Sodium 10 mg Tablet PO SCH (09:43)
[2022-05-31] MEDS: Docusate 100 MG CAP PO SCH (09:43)
[2022-05-31] MEDS: Polyethylene Glycol 3350 17 GM Packet PO SCH (09:43)
[2022-05-31] MEDS: Empagliflozin 10 MG TAB PO SCH (10:01)
[2022-05-31] MEDS: Furosemide 20 MG/2 ML VIAL SLOW IVP SCH (10:11)
[2022-05-31] MEDS ORDERED: Potassium Chloride 20 MEQ TAB PO SCH (12:00)
[2022-05-31] MEDS: Levalbuterol HCl 0.63 MG/3 ML NEB NEB SCH ×2 (12:36→18:22)
[2022-05-31] MEDS ORDERED: Furosemide 20 MG/2 ML VIAL SLOW IVP SCH (14:00)
[2022-05-31] MEDS: Amiodarone 200 MG TAB PO SCH ×2 (15:20→20:48)
[2022-05-31] MEDS: hydrOXYzine 25 MG TAB PO SCH (20:49)
[2022-05-31] MEDS: Senokot S 8.6-50 MG TAB PO SCH (20:49)
[2022-06-01] MEDS: Meropenem 1 GM in Sodium Chloride 0.9% 100 ML IVPB SCH ×3 (01:20→17:25)
[2022-06-01 05:00] LABS: Anion Gap 11 mmol/L (10-20); BUN (Urea Nitrogen) 7 mg/dL (9.8-20.1); Calc. Creatinine Clearance 72 mL/min (70-130); Calcium 8.7 mg/dL (7.8-10.44); Carbon Dioxide 33 mmol/L (23-31); Chloride 104 mmol/L (98-107); Estimated GFR 75; Glucose 108 mg/dL (83-110); Potassium 3.5 mmol/L (3.5-5.1); Sodium 144 mmol/L (136-145)
[2022-06-01] MEDS: Mometasone 200 MCG/Formoterol 5 MCG 120 PUFF INHALER INH SCH ×2 (07:10→19:39)
[2022-06-01] MEDS: Levalbuterol HCl 0.63 MG/3 ML NEB NEB SCH ×3 (07:10→18:39)
[2022-06-01] MEDS: Montelukast Sodium 10 mg Tablet PO SCH (08:34)
[2022-06-01] MEDS: Ezetimibe 10 MG TAB PO SCH (08:34)
[2022-06-01] MEDS: Polyethylene Glycol 3350 17 GM Packet PO SCH ×2 (08:34→21:00)
[2022-06-01] MEDS: Furosemide 20 MG/2 ML VIAL SLOW IVP SCH (08:34)
[2022-06-01] MEDS: Empagliflozin 10 MG TAB PO SCH (08:34)
[2022-06-01] MEDS: Letrozole 2.5 MG TAB PO SCH (08:34)
[2022-06-01] MEDS: Trospium 20 MG TAB PO SCH ×2 (08:35→21:00)
[2022-06-01] MEDS: Senokot S 8.6-50 MG TAB PO SCH ×2 (08:36→21:00)
[2022-06-01] MEDS: Amiodarone 200 MG TAB PO SCH ×3 (08:36→20:59)
[2022-06-01] MEDS ORDERED: Potassium Chloride 20 MEQ TAB PO SCH (12:00)
[2022-06-01] MEDS ORDERED: Glycerin Pediatric Sup. (4ml) PR SCH (13:00)
[2022-06-01] MEDS: Aluminum & Magnesium Hydroxide 60 ML, diphenhydrAMINE 150 MG, Lidocaine 2% Viscous Solu... SSP SCH ×2 (17:25→21:57)
[2022-06-01] MEDS: hydrOXYzine 25 MG TAB PO SCH (20:59)
[2022-06-02 05:07] LABS: Anion Gap 10 mmol/L (10-20); BUN (Urea Nitrogen) 8 mg/dL (9.8-20.1); Calc. Creatinine Clearance 72 mL/min (70-130); Calcium 9.1 mg/dL (7.8-10.44); Carbon Dioxide 36 mmol/L (23-31); Chloride 101 mmol/L (98-107); Estimated GFR 65; Glucose 132 mg/dL (83-110); Potassium 3.8 mmol/L (3.5-5.1); Sodium 143 mmol/L (136-145)
[2022-06-02] MEDS: Levalbuterol HCl 0.63 MG/3 ML NEB NEB SCH ×3 (07:32→19:14)
[2022-06-02] MEDS: Mometasone 200 MCG/Formoterol 5 MCG 120 PUFF INHALER INH SCH ×2 (07:32→19:16)
[2022-06-02] MEDS: Aluminum & Magnesium Hydroxide 60 ML, diphenhydrAMINE 150 MG, Lidocaine 2% Viscous Solu... SSP SCH (08:49)
[2022-06-02] MEDS: Empagliflozin 10 MG TAB PO SCH (08:52)
[2022-06-02] MEDS: Letrozole 2.5 MG TAB PO SCH (08:52)
[2022-06-02] MEDS: Montelukast Sodium 10 mg Tablet PO SCH (08:52)
[2022-06-02] MEDS: Ezetimibe 10 MG TAB PO SCH (08:54)
[2022-06-02] MEDS: Senokot S 8.6-50 MG TAB PO SCH (08:54)
[2022-06-02] MEDS: Trospium 20 MG TAB PO SCH ×2 (08:54→20:58)
[2022-06-02] MEDS: Polyethylene Glycol 3350 17 GM Packet PO SCH (08:54)
[2022-06-02] MEDS: Amiodarone 200 MG TAB PO SCH ×3 (08:57→20:58)
[2022-06-02] MEDS: Furosemide 20 MG/2 ML VIAL SLOW IVP SCH (08:57)
[2022-06-02] MEDS ORDERED: Benzonatate 100 MG CAP PO PRN (09:41)
[2022-06-02] MEDS: GUAIFENESIN SF SOLN 200 MG/10 ML UDCUP PO PRN ×2 (09:55→20:59)
[2022-06-02] MEDS ORDERED: Iopamidol-370 76% 500 ML 1 ML ONE (10:36)
[2022-06-02] MEDS ORDERED: methylPREDNISolone Sod Succ/PF 125 MG/2 ML VIAL IVP SCH (11:00)
[2022-06-02] MEDS: hydrOXYzine 25 MG TAB PO SCH (20:59)
[2022-06-02] MEDS: ALPRAZolam 0.25 MG TAB PO PRN (23:03)
[2022-06-03 05:25] LABS: Anion Gap 13 mmol/L (10-20); BUN (Urea Nitrogen) 10 mg/dL (9.8-20.1); Calc. Creatinine Clearance 72 mL/min (70-130); Carbon Dioxide 34 mmol/L (23-31); Chloride 98 mmol/L (98-107); Estimated GFR 65; Glucose 157 mg/dL (83-110); Potassium 4.5 mmol/L (3.5-5.1); Sodium 140 mmol/L (136-145)
[2022-06-03] MEDS: Levalbuterol HCl 0.63 MG/3 ML NEB NEB SCH ×3 (07:18→19:12)
[2022-06-03] MEDS: Mometasone 200 MCG/Formoterol 5 MCG 120 PUFF INHALER INH SCH ×2 (07:18→19:13)
[2022-06-03] MEDS ORDERED: GoLYTELY 4,000 ml Bottle PO SCH (08:00)
[2022-06-03] MEDS: Amiodarone 200 MG TAB PO SCH ×3 (12:33→20:38)
[2022-06-03] MEDS: Trospium 20 MG TAB PO SCH ×2 (12:34→20:38)
[2022-06-03] MEDS: Empagliflozin 10 MG TAB PO SCH (14:59)
[2022-06-03] MEDS: Ezetimibe 10 MG TAB PO SCH (15:00)
[2022-06-03] MEDS: Letrozole 2.5 MG TAB PO SCH (15:00)
[2022-06-03] MEDS: Montelukast Sodium 10 mg Tablet PO SCH (15:00)
[2022-06-03] MEDS: Furosemide 20 MG TAB PO SCH (15:00)
[2022-06-03] MEDS: hydrOXYzine 25 MG TAB PO SCH (20:38)
[2022-06-04] MEDS: Levalbuterol HCl 0.63 MG/3 ML NEB NEB SCH ×3 (07:36→18:55)
[2022-06-04] MEDS: Mometasone 200 MCG/Formoterol 5 MCG 120 PUFF INHALER INH SCH ×2 (07:39→18:58)
[2022-06-04] MEDS: Trospium 20 MG TAB PO SCH ×2 (09:49→21:26)
[2022-06-04] MEDS: Letrozole 2.5 MG TAB PO SCH (09:49)
[2022-06-04] MEDS: Ezetimibe 10 MG TAB PO SCH (09:50)
[2022-06-04] MEDS: Furosemide 20 MG TAB PO SCH (09:50)
[2022-06-04] MEDS: Empagliflozin 10 MG TAB PO SCH (09:50)
[2022-06-04] MEDS: Montelukast Sodium 10 mg Tablet PO SCH (09:50)
[2022-06-04] MEDS: Amiodarone 200 MG TAB PO SCH ×3 (11:22→21:26)
[2022-06-04] MEDS ORDERED: GoLYTELY 4,000 ml Bottle PO SCH (11:45)
[2022-06-04] MEDS ORDERED: Sodium Chloride 0.9% 500 ML IV SCH (12:00)
[2022-06-04] MEDS: hydrOXYzine 25 MG TAB PO SCH (21:26)
[2022-06-05 05:00] LABS: #Eosinphils 0.1 thou/uL (0.0-0.7); #Lymphocytes 1.2 thou/uL (1.20-3.40); #Monocytes 0.4 thou/uL (0.11-0.59); #Neutrophils 3.3 thou/uL (1.40-6.50); %Basophils 0.4 % (0.0-1.0); %Eosinophils 2.7 % (0.0-10.0); %Monocytes 7.8 % (0.0-10.0); %Neutrophils 65.1 % (42.0-75.0); Hemoglobin 9.6 g/dL (12.0-16.0); Mean Corpuscular HGB CONC 30.7 g/dL (32.0-36.0); Mean Corpuscular Hemoglobin 27.1 pg (27.0-31.0); Mean Corpuscular Volume 88.5 fL (78.0-98.0); Mean Platelet Volume 7.8 fL (7.4-10.4); Platelet Count 226 thou/uL (130-400); RBC Distribution Width 15.9 % (11.5-14.5); Red Blood Cell (RBC) Count 3.53 mill/uL (4.20-5.40); White Blood Cell (WBC) Count 5.1 thou/uL (4.8-10.8)
[2022-06-05 05:46] LABS: ALT (SGPT) 9 U/L (8-55); AST (SGOT) 12 U/L (5-34); Albumin 2.9 g/dL (3.4-4.8); Alkaline Phosphatase 52 U/L (40-110); BUN (Urea Nitrogen) 12 mg/dL (9.8-20.1); Bilirubin, Total 0.7 mg/dL (0.2-1.2); Calc. Creatinine Clearance 73 mL/min (70-130); Calcium 8.8 mg/dL (7.8-10.44); Estimated GFR 70; Globulin 2.1 g/dL (2.4-3.5); Glucose 94 mg/dL (83-110)
[2022-06-05 05:55] LABS: Anion Gap 16 mmol/L (10-20); Carbon Dioxide 33 mmol/L (23-31); Chloride 100 mmol/L (98-107); Potassium 3.2 mmol/L (3.5-5.1); Sodium 146 mmol/L (136-145)
[2022-06-05] MEDS: Levalbuterol HCl 0.63 MG/3 ML NEB NEB SCH ×3 (07:58→19:02)
[2022-06-05] MEDS: Mometasone 200 MCG/Formoterol 5 MCG 120 PUFF INHALER INH SCH ×2 (07:59→19:03)
[2022-06-05] MEDS: Ezetimibe 10 MG TAB PO SCH (08:17)
[2022-06-05] MEDS: Empagliflozin 10 MG TAB PO SCH (08:17)
[2022-06-05] MEDS: Montelukast Sodium 10 mg Tablet PO SCH (08:17)
[2022-06-05] MEDS: Trospium 20 MG TAB PO SCH ×2 (08:17→20:43)
[2022-06-05] MEDS: Furosemide 20 MG TAB PO SCH (08:17)
[2022-06-05] MEDS: Amiodarone 200 MG TAB PO SCH ×4 (08:21→20:43)
[2022-06-05] MEDS: Letrozole 2.5 MG TAB PO SCH (08:25)
[2022-06-05] MEDS ORDERED: Potassium Chloride 40 MEQ in Premix Bag 1 BAG IVPB SCH (08:45)
[2022-06-05] MEDS: Senokot S 8.6-50 MG TAB PO SCH ×2 (10:14→20:43)
[2022-06-05] MEDS: hydrOXYzine 25 MG TAB PO SCH (20:43)
[2022-06-06 04:44] LABS: #Basophils 0.1 thou/uL (0.0-0.2); #Eosinphils 0.1 thou/uL (0.0-0.7); #Lymphocytes 1.1 thou/uL (1.20-3.40); #Monocytes 0.5 thou/uL (0.11-0.59); #Neutrophils 4.5 thou/uL (1.40-6.50); %Basophils 0.9 % (0.0-1.0); %Eosinophils 1.7 % (0.0-10.0); %Lymphocytes 17.7 % (21.0-51.0); %Neutrophils 71.8 % (42.0-75.0); Hemoglobin 10.2 g/dL (12.0-16.0); Mean Corpuscular Hemoglobin 27.4 pg (27.0-31.0); Mean Corpuscular Volume 88.4 fL (78.0-98.0); Mean Platelet Volume 7.6 fL (7.4-10.4); Platelet Count 233 thou/uL (130-400); RBC Distribution Width 15.8 % (11.5-14.5); Red Blood Cell (RBC) Count 3.72 mill/uL (4.20-5.40); White Blood Cell (WBC) Count 6.3 thou/uL (4.8-10.8)
[2022-06-06 05:02] LABS: ALT (SGPT) 12 U/L (8-55); AST (SGOT) 10 U/L (5-34); Alkaline Phosphatase 60 U/L (40-110); Anion Gap 10 mmol/L (10-20); BUN (Urea Nitrogen) 9 mg/dL (9.8-20.1); Bilirubin, Total 0.7 mg/dL (0.2-1.2); Calc. Creatinine Clearance 72 mL/min (70-130); Calcium 8.7 mg/dL (7.8-10.44); Carbon Dioxide 36 mmol/L (23-31); Chloride 102 mmol/L (98-107); Estimated GFR 69; Globulin 2.3 g/dL (2.4-3.5); Glucose 125 mg/dL (83-110); Potassium 3.1 mmol/L (3.5-5.1); Protein, Total 5.3 g/dL (5.8-8.1); Sodium 145 mmol/L (136-145)
[2022-06-06] MEDS: Levalbuterol HCl 0.63 MG/3 ML NEB NEB SCH ×3 (08:01→18:29)
[2022-06-06] MEDS: Mometasone 200 MCG/Formoterol 5 MCG 120 PUFF INHALER INH SCH ×2 (08:02→18:32)
[2022-06-06] MEDS: Amiodarone 200 MG TAB PO SCH ×3 (08:58→20:44)
[2022-06-06] MEDS: Empagliflozin 10 MG TAB PO SCH (08:59)
[2022-06-06] MEDS: Letrozole 2.5 MG TAB PO SCH (08:59)
[2022-06-06] MEDS: Ezetimibe 10 MG TAB PO SCH (08:59)
[2022-06-06] MEDS: Furosemide 20 MG TAB PO SCH (08:59)
[2022-06-06] MEDS: Montelukast Sodium 10 mg Tablet PO SCH (08:59)
[2022-06-06] MEDS: Senokot S 8.6-50 MG TAB PO SCH ×2 (09:00→20:44)
[2022-06-06] MEDS: Trospium 20 MG TAB PO SCH ×2 (09:00→20:44)
[2022-06-06] MEDS ORDERED: Potassium Chloride 20 MEQ TAB PO SCH (12:00)
[2022-06-06] MEDS: hydrOXYzine 25 MG TAB PO SCH (20:45)
[2022-06-07 04:22] LABS: #Eosinphils 0.1 thou/uL (0.0-0.7); #Lymphocytes 1.4 thou/uL (1.20-3.40); #Monocytes 0.4 thou/uL (0.11-0.59); #Neutrophils 3.3 thou/uL (1.40-6.50); %Basophils 0.2 % (0.0-1.0); %Eosinophils 1.7 % (0.0-10.0); %Lymphocytes 26.4 % (21.0-51.0); %Monocytes 7.7 % (0.0-10.0); Hemoglobin 10.2 g/dL (12.0-16.0); Mean Corpuscular HGB CONC 31.7 g/dL (32.0-36.0); Mean Corpuscular Hemoglobin 27.8 pg (27.0-31.0); Mean Corpuscular Volume 87.7 fL (78.0-98.0); Mean Platelet Volume 7.5 fL (7.4-10.4); Platelet Count 221 thou/uL (130-400); RBC Distribution Width 15.7 % (11.5-14.5); Red Blood Cell (RBC) Count 3.66 mill/uL (4.20-5.40); White Blood Cell (WBC) Count 5.1 thou/uL (4.8-10.8)
[2022-06-07 04:44] LABS: Anion Gap 14 mmol/L (10-20); BUN (Urea Nitrogen) 10 mg/dL (9.8-20.1); Calc. Creatinine Clearance 74 mL/min (70-130); Calcium 8.8 mg/dL (7.8-10.44); Carbon Dioxide 33 mmol/L (23-31); Chloride 102 mmol/L (98-107); Estimated GFR 71; Glucose 80 mg/dL (83-110); Potassium 3.4 mmol/L (3.5-5.1); Sodium 146 mmol/L (136-145)
[2022-06-07] MEDS: Mometasone 200 MCG/Formoterol 5 MCG 120 PUFF INHALER INH SCH ×2 (07:22→18:46)
[2022-06-07] MEDS: Levalbuterol HCl 0.63 MG/3 ML NEB NEB SCH ×3 (07:22→18:44)
[2022-06-07] MEDS ORDERED: Lidocaine 1% MPF 2 ML VIAL ONE (09:55)
[2022-06-07] MEDS ORDERED: PROPOFOL 200 MG/20 ML VIAL ONE (09:55)
[2022-06-07] MEDS ORDERED: Phenylephrine 10 MG/ML VIAL ONE (09:55)
[2022-06-07] MEDS ORDERED: Fleet Enema 133 ML BOT PR SCH (10:15)
[2022-06-07] MEDS ORDERED: Ondansetron HCl/PF 4 MG/2 ML Vial IVP PRN (10:52)
[2022-06-07] MEDS ORDERED: Promethazine HCl 25 MG/ML VIAL IM PRN (10:52)
[2022-06-07] MEDS ORDERED: Promethazine HCl 25 MG/ML VIAL IVPB PRN (10:52)
[2022-06-07] MEDS: Amiodarone 200 MG TAB PO SCH ×3 (11:36→21:08)
[2022-06-07] MEDS ORDERED: Meropenem 1 GM in Sodium Chloride 0.9% 100 ML IVPB SCH (12:30)
[2022-06-07] MEDS: Trospium 20 MG TAB PO SCH ×2 (13:20→21:08)
[2022-06-07] MEDS: Montelukast Sodium 10 mg Tablet PO SCH (13:21)
[2022-06-07] MEDS: Senokot S 8.6-50 MG TAB PO SCH ×2 (13:21→21:08)
[2022-06-07] MEDS: Ezetimibe 10 MG TAB PO SCH (13:23)
[2022-06-07] MEDS: Empagliflozin 10 MG TAB PO SCH (13:23)
[2022-06-07] MEDS: Letrozole 2.5 MG TAB PO SCH (13:23)
[2022-06-07] MEDS: Furosemide 20 MG TAB PO SCH (13:24)
[2022-06-07] MEDS ORDERED: MEROPENEM 1 GM/50 ML 1 GM in Premix Bag 1 BAG IVPB SCH (14:00)
[2022-06-07] MEDS: metroNIDAZOLE 500 MG in Premix Bag 1 BAG IVPB SCH (15:56)
[2022-06-07] MEDS: hydrOXYzine 25 MG TAB PO SCH (21:07)
[2022-06-07] MEDS: Meropenem 1 GM in Sodium Chloride 0.9% 100 ML IVPB SCH (21:08)
[2022-06-08] MEDS: metroNIDAZOLE 500 MG in Premix Bag 1 BAG IVPB SCH ×4 (02:57→22:18)
[2022-06-08 04:32] LABS: #Eosinphils 0.1 thou/uL (0.0-0.7); #Lymphocytes 0.9 thou/uL (1.20-3.40); #Monocytes 0.5 thou/uL (0.11-0.59); #Neutrophils 3.7 thou/uL (1.40-6.50); %Basophils 0.4 % (0.0-1.0); %Eosinophils 1.4 % (0.0-10.0); %Lymphocytes 16.7 % (21.0-51.0); %Monocytes 9.4 % (0.0-10.0); %Neutrophils 72.1 % (42.0-75.0); Mean Corpuscular HGB CONC 31.4 g/dL (32.0-36.0); Mean Corpuscular Volume 89.1 fL (78.0-98.0); Mean Platelet Volume 10.8 fL (7.4-10.4); Platelet Count 143 thou/uL (130-400); RBC Distribution Width 15.7 % (11.5-14.5); Red Blood Cell (RBC) Count 3.56 mill/uL (4.20-5.40); White Blood Cell (WBC) Count 5.1 thou/uL (4.8-10.8)
[2022-06-08 05:12] LABS: ALT (SGPT) 9 U/L (8-55); AST (SGOT) 16 U/L (5-34); Albumin 2.5 g/dL (3.4-4.8); Alkaline Phosphatase 52 U/L (40-110); Anion Gap 14 mmol/L (10-20); BUN (Urea Nitrogen) 11 mg/dL (9.8-20.1); Bilirubin, Total 0.7 mg/dL (0.2-1.2); Calc. Creatinine Clearance 74 mL/min (70-130); Calcium 8.1 mg/dL (7.8-10.44); Carbon Dioxide 25 mmol/L (23-31); Chloride 102 mmol/L (98-107); Estimated GFR 72; Globulin 2.6 g/dL (2.4-3.5); Glucose 76 mg/dL (83-110); Magnesium 1.4 mg/dL (1.6-2.6); Phosphorus 3.1 mg/dL (2.3-4.7); Potassium 3.7 mmol/L (3.5-5.1); Protein, Total 5.1 g/dL (5.8-8.1); Sodium 137 mmol/L (136-145)
[2022-06-08] MEDS: Meropenem 1 GM in Sodium Chloride 0.9% 100 ML IVPB SCH ×3 (05:15→22:18)
[2022-06-08] MEDS: Mometasone 200 MCG/Formoterol 5 MCG 120 PUFF INHALER INH SCH ×2 (07:01→18:41)
[2022-06-08] MEDS: Levalbuterol HCl 0.63 MG/3 ML NEB NEB SCH ×3 (07:02→18:40)
[2022-06-08] MEDS: Empagliflozin 10 MG TAB PO SCH (08:50)
[2022-06-08] MEDS: Montelukast Sodium 10 mg Tablet PO SCH (08:50)
[2022-06-08] MEDS: Letrozole 2.5 MG TAB PO SCH (08:50)
[2022-06-08] MEDS: Trospium 20 MG TAB PO SCH ×2 (08:50→22:18)
[2022-06-08] MEDS: Furosemide 20 MG TAB PO SCH (08:50)
[2022-06-08] MEDS: Senokot S 8.6-50 MG TAB PO SCH ×2 (08:50→22:18)
[2022-06-08] MEDS: Amiodarone 200 MG TAB PO SCH ×3 (08:51→22:17)
[2022-06-08] MEDS: Ezetimibe 10 MG TAB PO SCH (08:51)
[2022-06-08] MEDS: Polyethylene Glycol 3350 17 GM Packet PO SCH (08:51)
[2022-06-08] MEDS: Lactated Ringer's 1,000 ML IV SCH ×2 (11:30→22:13)
[2022-06-08] MEDS ORDERED: SUGAMMADEX SODIUM 200 MG/2 ML VIAL ONE (14:25)
[2022-06-08] MEDS ORDERED: fentaNYL Citrate/PF 100 MCG/2 ML SYRINGE ONE (14:25)
[2022-06-08] MEDS ORDERED: EPINEPHrine 1 MG/ML AMP ONE (14:34)
[2022-06-08] MEDS ORDERED: Bupivacaine 0.25% HCL 30 ML VIAL ONE (14:34)
[2022-06-08] MEDS ORDERED: Midazolam HCl 2 mg/2 ml Vial ONE (15:06)
[2022-06-08] MEDS ORDERED: Succinylcholine 200 MG/10 ml SYRINGE FS ONE (15:16)
[2022-06-08] MEDS ORDERED: Ondansetron PF 4 MG/2 ML Vial ONE ×2 (15:16→18:48)
[2022-06-08] MEDS ORDERED: Rocuronium Bromide 10 MG/ML (10ML VIAL) ONE (15:16)
[2022-06-08] MEDS ORDERED: Glycopyrrolate 0.2 MG/ML 5 ML SYRINGE ONE (15:16)
[2022-06-08] MEDS ORDERED: NEOSTIGMINE 3 MG/3 ML SYR 3 MG/3 ML SYRINGE ONE (15:16)
[2022-06-08] MEDS ORDERED: PHENYLEPHRINE-NS 100 MCG/ML 10 ML SYRINGE ONE (15:16)
[2022-06-08] MEDS ORDERED: Phenylephrine 10 MG/ML VIAL ONE (16:14)
[2022-06-08] MEDS ORDERED: Albumin 5% 500 ML ONE (16:23)
[2022-06-08] MEDS ORDERED: Promethazine HCl 25 MG/ML VIAL IM PRN (18:29)
[2022-06-08] MEDS ORDERED: Promethazine HCl 25 MG/ML VIAL IVPB PRN (18:29)
[2022-06-08] MEDS ORDERED: Ondansetron HCl/PF 4 MG/2 ML Vial IVP PRN (18:29)
[2022-06-08] MEDS ORDERED: Fentanyl 100 MCG/2 ML VIAL ONE ×2 (19:23→20:02)
[2022-06-08] MEDS: Ondansetron PF 4 MG/2 ML Vial IVP PRN (21:02)
[2022-06-08] MEDS: hydrOXYzine 25 MG TAB PO SCH (22:17)
[2022-06-08] MEDS: Acetaminophen 325 MG TAB PO PRN (22:19)
[2022-06-09 03:47] LABS: #Eosinphils 0.1 thou/uL (0.0-0.7); #Lymphocytes 0.8 thou/uL (1.20-3.40); #Monocytes 0.4 thou/uL (0.11-0.59); #Neutrophils 5.4 thou/uL (1.40-6.50); %Basophils 0.1 % (0.0-1.0); %Lymphocytes 11.7 % (21.0-51.0); %Monocytes 6.4 % (0.0-10.0); %Neutrophils 80.8 % (42.0-75.0); Hemoglobin 9.5 g/dL (12.0-16.0); Mean Corpuscular HGB CONC 30.4 g/dL (32.0-36.0); Mean Corpuscular Hemoglobin 27.1 pg (27.0-31.0); Mean Corpuscular Volume 89.1 fL (78.0-98.0); Mean Platelet Volume 8.3 fL (7.4-10.4); Platelet Count 165 thou/uL (130-400); RBC Distribution Width 15.8 % (11.5-14.5); Red Blood Cell (RBC) Count 3.49 mill/uL (4.20-5.40); White Blood Cell (WBC) Count 6.6 thou/uL (4.8-10.8)
[2022-06-09 03:59] LABS: Anion Gap 13 mmol/L (10-20); BUN (Urea Nitrogen) 9 mg/dL (9.8-20.1); Calc. Creatinine Clearance 78 mL/min (70-130); Carbon Dioxide 29 mmol/L (23-31); Chloride 104 mmol/L (98-107); Estimated GFR 76; Glucose 86 mg/dL (83-110); Potassium 3.5 mmol/L (3.5-5.1); Sodium 142 mmol/L (136-145)
[2022-06-09] MEDS: Meropenem 1 GM in Sodium Chloride 0.9% 100 ML IVPB SCH ×4 (05:30→21:58)
[2022-06-09] MEDS: metroNIDAZOLE 500 MG in Premix Bag 1 BAG IVPB SCH ×3 (05:30→22:00)
[2022-06-09] MEDS: Lactated Ringer's 1,000 ML IV SCH ×3 (05:30→18:36)
[2022-06-09] MEDS: Levalbuterol HCl 0.63 MG/3 ML NEB NEB SCH ×3 (08:02→18:34)
[2022-06-09] MEDS: Mometasone 200 MCG/Formoterol 5 MCG 120 PUFF INHALER INH SCH ×2 (08:03→18:34)
[2022-06-09] MEDS: Acetaminophen 325 MG TAB PO PRN ×3 (09:58→22:00)
[2022-06-09] MEDS: Montelukast Sodium 10 mg Tablet PO SCH (09:59)
[2022-06-09] MEDS: Ezetimibe 10 MG TAB PO SCH ×2 (09:59)
[2022-06-09] MEDS: Furosemide 20 MG TAB PO SCH (09:59)
[2022-06-09] MEDS: Empagliflozin 10 MG TAB PO SCH ×2 (09:59)
[2022-06-09] MEDS: Trospium 20 MG TAB PO SCH ×3 (09:59→21:41)
[2022-06-09] MEDS: Amiodarone 200 MG TAB PO SCH ×3 (09:59→21:41)
[2022-06-09] MEDS: Letrozole 2.5 MG TAB PO SCH (10:00)
[2022-06-09] MEDS: Senokot S 8.6-50 MG TAB PO SCH ×2 (10:00→21:41)
[2022-06-09] MEDS: Polyethylene Glycol 3350 17 GM Packet PO SCH (10:00)
[2022-06-09] MEDS: hydrOXYzine 25 MG TAB PO SCH (21:40)
[2022-06-09] MEDS: Enoxaparin Sodium 40 MG/0.4 ML SYRINGE SC SCH ×2 (21:41→23:24)
[2022-06-10 03:45] LABS: #Eosinphils 0.2 thou/uL (0.0-0.7); #Lymphocytes 0.8 thou/uL (1.20-3.40); #Monocytes 0.5 thou/uL (0.11-0.59); #Neutrophils 3.7 thou/uL (1.40-6.50); %Basophils 0.3 % (0.0-1.0); %Eosinophils 4.2 % (0.0-10.0); %Lymphocytes 15.6 % (21.0-51.0); %Monocytes 9.7 % (0.0-10.0); %Neutrophils 70.2 % (42.0-75.0); Hemoglobin 9.8 g/dL (12.0-16.0); Mean Corpuscular HGB CONC 31.2 g/dL (32.0-36.0); Mean Corpuscular Hemoglobin 27.9 pg (27.0-31.0); Mean Corpuscular Volume 89.6 fL (78.0-98.0); Mean Platelet Volume 8.2 fL (7.4-10.4); Platelet Count 156 thou/uL (130-400); RBC Distribution Width 15.5 % (11.5-14.5); Red Blood Cell (RBC) Count 3.52 mill/uL (4.20-5.40); White Blood Cell (WBC) Count 5.3 thou/uL (4.8-10.8)
[2022-06-10 03:56] LABS: Anion Gap 7 mmol/L (10-20); BUN (Urea Nitrogen) 9 mg/dL (9.8-20.1); Calc. Creatinine Clearance 79 mL/min (70-130); Carbon Dioxide 34 mmol/L (23-31); Chloride 103 mmol/L (98-107); Estimated GFR 76; Glucose 106 mg/dL (83-110); Potassium 3.2 mmol/L (3.5-5.1); Sodium 141 mmol/L (136-145)
[2022-06-10] MEDS: Acetaminophen 325 MG TAB PO PRN (04:40)
[2022-06-10] MEDS: Meropenem 1 GM in Sodium Chloride 0.9% 100 ML IVPB SCH ×3 (04:40→21:37)
[2022-06-10] MEDS: metroNIDAZOLE 500 MG in Premix Bag 1 BAG IVPB SCH ×2 (06:26→13:26)
[2022-06-10] MEDS: Lactated Ringer's 1,000 ML IV SCH ×2 (06:26→09:47)
[2022-06-10] MEDS: Levalbuterol HCl 0.63 MG/3 ML NEB NEB SCH ×3 (07:40→18:42)
[2022-06-10] MEDS: Mometasone 200 MCG/Formoterol 5 MCG 120 PUFF INHALER INH SCH ×2 (07:42→18:42)
[2022-06-10] MEDS: Senokot S 8.6-50 MG TAB PO SCH ×2 (08:11→20:55)
[2022-06-10] MEDS: Empagliflozin 10 MG TAB PO SCH (08:12)
[2022-06-10] MEDS: Amiodarone 200 MG TAB PO SCH ×3 (08:12→20:58)
[2022-06-10] MEDS: Montelukast Sodium 10 mg Tablet PO SCH (08:12)
[2022-06-10] MEDS: Furosemide 20 MG TAB PO SCH (08:12)
[2022-06-10] MEDS: Ezetimibe 10 MG TAB PO SCH (08:12)
[2022-06-10] MEDS: Trospium 20 MG TAB PO SCH ×2 (08:13→21:25)
[2022-06-10] MEDS: Polyethylene Glycol 3350 17 GM Packet PO SCH (08:13)
[2022-06-10] MEDS: Letrozole 2.5 MG TAB PO SCH (08:26)
[2022-06-10] MEDS ORDERED: Potassium Bicarbonate/Cit Ac 20 MEQ TAB PO SCH (09:15)
[2022-06-10] MEDS: Acetaminophen/Codeine 30-300mg Tablet PO PRN (13:25)
[2022-06-10] MEDS: Ondansetron PF 4 MG/2 ML Vial IVP PRN (13:51)
[2022-06-10] MEDS: Enoxaparin Sodium 40 MG/0.4 ML SYRINGE SC SCH (21:16)
[2022-06-10] MEDS: hydrOXYzine 25 MG TAB PO SCH (21:25)
[2022-06-11] MEDS: metroNIDAZOLE 500 MG in Premix Bag 1 BAG IVPB SCH ×4 (02:08→22:34)
[2022-06-11] MEDS: Lactated Ringer's 1,000 ML IV SCH ×2 (02:09→22:37)
[2022-06-11] MEDS: Meropenem 1 GM in Sodium Chloride 0.9% 100 ML IVPB SCH ×3 (04:49→22:35)
[2022-06-11 05:39] LABS: Anion Gap 10 mmol/L (10-20); BUN (Urea Nitrogen) 8 mg/dL (9.8-20.1); Calc. Creatinine Clearance 84 mL/min (70-130); Calcium 8.4 mg/dL (7.8-10.44); Carbon Dioxide 31 mmol/L (23-31); Chloride 103 mmol/L (98-107); Estimated GFR 81; Glucose 93 mg/dL (83-110); Potassium 3.5 mmol/L (3.5-5.1); Sodium 140 mmol/L (136-145)
[2022-06-11 05:43] LABS: #Eosinphils 0.3 thou/uL (0.0-0.7); #Lymphocytes 0.9 thou/uL (1.20-3.40); #Monocytes 0.7 thou/uL (0.11-0.59); #Neutrophils 4.5 thou/uL (1.40-6.50); %Basophils 0.4 % (0.0-1.0); %Eosinophils 4.6 % (0.0-10.0); %Monocytes 10.5 % (0.0-10.0); %Neutrophils 70.4 % (42.0-75.0); Hemoglobin 9.9 g/dL (12.0-16.0); Mean Corpuscular HGB CONC 29.9 g/dL (32.0-36.0); Mean Corpuscular Hemoglobin 27.3 pg (27.0-31.0); Mean Corpuscular Volume 91.2 fL (78.0-98.0); Mean Platelet Volume 8.1 fL (7.4-10.4); Platelet Count 193 thou/uL (130-400); RBC Distribution Width 15.6 % (11.5-14.5); Red Blood Cell (RBC) Count 3.64 mill/uL (4.20-5.40); White Blood Cell (WBC) Count 6.4 thou/uL (4.8-10.8)
[2022-06-11] MEDS: Mometasone 200 MCG/Formoterol 5 MCG 120 PUFF INHALER INH SCH ×2 (07:07→19:18)
[2022-06-11] MEDS: Levalbuterol HCl 0.63 MG/3 ML NEB NEB SCH ×3 (07:07→19:17)
[2022-06-11] MEDS: Ondansetron PF 4 MG/2 ML Vial IVP PRN (08:22)
[2022-06-11] MEDS: Senokot S 8.6-50 MG TAB PO SCH ×2 (09:58→22:34)
[2022-06-11] MEDS: Ezetimibe 10 MG TAB PO SCH (09:58)
[2022-06-11] MEDS: Trospium 20 MG TAB PO SCH ×2 (09:58→22:33)
[2022-06-11] MEDS: Polyethylene Glycol 3350 17 GM Packet PO SCH (09:58)
[2022-06-11] MEDS: Furosemide 20 MG TAB PO SCH (09:58)
[2022-06-11] MEDS: Amiodarone 200 MG TAB PO SCH ×3 (09:59→22:34)
[2022-06-11] MEDS: Letrozole 2.5 MG TAB PO SCH (09:59)
[2022-06-11] MEDS: Acetaminophen/Codeine 30-300mg Tablet PO PRN ×2 (09:59→15:21)
[2022-06-11] MEDS: Montelukast Sodium 10 mg Tablet PO SCH (09:59)
[2022-06-11] MEDS: Empagliflozin 10 MG TAB PO SCH (09:59)
[2022-06-11] MEDS ORDERED: Enoxaparin Sodium 40 MG/0.4 ML SYRINGE SC SCH (10:30)
[2022-06-11] MEDS: hydrOXYzine 25 MG TAB PO SCH (22:33)
[2022-06-12] MEDS: Lactated Ringer's 1,000 ML IV SCH (04:56)
[2022-06-12] MEDS: Meropenem 1 GM in Sodium Chloride 0.9% 100 ML IVPB SCH ×3 (04:56→20:53)
[2022-06-12] MEDS: metroNIDAZOLE 500 MG in Premix Bag 1 BAG IVPB SCH ×3 (04:56→20:55)
[2022-06-12 06:00] LABS: #Eosinphils 0.3 thou/uL (0.0-0.7); #Monocytes 0.5 thou/uL (0.11-0.59); %Basophils 0.7 % (0.0-1.0); %Lymphocytes 20.1 % (21.0-51.0); %Monocytes 10.8 % (0.0-10.0); %Neutrophils 62.3 % (42.0-75.0); Hemoglobin 9.5 g/dL (12.0-16.0); Mean Corpuscular HGB CONC 30.9 g/dL (32.0-36.0); Mean Corpuscular Hemoglobin 28.1 pg (27.0-31.0); Mean Corpuscular Volume 90.8 fL (78.0-98.0); Mean Platelet Volume 8.2 fL (7.4-10.4); Platelet Count 191 thou/uL (130-400); RBC Distribution Width 15.5 % (11.5-14.5); Red Blood Cell (RBC) Count 3.38 mill/uL (4.20-5.40); White Blood Cell (WBC) Count 4.8 thou/uL (4.8-10.8)
[2022-06-12 06:14] LABS: Anion Gap 8 mmol/L (10-20); BUN (Urea Nitrogen) 6 mg/dL (9.8-20.1); Calc. Creatinine Clearance 93 mL/min (70-130); Calcium 8.4 mg/dL (7.8-10.44); Carbon Dioxide 34 mmol/L (23-31); Chloride 102 mmol/L (98-107); Estimated GFR 88; Glucose 96 mg/dL (83-110); Potassium 3.3 mmol/L (3.5-5.1); Sodium 141 mmol/L (136-145)
[2022-06-12] MEDS: Mometasone 200 MCG/Formoterol 5 MCG 120 PUFF INHALER INH SCH ×2 (07:24→19:24)
[2022-06-12] MEDS: Levalbuterol HCl 0.63 MG/3 ML NEB NEB SCH ×3 (07:25→19:23)
[2022-06-12] MEDS: Polyethylene Glycol 3350 17 GM Packet PO SCH (09:13)
[2022-06-12] MEDS: Enoxaparin Sodium 40 MG/0.4 ML SYRINGE SC SCH (09:13)
[2022-06-12] MEDS: Letrozole 2.5 MG TAB PO SCH (09:14)
[2022-06-12] MEDS: Senokot S 8.6-50 MG TAB PO SCH ×2 (09:14→20:56)
[2022-06-12] MEDS: Furosemide 20 MG TAB PO SCH (09:14)
[2022-06-12] MEDS: Ezetimibe 10 MG TAB PO SCH (09:14)
[2022-06-12] MEDS: Montelukast Sodium 10 mg Tablet PO SCH (09:15)
[2022-06-12] MEDS: Amiodarone 200 MG TAB PO SCH ×3 (09:15→20:56)
[2022-06-12] MEDS: Empagliflozin 10 MG TAB PO SCH (09:15)
[2022-06-12] MEDS: Trospium 20 MG TAB PO SCH ×2 (09:18→20:56)
[2022-06-12] MEDS ORDERED: Potassium Chloride 20 MEQ TAB PO SCH (11:00)
[2022-06-12] MEDS: Acetaminophen 325 MG TAB PO PRN (15:41)
[2022-06-12] MEDS: hydrOXYzine 25 MG TAB PO SCH (20:56)
[2022-06-13] MEDS: Meropenem 1 GM in Sodium Chloride 0.9% 100 ML IVPB SCH ×3 (04:00→20:34)
[2022-06-13 05:24] LABS: #Eosinphils 0.3 thou/uL (0.0-0.7); #Lymphocytes 1.1 thou/uL (1.20-3.40); #Monocytes 0.5 thou/uL (0.11-0.59); #Neutrophils 3.1 thou/uL (1.40-6.50); %Basophils 0.9 % (0.0-1.0); %Lymphocytes 21.5 % (21.0-51.0); %Monocytes 10.4 % (0.0-10.0); %Neutrophils 61.2 % (42.0-75.0); Hemoglobin 9.8 g/dL (12.0-16.0); Mean Corpuscular HGB CONC 29.9 g/dL (32.0-36.0); Mean Corpuscular Hemoglobin 26.7 pg (27.0-31.0); Mean Corpuscular Volume 89.4 fL (78.0-98.0); Mean Platelet Volume 7.9 fL (7.4-10.4); Platelet Count 202 thou/uL (130-400); RBC Distribution Width 15.5 % (11.5-14.5); Red Blood Cell (RBC) Count 3.66 mill/uL (4.20-5.40)
[2022-06-13 05:38] LABS: Anion Gap 12 mmol/L (10-20); BUN (Urea Nitrogen) 5 mg/dL (9.8-20.1); Calc. Creatinine Clearance 86 mL/min (70-130); Calcium 8.6 mg/dL (7.8-10.44); Carbon Dioxide 29 mmol/L (23-31); Chloride 103 mmol/L (98-107); Estimated GFR 83; Glucose 116 mg/dL (83-110); Potassium 3.8 mmol/L (3.5-5.1); Sodium 140 mmol/L (136-145)
[2022-06-13] MEDS: metroNIDAZOLE 500 MG in Premix Bag 1 BAG IVPB SCH ×3 (05:56→21:23)
[2022-06-13] MEDS: Levalbuterol HCl 0.63 MG/3 ML NEB NEB SCH ×3 (07:00→18:57)
[2022-06-13] MEDS ORDERED: Spironolactone 25 MG TAB PO SCH (08:30)
[2022-06-13] MEDS ORDERED: Furosemide 40 MG/4 ML VIAL SLOW IVP SCH (08:30)
[2022-06-13] MEDS ORDERED: Potassium Chloride 20 MEQ TAB PO SCH (08:30)
[2022-06-13] MEDS ORDERED: Furosemide 20 MG/2 ML VIAL SLOW IVP SCH (08:30)
[2022-06-13] MEDS: Letrozole 2.5 MG TAB PO SCH (09:05)
[2022-06-13] MEDS: Enoxaparin Sodium 40 MG/0.4 ML SYRINGE SC SCH (09:05)
[2022-06-13] MEDS: Trospium 20 MG TAB PO SCH ×2 (09:06→20:35)
[2022-06-13] MEDS: Polyethylene Glycol 3350 17 GM Packet PO SCH (09:06)
[2022-06-13] MEDS: Montelukast Sodium 10 mg Tablet PO SCH (09:07)
[2022-06-13] MEDS: Ezetimibe 10 MG TAB PO SCH (09:07)
[2022-06-13] MEDS: Senokot S 8.6-50 MG TAB PO SCH ×2 (09:07→20:35)
[2022-06-13] MEDS: Empagliflozin 10 MG TAB PO SCH (09:07)
[2022-06-13] MEDS: Amiodarone 200 MG TAB PO SCH ×3 (09:07→20:34)
[2022-06-13] MEDS: Mometasone 200 MCG/Formoterol 5 MCG 120 PUFF INHALER INH SCH ×2 (11:02→18:58)
[2022-06-13] MEDS: Furosemide 20 MG/2 ML VIAL SLOW IVP SCH (14:19)
[2022-06-13] MEDS: Nystatin 500,000 UNITS/5 ML UDCUP SSW SCH ×2 (16:27→20:35)
[2022-06-13] MEDS: hydrOXYzine 25 MG TAB PO SCH (20:34)
[2022-06-14] MEDS: Meropenem 1 GM in Sodium Chloride 0.9% 100 ML IVPB SCH ×3 (03:03→19:48)
[2022-06-14] MEDS: Furosemide 20 MG/2 ML VIAL SLOW IVP SCH ×2 (05:19→16:32)
[2022-06-14] MEDS: metroNIDAZOLE 500 MG in Premix Bag 1 BAG IVPB SCH ×3 (05:19→22:47)
[2022-06-14 05:29] LABS: #Eosinphils 0.3 thou/uL (0.0-0.7); #Monocytes 0.5 thou/uL (0.11-0.59); #Neutrophils 3.4 thou/uL (1.40-6.50); %Basophils 0.4 % (0.0-1.0); %Eosinophils 5.5 % (0.0-10.0); %Lymphocytes 18.4 % (21.0-51.0); %Monocytes 10.4 % (0.0-10.0); %Neutrophils 65.3 % (42.0-75.0); Hemoglobin 9.9 g/dL (12.0-16.0); Mean Corpuscular HGB CONC 30.6 g/dL (32.0-36.0); Mean Corpuscular Hemoglobin 27.5 pg (27.0-31.0); Mean Corpuscular Volume 89.9 fL (78.0-98.0); Mean Platelet Volume 7.9 fL (7.4-10.4); Platelet Count 213 thou/uL (130-400); RBC Distribution Width 15.4 % (11.5-14.5); Red Blood Cell (RBC) Count 3.59 mill/uL (4.20-5.40); White Blood Cell (WBC) Count 5.2 thou/uL (4.8-10.8)
[2022-06-14 05:48] LABS: BUN (Urea Nitrogen) 6 mg/dL (9.8-20.1); Calc. Creatinine Clearance 88 mL/min (70-130); Calcium 8.9 mg/dL (7.8-10.44); Estimated GFR 85; Glucose 117 mg/dL (83-110)
[2022-06-14 05:57] LABS: Anion Gap 13 mmol/L (10-20); Carbon Dioxide 35 mmol/L (23-31); Chloride 99 mmol/L (98-107); Potassium 3.6 mmol/L (3.5-5.1); Sodium 143 mmol/L (136-145)
[2022-06-14] MEDS: Mometasone 200 MCG/Formoterol 5 MCG 120 PUFF INHALER INH SCH ×2 (07:12→18:39)
[2022-06-14] MEDS: Levalbuterol HCl 0.63 MG/3 ML NEB NEB SCH ×3 (07:12→18:35)
[2022-06-14] MEDS: Trospium 20 MG TAB PO SCH ×2 (08:50→19:48)
[2022-06-14] MEDS: Senokot S 8.6-50 MG TAB PO SCH ×2 (08:50→19:48)
[2022-06-14] MEDS: Nystatin 500,000 UNITS/5 ML UDCUP SSW SCH ×4 (08:50→19:48)
[2022-06-14] MEDS: Ezetimibe 10 MG TAB PO SCH (08:51)
[2022-06-14] MEDS: Montelukast Sodium 10 mg Tablet PO SCH (08:51)
[2022-06-14] MEDS: Empagliflozin 10 MG TAB PO SCH (08:51)
[2022-06-14] MEDS: Spironolactone 25 MG TAB PO SCH (08:51)
[2022-06-14] MEDS: Amiodarone 200 MG TAB PO SCH ×3 (08:51→19:48)
[2022-06-14] MEDS: Letrozole 2.5 MG TAB PO SCH (08:52)
[2022-06-14] MEDS: Polyethylene Glycol 3350 17 GM Packet PO SCH (08:52)
[2022-06-14] MEDS: Enoxaparin Sodium 40 MG/0.4 ML SYRINGE SC SCH (08:52)
[2022-06-14] MEDS ORDERED: Potassium Chloride 20 MEQ TAB PO SCH (12:00)
[2022-06-14] MEDS: hydrOXYzine 25 MG TAB PO SCH (19:48)
[2022-06-15] MEDS: hydrOXYzine 25 MG TAB PO PRN (03:39)
[2022-06-15] MEDS: Meropenem 1 GM in Sodium Chloride 0.9% 100 ML IVPB SCH ×2 (03:39→11:16)
[2022-06-15 05:18] LABS: #Eosinphils 0.3 thou/uL (0.0-0.7); #Lymphocytes 1.1 thou/uL (1.20-3.40); #Monocytes 0.5 thou/uL (0.11-0.59); #Neutrophils 3.6 thou/uL (1.40-6.50); %Basophils 0.2 % (0.0-1.0); %Eosinophils 5.1 % (0.0-10.0); %Lymphocytes 19.9 % (21.0-51.0); %Neutrophils 65.8 % (42.0-75.0); Hemoglobin 10.5 g/dL (12.0-16.0); Mean Corpuscular Hemoglobin 27.8 pg (27.0-31.0); Mean Corpuscular Volume 89.6 fL (78.0-98.0); Mean Platelet Volume 7.8 fL (7.4-10.4); Platelet Count 216 thou/uL (130-400); RBC Distribution Width 15.5 % (11.5-14.5); Red Blood Cell (RBC) Count 3.77 mill/uL (4.20-5.40); White Blood Cell (WBC) Count 5.5 thou/uL (4.8-10.8)
[2022-06-15 05:29] LABS: Anion Gap 13 mmol/L (10-20); BUN (Urea Nitrogen) 8 mg/dL (9.8-20.1); Calc. Creatinine Clearance 80 mL/min (70-130); Carbon Dioxide 36 mmol/L (23-31); Chloride 96 mmol/L (98-107); Estimated GFR 76; Glucose 112 mg/dL (83-110); Potassium 3.7 mmol/L (3.5-5.1); Sodium 141 mmol/L (136-145)
[2022-06-15] MEDS: Furosemide 20 MG/2 ML VIAL SLOW IVP SCH ×2 (06:12→14:01)
[2022-06-15] MEDS: metroNIDAZOLE 500 MG in Premix Bag 1 BAG IVPB SCH ×2 (06:12→14:02)
[2022-06-15] MEDS: Levalbuterol HCl 0.63 MG/3 ML NEB NEB SCH ×2 (07:04→14:28)
[2022-06-15] MEDS: Mometasone 200 MCG/Formoterol 5 MCG 120 PUFF INHALER INH SCH (07:05)
[2022-06-15] MEDS ORDERED: Potassium Chloride 20 MEQ TAB PO SCH (08:00)
[2022-06-15] MEDS: Trospium 20 MG TAB PO SCH (09:53)
[2022-06-15] MEDS: Montelukast Sodium 10 mg Tablet PO SCH (09:53)
[2022-06-15] MEDS: Nystatin 500,000 UNITS/5 ML UDCUP SSW SCH ×2 (09:53→14:01)
[2022-06-15] MEDS: Spironolactone 25 MG TAB PO SCH (09:53)
[2022-06-15] MEDS: Polyethylene Glycol 3350 17 GM Packet PO SCH (09:53)
[2022-06-15] MEDS: Letrozole 2.5 MG TAB PO SCH (09:54)
[2022-06-15] MEDS: Amiodarone 200 MG TAB PO SCH (09:55)
[2022-06-15] MEDS: Enoxaparin Sodium 40 MG/0.4 ML SYRINGE SC SCH ×2 (09:55→11:16)
[2022-06-15] MEDS: Empagliflozin 10 MG TAB PO SCH (09:55)
[2022-06-15] MEDS: Ezetimibe 10 MG TAB PO SCH (09:55)
[2022-06-15] MEDS: Senokot S 8.6-50 MG TAB PO SCH (09:55)
[2022-06-15 12:43] VITALS: BP 117/74; TEMP 96.5
[2022-06-16] MEDS ORDERED: Apixaban 2.5 MG TAB PO SCH (09:00)
== END 2022-06-15 14:42 | disposition home or self-care (01) | DRG 329 ==
LOC: ERS 06:34 → MSONC 08:55 → 2NO 05-28 03:08 → IMCU/EMU 06-08 20:32 → NEURO 06-10 18:20
PROVIDERS: ADMIT Internal Medicine; ATTEND Internal Medicine
PROC: 5A09557 Assistance with Respiratory Ventilation, Greater than 96 Consecutive Hours, Continuous Positive Airway Pressure (ICD-10-PCS; principal; 2022-05-27)
PROC: 0DJD8ZZ Inspection of Lower Intestinal Tract, Via Natural or Artificial Opening Endoscopic (ICD-10-PCS; 2022-06-07)
PROC: 0D9670Z Drainage of Stomach with Drainage Device, Via Natural or Artificial Opening (ICD-10-PCS; 2022-06-07)
PROC: 0D1N4Z4 Bypass Sigmoid Colon to Cutaneous, Percutaneous Endoscopic Approach (ICD-10-PCS; 2022-06-08)
DX: K57.32 Diverticulitis of large intestine without perforation or abscess without bleeding (principal); I50.33 Acute on chronic diastolic (congestive) heart failure; J96.21 Acute and chronic respiratory failure with hypoxia; I48.19 Other persistent atrial fibrillation; K56.600 Partial intestinal obstruction, unspecified as to cause; Z20.822 Contact with and (suspected) exposure to COVID-19; K21.9 Gastro-esophageal reflux disease without esophagitis; J45.909 Unspecified asthma, uncomplicated; R31.0 Gross hematuria; I11.0 Hypertensive heart disease with heart failure; Z96.653 Presence of artificial knee joint, bilateral; K59.00 Constipation, unspecified; D64.9 Anemia, unspecified; K66.0 Peritoneal adhesions (postprocedural) (postinfection); E87.6 Hypokalemia; R13.12 Dysphagia, oropharyngeal phase; Z88.1 Allergy status to other antibiotic agents; Z88.5 Allergy status to narcotic agent; Z88.8 Allergy status to other drugs, medicaments and biological substances; Z88.2 Allergy status to sulfonamides; Z88.0 Allergy status to penicillin; Z91.048 Other nonmedicinal substance allergy status; Z85.3 Personal history of malignant neoplasm of breast; Z79.01 Long term (current) use of anticoagulants; Z79.84 Long term (current) use of oral hypoglycemic drugs; Z79.51 Long term (current) use of inhaled steroids; Z79.899 Other long term (current) drug therapy; Z90.49 Acquired absence of other specified parts of digestive tract; Z98.890 Other specified postprocedural states; Z87.891 Personal history of nicotine dependence; Z87.442 Personal history of urinary calculi
CPT/HCPCS: 36415; 36416; 71045; 74018; 74019; 74177; 74230; 80048; 80053; 81015; 82550; 83690; 83735; 83880; 84100; 84134; 85025; 85027; 85652; 86140; 87086; 87811; 93005; 93010; 94640; 94660; 96365; 96375; A4649; C1776; J0171; J0282; J1650; J1940; J2185; J2250; J2270; J2370; J2405; J2704; J2930; J3010; J3480; J3490; J7050; J7070; J7120; J7614; J7620; P9045; Q0163; Q9967; S0020; U0002